=== PATIENT | male | born 1935 | race Caucasian/White ===

== ENCOUNTER 2019-03-09 09:49 | Outpatient (CLI) | payer MEDICARE, OTHER, SELFPAY ==
--- NOTE | 2019-03-09 09:53 | USCV_ITS ---
Jose Mcdonnell Age: 83 Gender: M : 1935 Exam Date: 03/09/2019 10:05 Ordering Phys: Forrest Ann MD ([email or web address]) Technologist: Loren Patel Exam Location: [facility] – [place] Indication: AAA HISTORY: Diameter (cm) AP x Transverse x Length Velocity (cm/s) Waveform Prox Aorta: 2.30 x 2.26 x 2.23 33.30 Mid Aorta: 2.50 x 2.42 x 2.49 34.70 Distal Aorta: 3.68 x 3.74 x 3.63 24.90 Right Iliac Prox: 1.06 x 1.14 x 54.80 Left Iliac Prox: 0.92 x 1.42 x 30.50 Stent Prox Landing x x Aneurysmal Sac Max x x Lt Lat Sac Dim Rt Lat Sac Dim Stent Dist Landing x x Right Iliac Stent x x Left Iliac Stent x x Right Renal Art Left Renal Art FINDINGS: Ectatic mid abdominal aorta Fusiform dilatation of the distal abdominal aorta CONCLUSIONS 1. Infrarenal, fusiform shaped abdominal aortic aneurysm, measuring 3.68 x 3.74 cm in diameter with no evidence of dissection 2. Ectatic mid abdominal aorta measuring 2.5 x 2.4 cm in diameter 3. Normal proximal aortic artery dimensions Compared to the study from 02/27/2018, there is no significant change in the aneurysm size. Dr Alec Arias MD [facility] (Electronically Signed) Final Date: 11 March 2019 18:25 S
== END 2019-03-09 09:50 | disposition home or self-care (01) ==
LOC: RAD 09:50
PROVIDERS: Family Provider Internal Medicine; Visit Provider Internal Medicine Cardiovascular Disease
DX: I71.4 Abdominal aortic aneurysm, without rupture (principal)
CPT/HCPCS: 93978

== ENCOUNTER → 2019-12-14 09:32 | Outpatient (BNVA) | payer MEDICARE, OTHER, SELFPAY | PROVIDERS: Family Provider Internal Medicine; PCP Registered Nurse; Referring Provider Registered Nurse; Visit Provider Urology | DX: N41.1 Chronic prostatitis (principal); R97.20 Elevated prostate specific antigen [PSA]; Z12.5 Encounter for screening for malignant neoplasm of prostate | CPT/HCPCS: 81003; G0103 ==

== ENCOUNTER 2020-02-28 07:24 | Outpatient (CLI) | payer MEDICARE, OTHER, SELFPAY ==
--- NOTE | 2020-02-28 08:00 | USCV_ITS ---
Jose Mcdonnell Age: 84 Gender: M : 1935 Exam Date: 02/28/2020 07:25 Ordering Phys: Abisai Saldana M.D ([email or web address]) Technologist: Rizwan Kolb [place] [facility] [place]: AAA HISTORY: AAA Diameter (cm) AP x Transverse x Length Velocity (cm/s) Waveform Prox Aorta: 1.54 x 1.79 x 60.00 Biphasic Mid Aorta: 2.83 x 3.10 x 55.50 Biphasic Distal Aorta: 3.41 x 3.84 x 38.40 Biphasic Right Iliac Prox: 1.22 x 1.09 x 105.70 Biphasic Left Iliac Prox: 1.29 x 1.13 x 120.60 Biphasic Stent Prox Landing x x Aneurysmal Sac Max x x Lt Lat Sac Dim Rt Lat Sac Dim Stent Dist Landing x x Right Iliac Stent x x Left Iliac Stent x x Right Renal Art Left Renal Art FINDINGS: All to moderate diffuse plaques in the abdominal aorta. The perirenal aorta appears to be dilated fusiform dilatation of the infrarenal aorta. Normal dimensions of the proximal common iliac arteries CONCLUSIONS 1. Fusiform aneurysms of the mid and distal abdominal aorta, measuring 2.83 x 3.1 proximally and 3.41 x 3.84 distally. 2. Mild to moderate diffuse plaques in the abdominal aorta. 3. Normal dimensions of the proximal common iliac arteries bilaterally. Compared to the study from 03/09/2019, there may not be a significant change Dr Alec Arias MD [facility] (Electronically Signed) Final Date: 29 February 2020 14:05 S
== END 2020-02-28 07:25 | disposition home or self-care (01) ==
LOC: RAD 07:27
PROVIDERS: Family Provider Internal Medicine; PCP Registered Nurse; Visit Provider Internal Medicine
DX: I71.4 Abdominal aortic aneurysm, without rupture (principal)
CPT/HCPCS: 93978

== ENCOUNTER → 2020-03-18 13:46 | Outpatient (BNVA) | payer MEDICARE, OTHER, SELFPAY | PROVIDERS: Family Provider Internal Medicine; PCP Registered Nurse; Visit Provider Urology | DX: R97.20 Elevated prostate specific antigen [PSA] (principal); N41.1 Chronic prostatitis; N40.1 Benign prostatic hyperplasia with lower urinary tract symptoms | CPT/HCPCS: 81003; 84153 ==

== ENCOUNTER → 2021-03-17 14:27 | Outpatient (BNVA) | payer MEDICARE, OTHER, SELFPAY | PROVIDERS: Family Provider Internal Medicine; PCP Registered Nurse; Visit Provider Nurse Practitioner Family | DX: N40.1 Benign prostatic hyperplasia with lower urinary tract symptoms (principal); R97.20 Elevated prostate specific antigen [PSA] | CPT/HCPCS: 81003; 84153 ==

== ENCOUNTER 2021-06-29 08:49 | Outpatient (CLI) | payer MEDICARE, OTHER, SELFPAY ==
--- NOTE | 2021-06-29 08:57 | USCV_ITS ---
Jose Mcdonnell Age: 85 Gender: M : 1935 Exam Date: 06/29/2021 09:06 Ordering Phys: Abisai Saldana M.D ([email or web address]) Technologist: Sandra Rsoario Exam Location: [facility] – [place] Indication: Known AAA HISTORY: Diameter (cm) AP x Transverse x Length Velocity (cm/s) Waveform Prox Aorta: 1.68 x 2.08 x 55.90 Mid Aorta: 2.13 x 2.58 x 61.50 Distal Aorta: 3.76 x 4.39 x 23.20 Right Iliac Prox: 1.44 x 1.62 x 102.60 Left Iliac Prox: 1.21 x 1.43 x 71.10 Stent Prox Landing x x Aneurysmal Sac Max x x Lt Lat Sac Dim Rt Lat Sac Dim Stent Dist Landing x x Right Iliac Stent x x Left Iliac Stent x x Right Renal Art Left Renal Art FINDINGS: Fusiform dilatation of the infrarenal aorta measuring 3.76 x 4.39 cm Organized circumferential thrombus in the aneurysm To moderate diffuse plaques in the proximal common iliac arteries Dimensions as mentioned above Near normal Doppler flow velocities in the aorta and iliac arteries CONCLUSIONS 1. Fusiform infrarenal abdominal aortic aneurysm measuring 3.76 x 4.39 cm with organized circumferential thrombus. 2. Mild to moderate plaques in the abdominal aorta 3. Ectatic proximal common iliac arteries with a mild to moderate diffuse plaque Compared to the study from 02/28/2020, there is slight increase in size of the aneurysm Dr Alec Arias MD [facility] (Electronically Signed) Final Date: 30 Jun 2021 09:36 S
--- NOTE | 2021-06-29 08:57 | USCV_ITS ---
Jose Mcdonnell Age: 85 Gender: M : 1935 Exam Date: 06/29/2021 09:22 Ordering Phys: Abisai Saldana M.D ([email or web address]) Technologist: Sandra Rosario Exam Location: [facility] – [place] Indication: Known AAA Risk Factors: Previous Vascular Surgery: RIGHT LEFT BP: 143.0 / 62.00 BP: 166.0/ 62.00 0 0 Waveform Velocity (cm/s) Velocity (cm/s) Waveform Biphasic 98.6 Iliac Prox 129.5 Biphasic Biphasic 110.3 Iliac Mid 113.6 Biphasic Biphasic 102.7 Iliac Distal 119.3 Biphasic Biphasic 59.6 SUPERVISOR CARDING 67.1 Biphasic Biphasic 54.7 SFA Prox 49.0 Biphasic Biphasic 59.6 SFA Mid 44.9 Biphasic Biphasic 131.5 SFA Dist 87.0 Biphasic Biphasic 55.9 POP 37.6 Biphasic THERAPEUTIC RADIOLOGIST 24.7 Monophasic Biphasic 31.9 DPA 36.6 Biphasic NAIMA 0.5 0.6 FINDINGS RT THERAPEUTIC RADIOLOGIST NO FLOW RT DPA 100 LT THERAPEUTIC RADIOLOGIST 70 LT DPA 70 Moderate diffuse plaques in the iliac and femoral artery on the right side. Moderately severe heterogeneous plaques in the left iliac and femoral arteries Abnormal resting NAIMA 0.6 on the right and 0.5 on the left CONCLUSIONS 1. Abnormal resting ABIs bilaterally suggesting moderately severe peripheral artery disease on the right side and severe peripheral artery disease on the left side.(NAIMA of 0.6 on the right and 0.5 on the left). 2. Possible total occlusion of the posterior tibial artery on the right side. No similar previous studies are available for comparison Dr Alec Arias MD [facility] (Electronically Signed) Final Date: 29 Jun 2021 21:20 S
== END 2021-06-29 08:50 | disposition home or self-care (01) ==
LOC: RAD 08:53
PROVIDERS: PCP Registered Nurse; Visit Provider Internal Medicine
DX: I71.4 Abdominal aortic aneurysm, without rupture (principal); I71.2 Thoracic aortic aneurysm, without rupture; M79.605 Pain in left leg; I77.811 Abdominal aortic ectasia
CPT/HCPCS: 93925; 93978

== ENCOUNTER 2021-07-08 06:51 | Outpatient (CLI) | payer MEDICARE, OTHER, SELFPAY ==
--- NOTE | 2021-07-08 06:59 | US_ITS ---
WS: [id number] ULTRASOUND SOFT TISSUES LEFT posterior neck. HISTORY: lt neck mass COMPARISON: None available. TECHNIQUE: 2-D and color Doppler imaging is submitted. No suspicious mass or increased vascularity identified. In the area of the palpable abnormality there is an elongated taper soft tissue which is very similar to the adjacent muscles. I favor this is pro bably a slip of muscle. This does not appear concerning. US/US soft tissue/extremity [id number] IMPRESSION: No concerning mass in the LEFT neck. Clinically if there is an area of concern then follow-up neck CT with IV contrast is recommended.
== END 2021-07-08 06:52 | disposition home or self-care (01) ==
LOC: RAD 06:53
PROVIDERS: PCP Registered Nurse; Visit Provider Nurse Practitioner Family
DX: R22.1 Localized swelling, mass and lump, neck (principal)
CPT/HCPCS: 76882

== ENCOUNTER → 2021-09-08 14:14 | Outpatient (BNVA) | payer MEDICARE, OTHER, SELFPAY | PROVIDERS: PCP Family Medicine; Visit Provider Internal Medicine | DX: Z53.9 Procedure and treatment not carried out, unspecified reason (principal) ==

== ENCOUNTER 2022-03-02 07:06 | Outpatient (CLI) | payer MEDICARE, OTHER, SELFPAY ==
--- NOTE | 2022-03-02 | USCV_ITS ---
Jose Mcdonnell Age: 86 Gender: M : 1935 Exam Date: 03/02/2022 07:32 Ordering Phys: Abisai Saldana M.D ([email or web address]) Technologist: RAYMON Exam Location: [facility] [place] Indication: AAA HISTORY: Abdominal aortic aneurysm. Diameter (cm) AP x Transverse x Length Velocity (cm/s) Waveform Prox Aorta: 1.60 x 1.68 x 59.20 Mid Aorta: 1.66 x 1.99 x 57.00 Distal Aorta: 3.70 x 4.14 x 6.03 29.20 Right Iliac Prox: 1.04 x 0.97 x 94.70 Left Iliac Prox: 1.18 x 1.53 x 152.50 Stent Prox Landing x x Aneurysmal Sac Max x x Lt Lat Sac Dim Rt Lat Sac Dim Stent Dist Landing x x Right Iliac Stent x x Left Iliac Stent x x Right Renal Art Left Renal Art FINDINGS: Comparison 06/29/21 CONCLUSIONS Fusiform AAA measures 3.7 x 4.1cm stable compared to previous. Moderate mural thrombus Stable slightly ectatic iliac arteries Timmy Menard MD (Electronically Signed) Final Date: 02 March 2022 10:46 S
== END 2022-03-02 07:07 | disposition home or self-care (01) ==
LOC: RAD 07:09
PROVIDERS: PCP Family Medicine; Visit Provider Internal Medicine
DX: I71.40 Abdominal aortic aneurysm, without rupture, unspecified (principal); I74.09 Other arterial embolism and thrombosis of abdominal aorta
CPT/HCPCS: 93978

== ENCOUNTER → 2022-03-10 14:08 | Outpatient (BNVA) | payer MEDICARE, OTHER, SELFPAY | PROVIDERS: PCP Family Medicine; Visit Provider Internal Medicine | DX: I10 Essential (primary) hypertension (principal); Z95.1 Presence of aortocoronary bypass graft; E78.01 Familial hypercholesterolemia; I25.10 Atherosclerotic heart disease of native coronary artery without angina pectoris; Z86.73 Personal history of transient ischemic attack (TIA), and cerebral infarction without residual deficits; Z87.891 Personal history of nicotine dependence; I71.40 Abdominal aortic aneurysm, without rupture, unspecified | CPT/HCPCS: 99214 ==

== ENCOUNTER → 2022-03-16 13:13 | Outpatient (BNVA) | payer MEDICARE, OTHER, SELFPAY | PROVIDERS: PCP Family Medicine; Visit Provider Urology | DX: N40.1 Benign prostatic hyperplasia with lower urinary tract symptoms (principal); N41.1 Chronic prostatitis; R97.20 Elevated prostate specific antigen [PSA] | CPT/HCPCS: 36415; 51798; 81003; 84153; 99213 ==

== ENCOUNTER 2022-07-05 10:58 | Inpatient (IN) | payer MEDICARE, OTHER, SELFPAY ==
[2022-07-02 16:59] VITALS: BMI 27.3
--- NOTE | 2022-07-02 17:08 | PC.NURSE ---
Pt added to surgery schedule late Tuesday afternoon. Dr. Troncoso called and verified with him that this pt did not need cardiac clearance prior to surgery due to his significant history. Relayed to him that the patient is also currently on Plavix. He instructed me to complete preop and speak with Dr. Bernardo office to clarify that the benefit is worth the risk. Dr. Bernardo office informed me that the patient was instructed this afternoon to hold Plavix until after surgery, they stated that the patient did not have 7 days to wait for surgery due to his airway compromise. When completing my telephone preop I emphasized and had the patients son verbalize understanding of the importance of holding the plavix and all asprin/NSAIDS until after the surgery.
[2022-07-05] VITALS (69 sets, daily range): BP systolic 128–196; BP diastolic 63–109; PULSE 60–127; RESP 11–30; TEMP 36.3–37.2; O2SAT 90–100; BMI 25.0
--- NOTE | 2022-07-05 08:20 | P.ANESASSM_ITS ---
Pre-Anesthetic Assessment Height/Weight: Height 1.7 m Weight 72.575 kg Temp Pulse Resp BP Pulse Ox O2 Del Method 98.1 F 63 18 149/65 98 Room Air 07/05/22 08:03 07/05/22 08:03 07/05/22 08:03 07/05/22 08:03 07/05/22 08:03 07/05/22 08:07 Operation Date: 07/05/22 09:20 Proposed Procedures p Trach and DL with biopsy [id number],R22.1(Not Applicable) - William Vega MD s Direct Laryngoscopy Direct Larynoscopy w/ Vocal Cord Biopsy(Not Applicable) - William Vega MD Familial anesthetic complications: None Was Beta Juan Miguel taken within 24 hours: Yes Was Clonidine taken within 24 hours: N/A Last intake: Intake Last Liquid Date 07/05/22 Last Liquid Time 17:00 Last Solid Date 07/04/22 Last Solid Time 17:00 Social No alcohol and No tobacco Exam alert, oriented x 3, clear to auscultation bilaterally and regular rate & rhythm Airway Mallampati: Class III Dentition: false Comments: Comments: airway mass undefined took plavix as recently as tuesday - surgeon aware of less than 7 days CV/HEM 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), Coronary Artery Disease (abg), Hypertension and Myocardial Infarction AAA Anesthetic Plan ASA status: 4 Anesthesia: General Risk of > 500 ml blood loss (7ml/kg in children): No Other Pertinent Information Airway mass Medications/Allergies Home Medications Medication Instructions Recorded Confirmed Last Taken Type allopurinol 300 mg tablet 300 mg PO QDAY 03/13/19 07/02/22 07/02/22 History atorvastatin 20 mg tablet 20 mg PO QDAY 03/13/19 07/02/22 07/02/22 History clopidogrel 75 mg tablet 75 mg PO QDAY 03/13/19 07/02/22 07/01/22 History gabapentin 300 mg capsule 300 mg PO TID 03/13/19 07/02/22 07/02/22 History melatonin 5 mg tablet 5 mg PO .HS 03/13/19 07/02/22 07/02/22 History metoprolol tartrate 25 mg tablet 25 mg PO DAILY 03/14/19 07/02/22 07/02/22 History nitroglycerin 0.4 mg sublingual 0.4 mg sublingual Q5M PRN Chest 03/14/19 07/02/22 Unknown History tablet (Nitrostat) Pain amlodipine 5 mg tablet 5 mg PO DAILY #90 tabs 10/08/21 07/02/22 07/02/22 Rx finasteride 5 mg tablet 5 mg PO DAILY #90 tabs 03/16/22 07/02/22 07/02/22 Rx Allergies Allergy/AdvReac Type Severity Reaction Status Date / Time acetaminophen [From Tylenol] Allergy Unknown ALGY-Rash Verified 07/02/22 16:53 amoxicillin Allergy Unknown ALGY-Rash Verified 07/02/22 16:53 Penicillins Allergy Unknown RASH Verified 07/02/22 16:53 [facility] Anesthesia Medical History AAA (abdominal aortic aneurysm) ASHD (arteriosclerotic heart disease) BPH loc w urin obs/LUTS Chronic prostatitis CVA (cerebral vascular accident) DJD (degenerative joint disease), lumbar Elevated PSA Essential hypertension Hyperlipidemia Myocardial infarction Palpitations Tobacco abuse, in remission Surgical History S/P CABG (coronary artery bypass graft) Family History Other CAD (coronary artery disease) Cancer Hypertension Social History Smoking and tobacco status: former smoker Alcohol intake: never Substance/Drug Use: never Household members: spouse Marital status: service: No Current occupational status: retired Previous occupational history: [employer] X [employer] YEARS Current gender identity: Male Radha/Yazidi: Restorationism Data Anesthesia Cardiac Studies: Cardiac Event Monitor 09/08/21
[2022-07-05 08:54] LABS: Hematocrit 39.9 % (42.0-52.0); Hemoglobin 13.1 g/dL (11.7-16.6); Mean Corpuscular HGB Conc 32.8 g/dL (30.0-36.0); Mean Corpuscular Volume 91.3 fl (80-94); Mean Platelet Volume 11.3 fL (7.4-10.4); Platelet Count 143 10^3/cmm (130-400); Red Blood Count 4.37 10^6/uL (4.1-5.3); Red Cell Distribution Width 13.7 % (12.1-15.1); White Blood Count 6.4 10^3/uL (4.0-10.0)
--- NOTE | 2022-07-05 09:10 | W.PM.OPSUD ---
Surgery/Procedure H&P Update DATE OF PROCEDURE: July 05, 2022 DATE H&P PERFORMED: 07/02/22 PRIMARY INDICATION FOR PROCEDURE: Threatened Airway Posterior hypopharyngeal mass PLANNED PROCEDURE: Operation Date: 07/05/22 09:20 Proposed Procedures p Trach and DL with biopsy [id number],R22.1(Not Applicable) - William Vega MD s Direct Laryngoscopy Direct Larynoscopy w/ Vocal Cord Biopsy(Not Applicable) - William Vega MD
[2022-07-05 09:13] LABS: Anion Gap 18.1 (5-19); Blood Urea Nitrogen 18 mg/dL (8-23); Calcium 9.2 mg/dL (8.5-10.5); Carbon Dioxide 22 mmol/L (22-29); Chloride 105 mmol/L (98-107); Glucose 90 mg/dL (65-115); Osmolality Calculated 293 mOsm/kg (285-295); Potassium 4.1 mmol/L (3.5-5.1); Sodium 141 mmol/L (136-145)
[2022-07-05] MEDS: clindamycin 600 MG/50 ML PREMIX 100 MG IV (09:20)
[2022-07-05 09:28] LABS: Absolute Neutrophil 5.6 10^3/cmm (1.4-6.5); Absolute Segmented Neutrophil 5.4 10/cmm (1.6-7.1); Band Neutrophils Absolute 0.3 10^3/cmm (0.0-1.2); Eosinophils 1 %; Lymphocytes 9 %; Lymphocytes Absolute 0.6 10^3/cmm (1.2-3.4); Monocytes Absolute 0.1 10^3/cmm (0.1-0.6); Platelet Estimate Normal (Normal); Segmented Neutrophils 84 %; Total Cells Counted 100 (0-100)
[2022-07-05] MEDS: lidocaine-epi 1% 20 mL INJ INJECTION (09:40)
[2022-07-05] MEDS: thrombin 5,000 unit SDV 5000 UNIT XX (10:05)
[2022-07-05] MEDS: lidocaine 2% INJ 20 mL INJECTION (10:30)
[2022-07-05] MEDS: EPINEPHrine 1 mg/mL INJ 2 MG XX (10:35)
[2022-07-05] MEDS: fluorescein 1 mg Strip XX (10:35)
--- NOTE | 2022-07-05 10:56 | PM.OP ---
Operative Report Date of procedure: July 05, 2022 Pre-op diagnosis: Right hypopharyngeal mass - partially obstructing the airway Post-op diagnosis: same Post-op findings: Exophytic mass of the posterior hypopharynx, more prominent on the right extending from the level of the uvula to the level of the post cricoid area O/W normal laryngeal exam Normal anterior neck exam Procedure done: Tracheotomy Microdirect laryngoscopy with biopsy Specimens removed/disposition: Posterior hypopharyngeal mass Pathology: Right posterior hypopharyngeal mass Surgeon: William Vega Conference Planning Manager: Arpan House Anesthesia: General Estimated blood loss (mL): 10 IV fluids (mL): 600 Complications: None Findings: Exophytic, partially obstructing mass of the hypopharynx, more prominent on the right extending from the level of the uvula to the level of the post cricoid area O/W Normal laryngeal exam Normal anterior neck exam Condition: stable Disposition: ICU Brief History: 86 yo wm with a partially obstructing right hypopharyngeal mass who desires surgical therapy/evaluation and biopsy. Procedure: The patient was identified in the preoperative holding area and was taken to the operating where he was placed on the operating table in the supine position. An incision was marked out on the anterior neck and was injected with local anesthesia. The patient received intravenous sedation and was prepped and draped in usual sterile fashion. The neck incision was made with a 15 blade and was carried down through the subcutaneous tissues until the trachea and larynx and cricoid cartilage were identified both to palpation and visually. 2% lidocaine plain was injected transtrachealy and a trach hook was inserted under the cricoid cartilage. The cricoid cartilage was then elevated into the neck and the third tracheal ring was identified. The anterior portion of the third tracheal ring was removed with an 11 blade and scissors. Once the tracheotomy had been performed, a #8 trach tube was placed in the wound and the cuff was inflated. At this point general anesthesia was obtained and the tracheotomy tube was secured to the neck. Thrombin-soaked Gelfoam was placed in the wound. At this point the table was turned 90 degrees to the patient's left and a moist Ray-Stephanie was placed on the patient's maxillary gingiva. A surgical laryngoscope was advanced down the right oral cavity gutter under direct vision until the mass in the posterior oropharynx was identified and video documented. Once this inspection was complete and biopsies were taken and hemostasis was achieved a combination of suction cautery and Enedina were used to achieve hemostasis. At this point the procedure was terminated and control of the patient was returned to anesthesia where he underwent an uneventful reversal of anesthesia and and was taken to the intensive care unit in stable condition. There were no operative or anesthetic complications
[2022-07-05] MEDS: morphine 4 mg/mL SDV 1 mL 2 MG IVP ×3 (11:30→21:33)
[2022-07-05] MEDS: gabapentin 300 mg Capsule PO ×2 (15:12→21:14)
--- NOTE | 2022-07-05 15:26 | ANE.PACU2 ---
Inpatient post-anesthesia follow up: Airway intact: Yes Vital signs: Temperature 97.4 F Pulse Rate 70 Respiratory Rate 12 Blood Pressure 144/79 Pulse Oximetry 100 Oxygen Delivery Me thod Room Air Oxygen Flow Rate Fraction of Inspir ed Oxygen 40 Hydration adequate: Yes Nausea and vomiting: No Pain level: 1 Mental status: Baseline
--- NOTE | 2022-07-05 18:01 | P.PN_ITS ---
Subjective Subjective: 86 yo wm who is night of surgery s/p tracheotomy and direct laryngoscopy with biopsy. The patient c/o cough, but is o/w without c/o. Medications: Reviewed: Yes Vitals/I&O/Wt Last Vital Signs Temp 97.4 F L 07/05/22 11:05 Pulse 77 07/05/22 17:12 Resp 18 07/05/22 17:12 BP 144/79 07/05/22 12:20 Pulse Ox 97 07/05/22 17:13 O2 Del Method HAG 07/05/22 17:13 O2 Flow Rate 8 07/05/22 17:13 FiO2 28 07/05/22 17:13 07/05/22 07/05/22 07/05/22 06:59 14:59 22:59 Intake Total 50 / 50 Output Total 200 / 200 Balance 50 / 50 -200 / -150 Weight last 48 hrs Weight 72.575 kg Weight 72.575 kg Physical Exam Const: COMMON NORMALS: no acute distress, patient oriented x3 and alert GENERAL APPEARANCE: cooperative and well developed HENMT: COMMON NORMALS: normocephalic, atraumatic, external ears normal and Normal external nose present HEAD & SCALP: normocephalic and atraumatic FACE & SINUS: normal facial exam NOSE: Normal external nose present EXTERNAL EAR: Yes external ears normal Eye: COMMON NORMALS: EOMs intact bilaterally, conjunctivae normal and no scleral icterus CONJUNCTIVA: Yes conjunctivae normal Neck/C-Spine: COMMON NORMALS: no lymphadenopathy and supple GENERAL: Yes trachea midline and Yes tracheostomy present Lymph: LYMPHATIC: no lymphadenopathy noted Chest: COMMONS NORMALS: normal inspection of the chest Resp: COMMON NORMALS: normal respiratory effort, No retractions, No use of accessory muscles and clear to auscultation bilaterally AUSCULTATION: clear to auscultation bilaterally Cardio: COMMON NORMALS: regular rate, regular rhythm and No murmurs present (Cardio) RATE: regular rate RHYTHM: regular rhythm Neuro: COMMON NORMALS: patient oriented x3 SENSORIUM/ORIENTATION: Yes alert Data 07/05/22 08:35 07/05/22 08:35 A&P Assessment and plan (1) Pharynx cancer: Impression: 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 Plan: - Will schedule the patient for PET scan, and consults for Radiation, Surgical, and Heme Oncology after discharge (2) Airway compromise: Impression: Night of surgery s/p tracheotomy doing well Plan: - Trach care - CXR in the am - Discharge planning - Will d/c to home after the first trach change (POD 5-7) once D/C planning complete - The patient will need daily home health visits for two weeks, a home suction unit, trach supplies, and Humidified air by [facility] for home care Attestations Medical Necessity Statement*: The patient requires inpatient care until after first trach change and home he alth/d/c planning complete Coding Level of Care Code Acute Code for Chg Fwd Diagnoses Pharynx cancer C14.0 Airway compromise J98.8
[2022-07-05] MEDS: diphenhydrAMINE 50 mg/mL SDV 1mL 12.5 MG IVP (18:17)
[2022-07-05] MEDS: lactated ringers 1,000 ML 125 ML IV (19:22)
--- NOTE | 2022-07-05 20:40 | PC.NURSE ---
Urine output At approximately 2000, patient states he feels like he needs to urinate but unable to do so. Bladder scan performed revealing 354 ml of urine remaining in the bladder. Patient then attempted to urinate following bladder scan and was able to urinate 300 mls.
[2022-07-05] MEDS: famotidine 20 mg/2 mL INJ IVP (20:44)
[2022-07-05] MEDS: docusate sodium 100 mg Capsule PO (20:44)
[2022-07-05] MEDS: atorvastatin 40 mg Tablet 20 MG PO (21:14)
[2022-07-06] VITALS (102 sets, daily range): BP systolic 68–176; BP diastolic 54–149; PULSE 66–109; RESP 11–26; TEMP 36.9–37.3; O2SAT 84–100
[2022-07-06] MEDS: morphine 4 mg/mL SDV 1 mL 2 MG IVP ×4 (00:21→20:45)
[2022-07-06] MEDS: lactated ringers 1,000 ML 125 ML IV ×3 (03:40→20:09)
--- NOTE | 2022-07-06 04:00 | XRR_ITS ---
PROCEDURE INFORMATION: Exam: XR Chest Exam date and time: 07/06/2022 5:03 AM Age: 86 years old Clinical indication: Device placement; Tracheostomy placement or adjustment; Prior surgery; Surgery date: Post-operative (0-2 days); Surgery type: S/P tracheostomy. , Cabg; Additional info: Follow up TECHNIQUE: Imaging protocol: Radiologic exam of the chest. Views: 1 view. Total images: 2 COMPARISON: CR XR ribs RT 2V* [id number] 10/12/2017 2:13 PM FINDINGS: Tubes, catheters and devices: Tracheostomy tube in satisfactory location. Lungs: Nonspecific mild left lung base opacity favors atelectasis or pneumonia. Pleural spaces: Unremarkable. No pleural effusion. No pneumothorax. Heart/Mediastinum: Prior coronary artery bypass grafting. Bones/joints: Multiple broken sternotomy wires similar to prior exam. XR/XR chest 1V portable [id number] IMPRESSION: 1. Tracheostomy tube in satisfactory location. 2. Nonspecific mild left lung base opacity favors atelectasis or pneumonia.
--- NOTE | 2022-07-06 05:00 | PM.PN ---
Subjective Subjective: 86 yo wm who is POD #1 s/p tracheotomy with direct laryngoscopy with biopsy for a partially obstructing right posterior hypopharyngeal squamous cell carcinoma. The patient is doing well this morning. The patient has no c/o. Medications: Reviewed: Yes Vitals/I&O/Wt Last Vital Signs Temp 98.9 F 07/05/22 20:00 Pulse 90 07/05/22 23:15 Resp 24 H 07/06/22 03:32 BP 162/71 07/05/22 23:15 Pulse Ox 92 07/06/22 03:32 O2 Del Method Trach Collar 07/05/22 20:00 O2 Flow Rate 8 07/05/22 20:00 FiO2 28 07/05/22 20:00 07/05/22 07/05/22 07/06/22 14:59 22:59 06:59 Intake Total 50 / 50 1000 / 1050 Output Total 500 / 500 Balance 50 / 50 -500 / -450 1000 / 550 Weight last 48 hrs Weight 72.575 kg Weight 72.575 kg Physical Exam Const: COMMON NORMALS: no acute distress, patient oriented x3 and alert HENMT: COMMON NORMALS: normocephalic, atraumatic, external ears normal and Normal external nose present HEAD & SCALP: normocephalic and atraumatic FACE & SINUS: normal facial exam and face symmetric NOSE: Normal external nose present EXTERNAL EAR: Yes external ears normal MOUTH: lip normal Eye: COMMON NORMALS: EOMs intact bilaterally, conjunctivae normal and no scleral icterus CONJUNCTIVA: Yes conjunctivae normal Neck/C-Spine: COMMON NORMALS: full ROM and no lymphadenopathy GENERAL: Yes trachea midline and Yes other (tracheotomy without d/c or erythema) Lymph: LYMPHATIC: no lymphadenopathy noted Chest: COMMONS NORMALS: normal inspection of the chest and normal palpation of entire chest wall Resp: COMMON NORMALS: normal respiratory effort, No retractions and clear to auscultation bilaterally AUSCULTATION: clear to auscultation bilaterally Cardio: COMMON NORMALS: regular rate, regular rhythm and No murmurs present (Cardio) RATE: regular rate RHYTHM: regular rhythm GI: COMMON NORMALS: Normal to inspection, nondistended, normoactive bowel sounds present Extremity: COMMON NORMALS: normal to inspection Neuro: COMMON NORMALS: patient oriented x3 SENSORIUM/ORIENTATION: Yes alert Data 07/05/22 08:35 07/05/22 08:35 A&P Assessment and plan (1) Airway compromise: Impression: POD #1 s/p tracheotomy doing well from this standpoint Plan: - Continue trach care - CXR this morning - pending - I will change the trach on POD 5-7 - Educate family in trach care - The patient will be discharged to home care once the trach is stable (2) Pharynx cancer: Impression: Posterior pharyngeal SCCA Plan: - We will have the patient's CT scan pushed to the [facility] system for review - Will consult Rad Onc, Heme Onc, and Surgical Oncology after discharge - Will schedule a PET scan after d/c - Regular diet Attestations Medical Necessity Statement*: The patient requires inpatient care until the trach is stable (POD 5-7) Coding Level of Care Code Acute Code for Chg Fwd Diagnoses Airway compromise J98.8 Pharynx cancer C14.0
[2022-07-06] MEDS: ipratropium-albuterol 3 mL Neb INHALATION (08:45)
[2022-07-06] MEDS: metoprolol succinate ER (24 HR) 25 mg Tablet 12.5 MG PO (09:07)
[2022-07-06] MEDS: clopidogrel 75 mg Tablet PO (09:07)
[2022-07-06] MEDS: allopurinol 300 mg Tablet PO (09:07)
[2022-07-06] MEDS: gabapentin 300 mg Capsule PO (09:07)
[2022-07-06] MEDS: finasteride 5 mg Tablet PO (09:07)
[2022-07-06] MEDS: docusate sodium 100 mg Capsule PO (09:08)
[2022-07-06] MEDS: amlodipine 5 mg Tablet PO (09:08)
--- NOTE | 2022-07-06 09:10 | PC.NURSE ---
Am medications crushed and administered in applesauce at patient's request. Pt started coughing, Oral suctioning done ( Arnaldo at bedside within his reach). Pt did not get full doses this am due to this.
[2022-07-06] MEDS: famotidine 20 mg/2 mL INJ IVP ×2 (09:21→20:07)
--- NOTE | 2022-07-06 16:58 | P.HP_ITS ---
Providers/Chief Complaint Admitting Physician: William Vega MD Primary Care Provider: Heather Hodges DO Chief Complaint: Something is in my throat History of Present Illness Jose Mcdonnell is a 86 year old male with a 2 month h/o a sensation that 'something is in my throat.' The patient reports muffled speech over the past 1-2 weeks. He is concerned, and desires evaluation and treatment. The patient reports the he is able to eat, and has not lost any weight. He has a h/o tobacco use, but quit over 20 years ago. The patient denies any noted neck masses, odynophagia, or other related symptoms. The patient desribes his symptoms as moderately severe. Review of Systems General: Reports: 10 or more systems reviewed and unremarkable except in HPI and below Medications/Allergies Home Medications Medication Instructions Recorded Confirmed Last Taken Type allopurinol 300 mg tablet 300 mg PO QDAY 03/13/19 07/02/22 07/02/22 History atorvastatin 20 mg tablet 20 mg PO QDAY 03/13/19 07/02/22 07/02/22 History clopidogrel 75 mg tablet 75 mg PO QDAY 03/13/19 07/02/22 07/01/22 History gabapentin 300 mg capsule 300 mg PO TID 03/13/19 07/02/22 07/02/22 History melatonin 5 mg tablet 5 mg PO .HS 03/13/19 07/02/22 07/02/22 History metoprolol tartrate 25 mg tablet 25 mg PO DAILY 03/14/19 07/02/22 07/02/22 Histo ry nitroglycerin 0.4 mg sublingual 0.4 mg sublingual Q5M PRN Chest 03/14/19 07/02/22 Unknown History tablet (Nitrostat) Pain amlodipine 5 mg tablet 5 mg PO DAILY #90 tabs 10/08/21 07/02/22 07/02/22 Rx finasteride 5 mg tablet 5 mg PO DAILY #90 tabs 03/16/22 07/02/22 07/02/22 Rx Allergies Allergy/AdvReac Type Severity Reaction Status Date / Time acetaminophen [From Tylenol] Allergy Unknown ALGY-Rash Verified 07/02/22 16:53 amoxicillin Allergy Unknown ALGY-Rash Verified 07/02/22 16:53 Penicillins Allergy Unknown RASH Verified 07/02/22 16:53 PFSH Acute PFSH: Medical History AAA (abdominal aortic aneurysm) ASHD (arteriosclerotic heart disease) BPH loc w urin obs/LUTS Chronic prostatitis CVA (cerebral vascular accident) DJD (degenerative joint disease), lumbar Elevated PSA Essential hypertension Hyperlipidemia Myocardial infarction Palpitations Tobacco abuse, in remission Surgical History S/P CABG (coronary artery bypass graft) Family History Other CAD (coronary artery disease) Cancer Hypertension Social History Smoking and tobacco status: former smoker Alcohol intake: never Substance/Drug Use: never Household members: spouse Marital status: service: No Current occupational status: retired 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 Current gender identity: Male Radha/Catholic: Worship Vitals/I&O/Wt Last Vital Signs Temp 99 F 07/06/22 04:00 Pulse 90 07/06/22 15:35 Resp 23 H 07/06/22 14:00 BP 169/99 07/06/22 14:00 Pulse Ox 92 07/06/22 14:00 O2 Del Method HAG 07/06/22 12:15 O2 Flow Rate 10 07/06/22 08:46 FiO2 35 07/06/22 08:46 07/06/22 07/06/22 07/06/22 06:59 14:59 22:59 Intake Total 1000 / 1050 1020 / 1020 Output Total 200 / 700 275 / 275 Balance 800 / 350 745 / 745 Weight last 48 hrs Weight 72.575 kg Weight 72.575 kg Physical Exam Const: COMMON NORMALS: no acute distress, average body habitus, patient oriented x3, alert and well nourished HENMT: COMMON NORMALS: normocephalic, atraumatic, external ears normal, Normal external nose present and Normal nasal mucous membranes and turbinates present HEAD & SCALP: normal to inspection and atraumatic FACE & SINUS: normal facial exam NOSE: Normal external nose present MOUTH: Normal oral and p alatal mucosa present, lip normal, tongue normal and other (There is a mass of the right posterior hypopharynx visible. ) THROAT: posterior oropharynx abnormal (There is a mass visible on the right. ) Eye: COMMON NORMALS: EOMs intact bilaterally, conjunctivae normal and no scleral icterus Neck/C-Spine: COMMON NORMALS: full ROM, no lymphadenopathy and Thyroid normal GENERAL: Yes trachea midline Lymph: LYMPHATIC: no lymphadenopathy noted Chest: COMMONS NORMALS: normal inspection of the chest Resp: COMMON NORMALS: normal respiratory effort, No retractions, No use of accessory muscles and clear to auscultation bilaterally Cardio: COMMON NORMALS: regular rate, regular rhythm and No murmurs present (Cardio) GI: COMMON NORMALS: Normal to inspection, nondistended, normoactive bowel sounds present Extremity: COMMON NORMALS: normal to inspection Neuro: COMMON NORMALS: CN's II-XII intact bilaterally, moves all extremities and no focal motor deficits SENSORIUM/ORIENTATION: Yes alert, Yes oriented to person, Yes oriented to place and Yes oriented to time Data 07/05/22 08:35 07/05/22 08:35 A&P Assessment and plan (1) Airway compromise: Impression: Right posterior pharyngeal mass with a threatened airway Plan: - Admit to inpatient status - Surgical tracheotomy with direct laryngoscopy to secure the patient's airway and determine the pathology of the right posterior pharyngeal mass (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 Coding Level of Care Code Acute Code for [facility] Fwd Diagnoses Airway compromise J98.8 Pharynx cancer C14.0
--- NOTE | 2022-07-06 19:25 | PC.NURSE ---
1230: attempted to call Dr Bal about pt having VT after suctioning and request Speech therapy due to aspiration during med pass this am. Message left. 1840: Called Dr bal's office left message out the swallowing issue and the VT. 1850: Dr Hernandez's staff, Marium returned call. Ok to order speech therapy. 1900: Dr Bal returned call discussed the Vt and the swallowing issues. Ok for Speech therapy.
--- NOTE | 2022-07-06 19:30 | PC.NURSE ---
Addendum entered by Niki Linares RN 07/07/22 19:54: He has had several runs of VT, 9/10 beats on the longest. Many of these occurred during his using the [employer]. Original Note: Shift summary: Pt rested in bed most of the shift, He would sit on side of bed frequently. He uses the [place] orally without difficulty. He is on trach collar at 355, he is tolerating trach and trach care well. He was unable to swallow meds this am and has refused any further oral medication or food attempts today. VSS . Pt afebrile. He received Morphine once in the am, it seemed to help him relax and rest. He has denied further pain or need for pain med. He has had 500 ml of urinary output.
[2022-07-07] VITALS (48 sets, daily range): BP systolic 106–164; BP diastolic 45–117; PULSE 69–106; RESP 10–25; TEMP 36.7–37.1; O2SAT 90–100
[2022-07-07] MEDS: lactated ringers 1,000 ML 125 ML IV (04:30)
--- NOTE | 2022-07-07 04:38 | PM.PN ---
Subjective Subjective: 86 yo wm with a h/o SCCA of the right posterior hypopharynx who is POD #2 s/p tracheotomy and direct laryngoscopy with biopsy. The patient was confused last night and is having some difficulty swallowing, but is o/w doing well. Medications: Reviewed: Yes Vitals/I&O/Wt Last Vital Signs Temp 98.2 F 07/07/22 04:00 Pulse 71 07/07/22 04:00 Resp 19 H 07/07/22 04:00 BP 145/70 07/07/22 04:00 Pulse Ox 96 07/07/22 04:00 O2 Del Method HAG 07/06/22 19:42 O2 Flow Rate 10 07/06/22 19:42 FiO2 30 07/07/22 04:00 07/06/22 07/06/22 07/07/22 14:59 22:59 06:59 Intake Total 1020 / 1020 1000 / 2020 1000 / 3020 Output Total 275 / 275 650 / 925 Balance 745 / 745 350 / 1095 1000 / 2095 Weight last 48 hrs Weight 72.575 kg Weight 72.575 kg Physical Exam Const: COMMON NORMALS: no acute distress and patient oriented x3 HENMT: COMMON NORMALS: normocephalic, atraumatic and Normal external nose present HEAD & SCALP: normocephalic and atraumatic FACE & SINUS: normal facial exam NOSE: Normal external nose present Eye: COMMON NORMALS: Equal, round and reactive pupils present, EOMs intact bilaterally, conjunctivae normal and no scleral icterus CONJUNCTIVA: Yes conjunctivae normal PUPIL: Yes Equal, round and reactive pupils present Neck/C-Spine: COMMON NORMALS: full ROM, no lymphadenopathy and supple Lymph: LYMPHATIC: no lymphadenopathy noted Chest: COMMONS NORMALS: normal inspection of the chest Resp: COMMON NORMALS: normal respiratory effort, No retractions and clear to auscultation bilaterally AUSCULTATION: clear to auscultation bilaterally Cardio: COMMON NORMALS: regular rate, regular rhythm and No murmurs present (Cardio) RATE: regular rate RHYTHM: regular rhythm Extremity: COMMON NORMALS: normal to inspection Neuro: COMMON NORMALS: patient oriented x3 and CN's II-XII intact bilaterally Data 07/05/22 08:35 07/05/22 08:35 A&P Assessment and plan (1) Airway compromise: Impression: POD #2 s/p tracheotomy doing well from this standpoint Plan: - Continued trach care - First trach change on POD 5-7 - Discharge planning (2) Pharynx cancer: Impression: Stable Plan: - W/U and treatment after discharge: arranging PET scan, Neck MRI, Heme Onc, Med Onc, and Surgical Onc consults pending (3) Essential hypertension: Impression: Stable Plan: Continue current care (4) ASHD (arteriosclerotic heart disease): Impression: PVCs noted Plan: - Hospitalist consult for management of medical Attestations Medical Necessity Statement*: The patient requires inpatient care until airway stable and medically stable. Coding Level of Care Code Acute Code for [facility] Diagnoses Airway compromise J98.8 Pharynx cancer C14.0 Essential hypertension I10 ASHD (arteriosclerotic heart disease) I25.10
--- NOTE | 2022-07-07 04:46 | ECG_ITS ---
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 Measurements Intervals [place] Rate: 75 P: 61 HI: 233 QRS: 79 QRSD: 115 T: -66 QT: 390 QTc: 438 Interpretive Statements SINUS RHYTHM WITH SINUS ARRHYTHMIA WITH FIRST DEGREE AV BLOCK SEPTAL MYOCARDIAL INFARCTION , OF INDETERMINATE AGE [40+ ms Q WAVE IN V1/V2] MODERATE T-WAVE ABNORMALITY, CONSIDER LATERAL ISCHEMIA [-0.1+ mV T-WAVE IN I/aVL/V5/V6] MODERATE T-WAVE ABNORMALITY, CONSIDER INFERIOR ISCHEMIA [-0.1+ mV T-WAVE IN II/aVF] Compared to ECG 08/25/2017 11:54:06 T-wave abnormality now present Possible ischemia now present Myocardial infarct finding still present Electronically Signed On 07-07-2022 17:59:40 CDT by Abisai Saldana M.D. [email or web address]
--- NOTE | 2022-07-07 05:29 | PC.NURSE ---
Unable to get Dr. Lockhart on the phone, so Voalte message was sent to notify her that the patient has become extremely agitated and physically aggressive. Security at bedside. turf and grounds supervisor on unit.
[2022-07-07] MEDS: haloperidol inj 5 mg/mL INJ 1 mL IM ×2 (05:45→20:00)
[2022-07-07 06:08] LABS: Basophils % 0.2 %; Eosinophils % 0.3 %; Hematocrit 36.5 % (42.0-52.0); Hemoglobin 11.9 g/dL (11.7-16.6); Lymphocytes # 0.3 10^3/uL (0.8-4.8); Lymphocytes % 4.8 %; Mean Corpuscular HGB Conc 32.6 g/dL (30.0-36.0); Mean Corpuscular Hemoglobin 29.4 pg (28.0-34.0); Mean Corpuscular Volume 90.1 fl (80-94); Monocytes # 0.6 10^3/uL (0.2-0.9); Monocytes % 8.9 %; Neutrophils # 5.56 10^3/uL (1.8-7.7); Neutrophils % 85.6 %; Nucleated Red Blood Cells % 0 %; Platelet Count 137 10^3/cmm (130-400); Red Blood Count 4.05 10^6/uL (4.1-5.3); Red Cell Distribution Width 13.6 % (12.1-15.1); White Blood Count 6.5 10^3/uL (4.0-10.0)
[2022-07-07 06:36] LABS: Alanine Aminotransferase 12 U/L (0-41); Albumin Level 3.5 g/dL (3.5-5.2); Alkaline Phosphatase 84 U/L (40-130); Anion Gap 15.4 (5-19); Aspartate Amino Transferase 49 U/L (0-40); Carbon Dioxide 24 mmol/L (22-29); Chloride 102 mmol/L (98-107); Globulin 2.9 g/dL (1.3-4.6); Glucose 96 mg/dL (65-115); Potassium 3.4 mmol/L (3.5-5.1); Sodium 138 mmol/L (136-145); Total Bilirubin 1.1 mg/dL (0.15-1.2); Total Protein 6.4 g/dL (6.6-8.7)
[2022-07-07 06:59] LABS: Blood Urea Nitrogen 12 mg/dL (8-23); Calcium 8.8 mg/dL (8.5-10.5); Creatinine Clr Calc Pharmacy 58.3017; Osmolality Calculated 286 mOsm/kg (285-295)
--- NOTE | 2022-07-07 07:34 | P.CONIM_ITS ---
Providers/Reason For Consult Consulting Physician/Specialty*: Chris Duckworth MD, hospitalist Reason for Consult*: Nonsustained ventricular tachycardia, delirium Requesting Physician: Dr. Ward Attending Physician: William Vega MD Primary Care Provider: Heather Hodges DO History of Present Illness History of Present Illness Jose Mcdonnell is a 86 year old male who underwent tracheostomy for compromised airway secondary to posterior pharyngeal mass on July 05. From my understanding he had quite a bit of confusion last night necessitating a dose of Haldol. From this he seems better this morning. Since the surgery he has had quite a bit of PVCs, and some nonsustained ventricular tachycardia runs of approximately 11 beats. He has past history of this as well, with a previous event monitor in August 2021 demonstrating nonsustained ventricular tachycardia of 13 beats. Currently he reports he is not in any pain. Nurses relate that he has been under tremendous amount of stress lately, and has not been getting sleep. Patient denies any chest pain, or shortness of breath. History difficult currently as patient received Haldol recently, and recent tracheostomy. I did visit with his daughter for further history. Review of Systems General: Reports: 10 or more systems reviewed and unremarkable except in HPI and below Card: Denies: chest pain Resp: Denies: dyspnea Medications/Allergies Home Medications Medication Instructions Recorded Confirmed Last Taken Type allopurinol 300 mg tablet 300 mg PO QDAY 03/13/19 07/02/22 07/02/22 History atorvastatin 20 mg tablet 20 mg PO QDAY 03/13/19 07/02/22 07/02/22 History clopidogrel 75 mg tablet 75 mg PO QDAY 03/13/19 07/02/22 07/01/22 History gabapentin 300 mg capsule 300 mg PO TID 03/13/19 07/02/22 07/02/22 History melatonin 5 mg tablet 5 mg PO .HS 03/13/19 07/02/22 07/02/22 History metoprolol tartrate 25 mg tablet 25 mg PO DAILY 03/14/19 07/02/22 07/02/22 History nitroglycerin 0.4 mg sublingual 0.4 mg sublingual Q5M PRN Chest 03/14/19 07/02/22 Unknown History tablet (Nitrostat) Pain amlodipine 5 mg tablet 5 mg PO DAILY #90 tabs 10/08/21 07/02/22 07/02/22 Rx finasteride 5 mg tablet 5 mg PO DAILY #90 tabs 03/16/22 07/02/22 07/02/22 Rx Allergies Allergy/AdvReac Type Severity Reaction Status Date / Time acetaminophen [From Tylenol] Allergy Unknown ALGY-Rash Verified 07/02/22 16:53 amoxicillin Allergy Unknown ALGY-Rash Verified 07/02/22 16:53 Penicillins Allergy Unknown RASH Verified 07/02/22 16:53 Current Medications Generic Name Dose Route Start Last Admin Trade Name Freq PRN Reason Stop Dose Admin Albuterol/Ipratropium 3 ml 07/05/22 17:15 07/06/22 08:45 Ipratropium-Albuterol 3 Ml Neb INHALATION 3 ml Q4H PRN Administration SHORTNESS OF BREATH Allopurinol 300 mg 07/06/22 09:00 07/06/22 09:07 Allopurinol 300 Mg Tablet PO 300 mg DAILY LIANE Administration Amlodipine Besylate 5 mg 07/06/22 09:00 07/06/22 09:08 Amlodipine 5 Mg Tablet PO 5 mg DAILY LIANE Administration Atorvastatin Calcium 20 mg 07/05/22 21:00 07/06/22 20:12 Atorvastatin 40 Mg Tablet PO Not Given BEDTIME LIANE Clopidogrel Bisulfate 75 mg 07/06/22 09:00 07/06/22 09:07 Clopidogrel 75 Mg Tablet PO 75 mg DAILY LIANE Administration Diphenhydramine HCl 12.5 mg 07/05/22 11:20 07/05/22 18:17 Diphenhydramine 50 Mg/Ml Sdv 1ml IVP 12.5 mg Q6H PRN Administration ITCHING Docusate Sodium 100 mg 07/05/22 18:00 07/06/22 17:34 Docusate Sodium 100 Mg Capsule PO Not Given BID LIANE Famotidine 20 mg 07/05/22 18:00 07/06/22 20:07 Famotidine 20 Mg/2 Ml Inj IVP 20 mg Q12H LIANE Administration Finasteride 5 mg 07/06/22 09:00 07/06/22 09:07 Finasteride 5 Mg Tablet PO 5 mg DAILY LIANE Administration Gabapentin 300 mg 07/05/22 15:00 07/06/22 20:13 Gabapentin 300 Mg Capsule PO Not Given TID LIANE Haloperidol Lactate 0.5 mg 07/07/22 05:39 07/07/22 05:45 Haloperidol Inj 5 Mg/Ml Inj 1 Ml IM 0.5 mg ONCE PRN Administration AGITATION Lactated Ringer's 1,000 mls @ 125 mls/hr 07/05/22 11:20 07/07/22 04:30 Lactated Ringers IV 125 mls/hr .Q8H LIANE Administration Morphine Sulfate 2 mg 07/05/22 11:20 07/06/22 20:45 Morphine 4 Mg/Ml Sdv 1 Ml IVP 2 mg Q1H PRN Administration SEVERE PAIN PFSH Acute PFSH: Medical History AAA (abdominal aortic aneurysm) ASHD (arteriosclerotic heart disease) BPH loc w urin obs/LUTS Chronic prostatitis CVA (cerebral vascular accident) DJD (degenerative joint disease), lumbar Elevated PSA Essential hypertension Hyperlipidemia Myocardial infarction Palpitations Tobacco abuse, in remission Surgical History S/P CABG (coronary artery bypass graft) Family History Other CAD (coronary artery disease) Cancer Hypertension Social History Smoking and tobacco status: former smoker Alcohol intake: never Substance/Drug Use: never Household members: spouse Marital status: service: No Current occupational status: retired 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 Telemetry reviewed and is as listed above HEENT: Atraumatic and normocephalic. Neck: Tracheostomy noted Cardiovascular regular rate and rhythm, heart sounds distant Lungs clear but with diminished breath sounds bilaterally Abdomen is soft. Positive bowel sounds Extremities no cyanosis clubbing or edema Skin no rash Neuro no focal deficits Data 07/07/22 05:53 07/07/22 05:53 Other Labs: LFTs are normal with the exception of AST of 49. I have ordered a magnesium and TSH. Chest x-ray which I reviewed demonstrates tracheostomy, previous bypass surgery, atelectasis at the bases EKG which I reviewed demonstrates sinus rhythm, first-degree AV block, nons pecific ST-T wave changes with flipped T waves noted inferiorly. Intraventricular conduction delay. Previous EKG years ago is similar but shows multiple PVCs, bigeminy. A&P Assessment and plan (1) Delirium: Delirium is likely expected given his age, recent stresses, surgery. We will discontinue Benadryl as this could exacerbate delirium Morphine could also potentially cause confusion, but he may still need this for pain Haldol was given x1. He seems alert and oriented currently. Continue to follow. No reason for CT head currently. (2) Nonsustained ventricular tachycardia: This does not appear to be a new problem for the patient. He was found to have hypokalemia on his labs this morning. Secondary to his nonsustained ventricular tachycardia we will supplement this IV. Reduce fluids slightly Check magnesium and TSH level Increase metoprolol to 12.5 mg twice daily Continue to monitor on telemetry and repeat laboratory including BMP and magnesium tomorrow Check echocardiogram (3) ASHD (arteriosclerotic heart disease): Continue statin, beta-tiffanie, Plavix Plan Status post surgery for posterior pharyngeal mass Thank you for this consultation Diagnoses Delirium R41.0 Nonsustained ventricular tachycardia I47.29 ASHD (arteriosclerotic heart disease) I25.10 Time Spent (min) 52
--- NOTE | 2022-07-07 07:35 | USCV_ITS ---
Jose Mcdonnell Age: 86 Gender: M : 1935 Exam Date: 07/07/2022 15:59 Ordering Phys: Chris Duckworth MD Technologist: CT Exam Location: [facility] [place] Indication: arrythmia BP: 133 / 60 HR: 83 Rhythm: Sinus Technical Quality: MEASUREMENTS (Male / Female) Normal Values 2D ECHO LV Diastolic Diameter PLAX 6.2 cm 4.2 - 5.9 / 3.9 - 5.3 cm LV Systolic Diameter PLAX 5.3 cm IVS Diastolic Thickness 0.8 cm 0.6 - 1.0 / 0.6 - 0.9 cm IVS Systolic Thickness 1.2 cm LVPW Diastolic Thickness 1.2 cm 0.6 - 1.0 / 0.6 - 0.9 cm LVPW Systolic Thickness 1.3 cm LVOT Diameter 2.1 cm LV Ejection Fraction 2D Teich 31.3 % LV Ejection Fraction MOD 2C 53.8 % LV Ejection Fraction 2C AL 53.2 % LA Diameter 3.8 cm Aorta at Sinotubular Diameter 2.5 cm IVC Diameter 1.9 cm M-MODE Aortic Annulus Diameter 4.4 cm LA Ao Ratio MM 0.9 MV E Point Septal Separation 0.6 cm DOPPLER AV Peak Velocity 115.0 cm/s LVOT Peak Velocity 101.0 cm/s AV Area Cont Eq vti 2.9 cm squared AV Area Cont Eq pk 3.2 cm squared MV Area PHT 5.0 cm squared Mitral E to A Ratio 1.7 MV E' Velocity 71.5 cm/s Mitral E to MV E' Ratio 21.8 Mitral E to LV E' Lateral Ratio 17.4 Mitral E to LV E' Septal Ratio 29.4 TR Peak Velocity 202.5 cm/s TR Peak Gradient 16.4 mmHg TR Mean Velocity 154.1 cm/s TR Mean Gradient 10.2 mmHg TR Velocity Time Integral 41.1 cm TV Peak E Velocity 130.0 cm/s Right Atrial Pressure 3.0 mmHg Pulmonary Artery Systolic Pressu 19.4 mmHg PV Peak Velocity 90.0 cm/s FINDINGS Left Ventricle Normal LV size with a diminished ejection fraction of 45-50%. Mild diffuse hypokinesia of the septum. Dyskinetic basal inferior wall segment. Right Ventricle The right ventricle is normal in size and function. Right Atrium The right atrium is normal in size. Left Atrium The left atrium is normal in size. Mitral Valve Thickened mitral valve. Mild-moderate mitral valve regurgitation. Aortic Valve . Thickened aortic valve. Tricuspid Valve Mild tricuspid valve regurgitation. Pulmonic Valve Pulmonic valve not well visualized. Pericardium Normal pericardium without effusion. Aorta Normal ascending aorta dimension. IVC Possibly of normal size CONCLUSIONS Normal LV size with a diminished ejection fraction of 45-50%. Mild diffuse hypokinesia of the septum. Dyskinetic basal inferior wall segment. Thickened mitral valve. Mild-moderate mitral valve regurgitation. Thickened aortic valve. Mild tricuspid valve regurgitation. Estimated pulmonary artery peak systolic pressure 19 mmHg, could be an underestimation because of the poor Doppler signals There is no pericardial effusion. No similar previous studies are available for comparison Dr Alec Arias MD [facility] (Electronically Signed) Final Date: 08 Jul 2022 13:31 S
[2022-07-07] MEDS: ipratropium-albuterol 3 mL Neb INHALATION (07:55)
[2022-07-07 08:19] LABS: Magnesium 1.9 mg/dL (1.7-2.3); Thyroid Stimulating Hormone 2.05 uIU/mL (0.27-4.20)
--- NOTE | 2022-07-07 11:30 | PC.NURSE ---
MAR delays related to IV access issues.
[2022-07-07] MEDS: metoprolol tartrate 1 mg/1 mL SDV 5 mL 5 MG IVP ×3 (11:48→23:57)
[2022-07-07] MEDS: lidocaine 1% 5 ML in potassium chloride premix 100 ML 26.25 ML IV (11:48)
[2022-07-07] MEDS: famotidine 20 mg/2 mL INJ IVP ×2 (11:48→20:32)
--- NOTE | 2022-07-07 19:46 | PC.NURSE ---
Shift summary: Per shift report from PM staff pt had a rough night with agitation. this am he was alert, oriented and pleasant. VSS. he has wore trach collar at 30% for most of the shift. He has been OOB to chair today. He did get agitated this afternoon. He , family and staff ambulated through hospital to gift shop and back. He tolerated well, without the trach collar. He likes to joke with family and staff. Speech mallory completed this am, he did not pass. Oral medications held today. He is to have ice chips to keep his mouth moist and work his swallowing muscles. He has been doing this reluctantly. No issues with it this evening. He was stated on IV metoprolol, no ectopy noted t omar. He has used the urinal several times tihis shift. , 450ml p output. No Bm this shift. At evening sift report, pt is agitated, stating he is going to go home to [facility], take a shower and he will be back by 8:30. He is difficult to redirect. Dr Lockhart messaged per Voalte, no response thus far.
[2022-07-07] MEDS: dexmedetomidine 400 MCG in sodium chloride 0.9% (100 ml) 100 ML IV (21:52)
[2022-07-08] VITALS (35 sets, daily range): BP systolic 128–201; BP diastolic 67–95; PULSE 57–82; RESP 12–27; TEMP 36.3–36.9; O2SAT 92–100
[2022-07-08] MEDS: lactated ringers 1,000 ML 100 ML IV ×2 (02:16→15:35)
[2022-07-08 02:47] LABS: Basophils % 0.2 %; Eosinophils # 0.1 10^3/uL (0.0-0.8); Eosinophils % 1.7 %; Hematocrit 33.7 % (42.0-52.0); Hemoglobin 11.1 g/dL (11.7-16.6); Lymphocytes # 0.5 10^3/uL (0.8-4.8); Lymphocytes % 12.1 %; Mean Corpuscular HGB Conc 32.9 g/dL (30.0-36.0); Mean Corpuscular Hemoglobin 29.4 pg (28.0-34.0); Mean Corpuscular Volume 89.2 fl (80-94); Mean Platelet Volume 11.5 fL (7.4-10.4); Monocytes # 0.5 10^3/uL (0.2-0.9); Monocytes % 12.1 %; Neutrophils # 3.09 10^3/uL (1.8-7.7); Neutrophils % 73.4 %; Nucleated Red Blood Cells % 0 %; Platelet Count 129 10^3/cmm (130-400); Red Blood Count 3.78 10^6/uL (4.1-5.3); Red Cell Distribution Width 13.4 % (12.1-15.1); White Blood Count 4.2 10^3/uL (4.0-10.0)
[2022-07-08 03:08] LABS: Anion Gap 13.2 (5-19); Blood Urea Nitrogen 15 mg/dL (8-23); Calcium 8.7 mg/dL (8.5-10.5); Carbon Dioxide 25 mmol/L (22-29); Chloride 107 mmol/L (98-107); Glucose 97 mg/dL (65-115); Osmolality Calculated 293 mOsm/kg (285-295); Potassium 4.2 mmol/L (3.5-5.1); Sodium 141 mmol/L (136-145)
[2022-07-08 03:10] LABS: Alanine Aminotransferase 12 U/L (0-41); Albumin Level 3.1 g/dL (3.5-5.2); Alkaline Phosphatase 65 U/L (40-130); Aspartate Amino Transferase 46 U/L (0-40); Blood Urea Nitrogen 15 mg/dL (8-23); Calcium 8.8 mg/dL (8.5-10.5); Carbon Dioxide 24 mmol/L (22-29); Chloride 106 mmol/L (98-107); Creatinine Clr Calc Pharmacy 58.3017; Globulin 2.5 g/dL (1.3-4.6); Glucose 95 mg/dL (65-115); Osmolality Calculated 289 mOsm/kg (285-295); Sodium 139 mmol/L (136-145); Total Bilirubin 0.7 mg/dL (0.15-1.2); Total Protein 5.6 g/dL (6.6-8.7)
[2022-07-08] MEDS: metoprolol tartrate 1 mg/1 mL SDV 5 mL 5 MG IVP ×4 (04:55→21:55)
--- NOTE | 2022-07-08 05:03 | PM.PN ---
Subjective Subjective: 86 yo wm who is POD #3 s/p tracheotomy with DL/Bx of a large right posterior hypopharyngeal mass. The patient is doing well from this standpoint. There are no new c/o except as previously noted. Medications: Reviewed: Yes Vitals/I&O/Wt Last Vital Signs Temp 97.3 F L 07/08/22 04:00 Pulse 66 07/08/22 04:00 Resp 20 H 07/07/22 19:56 BP 146/69 07/08/22 04:00 Pulse Ox 92 07/08/22 04:00 O2 Del Method HAG 07/07/22 19:56 O2 Flow Rate 30 07/07/22 12:00 FiO2 30 07/08/22 04:00 07/07/22 07/07/22 07/08/22 14:59 22:59 06:59 Intake Total 500 / 500 502.451 / 1002.451 29.820 / 1032.271 Output Total 650 / 650 Balance 500 / 500 -147.549 / 352.451 29.820 / 382.271 Physical Exam Const: COMMON NORMALS: no acute distress and healthy appearing HENMT: COMMON NORMALS: normocephalic, atraumatic and Normal external nose present HEAD & SCALP: normocephalic and atraumatic FACE & SINUS: normal facial exam NOSE: Normal external nose present MOUTH: lip normal Eye: GENERAL EYE: other (The patient is sleeping quietly.) Neck/C-Spine: COMMON NORMALS: no lymphadenopathy and supple Lymph: LYMPHATIC: no lymphadenopathy noted Chest: COMMONS NORMALS: normal inspection of the chest Resp: COMMON NORMALS: normal respiratory effort, No retractions, No use of accessory muscles and clear to auscultation bilaterally AUSCULTATION: clear to auscultation bilaterally Cardio: COMMON NORMALS: regular rate, regular rhythm and No murmurs present (Cardio) RATE: regular rate RHYTHM: regular rhythm Extremity: COMMON NORMALS: normal to inspection Data 07/08/22 02:13 07/08/22 02:13 Attestation for Other Data: I personally reviewed and interpreted the following: Other data: Neck CT from [facility] A&P Assessment and plan (1) Airway compromise: Impression: POD #3 s/p tracheotomy doing well from this standpoint Plan: - Continue daily trach care - Anticipate first trach change on POD #5-7; the patient will be ready for d/c after the first trach change - The patient will need the following after d/c: Home suction unit, Humidified air via HAG, daily home health visits for 2 weeks (2) Pharynx cancer: Impression: Stable Plan: - Heme/Onc, Rad Onc, and PET scan scheduled for after d/c (3) Nonsustained ventricular tachycardia: Impression: As per the Hospitalist team. Plan: As per the hospitalist team. I appreciate their contribution to Mr. Mcdonnell's care. Attestations Medical Necessity Statement*: The patient requires inpatient care until the first trach change. Coding Level of Care Code Acute Code for Chg Fwd Diagnoses Airway compromise J98.8 Pharynx cancer C14.0 Nonsustained ventricular tachycardia I47.29
[2022-07-08] MEDS: famotidine 20 mg/2 mL INJ IVP ×2 (08:03→19:57)
[2022-07-08] MEDS: dexmedetomidine 400 MCG in sodium chloride 0.9% (100 ml) 100 ML 11.32 MCG IV (08:51)
[2022-07-08] MEDS: ipratropium-albuterol 3 mL Neb INHALATION ×2 (09:24→14:02)
--- NOTE | 2022-07-08 10:46 | PC.SOCIAL ---
Imm update Imm updated with patient and family at bedside. Copy of page 2 provided. Patient and family verbalized understanding. Copy in chart initialed, dated and
--- NOTE | 2022-07-08 16:21 | PC.NURSE ---
Pt has been restless, agitated and confused today. Necessitating increasing the Precedex gtt, See MAR. He gets up in the room and inspects and tries to 'fix' the equipment. So far today, the monitor leads have been left on even after his attempts to remove. Few B/Ps obtained due to his behavior.
--- NOTE | 2022-07-08 17:31 | P.PN_ITS ---
Subjective Subjective: Hospital course, labs appreciated. As per the nurses patient was a little agitated and confused overnight trying to pull off the IV line, telemetry leads and trach collar and was placed on Precedex after receiving Haldol. Today morning seen with spouse and daughter at bedside. Patient is on Precedex drip which was started last night at 0.5. Patient is sleeping comfortably in bed. Later again seen in the day was seen sitting up in chair, able to have complete conversation. Precedex has been turned off. Patient continues to remain jittery. Hemodynamically stable and afebrile. Remains on trach care. No further episodes of nonsustained V. tach on telemetry. Vitals/I&O/Wt Last Vital Signs Temp 97.5 F L 07/08/22 08:00 Pulse 76 07/08/22 16:00 Resp 20 H 07/08/22 16:00 BP 169/84 07/08/22 12:00 Pulse Ox 98 07/08/22 15:30 O2 Del Method Trach Collar 07/08/22 15:30 O2 Flow Rate 8 07/08/22 13:46 FiO2 30 07/08/22 15:30 07/08/22 07/08/22 07/08/22 06:59 14:59 22:59 Intake Total 66.186 / 0505.310 4822.958 / 1118.958 25.95 / 1144.908 Output Total 300 / 950 550 / 550 Balance -233.814 / 223.637 568.958 / 568.958 25.95 / 594.908 Physical Exam Narrative: General exam is no apparent distress. Lying comfortably in bed on Precedex drip, slightly confused. When seen later in the day sitting up in chair not confused. Off Precedex. HEENT: Atraumatic and normocephalic. Neck: Tracheostomy noted Cardiovascular regular rate and rhythm, heart sounds distant Lungs clear but with diminished breath sounds bilaterally Abdomen is soft. Positive bowel sounds Extremities no cyanosis clubbing or edema Skin no rash Neuro no focal deficits Data 07/08/22 02:13 07/08/22 02:13 A&P Assessment and plan (1) Delirium: Delirium is likely expected given his age, recent stresses, surgery, anesthesia and cannot rule out ICU delirium. Continue to hold off on antipsychotics. Try to avoid morphine as much as possible because of potential cause of confusion but can be given if needed for pain. Continue negative Precedex. Wean to a level where patient is able to have complete conversation, awake without any episodes of agitation. If needed sitter at bedside. Frequent reorientation. Fall precautions. (2) Nonsustained ventricular tachycardia: This does not appear to be a new problem for the patient. Monitor electrolytes. Keep potassium around 4, magnesium around 2. Monitor telemetry. TSH within normal limits. Echocardiogram results pending. Continue with Ringer lactate at 75 cc/h. Continue with IV metoprolol 5 mg every 6 hourly. At home patient takes metop rolol 25 mg tartrate daily. (3) ASHD (arteriosclerotic heart disease): Continue statin, beta-tiffanie, Plavix once able to take orally. Currently on hold pending speech evaluation. Plan Status post surgery for posterior pharyngeal mass Continue n.p.o. for now. Speech evaluation. If patient continues to remain n.p.o. we will plan for alternative nutrition support including TPN versus tube feeds. Start on prophylactic anticoagulation once okay with primary team. Famotidine for PUD prophylaxis Thank you for this consultation. Care discussed in detail with patient's nurse at bedside. We will continue to follow. Attestations Medical Necessity Statement*: Requires further hospitalization for management of postoperative care for posterior pharyngeal mass post tracheostomy, postoperative delirium Coding Level of Care Code Critical Care >/= 30 minutes Critical care time (in minutes): 50 The high probability of a clinically significant, sudden or life threatening deterioration, as referenced in this documentation, required my full and direct attention, intervention and personal management. The critical care time shown is in addition to time spent performing any reported separately billable procedures and includes the following: [x] Data and vital sign review and interpretation [x ] Patient assessment, examination and intervention [x] Medication orders and management [x] Patient/Family updates as able [x] Care Coordination and Documentation. Other Coding Information Managing Precedex drip, IV metoprolol, monitoring telemetry and electrolytes Diagnoses Delirium R41.0 Nonsustained ventricular tachycardia I47.29 ASHD (arteriosclerotic heart disease) I25.10
[2022-07-08 19:00] LABS: Iron 27 ug/dL (59-158); Percent Saturation 18.3 % (20-50); Total Iron Binding Capacity 147 mcg/dl; Unsaturated Iron Binding 120 ug/dL (112-347); Vitamin B12 228 pg/mL (232-1245)
[2022-07-08] MEDS: dexmedetomidine 400 MCG in sodium chloride 0.9% (100 ml) 100 ML 20.76 MCG IV (19:31)
--- NOTE | 2022-07-08 19:47 | PC.NURSE ---
Shift summary: Pt is agile. He has been up and down to bed, to chair or wandering around his room. He has been fascinated by the monitor tower and all the wires. He has removed his O2 trach collar and put it back on many times today. His family has sat with him and redirected throughout the shift. At times the redirection has been difficult. His agitation or aggression would increase slightly, Precedex adjusted accordingly. Precedex is now infusing at 0.8mcg/kg/hr. He can maintain O2 sats without the trach collar, but the humidification helps loosen the phlegm. Pt able to oral suction himself. he didn't pass the speech eval again. He was to keep tryng with ice chips but for most of the shift he refused to do so. He uses urinal, over 500 ml output.
[2022-07-08] MEDS: haloperidol inj 5 mg/mL INJ 1 mL IM (22:44)
[2022-07-09] VITALS (27 sets, daily range): BP systolic 153–194; BP diastolic 69–96; PULSE 40–101; RESP 9–40; TEMP 36.1–36.6; O2SAT 91–100
[2022-07-09] MEDS: dexmedetomidine 400 MCG in sodium chloride 0.9% (100 ml) 100 ML 20.76 MCG IV (01:58)
[2022-07-09] MEDS: lactated ringers 1,000 ML 100 ML IV ×2 (01:59→15:26)
[2022-07-09] MEDS: morphine 4 mg/mL SDV 1 mL 2 MG IVP ×2 (03:35→08:56)
--- NOTE | 2022-07-09 04:48 | PM.PN ---
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 The patient's hospital course has been complicated by worsening of his dementia and his inability/unwillingness to take po since surgery. There are no c/o from the standpoint of his tracheotomy. Medications: Reviewed: Yes Vitals/I&O/Wt Last Vital Signs Temp 98.3 F 07/08/22 23:00 Pulse 56 L 07/09/22 04:00 Resp 25 H 07/09/22 04:00 BP 173/93 07/09/22 04:00 Pulse Ox 98 07/09/22 04:00 O2 Del Method Room Air 07/09/22 00:00 O2 Flow Rate 30 07/08/22 19:30 FiO2 30 07/09/22 04:00 07/08/22 07/08/22 07/09/22 14:59 22:59 06:59 Intake Total 1118.958 / 1118.958 84.591 / 8181.234 6454.376 / 2326.925 Output Total 550 / 550 250 / 800 Balance 568.958 / 568.958 -165.409 / 342.162 7638.376 / 1526.925 Physical Exam Const: COMMON NORMALS: no acute distress GENERAL APPEARANCE: other (The patient is sleeping quietly.) HENMT: COMMON NORMALS: normocephalic, atraumatic, external ears normal and Normal external nose present HEAD & SCALP: normocephalic and atraumatic NOSE: Normal external nose present EXTERNAL EAR: Yes external ears normal Neck/C-Spine: COMMON NORMALS: no lymphadenopathy and supple GENERAL: Yes trachea midline and Yes tracheostomy present (The trach site is clean without erythema or induration.) Chest: COMMONS NORMALS: normal inspection of the chest Resp: COMMON NORMALS: normal respiratory effort, No retractions, No use of accessory muscles and clear to auscultation bilaterally AUSCULTATION: clear to auscultation bilaterally Cardio: COMMON NORMALS: regular rate, regular rhythm and No murmurs present (Cardio) RATE: regular rate RHYTHM: regular rhythm GI: COMMON NORMALS: Normal to inspection, nondistended, normoactive bowel sounds present Extremity: COMMON NORMALS: normal to inspection Data 07/08/22 02:13 07/08/22 02:13 A&P Assessment and plan (1) Airway compromise: Impression: POD #4 s/p tracheotomy doing well from this standpoint. 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 Plan: I discussed the treatment plan for this condition with the patient's family member this morning - treatment would most likely require Chemo/XRT as primary treatment. Given the medical issues below, the patient would not be able to cooperate with radiation therapy. I discussed this with the family member and she will discuss with the wider family. We also discussed hospice/comfort care. I will be available this afternoon for further discussion with the patient's family. (3) Delirium: Impression: The patient has been combative overnight. Plan: See the Hospitalist notes (4) ASHD (arteriosclerotic heart disease): Impression: Stable Plan: As per the hospitalist team (5) Dysphagia: Impression: The patient has not taken po since surgery. This symptom is possibly related to problem #3 above Plan: I discussed PEG placement with the patient's family member. I will consult General Surgery to discuss PEG placement with the family. Attestations Medical Necessity Statement*: The patient requires inpatient care until he is able to swallow and care for his tracheotomy tube. Coding Level of Care Code Acute Code for [facility] Diagnoses Airway compromise J98.8 Pharynx cancer C14.0 Delirium R41.0 ASHD (arteriosclerotic heart disease) I25.10 Dysphagia R13.10
[2022-07-09 05:27] LABS: Basophils % 0.2 %; Eosinophils # 0.1 10^3/uL (0.0-0.8); Eosinophils % 1.3 %; Hematocrit 33.8 % (42.0-52.0); Hemoglobin 11.2 g/dL (11.7-16.6); Lymphocytes # 0.5 10^3/uL (0.8-4.8); Lymphocytes % 10.1 %; Mean Corpuscular HGB Conc 33.1 g/dL (30.0-36.0); Mean Corpuscular Hemoglobin 29.2 pg (28.0-34.0); Mean Platelet Volume 11.3 fL (7.4-10.4); Monocytes # 0.5 10^3/uL (0.2-0.9); Monocytes % 10.5 %; Neutrophils # 3.47 10^3/uL (1.8-7.7); Neutrophils % 77.7 %; Nucleated Red Blood Cells % 0 %; Platelet Count 143 10^3/cmm (130-400); Red Blood Count 3.84 10^6/uL (4.1-5.3); Red Cell Distribution Width 13.3 % (12.1-15.1); White Blood Count 4.5 10^3/uL (4.0-10.0)
[2022-07-09 05:42] LABS: Estmated Average Glucose 114; Hemoglobin A1C 5.6 % (4.0-6.0)
[2022-07-09 05:47] LABS: Triglycerides 76 mg/dL (0-150); VLDL Cholestrol Calculation 15 mg/dL (0-30)
[2022-07-09 05:48] LABS: Alanine Aminotransferase 13 U/L (0-41); Alkaline Phosphatase 71 U/L (40-130); Aspartate Amino Transferase 38 U/L (0-40); Blood Urea Nitrogen 17 mg/dL (8-23); Calcium 8.6 mg/dL (8.5-10.5); Carbon Dioxide 23 mmol/L (22-29); Globulin 2.7 g/dL (1.3-4.6); Glucose 113 mg/dL (65-115); Total Bilirubin 0.5 mg/dL (0.15-1.2)
[2022-07-09 06:09] LABS: Folate Level 7.9 ng/mL (4.5-32.2)
[2022-07-09 06:14] LABS: Anion Gap 15.6 (5-19); Chloride 105 mmol/L (98-107); Osmolality Calculated 292 mOsm/kg (285-295); Potassium 3.6 mmol/L (3.5-5.1); Sodium 140 mmol/L (136-145)
[2022-07-09 06:18] LABS: Albumin Level 2.9 g/dL (3.5-5.2); Total Protein 5.6 g/dL (6.6-8.7)
[2022-07-09 06:53] LABS: Chol HDL Ratio 3.21 mg/dL (1.0-5.00); Cholesterol 93 mg/dL (0-200); HDL Cholesterol 29 mg/dL (60-100); LDL Cholesterol Calculated 49 mg/dL (50-129)
[2022-07-09] MEDS: dexmedetomidine 400 MCG in sodium chloride 0.9% (100 ml) 100 ML 18.87 MCG IV (07:51)
[2022-07-09] MEDS: famotidine 20 mg/2 mL INJ IVP ×2 (08:16→19:56)
--- NOTE | 2022-07-09 08:58 | PC.NURSE ---
precedex decreased at this time and morphine given per family request... family at bedside
[2022-07-09 09:37] LABS: Add Urine Microscopic? YES; Bilirubin Urine Neg (Negative); Blood Urine Trace (Negative); Glucose Urine UA Norm (Normal); Ketones Urine 1+ (Negative); Leukocyte Esterase Urine Negative (Negative); Nitrate Urine Negative (Negative); Protein Urine Neg (Negative); Specific Gravity, Urine 1.015 (1.005-1.030); Urine Appearance Clear (CLEAR); Urine Color Yellow (Yellow); Urobilinogen Urine Neg (Negative); pH Urine 6.5 (5-7)
[2022-07-09 09:45] LABS: RBC Urine 0-4 /hpf (0-2)
[2022-07-09 09:46] LABS: Add Urine Culture? No; Bacteria Urine TRACE /hpf; Mucus Urine TRACE /hpf; Squamous Epithelial Cell Urine 0-4 /hpf (0-5)
[2022-07-09] MEDS: metoprolol tartrate 1 mg/1 mL SDV 5 mL 5 MG IVP ×3 (13:07→22:30)
--- NOTE | 2022-07-09 16:22 | PC.NURSE ---
up in chair less agitation noted today weaned precedex gtt down family at bedside
--- NOTE | 2022-07-09 17:17 | P.PN_ITS ---
Subjective Subjective: Overnight patient has remained confused. Maintained on Precedex of 0.6. Today morning seen with multiple family members at bedside. Patient was resting comfortably. During the day Precedex weaned down to 0.4. Patient remained awake and alert. Able to have complete conversation. Patient tends to get more confused by the evening. Skilled speech therapy yesterday. Maintained on HAG and saturation maintained over 98%. Blood pressures have trended up. Telemetry appreciated. Medications: Reviewed: Yes Vitals/I&O/Wt Last Vital Signs Temp 97 F L 07/09/22 16:00 Pulse 72 07/09/22 16:00 Resp 24 H 07/09/22 16:00 BP 173/82 07/09/22 16:00 Pulse Ox 98 07/09/22 13:59 O2 Del Method HAG 07/09/22 08:00 O2 Flow Rate 30 07/08/22 19:30 FiO2 21 07/09/22 16:00 07/09/22 07/09/22 07/09/22 06:59 14:59 22:59 Intake Total 1133.376 / 2336.925 1140.691 / 1140.691 15 / 1155.691 Output Total 550 / 1350 250 / 250 550 / 800 Balance 583.376 / 986.925 890.691 / 890.691 -535 / 355.691 Physical Exam Narrative: General exam is no apparent distress. Lying comfortably in bed on Precedex drip, slightly confused. When seen later in the day sitting up in chair not confused. Off Precedex. HEENT: Atraumatic and normocephalic. Neck: Tracheostomy noted Cardiovascular regular rate and rhythm, heart sounds distant Lungs clear but with diminished breath sounds bilaterally Abdomen is soft. Positive bowel sounds Extremities no cyanosis clubbing or edema Skin no rash Neuro no focal deficits Data 07/09/22 05:05 07/09/22 05:05 A&P Assessment and plan (1) Delirium: Delirium is likely expected given his age, recent stresses, surgery, anesthesia and cannot rule out ICU delirium. Continue to hold off on antipsychotics. Try to avoid morphine as much as possible because of potential cause of confusion but can be given if needed for pain. Continue with Precedex. Wean to a level where patient is able to have complete conversation, awake without any episodes of agitation. If needed sitter at bedside. Frequent reorientation. Fall precautions. Once able to take orally can start on Aricept and Celexa. (2) Nonsustained ventricular tachycardia: This does not appear to be a new problem for the patient. Monitor electrolytes. Keep potassium around 4, magnesium around 2. Monitor telemetry. TSH within normal limits. Echocardiogram results pending. Continue with Ringer lactate at 75 cc/h. Continue with IV metoprolol 5 mg every 6 hourly. At home patient takes metoprolol 25 mg tartrate daily. (3) ASHD (arteriosclerotic heart disease): Continue statin, beta-tiffanie, Plavix once able to take orally. Currently on hold as patient failed speech therapy. Plan Status post surgery for posterior pharyngeal mass Continue n.p.o. for now. Appreciate speech evaluation. Patient continues to fail multiple attempts. Discussed in detail with patient's primary and family members at bedside. Multiple options were discussed. Family is agreeable for PEG tube placement. Surgery consulted. Hold off on all oral medications for now. Multiple oral medication transition to IV as possible. Vitamin B12 deficiency: Start on cyanocobalamin 1000 mcg IM daily for next 5 days. Patient unable to take orally for now. Case management consultation. Full code. Goals of care discussion: Discussed with multiple family members at bedside. We discussed that unfortunately patient has worsening of dementia because of either ICU delirium or confusion postoperatively. We did discuss that unfortunately there is no timeline which we can determine for his delirium to improve. Discussed multiple modalities going forward for cancer and nutrition. Family wants to go ahead with PEG tube placement. Also discussed regarding CODE STATUS. Family will discuss further regarding CODE STATUS of full code versus DNR/DNI and goals of care about full treatment versus hospice in detail and will get back to us. Thank you for this consultation. Care discussed in detail with patient's nurse at bedside. We will continue to follow. Attestations Medical Necessity Statement*: Requires further hospitalization for postoperative delirium while meaningful nutritional modality is achieved. As per primary team. Coding Level of Care Code Critical Care >/= 30 minutes Critical care time (in minutes): 60 The high probability of a clinically significant, sudden or life threatening deterioration, as referenced in this documentation, required my full and direct attention, intervention and personal management. The critical care time shown is in addition to time spent performing any reported separately billable procedures and includes the following: [x] Data and vital sign review and interpretation [x ] Patient assessment, examination and intervention [x] Medication orders and management [x] Patient/Family updates as able [x] Care Coordination and Documentation. Diagnoses Delirium R41.0 Nonsustained ventricular tachycardia I47.29 ASHD (arteriosclerotic heart disease) I25.10
--- NOTE | 2022-07-09 17:40 | PM.PN ---
Subjective Subjective: 86 yo wm who is POD #4 s/p tracheotomy - the patient is doing well from this standpoint and is ready for his first trach change. Medications: Reviewed: Yes Vitals/I&O/Wt Last Vital Signs Temp 97 F L 07/09/22 16:00 Pulse 72 07/09/22 16:00 Resp 24 H 07/09/22 16:00 BP 173/82 07/09/22 16:00 Pulse Ox 98 07/09/22 13:59 O2 Del Method HAG 07/09/22 08:00 O2 Flow Rate 30 07/08/22 19:30 FiO2 21 07/09/22 16:00 07/09/22 07/09/22 07/09/22 06:59 14:59 22:59 Intake Total 1133.376 / 2336.925 1140.691 / 1140.691 15 / 1155.691 Output Total 550 / 1350 250 / 250 550 / 800 Balance 583.376 / 986.925 890.691 / 890.691 -535 / 355.691 Physical Exam Const: COMMON NORMALS: no acute distress, alert and well nourished Neck/C-Spine: GENERAL: Yes tracheostomy present (No discharge or erythema.) Neuro: SENSORIUM/ORIENTATION: Yes alert Data 07/09/22 05:05 07/09/22 05:05 A&P Assessment and plan (1) Airway compromise: Impression: First trach change performed without difficulty Plan: - Continue trach care - Impression/Plan o/w as previously outlined Attestations Medical Necessity Statement*: The patient requires inpatient care until trach and PEG are stable. Procedures Procedure Narrative First Trach Change: The trach tube was changed to a #6 uncuffed, fenestrated trach tube without difficulty. Coding Level of Care Code Acute Code for Chg Fwd Diagnoses Airway compromise J98.8
[2022-07-09] MEDS: heparin 5,000 unit/mL INJ 1 mL 5000 UNIT SUBCUT (19:27)
[2022-07-09] MEDS: dexmedetomidine 400 MCG in sodium chloride 0.9% (100 ml) 100 ML 9.44 MCG IV (19:55)
[2022-07-09] MEDS: morphine 4 mg/mL SDV 1 mL 1 MG IVP (19:57)
[2022-07-10] VITALS (38 sets, daily range): BP systolic 134–189; BP diastolic 65–92; PULSE 52–83; RESP 6–25; TEMP 36.1–37.3; O2SAT 65–100
[2022-07-10] MEDS: morphine 4 mg/mL SDV 1 mL 1 MG IVP ×2 (02:26→22:23)
[2022-07-10 03:52] LABS: Basophils % 0.2 %; Eosinophils # 0.1 10^3/uL (0.0-0.8); Eosinophils % 1.8 %; Hematocrit 31.9 % (42.0-52.0); Hemoglobin 10.7 g/dL (11.7-16.6); Lymphocytes # 0.4 10^3/uL (0.8-4.8); Lymphocytes % 8.7 %; Mean Corpuscular HGB Conc 33.5 g/dL (30.0-36.0); Mean Corpuscular Volume 86.4 fl (80-94); Monocytes # 0.5 10^3/uL (0.2-0.9); Neutrophils # 3.53 10^3/uL (1.8-7.7); Neutrophils % 78.9 %; Nucleated Red Blood Cells % 0 %; Platelet Count 160 10^3/cmm (130-400); Red Blood Count 3.69 10^6/uL (4.1-5.3); Red Cell Distribution Width 13.1 % (12.1-15.1); White Blood Count 4.5 10^3/uL (4.0-10.0)
[2022-07-10 04:15] LABS: Alanine Aminotransferase 12 U/L (0-41); Albumin Level 2.9 g/dL (3.5-5.2); Alkaline Phosphatase 70 U/L (40-130); Anion Gap 15.1 (5-19); Aspartate Amino Transferase 25 U/L (0-40); Blood Urea Nitrogen 16 mg/dL (8-23); Calcium 8.3 mg/dL (8.5-10.5); Carbon Dioxide 23 mmol/L (22-29); Chloride 102 mmol/L (98-107); Globulin 2.4 g/dL (1.3-4.6); Glucose 88 mg/dL (65-115); Osmolality Calculated 285 mOsm/kg (285-295); Potassium 3.1 mmol/L (3.5-5.1); Sodium 137 mmol/L (136-145); Total Bilirubin 0.5 mg/dL (0.15-1.2); Total Protein 5.3 g/dL (6.6-8.7)
[2022-07-10] MEDS: lactated ringers 1,000 ML 100 ML IV ×2 (05:18→16:36)
[2022-07-10] MEDS: metoprolol tartrate 1 mg/1 mL SDV 5 mL 5 MG IVP ×4 (05:18→22:22)
[2022-07-10] MEDS: heparin 5,000 unit/mL INJ 1 mL 5000 UNIT SUBCUT ×2 (05:25→17:27)
--- NOTE | 2022-07-10 06:41 | PM.PN ---
Subjective Subjective: 86 yo wm who is POD #5 s/p tracheotomy with DL/Bx for a large right posterior hypopharyngeal SCCA. The patient became disoriented post op and has dysphagia. His mental status appears to be normalizing, and he is scheduled for PEG placement today. Medications: Reviewed: Yes Vitals/I&O/Wt Last Vital Signs Temp 97.9 F 07/09/22 19:00 Pulse 54 L 07/10/22 06:00 Resp 11 L 07/10/22 06:00 BP 181/70 07/10/22 06:00 Pulse Ox 100 07/10/22 06:00 O2 Del Method HAG 07/09/22 19:44 O2 Flow Rate 30 07/08/22 19:30 FiO2 21 07/10/22 06:00 07/09/22 07/09/22 07/10/22 14:59 22:59 06:59 Intake Total 1140.691 / 1140.691 48.747 / 1189.438 985 / 2174.438 Output Total 250 / 250 925 / 1175 375 / 1550 Balance 890.691 / 890.691 -876.253 / 14.438 610 / 624.438 Physical Exam Const: COMMON NORMALS: no acute distress, alert and well nourished HENMT: COMMON NORMALS: normocephalic, atraumatic, external ears normal and Normal external nose present HEAD & SCALP: normocephalic and atraumatic NOSE: Normal external nose present EXTERNAL EAR: Yes external ears normal Eye: GENERAL EYE: other (The patient is sleeping quietly. ) Neck/C-Spine: COMMON NORMALS: no lymphadenopathy, supple and Thyroid normal GENERAL: Yes tracheostomy present (Trach clean without erythema.) THYROID: Thyroid normal Lymph: LYMPHATIC: no lymphadenopathy noted Chest: COMMONS NORMALS: normal inspection of the chest Resp: COMMON NORMALS: normal respiratory effort, No retractions and No use of accessory muscles Cardio: COMMON NORMALS: regular rate, regular rhythm and No murmurs present (Cardio) RATE: regular rate RHYTHM: regular rhythm GI: COMMON NORMALS: Normal to inspection, nondistended, normoactive bowel sounds present Extremity: COMMON NORMALS: normal to inspection Neuro: SENSORIUM/ORIENTATION: Yes alert Data 07/10/22 03:07 05/20/23 03:07 A&P Assessment and plan (1) Airway compromise: Impression: POD #5 s/p tracheotomy doing well s/p first trach change Plan: - Continue trach care - Family instructed in trach care last evening - Home health, Home suction, Home Humidified air via HAG ready for the patient's discharge - The patient will also need trach cleaning kits as well (2) Pharynx cancer: Impression: Stable Plan: - PET CT, Heme/Onc, Rad/Onc consults after discharge (3) Dysphagia: Impression: Unchanged Plan: - PEG placement today - Nutrition consult pending today (4) ASHD (arteriosclerotic heart disease): Impression: Stable Plan: As per the hospitalists team Attestations Medical Necessity Statement*: The patient requires hospitalization until PEG is placed and functional Coding Level of Care Code Acute Code for Chg Fwd Diagnoses Airway compromise J98.8 Pharynx cancer C14.0 Dysphagia R13.10 ASHD (arteriosclerotic heart disease) I25.10
--- NOTE | 2022-07-10 07:57 | ANES.PREANE2 ---
Pre-Anesthetic Assessment Height/Weight: Height 1.7 m Weight 72.575 kg Temp Pulse Resp BP Pulse Ox O2 Del Method O2 Flow Rate 97.9 F 54 L 11 L 181/70 100 HAG 30 07/09/22 19:00 07/10/22 06:00 07/10/22 06:00 07/10/22 06:00 07/10/22 06:00 07/09/22 19:44 07/08/22 19:30 FiO2 21 07/10/22 06:00 Operation Date: 07/05/22 09:20 Proposed Procedures p Trach and DL with biopsy [id number],R22.1(Not Applicable) - William Vega MD s Direct Laryngoscopy Direct Larynoscopy w/ Vocal Cord Biopsy(Not Applicable) - William Vega MD Operation Date: 07/10/22 08:00 Proposed Procedures p PEG Tube Insertion(Not Applicable) - Luis M Hernandez DO Familial anesthetic complications: none Was Beta Juan Miguel taken within 24 hours: Yes Was Clonidine taken within 24 hours: N/A Last intake: Intake Last Liquid Date 07/05/22 Last Liquid Time 17:00 Last Solid Date 07/04/22 Last Solid Time 17:00 Last Intake: 22:00 Social Tobacco and No alcohol Exam alert (confused), clear to auscultation bilaterally and regular rate & rhythm Airway Comments: Comments: trach placed 5 days ago. uncuffed 6.0 Pulmonary Exertional Dyspnea and Shortness of Breath t<del>yfn</del> <del>tumor</del> CV/HEM Arrythmia (justen with runs v tach), Hypertension and Myocardial Infarction AAA None reported Hepatic None reported GI dysphagia Metabolic None reported Musc/skel Weakness Neuropsych confusion after trach Anesthetic Plan ASA status: 4 Anesthesia: General and MAC Medications/Allergies Home Medications Medication Instructions Recorded Confirmed Last Taken Type allopurinol 300 mg tablet 300 mg PO QDAY 03/13/19 07/02/22 07/02/22 History atorvastatin 20 mg tablet 20 mg PO QDAY 03/13/19 07/02/22 07/02/22 History clopidogrel 75 mg tablet 75 mg PO QDAY 03/13/19 07/02/22 07/01/22 History gabapentin 300 mg capsule 300 mg PO TID 03/13/19 07/02/22 07/02/22 History melatonin 5 mg tablet 5 mg PO .HS 03/13/19 07/02/22 07/02/22 History metoprolol tartrate 25 mg tablet 25 mg PO DAILY 03/14/19 07/02/22 07/02/22 History nitroglycerin 0.4 mg sublingual 0.4 mg sublingual Q5M PRN Chest 03/14/19 07/02/22 Unknown History tablet (Nitrostat) Pain amlodipine 5 mg tablet 5 mg PO DAILY #90 tabs 10/08/21 07/02/22 07/02/22 Rx finasteride 5 mg tablet 5 mg PO DAILY #90 tabs 03/16/22 07/02/22 07/02/22 Rx Allergies Allergy/AdvReac Type Severity Reaction Status Date / Time acetaminophen [From Tylenol] Allergy Unknown ALGY-Rash Verified 07/02/22 16:53 amoxicillin Allergy Unknown ALGY-Rash Verified 07/02/22 16:53 Penicillins Allergy Unknown RASH Verified 07/02/22 16:53 Current Medications Generic Name Dose Route Start Last Admin Trade Name Freq PRN Reason Stop Dose Admin Albuterol/Ipratropium 3 ml 07/05/22 17:15 07/08/22 14:02 Ipratropium-Albuterol 3 Ml Neb INHALATION 3 ml Q4H PRN Administration SHORTNESS OF BREATH Allopurinol 300 mg 07/06/22 09:00 07/09/22 10:39 Allopurinol 300 Mg Tablet PO Not Given DAILY LIANE Amlodipine Besylate 5 mg 07/06/22 09:00 07/09/22 10:40 Amlodipine 5 Mg Tablet PO Not Given DAILY LIANE Atorvastatin Calcium 20 mg 07/05/22 21:00 07/09/22 19:28 Atorvastatin 40 Mg Tablet PO Not Given BEDTIME LIANE Clopidogrel Bisulfate 75 mg 07/06/22 09:00 07/09/22 10:40 Clopidogrel 75 Mg Tablet PO Not Given DAILY LIANE Docusate Sodium 100 mg 07/05/22 18:00 07/09/22 16:49 Docusate Sodium 100 Mg Capsule PO Not Given BID LIANE Famotidine 20 mg 07/05/22 18:00 07/09/22 19:56 Famotidine 20 Mg/2 Ml Inj IVP 20 mg Q12H LIANE Administration Finasteride 5 mg 07/06/22 09:00 07/09/22 10:40 Finasteride 5 Mg Tablet PO Not Given DAILY [facility] Gabapentin 300 mg 07/05/22 15:00 07/09/22 19:29 Gabapentin 300 Mg Capsule PO Not Given TID LIANE Haloperidol Lactate 0.5 mg 07/07/22 05:39 07/07/22 05:45 Haloperidol Inj 5 Mg/Ml Inj 1 Ml IM 0.5 mg ONCE PRN Administration AGITATION Haloperidol Lactate 0.5 mg 07/07/22 19:42 07/08/22 22:44 Haloperidol Inj 5 Mg/Ml Inj 1 Ml IM 0.5 mg Q4H PRN Administration AGITATION Heparin Sodium (Porcine) 5,000 unit 07/09/22 17:30 07/10/22 05:25 Heparin 5,000 Unit/Ml Inj 1 Ml SUBCUT 5,000 unit Q12H LIANE Administration Lactated Ringer's 1,000 mls @ 75 mls/hr 07/05/22 11:20 07/10/22 05:18 Lactated Ringers IV 100 mls/hr .[id number] LIANE Administration Dexmedetomidine HCl 400 mcg/ 104 mls @ 0 mls/hr 07/07/22 21:45 07/09/22 19:55 Sodium Chloride IV 0.5 mcg/kg/hr .Q0M LIANE 9.44 mls/hr Administration Protocol Per Protocol Metoprolol Tartrate 12.5 mg 07/07/22 09:00 07/09/22 19:29 Metoprolol Tartrate 25 Mg Tablet PO Not Given BID@0900,2100 [facility] Metoprolol Tartrate 5 mg 07/07/22 11:00 07/10/22 05:18 Metoprolol Tartrate 1 Mg/1 Ml Sdv 5 Ml IVP 5 mg Q6H LIANE Administration Morphine Sulfate 1 mg 07/09/22 19:44 07/10/22 02:26 Morphine 4 Mg/Ml Sdv 1 Ml IVP 1 mg Q4H PRN Administration SEVERE PAIN PFSH Anesthesia Medical History AAA (abdominal aortic aneurysm) ASHD (arteriosclerotic heart disease) BPH loc w urin obs/LUTS Chronic prostatitis CVA (cerebral vascular accident) DJD (degenerative joint disease), lumbar Elevated PSA Essential hypertension Hyperlipidemia Myocardial infarction Palpitations Tobacco abuse, in remission Surgical History S/P CABG (coronary artery bypass graft) Family History Other CAD (coronary artery disease) Cancer Hypertension Social History Smoking and tobacco status: former smoker Alcohol intake: never Substance/Drug Use: never Household members: spouse Marital status: service: No Current occupational status: retired Previous occupational history: [employer] X 27 YEARS Current gender identity: Male Radha/Uatsdin: Oriental Orthodox Data Anesthesia 07/10/22 03:07 07/10/22 03:07 Short CBC 07/09/22 07/10/22 Range/Units 05:05 03:07 WBC 4.5 4.5 (4.0-10.0) 10^3/uL Hgb 11.2 L 10.7 L (11.7-16.6) g/dL Hct 33.8 L 31.9 L (42.0-52.0) % MCV 88.0 86.4 (80-94) fl Plt Count 143 160 (130-400) 10^3/cmm Neut % (Auto) 77.7 78.9 % Neut # (Auto) 3.47 3.53 (1.8-7.7) 10^3/uL BMP 07/09/22 07/10/22 05:05 03:07 Sodium 140 137 Potassium 3.6 3.1 L Chloride 105 102 Carbon Dioxide 23 23 BUN 17 16 Creatinine 0.7 0.7 Glucose 113 88 Calcium 8.6 8.3 L Liver Function 07/09/22 07/10/22 Range/Units 05:05 03:07 Total Bilirubin 0.5 0.5 (0.15-1.2) mg/dL AST 38 25 (0-40) U/L ALT 13 12 (0-41) U/L Alkaline Phosphatase 71 70 (40-130) U/L Albumin 2.9 L 2.9 L (3.5-5.2) g/dL Urine 07/09/22 Range/Units 08:50 Urine Color Yellow (Yellow) Urine Appearance Clear (CLEAR) Urine pH 6.5 (5-7) Ur Specific [place] 1.015 (1.005-1.030) Urine Protein Neg (Negative) Urine Glucose (UA) Norm (Normal) Urine Ketones 1+ H (Negative) Urine Nitrate Negative (Negative) Urine Bilirubin Neg (Negative) Ur Leukocyte Esterase Negative (Negative) Urine RBC 0-4 H (0-2) /hpf Urine WBC None (0-5) /hpf Cardiac Studies: Echocardiogram 07/07/22 Cardiac Event Monitor 09/08/21
--- NOTE | 2022-07-10 07:59 | PC.NURSE ---
in bed ready to go to gi lab peg tube placement
--- NOTE | 2022-07-10 08:00 | P.CONIM_ITS ---
Providers/Reason For Consult Consulting Physician/Specialty*: Dr. Luis M Hernandez DO/General surgery Reason for Consult*: Request PEG tube insertion Attending Physician: William Vega MD Primary Care Provider: Heather Hodges DO History of Present Illness History of Present Illness Jose Mcdonnell is a 86 year old male with dysphagia. Hospitalist has requested PEG tube insertion. Medications/Allergies Home Medications Medication Instructions Recorded Confirmed Last Taken Type allopurinol 300 mg tablet 300 mg PO QDAY 03/13/19 07/02/22 07/02/22 History atorvastatin 20 mg tablet 20 mg PO QDAY 03/13/19 07/02/22 07/02/22 History clopidogrel 75 mg tablet 75 mg PO QDAY 03/13/19 07/02/22 07/01/22 History gabapentin 300 mg capsule 300 mg PO TID 03/13/19 07/02/22 07/02/22 History melatonin 5 mg tablet 5 mg PO .HS 03/13/19 07/02/22 07/02/22 History metoprolol tartrate 25 mg tablet 25 mg PO DAILY 03/14/19 07/02/22 07/02/22 History nitroglycerin 0.4 mg sublingual 0.4 mg sublingual Q5M PRN Chest 03/14/19 07/02/22 Unknown History tablet (Nitrostat) Pain amlodipine 5 mg tablet 5 mg PO DAILY #90 tabs 10/08/21 07/02/22 07/02/22 Rx finasteride 5 mg tablet 5 mg PO DAILY #90 tabs 03/16/22 07/02/22 07/02/22 Rx Allergies Allergy/AdvReac Type Severity Reaction Status Date / Time acetaminophen [From Tylenol] Allergy Unknown ALGY-Rash Verified 07/02/22 16:53 amoxicillin Allergy Unknown ALGY-Rash Verified 07/02/22 16:53 Penicillins Allergy Unknown RASH Verified 07/02/22 16:53 Current Medications Generic Name Dose Route Start Last Admin Trade Name Freq PRN Reason Stop Dose Admin Albuterol/Ipratropium 3 ml 07/05/22 17:15 07/08/22 14:02 Ipratropium-Albuterol 3 Ml Neb INHALATION 3 ml Q4H PRN Administration SHORTNESS OF BREATH Allopurinol 300 mg 07/06/22 09:00 07/09/22 10:39 Allopurinol 300 Mg Tablet PO Not Given DAILY [facility] Amlodipine Besylate 5 mg 07/06/22 09:00 07/09/22 10:40 Amlodipine 5 Mg Tablet PO Not Given DAILY [facility] Atorvastatin Calcium 20 mg 07/05/22 21:00 07/09/22 19:28 Atorvastatin 40 Mg Tablet PO Not Given BEDTIME [facility] Clopidogrel Bisulfate 75 mg 07/06/22 09:00 07/09/22 10:40 Clopidogrel 75 Mg Tablet PO Not Given DAILY [facility] Docusate Sodium 100 mg 07/05/22 18:00 07/09/22 16:49 Docusate Sodium 100 Mg Capsule PO Not Given BID [facility] Famotidine 20 mg 07/05/22 18:00 07/09/22 19:56 Famotidine 20 Mg/2 Ml Inj IVP 20 mg Q12H LIANE Administration Finasteride 5 mg 07/06/22 09:00 07/09/22 10:40 Finasteride 5 Mg Tablet PO Not Given DAILY [facility] Gabapentin 300 mg 07/05/22 15:00 07/09/22 19:29 Gabapentin 300 Mg Capsule PO Not Given TID [facility]ANE Haloperidol Lactate 0.5 mg 07/07/22 05:39 07/07/22 05:45 Haloperidol Inj 5 Mg/Ml Inj 1 Ml IM 0.5 mg ONCE PRN Administration AGITATION Haloperidol Lactate 0.5 mg 07/07/22 19:42 07/08/22 22:44 Haloperidol Inj 5 Mg/Ml Inj 1 Ml IM 0.5 mg Q4H PRN Administration AGITATION Heparin Sodium (Porcine) 5,000 unit 07/09/22 17:30 07/10/22 05:25 Heparin 5,000 Unit/Ml Inj 1 Ml SUBCUT 5,000 unit Q12H LIANE Administration Lactated Ringer's 1,000 mls @ 75 mls/hr 07/05/22 11:20 07/10/22 05:18 Lactated Ringers IV 100 mls/hr .[id number] LIANE Administration Dexmedetomidine HCl 400 mcg/ 104 mls @ 0 mls/hr 07/07/22 21:45 07/09/22 19:55 Sodium Chloride IV 0.5 mcg/kg/hr .Q0M LIANE 9.44 mls/hr Administration Protocol Per Protocol Metoprolol Tartrate 12.5 mg 07/07/22 09:00 07/09/22 19:29 Metoprolol Tartrate 25 Mg Tablet PO Not Given BID@0900,2100 [facility] Metoprolol Tartrate 5 mg 07/07/22 11:00 07/10/22 05:18 Metoprolol Tartrate 1 Mg/1 Ml Sdv 5 Ml IVP 5 mg Q6H LIANE Administration Morphine Sulfate 1 mg 07/09/22 19:44 07/10/22 02:26 Morphine 4 Mg/Ml Sdv 1 Ml IVP 1 mg Q4H PRN Administration SEVERE PAIN PFSH Acute PFSH: Medical History AAA (abdominal aortic aneurysm) ASHD (arteriosclerotic heart disease) BPH loc w urin obs/LUTS Chronic prostatitis CVA (cerebral vascular accident) DJD (degenerative joint disease), lumbar Elevated PSA Essential hypertension Hyperlipidemia Myocardial infarction Palpitations Tobacco abuse, in remission Surgical History S/P CABG (coronary artery bypass graft) Family History Other CAD (coronary artery disease) Cancer Hypertension Social History Smoking and tobacco status: former smoker Alcohol intake: never Substance/Drug Use: never Household members: spouse Marital status: service: No Current occupational status: retired Previous occupational history: [employer] X [employer] YEARS Current gender identity: Male Radha/Rastafarian: [employer] Vitals/I&O/Wt Last Vital Signs Temp 97.9 F 07/09/22 19:00 Pulse 54 L 07/10/22 06:00 Resp 11 L 07/10/22 06:00 BP 181/70 07/10/22 06:00 Pulse Ox 100 07/10/22 06:00 O2 Del Method HAG 07/09/22 19:44 O2 Flow Rate 30 07/08/22 19:30 FiO2 21 07/10/22 06:00 07/09/22 07/10/22 07/10/22 22:59 06:59 14:59 Intake Total 48.747 / 1189.438 985 / 2174.438 Output Total 925 / 1175 375 / 1550 Balance -876.253 / 14.438 610 / 624.438 Data 07/10/22 03:07 07/10/22 03:07 A&P Assessment and plan (1) Dysphagia: Plan PEG tube placement The risks and benefits of the procedure, including bleeding, infection, intestinal perforation requiring surgery, missed lesion were explained to the patient. The patient is understanding of the risks and wishes to proceed. Coding Level of Care Code Acute Code for Chg Fwd Diagnoses Dysphagia R13.10
[2022-07-10] MEDS: sodium chloride 0.9% 1,000 ML 30 ML IV (08:13)
--- NOTE | 2022-07-10 08:40 | SUR.OPER ---
Pt to GI lab for PEG tube placement. Abdomen prepped with chloraprep per Dr. Hernandez. Lidocaine 1% 1 mL used for local prior to procedure. Pt transferred back to ICU via bed following procedure. VSS. Report given to bedside nurse, RICKY.
--- NOTE | 2022-07-10 09:52 | ANE.PACU2 ---
Inpatient post-anesthesia follow up: Airway intact: Yes (pre-existing trach) Vital signs: Temperature 97.5 F Pulse Rate 58 Respiratory Rate 18 Blood Pressure 181/92 Pulse Oximetry 98 Oxygen Delivery Me thod Room Air Oxygen Flow Rate 30 Fraction of Inspir ed Oxygen 21 Hydration adequate: Yes Nausea and vomiting: No Pain level: 1 Mental status: Baseline
[2022-07-10] MEDS: famotidine 20 mg/2 mL INJ IVP ×2 (09:53→20:02)
[2022-07-10] MEDS: cyanocobalamin 1,000 mcg/mL SDV 1000 MCG IM (09:53)
[2022-07-10] MEDS: dexmedetomidine 400 MCG in sodium chloride 0.9% (100 ml) 100 ML 9.44 MCG IV (10:20)
--- NOTE | 2022-07-10 10:41 | PC.NUTR ---
PEG TF consult received. When medically appropriate, recommend beginning Jevity 1.2 @ 10 mls/hr and increasing 10 mls/hr Q8H as tolerated until goal rate of 50 mls/hr is reached; with 100 mls water flushes Q4H or per MD discretion. Details in RD assessment.
--- NOTE | 2022-07-10 14:07 | PC.SOCIAL ---
Imm update Imm updated with patient and family at bedside. Copy of page 2 provided. Patient and family verbalized understanding. Copy in chart initialed, dated and timed
--- NOTE | 2022-07-10 17:24 | P.PN_ITS ---
Subjective Subjective: No acute events overnight. Today morning seen post PEG tube placement. Patient is having slight bleeding through the tracheostomy after PEG tube placement due to possible injury to the tumor mass during EGD. Patient is a little more awake and alert. Able to have conversation to sign language today. Family at bedside. Is on Precedex at 0.5. Hemodynamically stable and afebrile. Telemetry stable. Medications: Reviewed: Yes Vitals/I&O/Wt Last Vital Signs Temp 97 F L 07/10/22 14:00 Pulse 73 07/10/22 14:00 Resp 21 H 07/10/22 14:00 BP 189/75 07/10/22 14:00 Pulse Ox 94 07/10/22 14:00 O2 Del Method Room Air 07/10/22 08:09 O2 Flow Rate 30 07/08/22 19:30 FiO2 21 07/10/22 16:00 07/10/22 07/10/22 07/10/22 06:59 14:59 22:59 Intake Total 1089 / 2278.438 400 / 400 1000 / 1400 Output Total 375 / 1550 350 / 350 Balance 714 / 728.438 50 / 50 1000 / 1050 Physical Exam Narrative: General exam is no apparent distress. Lying comfortably in bed on Precedex drip, slightly confused. When seen later in the day sitting up in chair not confused. Off Precedex. HEENT: Atraumatic and normocephalic. Neck: Tracheostomy noted Cardiovascular regular rate and rhythm, heart sounds distant Lungs clear but with diminished breath sounds bilaterally Abdomen is soft. Positive bowel sounds Extremities no cyanosis clubbing or edema Skin no rash Neuro no focal deficits Data 07/10/22 03:07 07/10/22 03:07 A&P Assessment and plan (1) Delirium: Delirium is likely expected given his age, recent stresses, surgery, anesthesia and cannot rule out ICU delirium. Continue to hold off on antipsychotics. Try to avoid morphine as much as possible because of potential cause of confusion but can be given if needed for pain. Seems to be resolving. Once able to start medication through PEG tube will start on Aricept and Celexa along with Xanax as needed and pain medication as needed. Continue with Precedex. Wean to a level where patient is able to have complete conversation, awake without any episodes of agitation. If needed sitter at bedside. Frequent reorientation. Fall precautions. (2) Nonsustained ventricular tachycardia: This does not appear to be a new problem for the patient. Monitor electrolytes. Keep potassium around 4, magnesium around 2. Monitor telemetry. TSH within normal limits. Echocardiogram results appreciated. Continue with Ringer lactate at 75 cc/h. Continue with IV metoprolol 5 mg every 6 hourly. At home patient takes metoprolol 25 mg tartrate daily. (3) ASHD (arteriosclerotic heart disease): Continue statin, beta-tiffanie, Plavix once able to take orally. Currently on hold as patient failed speech therapy. (4) Dysphagia: Appreciate surgical recommendations. (5) S/P percutaneous endoscopic gastrostomy (PEG) tube placement: Slight bleeding post PEG tube placement through trach most likely through injury to the mass. Continue oral care continue trach care. Repeat hemoglobin and hematocrit in evening. Start PEG tube feeds within 24 hours. Dietitian consult. Plan Status post surgery for posterior pharyngeal mass Continue n.p.o. for now. Appreciate speech evaluation. Patient continues to fail multiple attempts. Discussed in detail with patient's primary and family members at bedside. Multiple options were discussed. Family is agreeable for PEG tube placement. Surgery consulted. Hold off on all oral medications for now. Multiple oral medication transition to IV as possible. Vitamin B12 deficiency: Start on cyanocobalamin 1000 mcg IM daily for next 5 days. Patient unable to take orally for now. Case management consultation. Full code. Goals of care discussion: Discussed with multiple family members at bedside. We discussed that unfortunately patient has worsening of dementia because of either ICU delirium or confusion postoperatively. We did discuss that unfortunately there is no timeline which we can determine for his delirium to improve. Discussed multiple modalities going forward for cancer and nutrition. Family wants to go ahead with PEG tube placement. Also discussed regarding CODE STATUS. Family will discuss further regarding CODE STATUS of full code versus DNR/DNI and goals of care about full treatment versus hospice in detail and will get back to us. Thank you for this consultation. Care discussed in detail with patient's nurse at bedside. We will continue to follow. Attestations Medical Necessity Statement*: Requires further hospitalization for management of dysphagia requiring PEG tube placement in setting of pharyngeal mass, post tracheostomy, postoperative delirium requiring Precedex in an elderly with history of nonsustained V. tach and CAD Coding Level of Care Code Critical Care >/= 30 minutes Critical care time (in minutes): 45 The high probability of a clinically significant, sudden or life threatening deterioration, as referenced in this documentation, required my full and direct attention, intervention and personal management. The critical care time shown is in addition to time spent performing any reported separately billable procedures and includes the following: [x] Data and vital sign review and interpretation [x ] Patient assessment, examination and intervention [x] Medication orders and management [x] Patient/Family updates as able [x] Care Coordination and Documentation. Diagnoses Delirium R41.0 Nonsustained ventricular tachycardia I47.29 ASHD (arteriosclerotic heart disease) I25.10 Dysphagia R13.10 S/P percutaneous endoscopic gastrostomy (PEG) tube placement Z93.1
[2022-07-10 18:03] LABS: Hematocrit 34.2 % (42.0-52.0); Hemoglobin 11.4 g/dL (11.7-16.6)
--- NOTE | 2022-07-10 19:00 | PC.NURSE ---
MAR Upon shift assessment, precedex paused in patient room while MAR displayed running. MAR updated to reflect paused treatment.
--- NOTE | 2022-07-10 23:41 | PHA.FALL ---
A Pharmacy Consult Was Conducted For Jose Mcdonnell Due To: Quinonez Fall Scale Risk Level: High Fall Risk On 07/10/22 20:00 And A Medication Fall Risk Score Greater Than 10. The Recommendations Are As Follows: Amlodipine HOLLAND: 1,3,4,5,7,9,10 Gabapentin HOLLAND: 1,3,4,5,6,7,8,10 Metoprolol HOLLAND: 1,2,3,4,5,9,10 Medications which cause/contribute to: 1 = sedation/fatigue/lethargy 2 = decreased alertness 3 = postural/orthostatic hypotension 4 = dizziness 5 = decreased neuromuscular function/ataxia 6 = decreased memory/cognitive impairment 7 = blurred vision 8 = confusion 9 = arrhythmias 10 = syncope 11 = anemia Thank you, Astrid Balderas [facility]
[2022-07-11] VITALS (27 sets, daily range): BP systolic 116–175; BP diastolic 51–117; PULSE 60–90; RESP 14–27; TEMP 36.6–37.7; O2SAT 90–98; BMI 26.3
[2022-07-11] MEDS: hyDRALAzine 20 mg/mL INJ 1 mL 10 MG IVP (02:54)
[2022-07-11 03:54] LABS: Basophils % 0.1 %; Eosinophils % 0.3 %; Hematocrit 34.9 % (42.0-52.0); Hemoglobin 11.7 g/dL (11.7-16.6); Lymphocytes # 0.4 10^3/uL (0.8-4.8); Lymphocytes % 4.8 %; Mean Corpuscular HGB Conc 33.5 g/dL (30.0-36.0); Mean Corpuscular Hemoglobin 29.5 pg (28.0-34.0); Mean Corpuscular Volume 87.9 fl (80-94); Mean Platelet Volume 11.3 fL (7.4-10.4); Monocytes # 0.9 10^3/uL (0.2-0.9); Monocytes % 10.9 %; Neutrophils # 6.62 10^3/uL (1.8-7.7); Neutrophils % 83.5 %; Nucleated Red Blood Cells % 0 %; Platelet Count 168 10^3/cmm (130-400); Red Blood Count 3.97 10^6/uL (4.1-5.3); Red Cell Distribution Width 13.1 % (12.1-15.1); White Blood Count 7.9 10^3/uL (4.0-10.0)
[2022-07-11 04:28] LABS: Alanine Aminotransferase 12 U/L (0-41); Albumin Level 2.7 g/dL (3.5-5.2); Alkaline Phosphatase 70 U/L (40-130); Blood Urea Nitrogen 14 mg/dL (8-23); Calcium 8.3 mg/dL (8.5-10.5); Carbon Dioxide 19 mmol/L (22-29); Chloride 100 mmol/L (98-107); Globulin 2.8 g/dL (1.3-4.6); Glucose 73 mg/dL (65-115); Osmolality Calculated 279 mOsm/kg (285-295); Sodium 135 mmol/L (136-145); Total Bilirubin 0.8 mg/dL (0.15-1.2); Total Protein 5.5 g/dL (6.6-8.7)
[2022-07-11 04:43] LABS: Anion Gap 19.1 (5-19); Potassium 3.1 mmol/L (3.5-5.1)
[2022-07-11 04:46] LABS: Aspartate Amino Transferase 27 U/L (0-40)
[2022-07-11] MEDS: metoprolol tartrate 1 mg/1 mL SDV 5 mL 5 MG IVP (04:52)
[2022-07-11] MEDS: lactated ringers 1,000 ML 75 ML IV (04:52)
[2022-07-11] MEDS: heparin 5,000 unit/mL INJ 1 mL 5000 UNIT SUBCUT ×2 (04:58→17:26)
--- NOTE | 2022-07-11 06:35 | P.PN_ITS ---
Subjective Subjective: 86 yo wm who is POD #6 s/p tracheotomy for a large, obstructing right posterior hypopharyngeal SCCA. The patient underwent PEG placement yesterday. The patient is doing well from the standpoint of his tracheotomy tube. There are no new c/o from this standpoint. Medications: Reviewed: Yes Vitals/I&O/Wt Last Vital Signs Temp 98.5 F 07/11/22 04:00 Pulse 63 07/11/22 06:00 Resp 16 07/11/22 06:00 BP 172/93 07/11/22 06:00 Pulse Ox 90 07/11/22 04:00 O2 Del Method Trach Collar 07/11/22 04:00 O2 Flow Rate 7 07/11/22 04:00 FiO2 21 07/10/22 18:00 07/10/22 07/10/22 07/11/22 14:59 22:59 06:59 Intake Total 400 / 400 1695.146 / 2095.146 386.667 / 2481.813 Output Total 350 / 350 750 / 1100 175 / 1275 Balance 50 / 50 945.146 / 995.146 211.667 / 1206.813 Weight last 48 hrs Weight 76.158 kg Physical Exam Const: COMMON NORMALS: no acute distress and alert HENMT: COMMON NORMALS: normocephalic, atraumatic, external ears normal and Normal external nose present HEAD & SCALP: normocephalic and atraumatic F SOBIA & SINUS: normal facial exam NOSE: Normal external nose present EXTERNAL EAR: Yes external ears normal Eye: COMMON NORMALS: EOMs intact bilaterally, conjunctivae normal and no s cleral icterus CONJUNCTIVA: Yes conjunctivae normal Neck/C-Spine: COMMON NORMALS: full ROM, no lymphadenopathy and supple GENERAL: Yes trachea midline and Yes tracheostomy present (Trach clean, without erythema.) Lymph: LYMPHATIC: no lymphadenopathy noted Chest: COMMONS NORMALS: normal inspection of the chest Resp: COMMON NORMALS: normal respiratory effort, No retractions, No use of accessory muscles and clear to auscultation bilaterally AUSCULTATION: clear to auscultation bilaterally Cardio: COMMON NORMALS: regular rate, regular rhythm and No murmurs present (Cardio) RATE: regular rate RHYTHM: regular rhythm GI: COMMON NORMALS: Normal to inspection, nondistended, normoactive bowel sounds present Extremity: COMMON NORMALS: normal to inspection Neuro: SENSORIUM/ORIENTATION: Yes alert Data 07/11/22 02:42 07/11/22 02:42 A&P Assessment and plan (1) Airway compromise: Impression: POD #6 s/p tracheotomy doing well from this standpoint Plan: - Continue trach care and trach care education of the family (2) Pharynx cancer: Impression: Stable Plan: - PET scan scheduled after discharge - Heme/Onc, Rad/Onc consults after discharge (3) Delirium: Impression: Improving Plan: As above (4) Dysphagia: Impression: POD #1 s/p PEG placement Plan: - Dr. Hernandez would like to wait for d/c until tomorrow to ensure patient's tolerance of tube feeds; we will d/c when stable from this standpoint Attestations Medical Necessity Statement*: The patient requires inpatient care until PEG stable and patient is tolerating tube feeds. Coding Level of Care Code Acute Code for [facility] Diagnoses Airway compromise J98.8 Pharynx cancer C14.0 Delirium R41.0 Dysphagia R13.10
[2022-07-11] MEDS: famotidine 20 mg/2 mL INJ IVP ×2 (09:04→19:38)
[2022-07-11] MEDS: allopurinol 300 mg Tablet PO (09:55)
[2022-07-11] MEDS: docusate sodium 100 mg Capsule PO ×2 (09:55→17:26)
[2022-07-11] MEDS: cyanocobalamin 1,000 mcg/mL SDV 1000 MCG IM (09:55)
[2022-07-11] MEDS: finasteride 5 mg Tablet PO (09:55)
[2022-07-11] MEDS: amlodipine 5 mg Tablet PO (09:55)
[2022-07-11] MEDS: gabapentin 300 mg Capsule PO ×3 (09:55→20:31)
[2022-07-11] MEDS: metoprolol tartrate 25 mg Tablet 12.5 MG PO ×2 (09:56→20:30)
--- NOTE | 2022-07-11 11:07 | PM.PN ---
Subjective Subjective: Patient tolerating trickle tube feeds this morning. Pulling at PEG tube Vitals/I&O/Wt Last Vital Signs Temp 99.9 F H 07/11/22 07:49 Pulse 70 07/11/22 08:00 Resp 16 07/11/22 08:00 BP 172/93 07/11/22 06:00 Pulse Ox 93 07/11/22 08:00 O2 Del Method Room Air, HAG 07/11/22 08:00 O2 Flow Rate 7 07/11/22 04:00 FiO2 21 07/10/22 18:00 07/10/22 07/11/22 07/11/22 22:59 06:59 14:59 Intake Total 1695.146 / 2095.146 386.667 / 2481.813 Output Total 750 / 1100 175 / 1275 Balance 945.146 / 995.146 211.667 / 1206.813 Weight last 48 hrs Weight 167 lb 14.4 oz Physical Exam Narrative: General: No acute distress, pulling at PEG tube, dementia Abdomen: Soft, nontender, nondistended, PEG tube in place Data 07/11/22 02:42 07/11/22 02:42 A&P Assessment and plan (1) S/P percutaneous endoscopic gastrostomy (PEG) tube placement: Plan Advance tube feeds to goal per orders May bolus feed once at goal Surgically stable for discharge once at goal tube feeding Attestations Medical Necessity Statement*: Per hospitalist Coding Level of Care Code Acute Code for Chg Fwd Diagnoses S/P percutaneous endoscopic gastrostomy (PEG) tube placement Z93.1
[2022-07-11] MEDS: citalopram 20 mg Tablet PO (11:21)
[2022-07-11] MEDS: potassium chloride oral liq 20 mEq/15 mL UDC 80 MEQ PO (11:22)
--- NOTE | 2022-07-11 12:32 | PC.NURSE ---
tube feeding started instructed family on care of tube feeding , area cleaned and dressing change done per family while staff assist instructed on care and med given at this time
--- NOTE | 2022-07-11 14:17 | P.PN_ITS ---
Subjective Subjective: No acute events overnight. No further bleeding. Patient is off Precedex. A lot more awake and alert. Able to have conversation through sign language. Denies any nausea, vomiting, headache. Started on tube feeds and has been tolerating well. Has remained afebrile otherwise. Medications: Reviewed: Yes Vitals/I&O/Wt Last Vital Signs Temp 98.9 F 07/11/22 12:00 Pulse 72 07/11/22 12:00 Resp 24 H 07/11/22 12:00 BP 151/65 07/11/22 12:00 Pulse Ox 94 07/11/22 12:00 O2 Del Method HAG 07/11/22 12:00 O2 Flow Rate 7 07/11/22 04:00 FiO2 21 07/10/22 18:00 07/10/22 07/11/22 07/11/22 22:59 06:59 14:59 Intake Total 1695.146 / 2095.146 386.667 / 2481.813 10 Output Total 750 / 1100 175 / 1275 Balance 945.146 / 995.146 211.667 / 1206.813 10 Weight last 48 hrs Weight 76.158 kg Physical Exam Narrative: General exam is no apparent distress. Lying comfortably in bed on Precedex drip, slightly confused. When seen later in the day sitting up in chair not confused. Off Precedex. HEENT: Atraumatic and normocephalic. Neck: Tracheostomy noted Cardiovascular regular rate and rhythm, heart sounds distant Lungs clear but with diminished breath sounds bilaterally Abdomen is soft. Positive bowel sounds Extremities no cyanosis clubbing or edema Skin no rash Neuro no focal deficits Data 07/11/22 02:42 07/11/22 02:42 A&P Assessment and plan (1) Delirium: Delirium is likely expected given his age, recent stresses, surgery, anesthesia and cannot rule out ICU delirium. Continue to hold off on antipsychotics. Try to avoid morphine as much as possib le because of potential cause of confusion but can be given if needed for pain. Seems to be resolving. Once able to start medication through PEG tube will start on Aricept and Celexa along with Xanax as needed and pain medication as needed. Continue with Precedex. Wean to a level where patient is able to have complete conversation, awake without any episodes of agitation. If needed sitter at bedside. Frequent reorientation. Fall precautions. (2) Nonsustained ventricular tachycardia: This does not appear to be a new problem for the patient. Monitor electrolytes. Keep potassium around 4, magnesium around 2. Monitor telemetry. TSH within normal limits. Echocardiogram results appreciated. Continue with Ringer lactate at 75 cc/h. Continue with IV metoprolol 5 mg every 6 hourly. At home patient takes metoprolol 25 mg tartrate daily. (3) ASHD (arteriosclerotic heart disease): Continue statin, beta-tiffanie, Plavix once able to take orally. Currently on hold as patient failed speech therapy. (4) Dysphagia: Appreciate surgical recommendations. (5) S/P percutaneous endoscopic gastrostomy (PEG) tube placement: Slight bleeding post PEG tube placement through trach most likely through injury to the mass. Continue oral care continue trach care. Repeat hemoglobin and hematocrit in evening. Start PEG tube feeds within 24 hours. Dietitian consult. Plan Status post surgery for posterior pharyngeal mass Post PEG tube placement. Start PEG tube feeds as per diet recommendation. Increase every 4 hour. Achieve goal as per dietitian consult. Reconsult dietitian for bolus feed recommendations as well. Restart oral medications through PEG tube. Vitamin B12 deficiency: Start on cyanocobalamin 1000 mcg IM daily for next 5 days. Patient unable to take orally for now. Case management consultation. Full code. Plan for the day: Start on tube feeds. Increase 10 cc every 4 hours till goal is reached. Will consult dietitian again tomorrow for recommendations about bolus feeds. Case management alerted to arrange for bolus feeds as an outpatient. Restart home oral medications except Plavix. Restart Plavix in next 48 hours. Restart amlodipine 5 mg oral daily, metoprolol 12.5 mg oral twice daily. Stop IV metoprolol. Goal blood pressure less than 140/90 mmHg. Will uptitrate blood pressure medications accordingly. Hold off on Precedex for now. Start on Celexa 20 mg oral daily, Aricept 10 mg at bedtime. Trazodone as needed at bedtime. Stop IV fluids. Repeat CBC and CMP in AM. 80 mEq of potassium replacement. Discharge planning: If patient remains at baseline mentation which is at currently most likely can be discharged the next 24 hours to home with home health on bolus tube feeds. Goals of care discussion: Discussed with multiple family members at bedside. We discussed that unfortunately patient has worsening of dementia because of either ICU delirium or confusion postoperatively. We did discuss that unfortunately there is no timeline which we can determine for his delirium to improve. Discussed multiple modalities going forward for cancer and nutrition. Family wants to go ahead with PEG tube placement. Also discussed regarding CODE STATUS. Family will discuss further regarding CODE STATUS of full code versus DNR/DNI and goals of care about full treatment versus hospice in detail and will get back to us. Thank you for this consultation. Care discussed in detail with patient's nurse at bedside. We will continue to follow. Attestations Medical Necessity Statement*: Requires further hospitalization for postoperative delirium while PEG tube feeds are started and goals are reached in a patient was admitted for tracheostomy given pharyngeal mass and PEG tube placement while safe discharge planning is sought. Diagnoses Delirium R41.0 Nonsustained ventricular tachycardia I47.29 ASHD (arteriosclerotic heart disease) I25.10 Dysphagia R13.10 S/P percutaneous endoscopic gastrostomy (PEG) tube placement Z93.1
--- NOTE | 2022-07-11 14:26 | PC.RESP ---
assisted family with trach care
[2022-07-11] MEDS: donepezil 5 MG Tablet 10 MG PO (20:29)
[2022-07-11] MEDS: atorvastatin 40 mg Tablet 20 MG PO (20:31)
[2022-07-11] MEDS: trazodone 100 mg Tablet PO (20:44)
[2022-07-12] VITALS (26 sets, daily range): BP systolic 108–172; BP diastolic 47–114; PULSE 56–74; RESP 15–28; TEMP 36.2–37.4; O2SAT 88–96; BMI 26.3
[2022-07-12 03:44] LABS: Basophils % 0.1 %; Eosinophils # 0.1 10^3/uL (0.0-0.8); Eosinophils % 1.2 %; Hematocrit 36.6 % (42.0-52.0); Lymphocytes # 0.7 10^3/uL (0.8-4.8); Lymphocytes % 8.4 %; Mean Corpuscular HGB Conc 32.8 g/dL (30.0-36.0); Mean Corpuscular Hemoglobin 29.3 pg (28.0-34.0); Mean Corpuscular Volume 89.5 fl (80-94); Mean Platelet Volume 10.5 fL (7.4-10.4); Monocytes # 0.9 10^3/uL (0.2-0.9); Monocytes % 10.9 %; Neutrophils % 78.6 %; Nucleated Red Blood Cells % 0 %; Platelet Count 185 10^3/cmm (130-400); Red Blood Count 4.09 10^6/uL (4.1-5.3); Red Cell Distribution Width 13.5 % (12.1-15.1); White Blood Count 8.4 10^3/uL (4.0-10.0)
[2022-07-12 04:03] LABS: Alanine Aminotransferase 14 U/L (0-41); Albumin Level 2.8 g/dL (3.5-5.2); Alkaline Phosphatase 73 U/L (40-130); Anion Gap 13.2 (5-19); Aspartate Amino Transferase 24 U/L (0-40); Blood Urea Nitrogen 12 mg/dL (8-23); Calcium 8.7 mg/dL (8.5-10.5); Carbon Dioxide 24 mmol/L (22-29); Chloride 103 mmol/L (98-107); Glucose 130 mg/dL (65-115); Osmolality Calculated 286 mOsm/kg (285-295); Potassium 3.2 mmol/L (3.5-5.1); Sodium 137 mmol/L (136-145); Total Bilirubin 0.7 mg/dL (0.15-1.2); Total Protein 5.8 g/dL (6.6-8.7)
--- NOTE | 2022-07-12 04:56 | P.PN_ITS ---
Subjective Subjective: 86 yo wm who is POD #7 s/p Tracheotomy for a large, obstructing posterior hypopharyngeal SCCA. The patient is doing well from this standpoint. The patient is also POD #2 s/p PEG placement and is doing well from this standpoint. The patient's home health care has been arranged. Medications: Reviewed: Yes Vitals/I&O/Wt Last Vital Signs Temp 97.7 F 07/12/22 03:30 Pulse 66 07/12/22 03:30 Resp 19 H 07/12/22 03:30 BP 168/78 07/12/22 03:30 Pulse Ox 91 07/12/22 03:30 O2 Del Method Trach Collar 07/12/22 03:30 O2 Flow Rate 6 07/12/22 03:30 FiO2 21 07/11/22 19:56 07/11/22 07/11/22 07/12/22 14:59 22:59 06:59 Intake Total 1284 / 1294 125 / 1419 Output Total 675 / 675 150 / 825 Balance 609 / 619 -25 / 594 Weight last 48 hrs Weight 76.158 kg Physical Exam Const: COMMON NORMALS: no acute distress and patient oriented x3 HENMT: COMMON NORMALS: normocephalic, atraumatic and Normal external nose present HEAD & SCALP: normocephalic and atraumatic FACE & SINUS: normal facial exam NOSE: Normal external nose present Eye: COMMON NORMALS: Equal, round and reactive pupils present, EOMs intact bi laterally, conjunctivae normal and no scleral icterus CONJUNCTIVA: Yes co njunctivae normal PUPIL: Yes Equal, round and reactive pupils present Neck/C-Spine: COMMON NORMALS: full ROM, no lymphadenopathy and supple Lymph: LYMPHATIC: no lymphadenopathy noted Chest: COMMONS NORMALS: normal inspection of the chest and normal palpation of entire chest wall Resp: COMMON NORMALS: normal respiratory effort, No retractions, No use of ac cessory muscles and clear to auscultation bilaterally AUSCULTATION: clear to auscultation bilaterally Cardio: COMMON NORMALS: regular rate, regular rhythm and No murmurs present (Cardio) RATE: regular rate RHYTHM: regular rhythm GI: COMMON NORMALS: Normal to inspection, nondistended, normoactive bowel sounds present Extremity: COMMON NORMALS: normal to inspection Neuro: COMMON NORMALS: patient oriented x3 Data 07/12/22 03:15 07/12/22 03:15 A&P Assessment and plan (1) Airway compromise: Impression: POD #7 s/p tracheotomy doing well. Plan: - Daily home health care visits for trach and PEG care for 2 weeks - Family instructed in trach care - Daily trach care as instructed - F/U in Dr. Vega's office in one week - Contact Dr. Vega for any problems (2) Pharynx cancer: Impression: Stable Plan: - PET scan to be scheduled - Heme/Onc and Radiation/Onc consults after d/c (3) S/P percutaneous endoscopic gastrostomy (PEG) tube placement: Impression: Stable Plan: As per Dr. Hernandez Attestations Medical Necessity Statement*: The patient required inpatient care to stabilize his airway and oral intake. Coding Level of Care Code Acute Code for Chg Fwd Diagnoses Airway compromise J98.8 Pharynx cancer C14.0 S/P percutaneous endoscopic gastrostomy (PEG) tube placement Z93.1
--- NOTE | 2022-07-12 05:03 | P.DS_ITS ---
Discharge Providers Date of Admission: 07/05/22 10:58 Date of Discharge: July 12, 2022 Attending Provider at Admission: William Vega MD Attending Provider at Discharge: William Vega MD Consults: Hospitalists Team General Surgery Primary Care Provider: Heather Hodges DO Diagnoses at Discharge Discharge Diagnosis (1) Airway compromise: Details from hospital stay: The patient underwent tracheotomy with direct laryngoscopy on the day of admission. The patient did well from this standpoint, but developed worsening in his dementia and an inability to swallow in the ICU post op. The patient also developed runs of PVCs in the ICU as well. The hospitalist team was consulted to assist in management and the patient's condition eventually improved slowly over the course of his admission until his mental status was back at baseline at the time of d/c. General surgery was consulted to assist in management of his dysphagia, and he underwent PEG placement 2 days ago. The patient was stable and doing well from this standpoint as well at the time of d/c. Status: Acute (2) Pharynx cancer: Details from hospital stay: The patient underwent Direct Laryngoscopy with biopsy on the day of admission. 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 This was stable during his admission and he is to be scheduled for evaluation and treatment after discharge. Status: Acute (3) S/P percutaneous endoscopic gastrostomy (PEG) tube placement: Details from hospital stay: The patient underwent PEG placement 48 hours prior to discharge. He tolerated his tube feeds well and was stable from this standpoint at the time of discharge. His medications will have to be converted to liquid form for PEG use at discharge. Status: Acute Other Information Additional DC diagnoses/information: Medical: the patient is stable and back at his baseline at the time of d/c from this standpoint. Reason for Visit Reason for Visit: Something is in my throat Hospital Course Hospital Course The patient underwent the procedures described above. He initially experienced worsening of his dementia and short runs of PVCs. The Hospitalists team was consulted and his mental status cleared over 3 days. The patient did well from the standpoint of his tracheotomy and PEG placement as above and was discharged in stable condition on the day of d/c. Physical Exam Const: COMMON NORMALS: no acute distress, average body habitus and alert GENERAL APPEARANCE: well kempt HENMT: COMMON NORMALS: normocephalic, atraumatic, external ears normal and Normal external nose present HEAD & SCALP: normocephalic and atraumatic NOSE: Normal external nose present EXTERNAL EAR: Yes external ears normal Eye: COMMON NORMALS: EOMs intact bilaterally, conjunctivae normal and no scleral icterus CONJUNCTIVA: Yes conjunctivae normal Neck/C-Spine: COMMON NORMALS: no lymphadenopathy and supple Lymph: LYMPHATIC: no lymphadenopathy noted Chest: COMMONS NORMALS: normal inspection of the chest, normal palpation of entire chest wall, normal inspection of the breasts and normal palpation of the breasts Resp: COMMON NORMALS: normal respiratory effort, No retractions and No use of accessory muscles Cardio: COMMON NORMALS: regular rate and regular rhythm RATE: regular rate RHYTHM: regular rhythm Neuro: SENSORIUM/ORIENTATION: Yes alert Psych: APPEARANCE: Yes well kempt ATTITUDE: Yes calm Discharge Data Studies Completed and Pending Completed Studies During Hospitalization Category Date Time Status XR chest 1V portable [id number] Routine Exams 07/06/22 04:00 Completed Pathology: Surgical [PTH] Routine Pth 07/05/22 11:04 Completed CV. echo complete* [id number] Routine Ultrasound 07/07/22 07:35 Completed Radiology Impressions Chest X-Ray 07/06/22 04:00 IMPRESSION: 1. Tracheostomy tube in satisfactory location. 2. Nonspecific mild left lung base opacity favors atelectasis or pneumonia. Laboratory Results WBC 8.4 10^3/uL (4.0-10.0) 07/12/22 03:15 RBC 4.09 10^6/uL (4.1-5.3) L 07/12/22 03:15 Hgb 12.0 g/dL (11.7-16.6) 07/12/22 03:15 Hct 36.6 % (42.0-52.0) L 07/12/22 03:15 MCV 89.5 fl (80-94) 07/12/22 03:15 MCH 29.3 pg (28.0-34.0) 07/12/22 03:15 MCHC 32.8 g/dL (30.0-36.0) 07/12/22 03:15 RDW 13.5 % (12.1-15.1) 07/12/22 03:15 Plt Count 185 10^3/cmm (130-400) 07/12/22 03:15 MPV 10.5 fL (7.4-10.4) H 07/12/22 03:15 Neut % (Auto) 78.6 % 07/12/22 03:15 Lymph % (Auto) 8.4 % 07/12/22 03:15 [place] % (Auto) 10.9 % 07/12/22 03:15 Eos % (Auto) 1.2 % 07/12/22 03:15 Baso % (Auto) 0.1 % 07/12/22 03:15 Neut # (Auto) 6.60 10^3/uL (1.8-7.7) 07/12/22 03:15 Lymph # (Auto) 0.7 10^3/uL (0.8-4.8) L 07/12/22 03:15 [place] # (Auto) 0.9 10^3/uL (0.2-0.9) 07/12/22 03:15 Eos # (Auto) 0.1 10^3/uL (0.0-0.8) 07/12/22 03:15 Baso # (Auto) 0.0 10^3/uL (0.0-0.1) 07/12/22 03:15 Nucleated RBC % (auto) 0 % 07/12/22 03:15 Total Counted 100 (0-100) 07/05/22 08:35 Atypical Lymphs % 0.0 % (0-5) 07/05/22 08:35 Absolute Neutrophils 5.6 10^3/cmm (1.4-6.5) 07/05/22 08:35 Segmented Neutrophils 84 % 07/05/22 08:35 Abs Segm Neuts (Man) 5.4 10/cmm (1.6-7.1) 07/05/22 08:35 Band Neutrophils 4.0 % 07/05/22 08:35 Abs Band Neuts (Man) 0.3 10^3/cmm (0.0-1.2) 07/05/22 08:35 Absolute Lymphocytes 0.6 10^3/cmm (1.2-3.4) L 07/05/22 08:35 Lymphocytes (Manual) 9 % 07/05/22 08:35 Monocytes (Manual) 2.0 % 07/05/22 08:35 Absolute Monocytes 0.1 10^3/cmm (0.1-0.6) 07/05/22 08:35 Eosinophils (Manual) 1 % 07/05/22 08:35 Absolute Eosinophils 0.0 10^3/cmm (0.0-0.7) 07/05/22 08:35 Basophils (Manual) 0.0 % 07/05/22 08:35 Absolute Basophils 0.0 10^3/cmm (0.0-0.2) 07/05/22 08:35 Nucleated RBCs # 0.0 /100WBC 07/12/22 03:15 Platelet Estimate Normal (Normal) 07/05/22 08:35 Sodium 137 mmol/L (136-145) 07/12/22 03:15 Potassium 3.2 mmol/L (3.5-5.1) L 07/12/22 03:15 Chloride 103 mmol/L (98-107) 07/12/22 03:15 Carbon Dioxide 24 mmol/L (22-29) 07/12/22 03:15 Anion Gap 13.2 (5-19) 07/12/22 03:15 BUN 12 mg/dL (8-23) 07/12/22 03:15 Creatinine 0.9 mg/dL (0.7-1.2) 07/12/22 03:15 GFR Calculation Not Reportable 07/12/22 03:15 Glucose 130 mg/dL (65-115) H 07/12/22 03:15 Estimat Average Glucose 114 07/09/22 05:05 Hemoglobin A1c 5.6 % (4.0-6.0) 07/09/22 05:05 Calculated Osmolality 286 mOsm/kg (285-295) 07/12/22 03:15 Calcium 8.7 mg/dL (8.5-10.5) 07/12/22 03:15 Magnesium 2.0 mg/dL (1.7-2.3) 07/09/22 05:05 Iron 27 ug/dL (59-158) L 07/08/22 02:13 TIBC 147 mcg/dl 07/08/22 02:13 % Saturation 18.3 % (20-50) L 07/08/22 02:13 Unsat Iron Binding 120 ug/dL (112-347) 07/08/22 02:13 Total Bilirubin 0.7 mg/dL (0.15-1.2) 07/12/22 03:15 AST 24 U/L (0-40) 07/12/22 03:15 ALT 14 U/L (0-41) 07/12/22 03:15 Alkaline Phosphatase 73 U/L (40-130) 07/12/22 03:15 Total Protein 5.8 g/dL (6.6-8.7) L 07/12/22 03:15 Albumin 2.8 g/dL (3.5-5.2) L 07/12/22 03:15 Globulin 3.0 g/dL (1.3-4.6) 07/12/22 03:15 Triglycerides 76 mg/dL (0-150) 07/09/22 05:05 Cholesterol 93 mg/dL (0-200) 07/09/22 05:05 LDL Cholesterol, Calc 49 mg/dL (50-129) L 07/09/22 05:05 Total VLDL Cholesterol 15 mg/dL (0-30) 07/09/22 05:05 HDL Cholesterol 29 mg/dL (60-100) L 07/09/22 05:05 Cholesterol/HDL Ratio 3.21 mg/dL (1.0-5.00) 07/09/22 05:05 Vitamin B12 228 pg/mL (232-1245) L 07/08/22 02:13 Folate 7.9 ng/mL (4.5-32.2) 07/09/22 05:05 TSH 2.05 uIU/mL (0.27-4.20) 07/07/22 05:53 Urine Color Yellow (Yellow) 07/09/22 08:50 Urine Appearance Clear (CLEAR) 07/09/22 08:50 Urine pH 6.5 (5-7) 07/09/22 08:50 Ur Specific [place] 1.015 (1.005-1.030) 07/09/22 08:50 Urine Protein Neg (Negative) 07/09/22 08:50 Urine Glucose (UA) Norm (Normal) 07/09/22 08:50 Urine Ketones 1+ (Negative) H 07/09/22 08:50 Urine Blood Trace (Negative) H 07/09/22 08:50 Urine Nitrate Negative (Negative) 07/09/22 08:50 Urine Bilirubin Neg (Negative) 07/09/22 08:50 Urine Urobilinogen Neg mg/dL (Negative) 07/09/22 08:50 Ur Leukocyte Esterase Negative (Negative) 07/09/22 08:50 Urine RBC 0-4 /hpf (0-2) H 07/09/22 08:50 Urine WBC None /hpf (0-5) 07/09/22 08:50 Ur Squamous Epith Cells 0-4 /hpf (0-5) H 07/09/22 08:50 Amorphous Sediment Not Reportable 07/09/22 08:50 Urine Bacteria Trace /hpf (NONE) 07/09/22 08:50 Urine Mucus Trace /hpf 07/09/22 08:50 Blood Type AB Positive 07/05/22 08:35 Rho(D) Type Positive 07/05/22 08:35 Antibody Screen Negative 07/05/22 08:35 Procedures Performed Tracheotomy and Direct Laryngoscopy with biopsy performed on the day of admission PEG placement on 07/10/22 Vitals Last Vital Signs Temp 97.7 F 07/12/22 03:30 Pulse 66 07/12/22 03:30 Resp 19 H 07/12/22 03:30 BP 168/78 07/12/22 03:30 Pulse Ox 91 07/12/22 03:30 O2 Del Method Trach Collar 07/12/22 03:30 O2 Flow Rate 6 07/12/22 03:30 FiO2 21 07/11/22 19:56 Discharge Plan Discharge Patient Disposition: Home Health Service Condition: Stable Prescriptions: Continued melatonin 5 mg tablet 5 mg PO .HS nitroglycerin [Nitrostat] 0.4 mg tablet, sublingual 0.4 mg SUBLINGUAL Q5M PRN (Reason: Chest Pain) allopurinol 300 mg tablet 300 mg PO QDAY Qty: 30 5RF Rx Instructions: Please convert to liquid form for PEG use gabapentin 300 mg capsule 300 mg PO TID Qty: 90 5RF Rx Instructions: Please convert to liquid form for PEG use clopidogrel 75 mg tablet 75 mg PO QDAY Qty: 30 5RF Rx Instructions: Please convert to liquid form for PEG use atorvastatin 20 mg tablet 20 mg PO QDAY Qty: 30 5RF Rx Instructions: Please convert to liquid form for PEG use metoprolol tartrate 25 mg tablet 25 mg PO DAILY Qty: 30 5RF Rx Instructions: Please convert to liquid form for PEG use amlodipine 5 mg tablet 5 mg PO DAILY Qty: 90 3RF Rx Instructions: Please convert to liquid form for PEG use finasteride 5 mg tablet 5 mg PO DAILY Qty: 90 3RF Rx Instructions: Please convert to liquid form for PEG use Discharge Orders: Discharge Order (Routine); Ordered 07/12/22 Ordered By: William Vega Other Ambulatory Orders: DME: Miscellaneous (Order) Location: None Selected Ordered By: Santana Salguero DME: Miscellaneous (Order) Location: None Selected Ordered By: William Vega DME: Miscellaneous (Order) Location: None Selected Ordered By: William Vega DME: Miscellaneous (Order) Location: None Selected Ordered By: William Vega DME: Miscellaneous (Order) Location: None Selected Ordered By: William Vega DME: Miscellaneous (Order) Location: None Selected Ordered By: William Vega Referrals: [facility] [place] Home Care ([facility]) [Outside] Discharge Diet: Start new tube feeds as directed Discharge Activity: Resume usual activity Patient Instructions: Opioid Safety, GI Discharge Instructions Plan of Treatment: - PEG care and trach care as outlined - Resume all preop medications - Tube feeds/Gevity as outlined - F/U in Dr. Vega's office in one week - Contact Dr. Vega for any problems Discharge Attestations Time Spent in Discharge Care*: greater than 30 min Quality Metrics Clinical Quality Measures [ No reported AMI, CVA or VTE this stay] Coding Level of Care Code Acute Code for Chg Fwd Diagnoses Airway compromise J98.8 Pharynx cancer C14.0 S/P percutaneous endoscopic gastrostomy (PEG) tube placement Z93.1
[2022-07-12] MEDS: heparin 5,000 unit/mL INJ 1 mL 5000 UNIT SUBCUT (05:24)
[2022-07-12] MEDS: metoprolol tartrate 25 mg Tablet 12.5 MG PO (08:10)
[2022-07-12] MEDS: cyanocobalamin 1,000 mcg/mL SDV 1000 MCG IM (08:10)
[2022-07-12] MEDS: docusate sodium 100 mg Capsule PO (08:10)
[2022-07-12] MEDS: amlodipine 5 mg Tablet PO (08:10)
[2022-07-12] MEDS: gabapentin 300 mg Capsule PO (08:10)
[2022-07-12] MEDS: famotidine 20 mg/2 mL INJ IVP (08:10)
[2022-07-12] MEDS: allopurinol 300 mg Tablet PO (08:10)
[2022-07-12] MEDS: finasteride 5 mg Tablet PO (08:10)
[2022-07-12] MEDS: citalopram 20 mg Tablet PO (08:10)
--- NOTE | 2022-07-12 10:22 | PC.NUTR ---
Addendum entered and electronically signed by Licha Macias 07/12/22 10:34: OZ will need to send Jevity 1.2 x 3 liter bottles with Patient for bolus feeds for the next two days until supplies arrive to Pt's home. Original Note: PEG TF consult for inpatient and outpatient received. For inpatient, recommend Jevity 1.2, with fresh water flushes of 60 cc before and after, using the following regimen: 8 am: 240 cc Noon: 240 cc 4 pm: 240 cc 8 pm: 480 cc For outpatient, recommend Jevity 1.5, with fresh water flushes of 60 cc before and after, using the following regimen. 8 am: 1 carton (240 cc) Noon: 1 carton 4 pm: 1 carton 8 pm: 2 cartons The goal is 5 feedings of 240 cc per day, so can be manipulated per Pt's wished and tolerance. Details in RD assessment.
--- NOTE | 2022-07-12 14:01 | PC.SOCIAL ---
IMM Update pg 2 of IMM updated and reviewed w/ patient. Copy provided and copy in chart dated, and initialed.
--- NOTE | 2022-07-12 14:16 | PC.NURSE ---
Discharge Note Patient discharged to home via wheelchair accompanied by daughter. Discharge instructions reviewed with patient and daughter, both verbalized understanding of teaching. No questions at this time. Reviewed in detail tube feeding diet with patient daughter who verbalized understanding of teaching. Upon discharge IV removed and patient is alert/oriented x4. No complaints of pain at this time.
== END 2022-07-12 14:16 | disposition home health service (06) | DRG 12 ==
LOC: ICU 10:59
PROVIDERS: Anesthesiology; Internal Medicine; Student in an Organized Health Care Education/Training Program; Surgery; Admitting Provider Specialist; PCP Family Medicine; Visit Provider Specialist
PROC: 0B110F4 Bypass Trachea to Cutaneous with Tracheostomy Device, Open Approach (ICD-10-PCS; principal; 2022-07-05 09:00)
PROC: 0CJS8ZZ Inspection of Larynx, Via Natural or Artificial Opening Endoscopic (ICD-10-PCS; 2022-07-05 09:00)
PROC: 0DH63UZ Insertion of Feeding Device into Stomach, Percutaneous Approach (ICD-10-PCS; CPT 43246; principal; 2022-07-10 08:00)
DX: C13.9 Malignant neoplasm of hypopharynx, unspecified (principal); F05 Delirium due to known physiological condition; I97.191 Other postprocedural cardiac functional disturbances following other surgery; R13.10 Dysphagia, unspecified; F03.90 Unspecified dementia, unspecified severity, without behavioral disturbance, psychotic disturbance, mood disturbance, and anxiety; I49.3 Ventricular premature depolarization; Z79.51 Long term (current) use of inhaled steroids; Z79.02 Long term (current) use of antithrombotics/antiplatelets; Z87.891 Personal history of nicotine dependence; I71.40 Abdominal aortic aneurysm, without rupture, unspecified; I25.10 Atherosclerotic heart disease of native coronary artery without angina pectoris; Z95.1 Presence of aortocoronary bypass graft; N40.1 Benign prostatic hyperplasia with lower urinary tract symptoms; N41.1 Chronic prostatitis; Z86.73 Personal history of transient ischemic attack (TIA), and cerebral infarction without residual deficits; I10 Essential (primary) hypertension; E78.5 Hyperlipidemia, unspecified; I25.2 Old myocardial infarction; E53.8 Deficiency of other specified B group vitamins; Z75.1 Person awaiting admission to adequate facility elsewhere
CPT/HCPCS: 12345; 36415; 43246; 71045; 80048; 80053; 80061; 81001; 82607; 82746; 83036; 83540; 83550; 83735; 84443; 85007; 85014; 85018; 85025; 85027; 86850; 86900; 88305; 88331; 88342; 92507; 92523; 92524; 92526; 92610; 93005; 93306; 94640; 94664; 94760; 94799; 96372; 96376; J0171; J0360; J1200; J1630; J1644; J2250; J2270; J2370; J2405; J2704; J3420; J3480; J3490; J7030; J7120

== ENCOUNTER 2022-07-13 11:22 | Emergency (ER) | payer MEDICARE, OTHER, SELFPAY ==
[2022-07-13 11:35] VITALS: BP 152/79; PULSE 74; RESP 16; TEMP 36.8; O2SAT 95
[2022-07-13 12:17] VITALS: BP 152/79; PULSE 73; RESP 16; O2SAT 95
--- NOTE | 2022-07-13 12:35 | ED_ITS ---
HPI - Recheck/Abnormal Lab/Rx General: Chief Complaint: Recheck/Abnormal Lab/Rx Stated Complaint: Trach came out, Was put in a week ago Time Seen by Provider: 07/13/22 11:43 History of Present Illness: Patient is here for tracheostomy malfunction. 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 Patient was discharged from the hospital went home got into a coughing fit and either coughed or pulled his trach out accidentally earlier this morning. MD complaint: other (Dislodged trach) Description of abnormal result: Patient dislodged trach approximately 2 hours ago Review of Systems General: Reports: 10 or more systems reviewed and unremarkable except in HPI and below Const: Denies: fever(s) or chills Eyes: Denies: change in vision or photophobia ENMT: Denies: throat pain or odynophagia Card: Denies: chest pain, palpitations or irregular heart rhythm Resp: Reports: other (Dislodged trach) [facility]LY [facility] ED PFSH: Medical History AAA (abdominal aortic aneurysm) ASHD (arteriosclerotic heart disease) BPH loc w urin obs/LUTS Chronic prostatitis CVA (cerebral vascular accident) DJD (degenerative joint disease), lumbar Elevated PSA Essential hypertension Hyperlipidemia Myocardial infarction Palpitations Tobacco abuse, in remission Surgical History S/P CABG (coronary artery bypass graft) Family History Other CAD (coronary artery disease) Cancer Hypertension Social History Smoking and tobacco status: former smoker Alcohol intake: never Substance/Drug Use: never Household members: spouse Marital status: service: No Current occupational status: retired Previous occupational history: [employer] 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[employer] X 27 YEARS Current gender identity: Male Radha/Denominational: Yarsanism Physical Exam Const: COMMON NORMALS: no acute distress, average body habitus, patient oriented x3, no limitations, healthy appearing, alert and well nourished HENMT: COMMON NORMALS: normocephalic, atraumatic, hearing grossly normal bilaterally, external ears normal, Normal external nose present and moist oral mucous membranes HEAD & SCALP: normocephalic and atraumatic NOSE: Normal external nose present EXTERNAL EAR: Yes external ears normal Eye: COMMON NORMALS: Equal, round and reactive pupils present, EOMs intact bilaterally, conjunctivae normal and no scleral icterus CONJUNCTIVA: Yes conjunctivae normal PUPIL: Yes Equal, round and reactive pupils present Neck/C-Spine: COMMON NORMALS: no JVD OTHER: Neck supple with trach opening identified no erythema and no bleeding looks good and healing. Tracheostomy tube is not in place Chest: COMMONS NORMALS: normal inspection of the chest and normal palpation of entire chest wall Resp: COMMON NORMALS: normal respiratory effort, No retractions, No use of accessory muscles and clear to auscultation bilaterally AUSCULTATION: clear to auscultation bilaterally Cardio: COMMON NORMALS: no JVD, regular rate, regular rhythm, S1 normal heart sound present, S2 normal heart sound present, No gallops present (Cardio), No clicks present (Cardio) and No murmurs present (Cardio) RATE: regular rate RHYTHM: regular rhythm HEART SOUNDS: S1 normal heart sound present and S2 normal heart sound present GI: COMMON NORMALS: Normal to inspection, nondistended, normoactive bowel sounds present, Soft to palpation, non-tender, No hepatosplenomegaly present and no masses PALPATION: Yes Soft to palpation and Yes No hepatosplenomegaly present Neuro: COMMON NORMALS: patient oriented x3 SENSORIUM/ORIENTATION: Yes alert Course Vital Signs: Vital signs: Vital Signs Temperature 98.3 F 07/13/22 11:35 Pulse Rate 73 07/13/22 12:17 Respiratory Rate 16 07/13/22 12:17 Blood Pressure 152/79 07/13/22 12:17 Pulse Oximetry 95 07/13/22 12:17 Oxygen Delivery Me thod Room Air 07/13/22 12:17 MDM - Recheck/Abnormal Lab/Rx Medical Decision Making Call Dr. Ward's office he is out for vacation. Myself and Dr. Collado tried to replace the trach with no success. Dr. Cummins was called and came to see the patient in ER. Dr. Villegas easily reintroduced a new tracheostomy tube with no difficulty. Patient will be discharged home for regular routine follow-up. Differential Diagnosis Unlikely encounter for medication refill, encounter for wound recheck, encounter for recheck of burn, encounter for removal of sutures or warfarin-induced coagulopathy Medical Records I reviewed the patient's medical records. Lab Data I reviewed the patient's lab results. Discharge Plan Discharge Patient Disposition: Home Clinical Impression: Tracheostomy malfunction Condition: Stable Prescriptions: No Action melatonin 5 mg tablet 5 mg PO .HS nitroglycerin [Nitrostat] 0.4 mg tablet, sublingual 0.4 mg SUBLINGUAL Q5M PRN (Reason: Chest Pain) atorvastatin 20 mg tablet 20 mg PO QDAY Qty: 30 5RF Rx Instructions: Please convert to liquid form for PEG use amlodipine 5 mg tablet 5 mg PO DAILY Qty: 90 3RF Rx Instructions: Please convert to liquid form for PEG use clopidogrel 75 mg tablet 75 mg PO QDAY Qty: 30 5RF Rx Instructions: Please convert to liquid form for PEG use gabapentin 300 mg capsule 300 mg PO TID Qty: 90 5RF Rx Instructions: Please convert to liquid form for PEG use allopurinol 300 mg tablet 300 mg PO QDAY Qty: 30 5RF Rx Instructions: Please convert to liquid form for PEG use finasteride 5 mg tablet 5 mg PO DAILY Qty: 90 3RF Rx Instructions: Please convert to liquid form for PEG use metoprolol tartrate 25 mg tablet 25 mg PO DAILY Qty: 30 5RF Rx Instructions: Please convert to liquid form for PEG use Discharge Orders: Discharge ED (Routine); Ordered 07/13/22 Ordered By: Delano Padilla Referrals: Heather Hodges DO [Primary Care Provider] - 1 week Patient Instructions: Tracheostomy Care (ED) Activity Restrictions/Additional Instructions: Please follow-up with Dr. Ward as previously scheduled. Please return to the ER if you have any more tracheostomy difficulties. Coding Level of Care Code ED Burr Sander for Mayra Cote
--- NOTE | 2022-07-13 12:54 | PM.CONSULT ---
Providers/Reason For Consult Consulting Physician/Specialty*: Rojas Cummins MD/otolaryngology Reason for Consult*: Need for replacement of tracheostomy tube Requesting Physician: Dr. Padilla Primary Care Provider: Heather Hodges DO History of Present Illness History of Present Illness Jose Mcdonnell is a 86 year old male who had a trach placed about a week ago by Dr. Vega. 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 This morning the tube came out of the trachea and the family took him to the emergency room. Attempts to have it recannulated in the emergency room failed and I was called into accomplish that goal. Medications/Allergies Home Medications Medication Instructions Recorded Confirmed Last Taken Type melatonin 5 mg tablet 5 mg PO .HS 03/13/19 07/02/22 07/02/22 History nitroglycerin 0.4 mg sublingual 0.4 mg sublingual Q5M PRN Chest 03/14/19 07/02/22 Unknown History tablet (Nitrostat) Pain allopurinol 300 mg tablet 300 mg PO QDAY #30 tabs 07/12/22 07/02/22 07/02/22 Rx amlodipine 5 mg tablet 5 mg PO DAILY #90 tabs 07/12/22 07/02/22 07/02/22 Rx atorvastatin 20 mg tablet 20 mg PO QDAY #30 tabs 07/12/22 07/02/22 07/02/22 Rx clopidogrel 75 mg tablet 75 mg PO QDAY #30 tabs 07/12/22 07/02/22 07/01/22 Rx finasteride 5 mg tablet 5 mg PO DAILY #90 tabs 07/12/22 07/02/22 07/02/22 Rx gabapentin 300 mg capsule 300 mg PO TID #90 caps 07/12/22 07/02/22 07/02/22 Rx metoprolol tartrate 25 mg tablet 25 mg PO DAILY #30 tabs 07/12/22 07/02/22 07/02/22 Rx Allergies Allergy/AdvReac Type Severity Reaction Status Date / Time acetaminophen [From Tylenol] Allergy Unknown ALGY-Rash Verified 07/13/22 11:39 amoxicillin Allergy Unknown ALGY-Rash Verified 07/13/22 11:39 Penicillins Allergy Unknown RASH Verified 07/13/22 11:39 PFSH Acute PFSH: Medical History AAA (abdominal aortic aneurysm) ASHD (arteriosclerotic heart disease) BPH loc w urin obs/LUTS Chronic prostatitis CVA (cerebral vascular accident) DJD (degenerative joint disease), lumbar Elevated PSA Essential hypertension Hyperlipidemia Myocardial infarction Palpitations Tobacco abuse, in remission Surgical History S/P CABG (coronary artery bypass graft) Family History Other CAD (coronary artery disease) Cancer Hypertension Social History Smoking and tobacco status: former smoker Alcohol intake: never Substance/Drug Use: never Household members: spouse Marital status: service: No Current occupational status: retired 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 The opening in the trachea appears to still be open. He is coughing some thick phlegm up through this opening. I realized when I got there that the current trach tube had an inner cannula but no obturator. A new tube with both inner cannula and obturator and new strap were obtained. I set up the tube with the obturator in place coated with K-Y jelly. I inserted it from the right side turning the tube and inserting with the obturator in place into the trachea opening and into the tracheal lumen itself. The obturator was removed and the inner cannula was placed. The [place] was placed to hold the trach tube in place. It was a 6 cuffless tube. Check of the Ton strap was accomplished making sure that there was only 1 finger breath of tautness. Patient was breathing easily through it after placement. No sign of active bleeding. No evidence of infection. A&P Assessment and plan (1) Tracheostomy malfunction: Assessment: Patient had a tracheostomy tube fall out of the trachea earlier this morning. The strap apparently got loose and he coughed and it came out. I replaced it with another Shiley 6 uncuffed tube with use of an obturator. Insertion was done easily. No trauma. Inner cannula reinserted and straps applied at proper tightness. Patient breathing easily through the trach tube. Plan Plan: The patient's is there with him and explained that the strap needs to be tight enough and only allow 1 finger between the skin and the strap. Any looser than that it needs to be tightened otherwise it will likely happen again. No other treatment needed at this point. No follow-up with me necessary. Consult Attestations Medical Necessity Statement: Emergency airway control for recent tracheostomy tube that became dislodged. Coding Level of Care Code 39150 Diagnoses Tracheostomy malfunction J95.03
== END 2022-07-13 13:10 | disposition home or self-care (01) ==
PROVIDERS: Emergency Provider Emergency Medicine; PCP Family Medicine
DX: J95.03 Malfunction of tracheostomy stoma (principal); Z79.02 Long term (current) use of antithrombotics/antiplatelets; Z87.891 Personal history of nicotine dependence; Z86.73 Personal history of transient ischemic attack (TIA), and cerebral infarction without residual deficits; I10 Essential (primary) hypertension; E78.5 Hyperlipidemia, unspecified; I25.2 Old myocardial infarction; Z95.1 Presence of aortocoronary bypass graft
CPT/HCPCS: 99283

== ENCOUNTER 2022-07-15 15:05 | Oncology outpatient (recurring) (ONCR) | payer MEDICARE, OTHER, SELFPAY | END 2022-07-21 23:59 | disposition home or self-care (01) | LOC: ONCMED 15:13 | PROVIDERS: PCP Family Medicine; Visit Provider Internal Medicine Medical Oncology | DX: C13.2 Malignant neoplasm of posterior wall of hypopharynx (principal); F05 Delirium due to known physiological condition; I47.20 Ventricular tachycardia, unspecified; Z79.899 Other long term (current) drug therapy; Z87.891 Personal history of nicotine dependence | CPT/HCPCS: 99205 ==

== ENCOUNTER 2022-07-24 06:09 | Outpatient (CLI) | payer MEDICARE, OTHER, SELFPAY ==
--- NOTE | 2022-07-24 | PETR_ITS ---
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 Then, PET images were obtained. Attenuation corrected images were constructed using the CT scan. Fused images of PET and CT were reviewed. The standardized uptake values (SUV) reported below are maximum values within a region of interest, expressed in gm/ml. Exam includes orbital meatal line to mid-thigh. Radiopharmaceutical: 12.41 mCi F-18 FDG (Fluorodeoxyglucose), IV. Time of imaging post radiopharmaceutical administration: 1 hour Injection site: Right antecubital COMPARISON: CT neck w con* [id number] 06/15/2022 2:00 PM FINDINGS: Tubes, catheters and devices: Mild soft tissue uptake is identified along the course of a tracheostomy tube, likely artifactual or inflammatory. A percutaneous gastrostomy tube balloon terminates in the lumen of the distal stomach. Brain: No abnormal elevated uptake in the visualized brain. A rounded focus of photopenia in the right cerebral hemisphere is noted corresponding to an area of encephalomalacia on the CT images. Pharynx: Elevated uptake is identified in the posterior oropharyngeal soft tissue density mass measuring approximately 3.3 x 3.1 cm in the axial plane on series 3, image 20, SUV max 15.4. Larynx: Physiologic appearing uptake in the region of the vocal cords. Lungs, pleura and trachea: No abnormal uptake. Bilateral calcified granulomas are noted in both lungs. Heart: Normal physiologic uptake. Mediastinal space: No abnormal uptake. Liver: No abnormal uptake. Gallbladder and bile ducts: No abnormal uptake. Pancreas: No abnormal uptake. Spleen: No abnormal uptake. A calcified granuloma in the spleen is present. Adrenal glands: No abnormal uptake. Kidneys and ureters: Normal physiologic uptake. A non radiotracer avid simple appearing exophytic cyst arising from the right renal inferior pole measures 3.9 cm in diameter. A simple appearing cyst in the posterior left kidney is not radiotracer avid measuring 1.3 cm on series 3, image 84. Stomach and bowel: No abnormal uptake. Reproductive: Moderate prominence of the prostate gland without elevated uptake. Vasculature: No abnormal uptake. Diffuse atherosclerotic changes are noted including within the coronary arteries. An infrarenal abdominal aortic aneurysm measures 4.2 x 4.0 cm. Lymph nodes: A small non pathologically enlarged right paratracheal lymph node measuring 1.0 x 0.6 cm on series 3, image 39 is mildly radiotracer avid, SUV max 2.8. Mild uptake is identified in mildly prominent more inferiorly located mediastinal lymph nodes for example in the aortopulmonary window where lymph nodes measure up to 8 mm in diameter on series 3, image 46, SUV max 3.8. Additional uptake in the superior right hilar region is noted on PET series 4, image 50, SUV max 4.9 where there appears to be a lymph node on the CT images measuring approximately 1.6 x 1.1 cm on series 3, image 50. Bones/joints: No abnormal uptake in the visualized axial and appendicular skeleton. Sternotomy wires are present.There is mild to moderate diffuse vertebral body spondylosis. A partially imaged intramedullary lobulated sclerotic lesion on CT series 3, image 192 is noted in the mid to distal femoral shaft without elevated uptake. Extensive left glenohumeral joint primary osteoarthritic changes. Degenerative changes in the cervical spine appear extensive at multiple levels. A non radiotracer avid probable Schmorl's node at the superior endplate of L3 is present. Soft tissues: No abnormal uptake in the visualized head, neck, chest, abdomen, pelvis, and extremities. METRICS: Mediastinal blood pool: SUV max 2.6 PET[facility] INITIAL [id number] IMPRESSION: 1. Similar soft tissue density mass in the posterior pharyngeal region compared with the prior CT with elevated uptake (SUV max 15.4) compatible with malignancy. 2. Elevated uptake is identified within mediastinal and right hilar lymph nodes (greatest in the right hilar region with an SUV max 4.9).This uptake may be reactive, secondary to infectious or inflammatory involvement. Neoplastic involvement cannot be excluded. 3. A non radiotracer avid sclerotic lesion in the left femoral shaft is noted without elevated uptake likely representing an enchondroma or bone infarct. 4. Infrarenal abdominal aortic aneurysm. 5. Old infarct of the right cerebellar hemisphere. 6. Non radiotracer avid low-density lesions of both kidneys, statistically consistent with simple cysts. 7. Additional nonurgent findings as detailed above.
== END 2022-07-24 06:10 | disposition home or self-care (01) ==
LOC: RAD 07-26 06:09
PROVIDERS: PCP Family Medicine; Visit Provider Specialist
DX: D37.05 Neoplasm of uncertain behavior of pharynx (principal); R93.89 Abnormal findings on diagnostic imaging of other specified body structures; I71.40 Abdominal aortic aneurysm, without rupture, unspecified; Z86.73 Personal history of transient ischemic attack (TIA), and cerebral infarction without residual deficits
CPT/HCPCS: 78815; A9552

== ENCOUNTER → 2022-08-12 11:58 | Outpatient (BNVA) | payer MEDICARE, OTHER, SELFPAY | PROVIDERS: PCP Family Medicine; Visit Provider Internal Medicine Pulmonary Disease | DX: C13.2 Malignant neoplasm of posterior wall of hypopharynx (principal); R59.0 Localized enlarged lymph nodes; Z87.891 Personal history of nicotine dependence | CPT/HCPCS: 99204 ==

== ENCOUNTER 2022-08-13 08:25 | Oncology outpatient (recurring) (ONCR) | payer MEDICARE, OTHER, SELFPAY ==
--- NOTE | 2022-07-29 13:38 | N.ONRAD NP_ITS ---
Radiation Oncology Consultation Patient Name: Jose Mcdonnell Date of : 1935 Date of Service: 07/29/2022 Attending Physician: Randall Burton M.D. Jose Mcdonnell was seen in consultation this afternoon at the request of Sesar Hernandez M.D. for evaluation regarding head and neck radiotherapy in the management of a recently diagnosed hypopharyngeal carcinoma. The patient was evaluated for dysphagia by his primary care physician A CT of the neck obtained on June 15, 2022 demonstrated a circumscribed enhancing mass along the posterior pharyngeal wall measuring 1.9 (AP) cm x 2.5 (TV) cm x 3 cm (CC). A microdirect laryngoscopy with tracheostomy was performed on July 05, 2022 by William Vega M.D. Intraoperative findings included a partially obstructing mass within the hypopharynx extending from the level of the uvula to the postcricoid region. 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 A PET scan (independently reviewed in [facility]) ordered on July 24, 2022 confirmed a soft tissue lesion within the right parapharyngeal tissues measuring 2.2 cm x 1.6 cm (SUV 6.6) and FDG uptake within the right hilum and mediastinum. He was evaluated for consideration of definitive head and neck radiotherapy. I discussed with Mr. 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 I also reviewed The National Comprehensive Cancer Network Guidelines endorsing partial or total laryngopharyngectomy and neck dissection, chemoradiotherapy, or induction chemotherapy with response- based local treatment. I will refer him to pulmonology for a biopsy of the mediastinal lymphadenopathy. If metastatic disease is not confirmed, I would recommend a 7 week course of radiation therapy if the patient elects combined modality therapy. Prior to beginning treatment, a radiotherapy planning CT scan with contrast will be acquired and co-registered to the patient's PET CT scan to delineate the gross target volumes. I reviewed the potential toxicities of head and neck radiotherapy. A dental evaluation has been requested. The patient has verbalized understanding and would like to proceed as advocated. The patient's medical treatment has been discussed with Sesar Hernandez M.D. Signed by: Dr. Randall Burton 07/29/2022 1:46:21 PM
== END 2022-08-20 23:59 | disposition home or self-care (01) ==
PROVIDERS: PCP Family Medicine; Referring Provider Internal Medicine Medical Oncology; Visit Provider Radiology Radiation Oncology
DX: C13.2 Malignant neoplasm of posterior wall of hypopharynx (principal); Z93.0 Tracheostomy status; Z87.891 Personal history of nicotine dependence; R59.0 Localized enlarged lymph nodes; I71.40 Abdominal aortic aneurysm, without rupture, unspecified; Z86.73 Personal history of transient ischemic attack (TIA), and cerebral infarction without residual deficits; M89.9 Disorder of bone, unspecified
CPT/HCPCS: 99205; 99214

== ENCOUNTER 2022-08-17 05:56 | Day surgery (SDC) | payer MEDICARE, OTHER, SELFPAY ==
[2022-08-13 10:46] VITALS: BMI 23.1
--- NOTE | 2022-08-13 14:55 | ANES.PREANE2 ---
Pre-Anesthetic Assessment Height/Weight: Height 1.73 m Weight 68.946 kg Operation Date: 08/17/22 07:10 Proposed Procedures p EBUS 32850, 96044, 25438, 75737, 37946, 86983,C13.2(Not Applicable) - Bhavesh Ortiz DatarMD Familial anesthetic complications: none Was Beta Juan Miguel taken within 24 hours: Yes Was Clonidine taken within 24 hours: N/A Social No alcohol and No tobacco Exam alert, oriented x 3 and regular rate & rhythm Airway Comments: Comments: Trach (no cuff) Pulmonary Lung CA/Pharyngeal CA CV/HEM Coronary Artery Disease (CABG), Hypertension, Myocardial Infarction and Peripheral Vascular Disease (AAA) GI PEG Metabolic Hyperlipidemia Neuropsych Cerebrovascular Accident Anesthetic Plan ASA status: 3 Anesthesia: General Medications/Allergies Home Medications Medication Instructions Recorded Confirmed Last Taken Type melatonin 5 mg tablet 5 mg PO .HS 03/13/19 08/13/22 08/12/22 History nitroglycerin 0.4 mg sublingual 0.4 mg sublingual Q5M PRN Chest 03/14/19 08/13/22 Unknown History tablet (Nitrostat) Pain allopurinol 300 mg tablet 300 mg PO QDAY #30 tabs 07/12/22 08/13/22 08/13/22 Rx amlodipine 5 mg tablet 5 mg PO DAILY #90 tabs 07/12/22 08/13/22 08/13/22 Rx atorvastatin 20 mg tablet 20 mg PO QDAY #30 tabs 07/12/22 08/13/22 08/12/22 Rx clopidogrel 75 mg tablet 75 mg PO QDAY #30 tabs 07/12/22 08/13/22 08/12/22 Rx finasteride 5 mg tablet 5 mg PO DAILY #90 tabs 07/12/22 08/13/22 08/13/22 Rx gabapentin 300 mg capsule 300 mg PO TID #90 caps 07/12/22 08/13/22 08/13/22 Rx metoprolol tartrate 25 mg tablet 25 mg PO DAILY #30 tabs 07/12/22 08/13/22 08/13/22 Rx Allergies Allergy/AdvReac Type Severity Reaction Status Date / Time acetaminophen [From Tylenol] Allergy Unknown ALGY-Rash Verified 08/13/22 13:23 amoxicillin Allergy Unknown ALGY-Rash Verified 08/13/22 13:23 Penicillins Allergy Unknown RASH Verified 08/13/22 13:23 [facility] Anesthesia Medical History AAA (abdominal aortic aneurysm) ASHD (arteriosclerotic heart disease) BPH loc w urin obs/LUTS Chronic prostatitis CVA (cerebral vascular accident) DJD (degenerative joint disease), lumbar Elevated PSA Essential hypertension Gout Hyperlipidemia Myocardial infarction Palpitations Peripheral neuropathy Tobacco abuse, in remission Surgical History History of laryngoscopy (07/05/22) tracheotomy and 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) Status post insertion of percutaneous endoscopic gastrostomy (PEG) tube (07/10/22) Family History Other CAD (coronary artery disease) Cancer Hypertension Social History Smoking and tobacco status: former smoker Quit status (tobacco): has quit using tobacco Former quit date comment: smoked x 50+ years Alcohol intake: never Substance/Drug Use: never Household members: spouse Marital status: service: No Current occupational status: retired 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
[2022-08-17] MEDS: sodium chloride 0.9% 1,000 ML 30 ML IV (06:18)
[2022-08-17 06:21] VITALS: BP 127/67; PULSE 60; RESP 16; TEMP 37.1; O2SAT 97
[2022-08-17 06:37] LABS: Basophils % 0.3 %; Eosinophils # 0.2 10^3/uL (0.0-0.8); Eosinophils % 2.2 %; Hematocrit 34.1 % (42.0-52.0); Hemoglobin 11.3 g/dL (11.7-16.6); Lymphocytes # 0.4 10^3/uL (0.8-4.8); Lymphocytes % 4.9 %; Mean Corpuscular HGB Conc 33.1 g/dL (30.0-36.0); Mean Corpuscular Hemoglobin 29.4 pg (28.0-34.0); Mean Corpuscular Volume 88.6 fl (80-94); Mean Platelet Volume 11.6 fL (7.4-10.4); Monocytes # 0.8 10^3/uL (0.2-0.9); Monocytes % 10.3 %; Neutrophils # 6.38 10^3/uL (1.8-7.7); Neutrophils % 81.7 %; Nucleated Red Blood Cells % 0 %; Platelet Count 184 10^3/cmm (130-400); Red Blood Count 3.85 10^6/uL (4.1-5.3); Red Cell Distribution Width 13.3 % (12.1-15.1); White Blood Count 7.8 10^3/uL (4.0-10.0)
--- NOTE | 2022-08-17 07:08 | W.PM.OPSUD ---
Surgery/Procedure H&P Update DATE OF PROCEDURE: August 17, 2022 DATE H&P PERFORMED: 08/12/22 H&P UPDATE INFORMATION: I have reviewed H&P completed within last 30 days, I have examined patient prior to procedure and No changes to prior documentation CHANGES TO PREVIOUS DOCUMENTATION: none PREOP DIAGNOSIS: Laryngeal cancer PRIMARY INDICATION FOR PROCEDURE: PET active hilar/mediastinal and patient was recently diagnosed laryngeal cancer-schedule for endobronchial ultrasound-guided biopsies to help with staging PLANNED PROCEDURE: Operation Date: 08/17/22 07:00 Proposed Procedures p EBUS 27855, 76850, 78273, 85439, 12132, 27704,C13.2(Not Applicable) - Bhavesh Ortiz DatarMD
--- NOTE | 2022-08-17 09:27 | P.ANESUD_ITS ---
Pre-Anesthetic Update Pre-Anesthetic Assessment: Date of Surgery/Procedure: 08/17/22 Preop Millie gnosis: Laryngeal cancer Proposed Procedure: Operation Date: 08/17/22 07:00 Proposed Procedures p EBUS 41547, 85594, 95345, 14187, 95835, 41154,C13.2(Not Applicable) - Bhavesh Ortiz DatarMD Any changes to Pre-Anesthetic Assessment?: No Last Intake: Intake Last Liquid Date 08/16/22 Last Liquid Time 18:00 Last Solid Date 08/16/22 Last Solid Time 18:00 Labs Last 48hrs: Short CBC 08/17/22 Range/Units 06:27 WBC 7.8 (4.0-10.0) 10^3/ uL Hgb 11.3 L (11.7-16.6) g/dL Hct 34.1 L (42.0-52.0) % MCV 88.6 (80-94) fl Plt Count 184 (130-400) 10^3/c mm Neut % (Auto) 81.7 % Neut # (Auto) 6.38 (1.8-7.7) 10^3/u L Vitals: Temperature 98.8 F 08/17/22 06:21 Pulse Rate 60 08/17/22 06:21 Respiratory Rate 16 08/17/22 06:21 Blood Pressure 127/67 08/17/22 06:21 Blood Pressure Krystal n 87 08/17/22 06:21 Pulse Oximetry 97 08/17/22 06:21 Oxygen Delivery Me thod Room Air 08/17/22 06:21 Exam: Pre-Anes Outpt Exam: alert, oriented x 3, clear to auscultation bilaterally and regular rate & rhythm Other Pertinent Information: Other Pertinent Information: Trach examined Dr. Vega consulted for assistance for trach care to proceed with procedure. Based of history ER had difficulty placing trach following an accidental extubation at home. ENT was consulted and placed at bedside. Cardiac Studies: Echocardiogram 07/07/22 Cardiac Event Monitor 09/08/21
[2022-08-17] MEDS: lidocaine 1% INJ 10 mL (per mL) XX (11:45)
--- NOTE | 2022-08-17 12:07 | P.OP_ITS ---
Operative Report Date of procedure: August 17, 2022 Pre-op diagnosis: Preop Diagnosis Laryngeal cancer with hilar lymphadenopathy Post-op diagnosis: same Procedure done: 41329 Dx Bronchoscope w/BAL 98918 Bronchoscopy w/ therapeutic aspiration of the tracheobronchial tree (clearance of airway secretions, removal of mucus plugs) 98699 EBUS Sampling 2 nodes Surgeon: Bhavesh Bolton MD Brief History: Mr. 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 There is elevated uptake within mediastinal and right hilar lymph nodes greatest in right hilar with SUV max 4.9. He was referred to pulmonary services to obtain biopsies of hilar/mediastinal lymph nodes to help with staging.? Patient denies any shortness of breath, fever, chills, chest pains, palpitations, leg swelling. Patient held his Plavix 5 days prior to the procedure. ? Procedure: 00215 Dx Bronchoscope w/BAL 20948 Bronchoscopy w/ therapeutic aspiration of the tracheobronchial tree (clearance of airway secretions, removal of mucus plugs) 11208 EBUS Sampling station 4R Indication: PET active mediastinal/hilar lymph nodes-rule out Malignancy Anesthesia: General anesthesia. Local anesthesia: The cy in the right and left mainstem bronchi were anesthetized with 1% lidocaine, 3 mL. Description of the procedure: The procedure was explained to the patient and the consent was obtained. The patient was brought to the OR. Prior to the procedure ENT Dr. Vega has changed patient's trach Shiley 6 to larger cannula #8. The patient underwent induction for general anesthesia. The bronchoscope was advanced through the tracheostomy tube. The distal trachea was visualized. Tracheal mucosa appeared normal, no endotracheal lesion was seen. The cy was sharp. 1 mL each of 1% lidocaine was instilled in the trachea the right and left mainstem bronchi for local anesthesia. In a systematic manner bilateral bronchial tree was then examined. The bronchoscope was advanced into the left mainstem bronchus. The mucosa appeared normal with no endobronchial lesions. The left upper lobe, and lingula were examined up to the third subsegmental level and no abnormalities were identified. Mucosa of left upper lobe and lingula appeared normal with no endobronchial lesion. There were clear secretions which were suctioned right away(86199). The bronchoscope was then introduced into the right mainstem bronchus. The right upper lobe, right middle lobe and right lower lobe bronchi were examined up to the third subsegmental level and no abnormalities were identified. The mucosa appeared normal with no endobronchial lesions, active bleeding or mucous plugs.There were clear secretions which were suctioned right away(12854). BAL was taken from right upper lobe. Bronchoscope was retracted and endobronchial ultrasound (61571 ) was introduced. Identified a lymph nodes at station 4R . Using wctm-[id number]-vexjckmf were taken from all 3 lymph node stations (94036); EBUS was retracted and flexible bronchoscope introduced. There was scant evidence of bleeding from the biopsy site which is controlled with instillation of cold saline. After wedging the bronchoscope in the posterior segment of right upper lobe -30 cc normal saline was instilled and aspirated about 15 cc bronchoalveolar lavage ( 38550). The fluid is mixed with blood After making sure there is no active bleeding, bronchoscope retracted and procedure terminated. Samples: Endobronchial ultrasound guided ofvx-kcqgju-qwnmfcoq taken for lymph node station 4R (68974) A. Station 4R : touch prep -pathology reported negative for malignancy; rest of the material were placed in formalin for histopathology; B.Bronchoalveolar lavage (93163) was performed after wedging the bronchoscope in the posterior segment of right upper lobe. 30 mL of saline was instilled, fluid return was 15 mL. Bronchoalveolar lavage specimen was sent for cell count and differential, gram stain and culture, cytology Complications: None.the patient tolerated the procedure well. Postprocedure ENT Dr. Vega has put him back on [facility] 6 tracheostomy tube. He was brought to the PACU in stable condition. Disposition: Patient can be discharged home in stable condition. Pt and his family are aware that I am going to call them to update final biopsy results once available.
[2022-08-17 12:15] VITALS: BP 144/72; PULSE 84; RESP 16; TEMP 36.1; O2SAT 95
[2022-08-17 12:20] VITALS: BP 145/76; PULSE 86; RESP 16; O2SAT 94
[2022-08-17 12:25] VITALS: BP 143/68; PULSE 85; RESP 14; O2SAT 92
[2022-08-17 12:30] VITALS: BP 120/70; PULSE 86; RESP 16; TEMP 36.3; O2SAT 95
[2022-08-17 12:40] VITALS: BP 136/70; PULSE 84; RESP 16; O2SAT 93
[2022-08-17 12:56] LABS: Apprearance, Bronch Wash Cloudy (CLEAR); Color, Bronc Wash Red
[2022-08-17 12:57] LABS: Bronch Source Right Upper Lobe
[2022-08-17 12:58] LABS: Cyto Order Verification Order Verified
--- NOTE | 2022-08-17 13:53 | ANE.PACU2 ---
Inpatient post-anesthesia follow up: Airway intact: Yes Vital signs: Temperature 97.3 F Pulse Rate 84 Respiratory Rate 16 Blood Pressure 136/70 Pulse Oximetry 93 Oxygen Delivery Me thod Trach Collar Oxygen Flow Rate Fraction of Inspir ed Oxygen Hydration adequate: Yes Nausea and vomiting: Yes Pain level: 1 Mental status: Baseline
[2022-08-17 14:37] LABS: Total Cells Counted Bronch 200
--- NOTE | 2022-08-17 16:04 | PM.CONSULT ---
Providers/Reason For Consult Consulting Physician/Specialty*: Dr. William Vega MD Reason for Consult*: Airway Management Requesting Physician: Dr. Bhavesh Bolton MD Attending Physician: Bhavesh Bolton MD Primary Care Provider: Heather Hodges DO History of Present Illness History of Present Illness Jose Mcdonnell is a 86 year old male with a h/o SCCA of the oralpharynx s/p tracheotomy who is undergoing diagnostic bronchoscopy today. Dr. Bolton requested that I assist in the management of Mr. Mcdonnell's tracheotomy tube. Review of Systems ENMT: Reports: other (Review of Symptoms unremarkable) Medications/Allergies Home Medications Medication Instructions Recorded Confirmed Last Taken Type melatonin 5 mg tablet 5 mg PO .HS 03/13/19 08/17/22 08/16/22 History nitroglycerin 0.4 mg sublingual 0.4 mg sublingual Q5M PRN Chest 03/14/19 08/17/22 08/16/22 History tablet (Nitrostat) Pain allopurinol 300 mg tablet 300 mg PO QDAY #30 tabs 07/12/22 08/17/22 08/16/22 Rx amlodipine 5 mg tablet 5 mg PO DAILY #90 tabs 07/12/22 08/17/22 08/17/22 Rx atorvastatin 20 mg tablet 20 mg PO QDAY #30 tabs 07/12/22 08/17/22 08/16/22 Rx clopidogrel 75 mg tablet 75 mg PO QDAY #30 tabs 07/12/22 08/17/22 08/12/22 Rx finasteride 5 mg tablet 5 mg PO DAILY #90 tabs 07/12/22 08/17/22 08/16/22 Rx gabapentin 300 mg capsule 300 mg PO TID #90 caps 07/12/22 08/17/22 08/16/22 Rx metoprolol tartrate 25 mg tablet 25 mg PO DAILY #30 tabs 07/12/22 08/17/22 08/16/22 Rx Allergies Allergy/AdvReac Type Severity Reaction Status Date / Time acetaminophen [From Tylenol] Allergy Unknown ALGY-Rash Verified 08/17/22 06:08 amoxicillin Allergy Unknown ALGY-Rash Verified 08/17/22 06:08 Penicillins Allergy Unknown RASH Verified 08/17/22 06:08 PFSH Acute PFSH: Medical History AAA (abdominal aortic aneurysm) ASHD (arteriosclerotic heart disease) BPH loc w urin obs/LUTS Chronic prostatitis CVA (cerebral vascular accident) DJD (degenerative joint disease), lumbar Elevated PSA Essential hypertension Gout Hyperlipidemia Myocardial infarction Palpitations Peripheral neuropathy Tobacco abuse, in remission Surgical History History of laryngoscopy (07/05/22) tracheotomy and 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) Status post insertion of percutaneous endoscopic gastrostomy (PEG) tube (07/10/22) Family History Other CAD (coronary artery disease) Cancer Hypertension Social History Smoking and tobacco status: former smoker Quit status (tobacco): has quit using tobacco Former quit date comment: smoked x 50+ years Alcohol intake: never Substance/Drug Use: never Household members: spouse Marital status: service: No Current occupational status: retired 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 Current gender identity: Male Radha/Hindu: Jehovah'S Witness Vitals/I&O/Wt Last Vital Signs Temp 97.3 F L 08/17/22 12:30 Pulse 84 08/17/22 12:40 Resp 16 08/17/22 12:40 BP 136/70 08/17/22 12:40 Pulse Ox 93 08/17/22 12:40 O2 Del Method Trach Collar 08/17/22 12:40 08/17/22 08/17/22 08/17/22 06:59 14:59 22:59 Intake Total 800 / 800 Output Total / Balance 795 / 795 Physical Exam Const: COMMON NORMALS: patient oriented x3 and alert HENMT: COMMON NORMALS: normocephalic and TM's normal bilaterally HEAD & SCALP: normocephalic FACE & SINUS: normal facial exam TYMPANIC MEMBRANE: TM's normal bilaterally Eye: COMMON NORMALS: EOMs intact bilaterally Neck/C-Spine: COMMON NORMALS: no lymphadenopathy CERVICAL SPINE: Yes other (Tracheotomy site - scant amount of granulation tissue, but o/w well healed) Neuro: COMMON NORMALS: patient oriented x3 SENSORIUM/ORIENTATION: Yes alert Data 08/17/22 06:27 A&P Assessment and plan (1) Airway obstruction: Impression: s/p tracheotomy, well healed doing well from this standpoint Plan: - The trach was replaced during the procedure with a #8 adjustible trach and was replaced with a #6 Uncuffed Shiley after the procedure was complete. Consult Attestations Medical Necessity Statement: I was consulted to assist with the patient's airway during his bronchoscopy. Procedures Procedure Narrative The patient's tracheotomy tube was removed and was replaced with a cuffed, adjustable trach. Dr. Bolton performed a Bronchoscopy - see his note for details of this procedure. Once the Bronchoscopy was complete, the cuffed trach tube was removed and was replaced with an uncuffed, #6 Shiley trach. The patient tolerated this well and there were no complications. Coding Level of Care Code Acute Code for [facility] Diagnoses Airway obstruction J98.8
== END 2022-08-17 13:10 | disposition home or self-care (01) ==
PROVIDERS: Anesthesiology; PCP Family Medicine; Visit Provider Internal Medicine Pulmonary Disease
PROC: BB4BZZZ Ultrasonography of Pleura (ICD-10-PCS; principal; 2022-08-17 07:00)
DX: C13.2 Malignant neoplasm of posterior wall of hypopharynx (principal); Z87.891 Personal history of nicotine dependence; I25.10 Atherosclerotic heart disease of native coronary artery without angina pectoris; I10 Essential (primary) hypertension; I73.9 Peripheral vascular disease, unspecified; Z86.73 Personal history of transient ischemic attack (TIA), and cerebral infarction without residual deficits; Z79.02 Long term (current) use of antithrombotics/antiplatelets; E78.5 Hyperlipidemia, unspecified; Z93.0 Tracheostomy status
CPT/HCPCS: 31624; 31645; 31652; 36415; 80503; 85025; 87070; 87077; 87186; 87205; 88112; 88305; 89050; J2704; J3010; J3490; J7030

== ENCOUNTER 2022-08-26 13:36 | Oncology outpatient (recurring) (ONCR) | payer MEDICARE, OTHER, SELFPAY | END 2022-08-26 23:59 | disposition home or self-care (01) | PROVIDERS: PCP Family Medicine; Referring Provider Internal Medicine Medical Oncology; Visit Provider Internal Medicine Medical Oncology | DX: C13.2 Malignant neoplasm of posterior wall of hypopharynx (principal); C77.0 Secondary and unspecified malignant neoplasm of lymph nodes of head, face and neck; C79.51 Secondary malignant neoplasm of bone; I71.40 Abdominal aortic aneurysm, without rupture, unspecified; I25.2 Old myocardial infarction; N28.1 Cyst of kidney, acquired; R91.1 Solitary pulmonary nodule; Z79.899 Other long term (current) drug therapy; Z95.828 Presence of other vascular implants and grafts | CPT/HCPCS: 99214 ==

== ENCOUNTER → 2022-09-03 14:43 | Outpatient (BNVA) | payer MEDICARE, OTHER, SELFPAY | PROVIDERS: PCP Family Medicine; Visit Provider Surgery | DX: C13.2 Malignant neoplasm of posterior wall of hypopharynx (principal) | CPT/HCPCS: 99203 ==

== ENCOUNTER → 2022-09-08 13:15 | Outpatient (BNVA) | payer MEDICARE, OTHER, SELFPAY | PROVIDERS: PCP Family Medicine; Visit Provider Nurse Practitioner Family | DX: I25.10 Atherosclerotic heart disease of native coronary artery without angina pectoris (principal); I10 Essential (primary) hypertension; I71.40 Abdominal aortic aneurysm, without rupture, unspecified; Z87.891 Personal history of nicotine dependence | CPT/HCPCS: 99214 ==

== ENCOUNTER 2022-09-10 10:52 | Day surgery (SDC) | payer MEDICARE, OTHER, SELFPAY ==
[2022-09-10] VITALS (12 sets, daily range): BP systolic 108–153; BP diastolic 58–82; PULSE 60–90; RESP 10–18; TEMP 36.1–36.4; O2SAT 90–99; BMI 23.2
[2022-09-10] MEDS: sodium chloride 0.9% 1,000 ML 30 ML IV (11:20)
--- NOTE | 2022-09-10 11:52 | W.PM.OPSUD ---
Surgery/Procedure H&P Update DATE OF PROCEDURE: September 10, 2022 DATE H&P PERFORMED: 09/02/22 H&P UPDATE INFORMATION: I have reviewed H&P completed within last 30 days, I have examined patient prior to procedure and No changes to prior documentation PLANNED PROCEDURE: Operation Date: 09/10/22 12:45 [place] Procedures p [id number] placement of port a cath C14.0,C13.2(Not Applicable) - Luis M Hernandez DO
--- NOTE | 2022-09-10 12:02 | SC_ITS ---
WS: [id number] EXAMINATION: C-arm FL for CVA [id number] REASON FOR EXAM: Mediport placement COMPARISON: None available. ORDER DATE: 09/10/2022 12:02 PM FINDINGS: A central line entering from the left of the patient terminating at the cavoatrial junction. There ar e numerous fragmented sternal wires. SC/C-arm FL for CVA [id number] IMPRESSION: C-arm view demonstrating central line at the cavoatrial junction
--- NOTE | 2022-09-10 12:02 | XR_ITS ---
WS: [id number] PORTABLE CHEST HISTORY: Postop Mediport placement COMPARISON: 07/06/2022 Post LEFT subclavian Mediport placement. Tip of the Mediport is in the mid to distal SVC. No pneumoth orax. No mediastinal widening. Minimal hazy reticulation at the LEFT lung base. No consolidations. No pleural effusion or pneumothor ax. Cardiac size: Normal. Mediastinum/Aorta: Status post median sternotomy. Sternotomy wires are fractured and displaced. Trach eostomy tube remains in good position. No osseous abnormality seen. XR/XR chest 1V portable [id number] IMPRESSION: Status post LEFT subclavian Mediport placement. No complications.
--- NOTE | 2022-09-10 12:13 | ANES.PREANE2 ---
Pre-Anesthetic Assessment Height/Weight: Height 1.73 m Weight 69.4 kg Temp Pulse Resp BP Pulse Ox O2 Del Method 97.4 F L 79 18 152/81 99 Room Air 09/10/22 11:05 09/10/22 11:05 09/10/22 11:05 09/10/22 11:05 09/10/22 11:05 09/10/22 11:10 Operation Date: 09/10/22 12:45 Proposed Procedures p [id number] placement of port a cath C14.0,C13.2(Not Applicable) - Luis M Hernandez DO Familial anesthetic complications: none Was Beta Juan Miguel taken within 24 hours: Yes Was Clonidine taken within 24 hours: N/A Last intake: Intake Last Liquid Date 09/09/22 Last Liquid Time 18:00 Last Solid Date 09/09/22 Last Solid Time 18:00 Social No alcohol and No tobacco Exam alert, oriented x 3 and regular rate & rhythm Airway Submandibular: within normal limits Cervical ROM: within normal limits Mallampati: Class II Comments: Comments: Trach Pulmonary Chronic Obstructive Pulmonary Disease lung CA CV/HEM Anemia, Coronary Artery Disease (CABG), Hypertension, Myocardial Infarction and Peripheral Vascular Disease (AAA) Neuropsych Cerebrovascular Accident Anesthetic Plan ASA status: 3 Anesthesia: MAC Medications/Allergies Home Medications Medication Instructions Recorded Confirmed Last Taken Type nitroglycerin 0.4 mg sublingual 0.4 mg sublingual Q5M PRN Chest 03/14/19 09/09/22 08/16/22 History tablet (Nitrostat) Pain melatonin 5 mg tablet 10 mg feeding tube .HS 08/26/22 09/10/22 09/09/22 History ferrous sulfate 27 mg iron tablet 27 mg feeding tube DAILY 09/03/22 09/10/22 09/09/22 History trazodone 50 mg tablet 25 mg feeding tube DAILY 09/03/22 09/10/22 09/09/22 History ascorbic acid (vitamin C) 250 mg 250 mg feeding tube DAILY 09/08/22 09/10/22 09/09/22 History tablet allopurinol 300 mg tablet 300 mg feeding tube QDAY 09/10/22 09/10/22 09/09/22 History amlodipine 5 mg tablet 5 mg feeding tube DAILY 09/10/22 09/10/22 09/10/22 07:30 History atorvastatin 20 mg tablet 20 mg feeding tube QDAY 09/10/22 09/10/22 09/09/22 History clopidogrel 75 mg tablet 75 mg feeding tube QDAY 09/10/22 09/10/22 09/05/22 History finasteride 5 mg tablet 5 mg feeding tube DAILY 09/10/22 09/10/22 09/09/22 History gabapentin 300 mg capsule 300 mg feeding tube TID 09/10/22 09/10/22 09/09/22 History metoprolol tartrate 25 mg tablet 25 mg feeding tube DAILY 09/10/22 09/10/22 09/09/22 History Allergies Allergy/AdvReac Type Severity Reaction Status Date / Time acetaminophen [From Tylenol] Allergy Unknown ALGY-Rash Verified 09/08/22 13:32 amoxicillin Allergy Unknown ALGY-Rash Verified 09/08/22 13:32 Penicillins Allergy Unknown RASH Verified 09/08/22 13:32 Current Medications Generic Name Dose Route Start Last Admin Trade Name Freq PRN Reason Stop Dose Admin Sodium Chloride 1,000 mls @ 30 mls/hr 09/10/22 11:00 09/10/22 11:20 Sodium Chloride 0.9% IV 09/11/22 10:59 30 mls/hr .Q24H LIANE Administration PFSH Anesthesia Medical History AAA (abdominal aortic aneurysm) ASHD (arteriosclerotic heart disease) BPH loc w urin obs/LUTS Chronic prostatitis CVA (cerebral vascular accident) DJD (degenerative joint disease), lumbar Elevated PSA Essential hypertension Gout Hyperlipidemia Myocardial infarction Palpitations Peripheral neuropathy Tobacco abuse, in remission Surgical History History of laryngoscopy (07/05/22) tracheotomy and 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) Status post insertion of percutaneous endoscopic gastrostomy (PEG) tube (07/10/22) Family History Other CAD (coronary artery disease) Cancer Hypertension Social History Smoking and tobacco status: former smoker Quit status (tobacco): has quit using tobacco Former quit date comment: smoked x 50+ years Alcohol intake: never Substance/Drug Use: never Household members: spouse Marital status: service: No Current occupational status: retired 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
[2022-09-10] MEDS: vancomycin 1,500 MG/300 ML PIGGYBACK 200 MG IV (15:11)
[2022-09-10] MEDS: lidocaine-epi 2% 20 mL INJ INJECTION (16:31)
[2022-09-10] MEDS: heparin, porcine 1,000 unit/mL INJ 10 mL 10000 UNIT INJECTION (16:41)
[2022-09-10] MEDS: sodium chloride 0.9% 100 mL Bag XX (16:41)
--- NOTE | 2022-09-10 16:48 | PM.OP ---
Operative Report Date of procedure: September 10, 2022 Pre-op diagnosis: Cancer of the hypopharynx Post-op diagnosis: same Procedure done: Mediport placement Implants: PowerPort Surgeon: Dr. Luis M Hernandez, DO Anesthesia: MAC Estimated blood loss (mL): 5 Complications: None apparent Brief History: This very pleasant 86-year-old gentleman with a malignant neoplasm of the posterior wall of the hypopharynx. Mediport placement was requested for chemotherapy infusion. The risk and benefits were explained and documented Procedure: They put another order I will do right now things the patient was taken to the operating room and placed supine on the operating room table. All bony prominences were padded. She was given IV sedation and monitored throughout the case by the anesthesia personnel. SCDs were placed and turned on. The arms were tucked to the side. Patient received Ancef 2 g preoperatively IV. The bilateral chest wall was prepped and draped in usual sterile fashion using chlorhexidine base prep. Sterile drapes were applied. We did procedure pause prior to beginning. An 18 gauge needle was placed in the left subclavian vein. Dark, nonpulsatile blood was aspirated. A guidewire was placed through the needle centrally toward the atrial/vena caval junction. Fluoroscopy visualized good placement. The needle was removed and the guidewire was clipped to the drape with a hemostat. Further local anesthetic was infiltrated in the soft tissues of the left chest wall and a #15 blade was used to make a horizontal skin incision. A subcutaneous Mediport pocket was created using Bovie cautery, dissecting down through the skin and subcutaneous tissues. Meticulous hemostasis was achieved. The Mediport was sutured in position using 3-0 vicryl suture x2 stitches. A #15 blade was used to make a small skin mckayla around the guidewire insertion area. The Mediport tubing was tunneled through the subcutaneous tissues up to the needle insertion location. A dilator with a peel-away sheath was placed over the guidewire and placed centrally. After measuring the Mediport tubing was cut to length so that the tip would end at the atrial/vena caval junction. The inner cannula and the guidewire were removed, leaving the dilator sheath in place. The Mediport was flushed. The tip of the catheter was inserted through the peel-away sheath and the peel-away sheath removed in the standard fashion. The Mediport was accessed with a straight Osborne needle and dark, nonpulsatile blood was aspirated and flushed using heparinized saline to hep-lock the Mediport. Final fluoroscopy visualization showed no kink in the catheter and the tip of the Mediport tubing near the atrial/vena caval junction. Both skin incisions were thoroughly irrigated and suctioned dry. Meticulous hemostasis noted. The dermis was approximated with 3-0 Vicryl in an interrupted fashion. Skin was closed with Dermabond. Patient was awakened from anesthesia and transferred via her cart to the recovery room in stable condition. All needle, sponge, and instrument counts were correct per the operating personnel x2 counts.
--- NOTE | 2022-09-10 17:22 | ANE.PACU2 ---
Inpatient post-anesthesia follow up: Airway intact: Yes Vital signs: Temperature 97 F Pulse Rate 87 Respiratory Rate 14 Blood Pressure 133/82 Pulse Oximetry 99 Oxygen Delivery Me thod Room Air Oxygen Flow Rate Fraction of Inspir ed Oxygen Hydration adequate: Yes Nausea and vomiting: No Pain level: 2 Mental status: Baseline
== END 2022-09-10 18:15 | disposition home or self-care (01) ==
PROVIDERS: PCP Family Medicine; Visit Provider Surgery
PROC: (CPT 36561; principal; 2022-09-10 12:35)
DX: C13.2 Malignant neoplasm of posterior wall of hypopharynx; J44.9 Chronic obstructive pulmonary disease, unspecified; I25.10 Atherosclerotic heart disease of native coronary artery without angina pectoris; Z95.1 Presence of aortocoronary bypass graft; I10 Essential (primary) hypertension; Z79.02 Long term (current) use of antithrombotics/antiplatelets; E78.5 Hyperlipidemia, unspecified; Z87.891 Personal history of nicotine dependence
CPT/HCPCS: 36561; 71045; 77001; C1788; J1644; J2704; J3370; J7030

== ENCOUNTER 2022-09-20 08:00 | Oncology outpatient (recurring) (ONCR) | payer MEDICARE, OTHER, SELFPAY ==
[2022-09-13 07:59] VITALS: BMI 23.6
[2022-09-13 08:00] VITALS: BP 123/67; PULSE 59; RESP 18; TEMP 36.8; O2SAT 98
[2022-09-13 08:15] LABS: Basophils % 0.2 %; Eosinophils # 0.1 10^3/uL (0.0-0.8); Eosinophils % 1.2 %; Hemoglobin 10.6 g/dL (11.7-16.6); Lymphocytes # 0.6 10^3/uL (0.8-4.8); Lymphocytes % 9.5 %; Mean Corpuscular HGB Conc 32.1 g/dL (30.0-36.0); Mean Corpuscular Hemoglobin 28.6 pg (28.0-34.0); Mean Corpuscular Volume 89.2 fl (80-94); Mean Platelet Volume 11.5 fL (7.4-10.4); Monocytes # 0.6 10^3/uL (0.2-0.9); Monocytes % 8.8 %; Neutrophils # 5.29 10^3/uL (1.8-7.7); Nucleated Red Blood Cells % 0 %; Platelet Count 152 10^3/cmm (130-400); Red Cell Distribution Width 14.4 % (12.1-15.1); White Blood Count 6.6 10^3/uL (4.0-10.0)
[2022-09-13 08:50] LABS: Alanine Aminotransferase 350 U/L (0-41); Albumin Level 3.8 g/dL (3.5-5.2); Alkaline Phosphatase 74 U/L (40-130); Anion Gap 11.9 (5-19); Aspartate Amino Transferase 168 U/L (0-40); Blood Urea Nitrogen 26 mg/dL (8-23); Calcium 9.3 mg/dL (8.5-10.5); Carbon Dioxide 27 mmol/L (22-29); Chloride 103 mmol/L (98-107); Globulin 2.5 g/dL (1.3-4.6); Glucose 125 mg/dL (65-115); Osmolality Calculated 292 mOsm/kg (285-295); Potassium 3.9 mmol/L (3.5-5.1); Sodium 138 mmol/L (136-145); Total Bilirubin 0.5 mg/dL (0.15-1.2); Total Protein 6.3 g/dL (6.6-8.7)
[2022-09-20 07:54] VITALS: BMI 23.0
[2022-09-20 07:55] VITALS: BP 146/75; PULSE 72; RESP 16; TEMP 37.2; O2SAT 97
[2022-09-20 08:17] LABS: Basophils % 0.2 %; Eosinophils # 0.1 10^3/uL (0.0-0.8); Eosinophils % 1.5 %; Hematocrit 32.7 % (42.0-52.0); Hemoglobin 10.5 g/dL (11.7-16.6); Lymphocytes # 0.6 10^3/uL (0.8-4.8); Lymphocytes % 9.5 %; Mean Corpuscular HGB Conc 32.1 g/dL (30.0-36.0); Mean Corpuscular Hemoglobin 28.5 pg (28.0-34.0); Mean Corpuscular Volume 88.9 fl (80-94); Mean Platelet Volume 11.6 fL (7.4-10.4); Monocytes # 0.7 10^3/uL (0.2-0.9); Monocytes % 11.1 %; Neutrophils # 5.11 10^3/uL (1.8-7.7); Neutrophils % 77.4 %; Nucleated Red Blood Cells % 0 %; Platelet Count 159 10^3/cmm (130-400); Red Blood Count 3.68 10^6/uL (4.1-5.3); Red Cell Distribution Width 14.5 % (12.1-15.1); White Blood Count 6.6 10^3/uL (4.0-10.0)
[2022-09-20 08:47] LABS: Alanine Aminotransferase 181 U/L (0-41); Albumin Level 3.7 g/dL (3.5-5.2); Alkaline Phosphatase 74 U/L (40-130); Anion Gap 15.3 (5-19); Aspartate Amino Transferase 88 U/L (0-40); Blood Urea Nitrogen 30 mg/dL (8-23); Calcium 9.6 mg/dL (8.5-10.5); Carbon Dioxide 26 mmol/L (22-29); Chloride 103 mmol/L (98-107); Globulin 2.9 g/dL (1.3-4.6); Glucose 104 mg/dL (65-115); Osmolality Calculated 296 mOsm/kg (285-295); Potassium 4.3 mmol/L (3.5-5.1); Sodium 140 mmol/L (136-145); Total Bilirubin 0.4 mg/dL (0.15-1.2); Total Protein 6.6 g/dL (6.6-8.7)
[2022-09-20] MEDS: sodium chloride 0.9% 250 ML 75 ML IV (09:19)
[2022-09-20 09:23] VITALS: BP 161/70; PULSE 74; RESP 18; TEMP 36.7; O2SAT 99
[2022-09-20] MEDS: OLANZapine 5 mg TABLET PO (10:02)
[2022-09-20] MEDS: palonosetron 0.25 mg/5 mL SDV IVP (11:04)
[2022-09-20] MEDS: diphenhydrAMINE 50 mg/mL SDV 1mL 25 MG IVP (11:04)
[2022-09-20] MEDS: fosaprepitant 150 MG in sodium chloride 0.9% 150 ML 300 MG IV (11:28)
[2022-09-20] MEDS: [UNRECOGNIZED DRUG - REMARK] 256.85 MG IV (12:03)
[2022-09-20] MEDS: potassium chloride 20 MEQ in sodium chloride 0.9% 500 ML 500 MEQ IV (15:05)
[2022-09-20 15:52] VITALS: BP 146/62; PULSE 81; RESP 18; TEMP 36.2; O2SAT 98
== END 2022-09-20 23:59 | disposition home or self-care (01) ==
PROVIDERS: PCP Family Medicine; Referring Provider Internal Medicine Medical Oncology; Visit Provider Internal Medicine Medical Oncology
DX: Z51.11 Encounter for antineoplastic chemotherapy; C13.2 Malignant neoplasm of posterior wall of hypopharynx; C77.8 Secondary and unspecified malignant neoplasm of lymph nodes of multiple regions; D16.22 Benign neoplasm of long bones of left lower limb; I71.43 Infrarenal abdominal aortic aneurysm, without rupture; N28.1 Cyst of kidney, acquired; R11.2 Nausea with vomiting, unspecified; D70.1 Agranulocytosis secondary to cancer chemotherapy; D64.81 Anemia due to antineoplastic chemotherapy; T45.1X5A Adverse effect of antineoplastic and immunosuppressive drugs, initial encounter; R74.01 Elevation of levels of liver transaminase levels; Z79.899 Other long term (current) drug therapy; Z86.73 Personal history of transient ischemic attack (TIA), and cerebral infarction without residual deficits
CPT/HCPCS: 80053; 85025; 96413; 96417; 99215; J1100; J1200; J1453; J1642; J2469; J3475; J3480; J7030; J7040; J7050; J9060; J9171

== ENCOUNTER 2022-09-25 21:23 | Emergency (ER) | payer MEDICARE, OTHER, SELFPAY ==
[2022-09-25 21:46] VITALS: BP 98/55; PULSE 70; RESP 16; TEMP 36.4; O2SAT 98
--- NOTE | 2022-09-25 23:07 | XRR_ITS ---
PROCEDURE INFORMATION: Exam: XR Chest Exam date and time: 09/25/2022 11:09 PM Age: 86 years old Clinical indication: Shortness of breath; Additional info: SOB TECHNIQUE: Imaging protocol: Radiologic exam of the chest. Views: 1 view. COMPARISON: CR XR chest 1V portable [id number] 09/10/2022 3:48 PM FINDINGS: Tubes, catheters and devices: Tracheostomy tube is in satisfactory position. Left subclavian central venous infusion port catheter remains in place with its tip in the superior vena cava. Lungs: Left basilar infiltrate not significantly changed. No new infiltrate is identified. Pleural spaces: Unremarkable. No pleural effusion. No pneumothorax. Heart/Mediastinum: Heart is upper limits of normal in size. Bones/joints: Sternotomy wires and mediastinal surgical clips are present, consistent with coronary arterial bypass grafting. XR/XR chest 1V portable [id number] IMPRESSION: 1. Left basilar infiltrates not significantly changed. 2. No acute finding.
--- NOTE | 2022-09-25 23:19 | W.ED.SOB ---
HPI - SOB/Dyspnea General: Chief Complaint: Shortness of Breath/Dyspnea Stated Complaint: trach issue Time Seen by Provider: 09/25/22 22:09 Source: patient Mode of arrival: ambulatory Limitations: no limitations History of Present Illness: HPI Narrative: 86-year-old male with a history of throat cancer he had a tracheostomy earlier this year he states he did start chemo last week he states that he had some slight dyspnea today and his states when they changed his trach he had a slight greenish discharge along with some slight blood. Associated symptoms: Deny abdominal pain, chest pain, fever(s), nausea or vomiting Review of Systems Const: Denies: fever(s), chills, body aches or change in appetite ENMT: Denies: throat pain or dental pain Card: Denies: chest pain Resp: Reports: dyspnea GI: Denies: abdominal pain, nausea, vomiting or diarrhea Musc: Denies: neck pain or back pain Skin/Breast: Denies: rash Neuro: Denies: headache(s) PFSH ED PFSH: Medical History AAA (abdominal aortic aneurysm) ASHD (arteriosclerotic heart disease) BPH loc w urin obs/LUTS Chronic prostatitis CVA (cerebral vascular accident) DJD (degenerative joint disease), lumbar Elevated PSA Essential hypertension Gout Hyperlipidemia Myocardial infarction Palpitations Peripheral neuropathy Tobacco abuse, in remission Surgical History History of laryngoscopy (07/05/22) tracheotomy and 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) Status post insertion of percutaneous endoscopic gastrostomy (PEG) tube (07/10/22) Family History Other CAD (coronary artery disease) Cancer Hypertension Social History Smoking and tobacco status: former smoker Quit status (tobacco): has quit using tobacco Former quit date comment: smoked x 50+ years Alcohol intake: never Substance/Drug Use: never Household members: spouse Marital status: service: No Current occupational status: retired Previous occupational history: [employer] X 27 YEARS Current gender identity: Male Radha/Congregation: Congregation Physical Exam Const: COMMON NORMALS: no acute distress, patient oriented x3 and healthy appearing HENMT: COMMON NORMALS: normocephalic and atraumatic HEAD & SCALP: normocephalic and atraumatic Neck/C-Spine: COMMON NORMALS: full ROM and supple OTHER: Trach is in place no erythema no drainage at this time Chest: COMMONS NORMALS: normal inspection of the chest and normal palpation of entire chest wall Resp: COMMON NORMALS: normal respiratory effort, No retractions, No use of accessory muscles and clear to auscultation bilaterally AUSCULTATION: clear to auscultation bilaterally Cardio: COMMON NORMALS: regular rate, regular rhythm and No murmurs present (Cardio) RATE: regular rate RHYTHM: regular rhythm GI: COMMON NORMALS: Normal to inspection, nondistended, normoactive bowel sounds present, Soft to palpation, non-tender and no masses PALPATION: Yes Soft to palpation Extremity: COMMON NORMALS: normal to inspection and full ROM Neuro: COMMON NORMALS: patient oriented x3, moves all extremities and no focal motor deficits Psych: COMMON NORMALS: mental status grossly normal, Normal thought process present and cooperative THOUGHT PROCESS: Normal thought process present Skin: COMMON NORMALS: no rashes or lesions noted and no wounds GENERAL SKIN EXAM: no rashes or lesions noted Course Vital Signs: Vital signs: Vital Signs Temperature 97.6 F 09/25/22 21:46 Pulse Rate 70 09/25/22 21:46 Respiratory Rate 16 09/25/22 21:46 Blood Pressure 98/55 09/25/22 21:46 Pulse Oximetry 98 09/25/22 21:46 Oxygen Delivery Me thod Room Air 09/25/22 21:46 MDM - SOB/Dyspnea Medical Decision Making Patient presents here with slight drainage from his trach he is found to be neutropenic exam here is benign he has no drainage at this time we will place him on Keflex he is to follow-up with his ENT along with his oncologist return if worsening or if he has any fevers whatsoever Medical Records I reviewed the patient's medical records. Lab Data I reviewed the patient's lab results. 09/25/22 23:07 09/25/22 23:07 Labs/Radiology: Radiology Impressions Chest X-Ray 09/25/22 23:07 IMPRESSION: 1. Left basilar infiltrates not significantly changed. 2. No acute finding. Laboratory Results WBC 1.5 10^3/uL (4.0-10.0) L 09/25/22 23:07 RBC 3.48 10^6/uL (4.1-5.3) L 09/25/22 23:07 Hgb 10.0 g/dL (11.7-16.6) L 09/25/22 23:07 Hct 30.1 % (42.0-52.0) L 09/25/22 23:07 MCV 86.5 fl (80-94) 09/25/22 23:07 MCH 28.7 pg (28.0-34.0) 09/25/22 23:07 MCHC 33.2 g/dL (30.0-36.0) 09/25/22 23:07 RDW 13.9 % (12.1-15.1) 09/25/22 23:07 Plt Count 88 10^3/cmm (130-400) L 09/25/22 23:07 MPV 12.8 fL (7.4-10.4) H 09/25/22 23:07 Neut % (Auto) 64.8 % 09/25/22 23:07 Lymph % (Auto) 19.3 % 09/25/22 23:07 [place] % (Auto) 8.3 % 09/25/22 23:07 Eos % (Auto) 2.1 % 09/25/22 23:07 Baso % (Auto) 1.4 % 09/25/22 23:07 Neut # (Auto) 0.94 10^3/uL (1.8-7.7) L* 09/25/22 23:07 Lymph # (Auto) 0.3 10^3/uL (0.8-4.8) L 09/25/22 23:07 [place] # (Auto) 0.1 10^3/uL (0.2-0.9) L 09/25/22 23:07 Eos # (Auto) 0.0 10^3/uL (0.0-0.8) 09/25/22 23:07 Baso # (Auto) 0.0 10^3/uL (0.0-0.1) 09/25/22 23:07 Nucleated RBC % (auto) 0 % 09/25/22 23:07 Nucleated RBCs # 0.0 /100WBC 09/25/22 23:07 Sodium 131 mmol/L (136-145) L 09/25/22 23:07 Potassium 3.9 mmol/L (3.5-5.1) 09/25/22 23:07 Chloride 94 mmol/L (98-107) L 09/25/22 23:07 Carbon Dioxide 26 mmol/L (22-29) 09/25/22 23:07 Anion Gap 14.9 (5-19) 09/25/22 23:07 BUN 34 mg/dL (8-23) H 09/25/22 23:07 Creatinine 1.0 mg/dL (0.7-1.2) 09/25/22 23:07 GFR Calculation Not Reportable 09/25/22 23:07 Glucose 127 mg/dL (65-115) H 09/25/22 23:07 Calculated Osmolality 281 mOsm/kg (285-295) L 09/25/22 23:07 Calcium 8.8 mg/dL (8.5-10.5) 09/25/22 23:07 Discharge Plan Discharge Patient Disposition: Home Clinical Impression: Tracheostomy present, Neutropenia Condition: Stable Prescriptions: New cephalexin 500 mg capsule 500 mg PO TID 7 Days Qty: 21 0RF cephalexin 250 mg/5 mL suspension for reconstitution 500 mg PO Q8H 7 Days Qty: 210 0RF No Action melatonin 5 mg tablet 10 mg feeding tube .HS nitroglycerin [Nitrostat] 0.4 mg tablet, sublingual 0.4 mg SUBLINGUAL Q5M PRN (Reason: Chest Pain) ferrous sulfate 27 mg iron tablet 27 mg feeding tube DAILY trazodone 50 mg tablet 25 mg feeding tube DAILY ascorbic acid (vitamin C) 250 mg tablet 250 mg feeding tube DAILY lorazepam 0.5 mg tablet 0.5 mg sublingual TID PRN (Reason: nausea and vomiting) Qty: 30 2RF Rx Instructions: Use for severe nausea, anxiety, or insomnia ondansetron 4 mg tablet,disintegrating 4 mg PO TID Qty: 30 2RF Rx Instructions: Place one tab under tongue to dissolve. Use for mild nausea metoprolol tartrate 25 mg tablet 25 mg feeding tube DAILY atorvastatin 20 mg tablet 20 mg feeding tube QDAY Rx Instructions: Please convert to liquid form for PEG use clopidogrel 75 mg tablet 75 mg feeding tube QDAY Hold Instructions: Resume on 09/12/22. Rx Instructions: Please convert to liquid form for PEG use amlodipine 5 mg tablet 5 mg feeding tube DAILY Rx Instructions: Please convert to liquid form for PEG use gabapentin 300 mg capsule 300 mg feeding tube TID Rx Instructions: Please convert to liquid form for PEG use allopurinol 300 mg tablet 300 mg feeding tube QDAY Rx Instructions: Please convert to liquid form for PEG use finasteride 5 mg tablet 5 mg feeding tube DAILY Rx Instructions: Please convert to liquid form for PEG use oxycodone 5 mg tablet 5 mg PO Q6H PRN (Reason: pain) Qty: 10 0RF DOK 100 mg capsule 100 mg PO BID Qty: 7 0RF Discharge Orders: Discharge ED (Routine); Ordered 09/26/22 Ordered By: Mariann Matta Referrals: Heather Hodges DO [Primary Care Provider] - Discharge Diet: Advance as tolerated Discharge Activity: Resume usual activity Patient Instructions: Tracheostomy Care (ED) Coding Level of Care Code ED Senior Marketing Coordinator for Mayra Cote
[2022-09-25 23:22] VITALS: PULSE 54; RESP 20; O2SAT 95
[2022-09-25 23:30] VITALS: BP 139/69; PULSE 58; RESP 18; O2SAT 93
[2022-09-25 23:33] LABS: Basophils % 1.4 %; Eosinophils % 2.1 %; Hematocrit 30.1 % (42.0-52.0); Lymphocytes # 0.3 10^3/uL (0.8-4.8); Lymphocytes % 19.3 %; Mean Corpuscular HGB Conc 33.2 g/dL (30.0-36.0); Mean Corpuscular Hemoglobin 28.7 pg (28.0-34.0); Mean Corpuscular Volume 86.5 fl (80-94); Mean Platelet Volume 12.8 fL (7.4-10.4); Monocytes # 0.1 10^3/uL (0.2-0.9); Monocytes % 8.3 %; Neutrophils % 64.8 %; Nucleated Red Blood Cells % 0 %; Platelet Count 88 10^3/cmm (130-400); Red Blood Count 3.48 10^6/uL (4.1-5.3); Red Cell Distribution Width 13.9 % (12.1-15.1); White Blood Count 1.5 10^3/uL (4.0-10.0)
[2022-09-25 23:47] LABS: Neutrophils # 0.94 10^3/uL (1.8-7.7)
[2022-09-26 00:20] LABS: Anion Gap 14.9 (5-19); Blood Urea Nitrogen 34 mg/dL (8-23); Calcium 8.8 mg/dL (8.5-10.5); Carbon Dioxide 26 mmol/L (22-29); Chloride 94 mmol/L (98-107); Glucose 127 mg/dL (65-115); Osmolality Calculated 281 mOsm/kg (285-295); Potassium 3.9 mmol/L (3.5-5.1); Sodium 131 mmol/L (136-145)
== END 2022-09-26 01:19 | disposition home or self-care (01) ==
PROVIDERS: Emergency Provider Emergency Medicine; PCP Family Medicine
DX: D70.9 Neutropenia, unspecified (principal); Z93.0 Tracheostomy status; Z79.02 Long term (current) use of antithrombotics/antiplatelets; Z87.891 Personal history of nicotine dependence; Z86.73 Personal history of transient ischemic attack (TIA), and cerebral infarction without residual deficits; I10 Essential (primary) hypertension; E78.5 Hyperlipidemia, unspecified; I25.2 Old myocardial infarction; Z95.1 Presence of aortocoronary bypass graft
CPT/HCPCS: 36415; 71045; 80048; 85025; 99284

== ENCOUNTER 2022-09-29 18:19 | Emergency (ER) | payer MEDICARE, OTHER, SELFPAY ==
[2022-09-29 18:25] VITALS: BMI 22.8
[2022-09-29 18:31] VITALS: BP 120/56; PULSE 86; RESP 18; TEMP 36.4; O2SAT 99
--- NOTE | 2022-09-29 19:01 | ED_ITS ---
HPI - GI Bleed General: Chief complaint: GI Bleed Stated complaint: diarrhea, blood in stool Time Seen by Provider: 09/29/22 18:44 History of Present Illness: Patient has had a small amount of bleeding during his diarrheal episodes today. Patient has throat cancer and has a trach, port, eating tube. Patient has had diarrhea for the last week that has progressively worsened over the last several days to the point of having blood in it today. Time patient takes anything in his feeding tube it seems to worsen the diarrhea just right afterwards. 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) Status post insertion of percutaneous endoscopic gastrostomy (PEG) tube (07/10/22) Family History Other CAD (coronary artery disease) Cancer Hypertension Social History Smoking and tobacco status: former smoker Quit status (tobacco): has quit using tobacco Former quit date comment: smoked x 50+ years Alcohol intake: never Substance/Drug Use: never Household members: spouse Marital status: service: No Current occupational status: retired Previous occupational history: [employer] X 27 YEARS Current gender identity: Male Radha/Adventist: Amish Physical Exam Const: COMMON NORMALS: no acute distress, average body habitus, patient oriented x3 and alert HENMT: COMMON NORMALS: normocephalic, atraumatic, hearing grossly normal bilaterally, external ears normal, Normal external nose present and moist oral mucous membranes HEAD & SCALP: normocephalic and atraumatic NOSE: Normal external nose present EXTERNAL EAR: Yes external ears normal Neck/C-Spine: COMMON NORMALS: full ROM, supple, no meningeal signs and no JVD OTHER: Trach in place Chest: COMMONS NORMALS: normal inspection of the chest and normal palpation of entire chest wall Resp: COMMON NORMALS: normal respiratory effort, No retractions, No use of accessory muscles and clear to auscultation bilaterally AUSCULTATION: clear to auscultation bilaterally Cardio: COMMON NORMALS: no JVD, regular rate, regular rhythm, S1 normal heart sound present, S2 normal heart sound present, No gallops present (Cardio), No clicks present (Cardio), No murmurs present (Cardio) and No rub (Cardio) RATE: regular rate RHYTHM: regular rhythm HEART SOUNDS: S1 normal heart sound present and S2 normal heart sound present GI: COMMON NORMALS: Normal to inspection, nondistended, normoactive bowel sounds present, Soft to palpation, non-tender, No hepatosplenomegaly present and no masses PALPATION: Yes Soft to palpation and Yes No hepatosplenomegaly present OTHER: Feeding tube in place : COMMON NORMALS: Yes no CVA tenderness BLADDER/KIDNEY EXAM: Yes no CVA tenderness Back/Pelvis: COMMON NORMALS: no CVA tenderness Neuro: COMMON NORMALS: patient oriented x3 SENSORIUM/ORIENTATION: Yes alert MENINGEAL SIGNS: Yes no meningeal signs Course Vital Signs: Vital signs: Vital Signs Temperature 97.6 F 09/29/22 18:31 Pulse Rate 86 09/29/22 18:31 Respiratory Rate 18 09/29/22 20:00 Blood Pressure 120/56 09/29/22 18:31 Pulse Oximetry 99 09/29/22 20:00 Oxygen Delivery Me thod Room Air, Trach C ollar 09/29/22 18:31 MDM - GI Bleed Medical Decision Making Presents to the ER with complaints of multiple episodes of diarrhea with a scant amount of blood in it. Patient is tube fed and has esophageal cancer. Lab work was obtained which revealed a hemoglobin of 10.3 which is known where the patient normally runs in BUN/creatinine 27 and 1.4 otherwise everything we got back was pretty much benign. We are still waiting on a couple of stool studies. Patient be discharged home to continue the current regimen. Differential Diagnosis Likely Upper gastrointestinal hemorrhage and Lower gastrointestinal hemorrhage; Unlikely hemorrhoids, infectious diarrhea, esophageal varices, gastritis, Selena-Caballero syndrome or anal fissure Medical Records I reviewed the patient's medical records. Lab Data I reviewed the patient's lab results. 09/29/22 18:58 09/29/22 18:58 Laboratory Results WBC 7.3 10^3/uL (4.0-10.0) 09/29/22 18:58 RBC 3.58 10^6/uL (4.1-5.3) L 09/29/22 18:58 Hgb 10.3 g/dL (11.7-16.6) L 09/29/22 18:58 Hct 31.0 % (42.0-52.0) L 09/29/22 18:58 MCV 86.6 fl (80-94) 09/29/22 18:58 MCH 28.8 pg (28.0-34.0) 09/29/22 18:58 MCHC 33.2 g/dL (30.0-36.0) 09/29/22 18:58 RDW 13.7 % (12.1-15.1) 09/29/22 18:58 Plt Count 97 10^3/cmm (130-400) L 09/29/22 18:58 MPV 12.2 fL (7.4-10.4) H 09/29/22 18:58 Lymph % (Auto) Not Reportable 09/29/22 18:58 [place] % (Auto) Not Reportable 09/29/22 18:58 Lymph # (Auto) Not Reportable 09/29/22 18:58 [place] # (Auto) Not Reportable 09/29/22 18:58 Total Counted 100 (0-100) 09/29/22 18:58 Atypical Lymphs % 0.0 % (0-5) 09/29/22 18:58 Absolute Neutrophils 6.3 10^3/cmm (1.4-6.5) 09/29/22 18:58 Segmented Neutrophils 76 % 09/29/22 18:58 Abs Segm Neuts (Man) 5.5 10/cmm (1.6-7.1) 09/29/22 18:58 Band Neutrophils 10.0 % 09/29/22 18:58 Abs Band Neuts (Man) 0.7 10^3/cmm (0.0-1.2) 09/29/22 18:58 Absolute Lymphocytes 0.4 10^3/cmm (1.2-3.4) L 09/29/22 18:58 Lymphocytes (Manual) 6 % 09/29/22 18:58 Monocytes (Manual) 6.0 % 09/29/22 18:58 Absolute Monocytes 0.4 10^3/cmm (0.1-0.6) 09/29/22 18:58 Eosinophils (Manual) 0 % 09/29/22 18:58 Absolute Eosinophils 0.0 10^3/cmm (0.0-0.7) 09/29/22 18:58 Basophils (Manual) 0.0 % 09/29/22 18:58 Absolute Basophils 0.0 10^3/cmm (0.0-0.2) 09/29/22 18:58 Metamyelocytes 2.0 % 09/29/22 18:58 Myelocytes 0.0 % 09/29/22 18:58 Promyelocytes 0.0 % 09/29/22 18:58 Nucleated RBCs 0.0 /100WBC (0-1) 09/29/22 18:58 Platelet Estimate Decreased (Normal) 09/29/22 18:58 PT 15.30 SECONDS (12.1-14.9) H 09/29/22 18:58 INR 1.17 (0.8-1.2) 09/29/22 18:58 Sodium 131 mmol/L (136-145) L 09/29/22 18:58 Potassium 3.7 mmol/L (3.5-5.1) 09/29/22 18:58 Chloride 93 mmol/L (98-107) L 09/29/22 18:58 Carbon Dioxide 22 mmol/L (22-29) 09/29/22 18:58 Anion Gap 19.7 (5-19) H 09/29/22 18:58 BUN 27 mg/dL (8-23) H 09/29/22 18:58 Creatinine 1.4 mg/dL (0.7-1.2) H 09/29/22 18:58 GFR Calculation Not Reportable 09/29/22 18:58 Glucose 137 mg/dL (65-115) H 09/29/22 18:58 Calculated Osmolality 279 mOsm/kg (285-295) L 09/29/22 18:58 Calcium 9.4 mg/dL (8.5-10.5) 09/29/22 18:58 Magnesium 1.7 mg/dL (1.7-2.3) 09/29/22 18:58 Total Bilirubin 0.4 mg/dL (0.15-1.2) 09/29/22 18:58 AST 38 U/L (0-40) 09/29/22 18:58 ALT 51 U/L (0-41) H 09/29/22 18:58 Alkaline Phosphatase 81 U/L (40-130) 09/29/22 18:58 Total Protein 6.2 g/dL (6.6-8.7) L 09/29/22 18:58 Albumin 3.5 g/dL (3.5-5.2) 09/29/22 18:58 Globulin 2.7 g/dL (1.3-4.6) 09/29/22 18:58 Discharge Plan Discharge Patient Disposition: Home Clinical Impression: Diarrhea Qualifiers: Diarrhea type: unspecified type Qualified Code(s): R19.7 - Diarrhea, unspecifi ed Condition: Stable Prescriptions: No Action melatonin 5 mg tablet 10 mg feeding tube .HS nitroglycerin [Nitrostat] 0.4 mg tablet, sublingual 0.4 mg SUBLINGUAL Q5M PRN (Reason: Chest Pain) ferrous sulfate 27 mg iron tablet 27 mg feeding tube DAILY trazodone 50 mg tablet 25 mg feeding tube DAILY ascorbic acid (vitamin C) 250 mg tablet 250 mg feeding tube DAILY lorazepam 0.5 mg tablet 0.5 mg sublingual TID PRN (Reason: nausea and vomiting) Qty: 30 2RF Rx Instructions: Use for severe nausea, anxiety, or insomnia ondansetron 4 mg tablet,disintegrating 4 mg PO TID Qty: 30 2RF Rx Instructions: Place one tab under tongue to dissolve. Use for mild nausea metoprolol tartrate 25 mg tablet 25 mg feeding tube DAILY atorvastatin 20 mg tablet 20 mg feeding tube QDAY Rx Instructions: Please convert to liquid form for PEG use clopidogrel 75 mg tablet 75 mg feeding tube QDAY Hold Instructions: Resume on 09/12/22. Rx Instructions: Please convert to liquid form for PEG use amlodipine 5 mg tablet 5 mg feeding tube DAILY Rx Instructions: Please convert to liquid form for PEG use gabapentin 300 mg capsule 300 mg feeding tube TID Rx Instructions: Please convert to liquid form for PEG use allopurinol 300 mg tablet 300 mg feeding tube QDAY Rx Instructions: Please convert to liquid form for PEG use finasteride 5 mg tablet 5 mg feeding tube DAILY Rx Instructions: Please convert to liquid form for PEG use oxycodone 5 mg tablet 5 mg PO Q6H PRN (Reason: pain) Qty: 10 0RF DOK 100 mg capsule 100 mg PO BID Qty: 7 0RF cephalexin 500 mg capsule 500 mg PO TID 7 Days Qty: 21 0RF cephalexin 250 mg/5 mL suspension for reconstitution 500 mg PO Q8H 7 Days Qty: 210 0RF Discharge Orders: Discharge ED (Routine); Ordered 09/29/22 Ordered By: Delano Padilla Referrals: Heather Hodges DO [Primary Care Provider] - 1 week Patient Instructions: Diarrhea - Adult Activity Restrictions/Additional Instructions: Please keep pushing liquids. Please await final stool study results should be back in approximately 48 hours. After that if it assuming they are negative you may feel free to give patient Imodium to help firm up his stools. These follow- up with your family practice doctor in approximately 7 to 10 days as needed for further evaluation and treatment. Coding Level of Care Code ED Acrobatic Rigger for Mayra Cote
[2022-09-29 19:14] LABS: Hemoglobin 10.3 g/dL (11.7-16.6); Mean Corpuscular HGB Conc 33.2 g/dL (30.0-36.0); Mean Corpuscular Hemoglobin 28.8 pg (28.0-34.0); Mean Corpuscular Volume 86.6 fl (80-94); Mean Platelet Volume 12.2 fL (7.4-10.4); Platelet Count 97 10^3/cmm (130-400); Red Blood Count 3.58 10^6/uL (4.1-5.3); Red Cell Distribution Width 13.7 % (12.1-15.1); White Blood Count 7.3 10^3/uL (4.0-10.0)
[2022-09-29] MEDS: sodium chloride 0.9% 1,000 ML 999 ML IV (19:16)
[2022-09-29 19:19] LABS: INR 1.17 (0.8-1.2)
[2022-09-29 19:23] LABS: Slide Review Slide Review Perform
[2022-09-29 19:27] LABS: Alanine Aminotransferase 51 U/L (0-41); Albumin Level 3.5 g/dL (3.5-5.2); Alkaline Phosphatase 81 U/L (40-130); Anion Gap 19.7 (5-19); Aspartate Amino Transferase 38 U/L (0-40); Blood Urea Nitrogen 27 mg/dL (8-23); Calcium 9.4 mg/dL (8.5-10.5); Carbon Dioxide 22 mmol/L (22-29); Chloride 93 mmol/L (98-107); Globulin 2.7 g/dL (1.3-4.6); Glucose 137 mg/dL (65-115); Osmolality Calculated 279 mOsm/kg (285-295); Potassium 3.7 mmol/L (3.5-5.1); Sodium 131 mmol/L (136-145); Total Bilirubin 0.4 mg/dL (0.15-1.2); Total Protein 6.2 g/dL (6.6-8.7)
[2022-09-29 19:47] LABS: Absolute Neutrophil 6.3 10^3/cmm (1.4-6.5); Absolute Segmented Neutrophil 5.5 10/cmm (1.6-7.1); Band Neutrophils Absolute 0.7 10^3/cmm (0.0-1.2); Eosinophils 0 %; Lymphocytes 6 %; Lymphocytes Absolute 0.4 10^3/cmm (1.2-3.4); Monocytes Absolute 0.4 10^3/cmm (0.1-0.6); Platelet Estimate Decreased (Normal); Segmented Neutrophils 76 %; Total Cells Counted 100 (0-100)
[2022-09-29 19:59] LABS: Magnesium 1.7 mg/dL (1.7-2.3)
[2022-09-29 20:00] VITALS: RESP 18; O2SAT 99
== END 2022-09-29 22:56 | disposition home or self-care (01) ==
PROVIDERS: Emergency Medicine; Emergency Provider Emergency Medicine; PCP Family Medicine
DX: R19.7 Diarrhea, unspecified (principal); C15.9 Malignant neoplasm of esophagus, unspecified; Z93.0 Tracheostomy status; Z93.1 Gastrostomy status
CPT/HCPCS: 36415; 80053; 82274; 83630; 83735; 85007; 85025; 85610; 87493; 87506; 99284; J7030

== ENCOUNTER 2022-10-06 22:06 | Inpatient (IN) | payer MEDICARE, OTHER, SELFPAY ==
[2022-10-06 22:11] VITALS: BP 132/59; PULSE 79; RESP 16; TEMP 36.8; O2SAT 91; BMI 22.8
--- NOTE | 2022-10-06 22:19 | XRR_ITS ---
PROCEDURE INFORMATION: Exam: XR Chest Exam date and time: 10/06/2022 10:24 PM Age: 86 years old Clinical indication: Shortness of breath; Additional info: SOB TECHNIQUE: Imaging protocol: Radiologic exam of the chest. Views: 1 view. COMPARISON: CR (CHEST, ) 09/25/2022 11:09 PM FINDINGS: Tubes, catheters and devices: Tracheostomy tube. Left-sided Port-A-Cath. Lungs: Left lower lobe atelectasis versus infiltrate. Pleural spaces: Unremarkable. No pleural effusion. No pneumothorax. Heart/Mediastinum: Cardiomegaly. Bones/joints: Stable sternotomy wires. XR/XR chest 1V portable [id number] IMPRESSION: 1. Cardiomegaly. 2. Left lower lobe atelectasis versus infiltrate. 3. Tracheostomy tube. 4. Stable sternotomy wires. 5. Left-sided Port-A-Cath.
--- NOTE | 2022-10-06 22:32 | ED_ITS ---
HPI - SOB/Dyspnea General: Chief Complaint: Shortness of Breath/Dyspnea Stated Complaint: FEEDING TUBE ISSUES Time Seen by Provider: 10/06/22 22:09 History of Present Illness: HPI Narrative: 86-year-old male with complex medical history including throat cancer and currently with tracheostomy. Patient was discharged from [facility] yesterday after was there for a week due to bleeding from his tracheostomy. According to the daughter, patient was fed through his PEG tube and started coughing vigorously. Noticed some of feeding coming through his tracheostomy. Patient and daughter denies any visible blood. Daughter reveals that patient had a subjective fever this morning and after the episode patient had some difficulty breathing. Upon present emergency room patient appeared to be hypoxic but denies any chest pain, fever, chills, nausea or vomiting at this time. Review of Systems General: Reports: 10 or more systems reviewed and unremarkable except in HPI and below Resp: Reports: dyspnea and productive cough PFSH ED PFSH: Medical History (Updated 10/07/22 @ 02:10 by Chris Duckworth MD) AAA (abdominal aortic aneurysm) ASHD (arteriosclerotic heart disease) BPH loc w urin obs/LUTS Chronic prostatitis CVA (cerebral vascular accident) DJD (degenerative joint disease), lumbar Elevated PSA Essential hypertension Gout Hyperlipidemia Myocardial infarction Palpitations Peripheral neuropathy Secondary malignancy of lymph nodes of head, face and neck Tobacco abuse, in remission Surgical History History of laryngoscopy (07/05/22) tracheotomy and 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) Status post insertion of percutaneous endoscopic gastrostomy (PEG) tube (07/10/22) Family History Other CAD (coronary artery disease) Cancer Hypertension Social History Smoking and tobacco status: former smoker Quit status (tobacco): has quit using tobacco Former quit date comment: smoked x 50+ years Alcohol intake: never Substance/Drug Use: never Household members: spouse Marital status: service: No Current occupational status: retired 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 Current gender identity: Male Radha/Roman Catholic: Sikhism Physical Exam Const: COMMON NORMALS: no acute distress, average body habitus, patient oriented x3, no limitations, healthy appearing, alert and well nourished HENMT: COMMON NORMALS: normocephalic, atraumatic, hearing grossly normal bilaterally, external ears normal, EAC's normal, TM's normal bilaterally, Normal external nose present, Normal nasal mucous membranes and turbinates present, moist oral mucous membranes, oropharynx normal, dentition normal and gingiva normal HEAD & SCALP: normocephalic and atraumatic NOSE: Normal external nose present and Normal nasal mucous membranes and turbinates present EXTERNA L EAR: Yes external ears normal EXTERNAL AUDITORY CANAL: EAC's normal TYMPANIC MEMBRANE: TM's normal bilaterally Neck/C-Spine: COMMON NORMALS: no JVD GENERAL: No tender, Yes tracheostomy present, No JVD and No submandibular swelling OTHER: Tracheostomy in place no bleeding Lymph: LYMPHATIC: no lymphadenopathy noted Chest: COMMONS NORMALS: normal inspection of the chest, normal palpation of entire chest wall, normal inspection of the breasts and normal palpation of the breasts Breast/axilla inspection: Yes normal inspection of the breasts BREAST/AXILLA PALPATION: Yes normal palpation of the breasts Resp: AUSCULTATION: crackles, no rhonchi, no wheezes and diminished lung sounds Cardio: COMMON NORMALS: no JVD, regular rate, regular rhythm, S1 normal heart sound present, S2 normal heart sound present, No gallops present (Cardio), No clicks present (Cardio), No murmurs present (Cardio), No rub (Cardio) and Peripheral pulses 2+ throughout RATE: regular rate RHYTHM: regular rhythm HEART SOUNDS: S1 normal heart sound present and S2 normal heart sound present PERIPHERAL PULSES: Peripheral pulses 2+ throughout : COMMON NORMALS: Yes no CVA tenderness BLADDER/KIDNEY EXAM: Yes no CVA tenderness Back/Pelvis: COMMON NORMALS: no CVA tenderness, thoracic and lumbar spine normal to inspection, no thoracic nor lumbar tenderness, thoraco-lumbar ROM normal and straight leg raise negative bilaterally Extremity: COMMON NORMALS: normal to inspection, full ROM, capillary refill normal, no joint enlargement, no clubbing, cyanosis or edema, no calf tenderness and no pedal edema Neuro: COMMON NORMALS: patient oriented x3 SENSORIUM/ORIENTATION: Yes alert Course Vital Signs: Vital signs: Vital Signs Temperature 98.3 F 10/07/22 23:57 Pulse Rate 68 10/08/22 02:00 Respiratory Rate 18 10/08/22 02:00 Blood Pressure 123/48 10/07/22 23:57 Pulse Oximetry 96 10/08/22 02:00 Oxygen Delivery Me thod HAG, Trach Collar 10/08/22 02:00 Oxygen Flow Rate 2 10/07/22 19:10 Fraction of Inspir ed Oxygen 28 10/08/22 02:00 MDM - SOB/Dyspnea Medical Decision Making Patient was made comfortable emergency room. Was able to review past medical records and current medication list. Had extensive work-up including CBC, CMP, ABG, chest x-ray. Discussed all the lab findings with patient and daughter. Plan was to admit patient for further evaluation and treatment. Lab Data 10/06/22 22:35 10/06/22 22:35 Labs/Radiology: Radiology Impressions Chest X-Ray 10/06/22 22:19 IMPRESSION: 1. Cardiomegaly. 2. Left lower lobe atelectasis versus infiltrate. 3. Tracheostomy tube. 4. Stable sternotomy wires. 5. Left-sided Port-A-Cath. Laboratory Results WBC 14.7 10^3/uL (4.0-10.0) H 10/06/22 22:35 RBC 3.03 10^6/uL (4.1-5.3) L 10/06/22 22:35 Hgb 8.9 g/dL (11.7-16.6) L 10/06/22 22:35 Hct 26.6 % (42.0-52.0) L 10/06/22 22:35 MCV 87.8 fl (80-94) 10/06/22 22:35 MCH 29.4 pg (28.0-34.0) 10/06/22 22:35 MCHC 33.5 g/dL (30.0-36.0) 10/06/22 22:35 RDW 14.8 % (12.1-15.1) 10/06/22 22:35 Plt Count 154 10^3/cmm (130-400) 10/06/22 22:35 MPV 9.4 fL (7.4-10.4) 10/06/22 22:35 Neut % (Auto) 83.8 % 10/06/22 22:35 Lymph % (Auto) 3.9 % 10/06/22 22:35 Rolette % (Auto) 7.3 % 10/06/22 22:35 Eos % (Auto) 0.2 % 10/06/22 22:35 Baso % (Auto) 0.2 % 10/06/22 22:35 Neut # (Auto) 12.33 10^3/uL (1.8-7.7) H 10/06/22 22:35 Lymph # (Auto) 0.6 10^3/uL (0.8-4.8) L 10/06/22 22:35 Rolette # (Auto) 1.1 10^3/uL (0.2-0.9) H 10/06/22 22:35 Eos # (Auto) 0.0 10^3/uL (0.0-0.8) 10/06/22 22:35 Baso # (Auto) 0.0 10^3/uL (0.0-0.1) 10/06/22 22:35 Nucleated RBC % (auto) 0 % 10/06/22 22:35 Nucleated RBCs # 0.0 /100WBC 10/06/22 22:35 Specimen Type Arterial 10/06/22 23:55 Sample Site Brachial, left 10/06/22 23:55 ABG pH 7.53 (7.35-7.45) H 10/06/22 23:55 ABG pCO2 33.4 mmHg (35-45) L 10/06/22 23:55 ABG pO2 70.5 mmHg (80.0-100.0) L 10/06/22 23:55 ABG HCO3 27.8 mmol/L (22-26) H 10/06/22 23:55 ABG O2 Saturation 97.3 10/06/22 23:55 ABG Base Excess 4.9 mmol/L (-2.0-2.0) H 10/06/22 23:55 Reg Test N/a 10/06/22 23:55 A-a O2 Gradient 11.2 mmHg (5-10) H 10/06/22 23:55 Hematocrit 25.8 % (42-52) L 10/06/22 23:55 Hgb O2 Saturation 94.9 % (95-100) L 10/06/22 23:55 Carboxyhemoglobin 1.8 %THgb (0.4-20.1) 10/06/22 23:55 Methemoglobin 0.7 % (0.4-1.5) 10/06/22 23:55 Total Hemoglobin 8.4 g/dL (14-18) L 10/06/22 23:55 Sodium 134.0 mmol/L (131-143) 10/06/22 23:55 Potassium 3.4 mmol/L (3.5-5.0) L 10/06/22 23:55 Glucose 103.0 mg/dL (70-115) 10/06/22 23:55 Ionized Calcium 1.1 mmol/L (1.1-1.4) 10/06/22 23:55 O2 Delivery Device Trach collar 10/06/22 23:55 O2 Liters/Min 2.0 % 10/06/22 23:55 FiO2 28.0 % 10/06/22 23:55 Assembly Machine Tender ID [email or web address] 10/06/22 23:55 Sodium 136 mmol/L (136-145) 10/06/22 22:35 Potassium 3.6 mmol/L (3.5-5.1) 10/06/22 22:35 Chloride 101 mmol/L (98-107) 10/06/22 22:35 Carbon Dioxide 27 mmol/L (22-29) 10/06/22 22:35 Anion Gap 11.6 (5-19) 10/06/22 22:35 BUN 21 mg/dL (8-23) 10/06/22 22:35 Creatinine 0.8 mg/dL (0.7-1.2) 10/06/22 22:35 GFR Calculation Not Reportable 10/06/22 22:35 Glucose 110 mg/dL (65-115) 10/06/22 22:35 Calculated Osmolality 286 mOsm/kg (285-295) 10/06/22 22:35 Lactic Acid 1.2 mmol/L (0.5-2.2) 10/06/22 22:35 Calcium 7.8 mg/dL (8.5-10.5) L 10/06/22 22:35 Total Bilirubin 0.6 mg/dL (0.15-1.2) 10/06/22 22:35 AST 35 U/L (0-40) 10/06/22 22:35 ALT 27 U/L (0-41) 10/06/22 22:35 Alkaline Phosphatase 70 U/L (40-130) 10/06/22 22:35 Total Protein 4.9 g/dL (6.6-8.7) L 10/06/22 22:35 Albumin 2.7 g/dL (3.5-5.2) L 10/06/22 22:35 Globulin 2.2 g/dL (1.3-4.6) 10/06/22 22:35 Discharge Plan Discharge Patient Disposition: Admitted As Inpatient Admit Provider: Chris Duckworth Clinical Impression: Leukocytosis, Aspiration into main bronchus, Hypoxia Condition: Stable Coding Level of Care Code ED Counterperson for Mayra Cote
--- NOTE | 2022-10-06 22:39 | PC.NURSE ---
RN into room to speak to family. Family member who takes care of pt confirmed that pt has been coughing hard after PEG tube feedings and expelling liquid food from tracheostomy. Trach was placed last week. PEG tube was placed in June. Family states that ever since the PEG tube was placed, pt has had difficulty keeping food down. Pt also has blood streaked sputum but trach was recently placed this past week. Pt was seen in [facility] for malnutrition this month.
[2022-10-06 22:49] LABS: Basophils % 0.2 %; Eosinophils % 0.2 %; Hematocrit 26.6 % (42.0-52.0); Hemoglobin 8.9 g/dL (11.7-16.6); Lymphocytes # 0.6 10^3/uL (0.8-4.8); Lymphocytes % 3.9 %; Mean Corpuscular HGB Conc 33.5 g/dL (30.0-36.0); Mean Corpuscular Hemoglobin 29.4 pg (28.0-34.0); Mean Corpuscular Volume 87.8 fl (80-94); Mean Platelet Volume 9.4 fL (7.4-10.4); Monocytes # 1.1 10^3/uL (0.2-0.9); Monocytes % 7.3 %; Neutrophils # 12.33 10^3/uL (1.8-7.7); Neutrophils % 83.8 %; Nucleated Red Blood Cells % 0 %; Platelet Count 154 10^3/cmm (130-400); Red Blood Count 3.03 10^6/uL (4.1-5.3); Red Cell Distribution Width 14.8 % (12.1-15.1); White Blood Count 14.7 10^3/uL (4.0-10.0)
[2022-10-06 23:04] LABS: Alanine Aminotransferase 27 U/L (0-41); Albumin Level 2.7 g/dL (3.5-5.2); Alkaline Phosphatase 70 U/L (40-130); Anion Gap 11.6 (5-19); Aspartate Amino Transferase 35 U/L (0-40); Blood Urea Nitrogen 21 mg/dL (8-23); Calcium 7.8 mg/dL (8.5-10.5); Carbon Dioxide 27 mmol/L (22-29); Chloride 101 mmol/L (98-107); Globulin 2.2 g/dL (1.3-4.6); Glucose 110 mg/dL (65-115); Osmolality Calculated 286 mOsm/kg (285-295); Potassium 3.6 mmol/L (3.5-5.1); Sodium 136 mmol/L (136-145); Total Bilirubin 0.6 mg/dL (0.15-1.2); Total Protein 4.9 g/dL (6.6-8.7)
[2022-10-06 23:05] LABS: Lactic Sepsis W/Reflex 1.2 mmol/L (0.5-2.2)
[2022-10-06 23:12] VITALS: BP 96/55; PULSE 75; RESP 16; O2SAT 94
[2022-10-06 23:32] VITALS: BP 107/57; PULSE 77; RESP 16; O2SAT 94
[2022-10-06 23:59] VITALS: BP 105/55; PULSE 74; RESP 16; O2SAT 92
[2022-10-07] VITALS (14 sets, daily range): BP systolic 99–137; BP diastolic 48–68; PULSE 65–74; RESP 15–19; TEMP 36.1–37; O2SAT 93–98
[2022-10-07] MEDS: meropenem 1,000 MG in sodium chloride 0.9% (plus) 50 ML 100 MG IV ×3 (00:01→14:57)
[2022-10-07 00:07] LABS: ABG PCO2 33.4 mmHg (35-45); ABG PH Result 7.53 (7.35-7.45); Alveolar-Arterial Oxygen Gradi 11.2 mmHg (5-10); Arterial Blood Gas Hematocrit 25.8 % (42-52); Base Excess ABG 4.9 mmol/L (-2.0-2.0); Blood Gas Sample Site Brachial, left; Blood Gas Sample Type Arterial; Carboxyhemoglobin 1.8 %THgb (0.4-20.1); HCO3 ABG 27.8 mmol/L (22-26); HGB O2 Sat 94.9 % (95-100); Ionized Calcium Level - ABG 1.1 mmol/L (1.1-1.4); Methemoglobin 0.7 % (0.4-1.5); Oxygen Device TRACH COLLAR; Oxygen Saturation ABG 97.3; PO2 ABG 70.5 mmHg (80.0-100.0); Potassium Level - ABG 3.4 mmol/L (3.5-5.0); Total Hemoglobin 8.4 g/dL (14-18)
--- NOTE | 2022-10-07 02:02 | PM.HP ---
Providers/Chief Complaint Admitting Physician: Chris Duckworth MD, hospitalist Primary Care Provider: Heather Hodges DO Chief Complaint: FEEDING TUBE ISSUES History of Present Illness Jose Mcdonnell is a 86 year old male with head and neck cancer with tracheostomy and PEG tube who recently got chemotherapy approximately 2 weeks ago who presents with subjective fever, shortness of breath, and coughing. Daughter, reports that intermittently he has coughed up formula but head has become more excessive in the last 48 hours. She reports she tried to feed him today with just a little bit of gravity feed of his Jevity he was coughing this up from his tracheostomy, vigorously. He had recently been in the hospital at [facility] for hemorrhage from his tracheostomy. It sounds like this was cauterized, and he potentially had a tube with the cuff for a while. He has not been having any significant bleeding since discharge home yesterday. He was not having any fevers and Gini according to family. Daughter reports he typically does not need any oxygen at all, saturations ranging 95 to 100% but she noticed low saturations tonight with a temperature and the increased coughing. He is required 2 L of oxygen in the ER. Patient denies any chest discomfort. He reports he feels better on the oxygen but is still a little short of breath. Review of Systems General: Reports: 10 or more systems reviewed and unremarkable except in HPI and below Card: Denies: chest pain Resp: Reports: dyspnea and productive cough GI: Denies: abdominal pain, nausea, vomiting, hematochezia or melena Medications/Allergies Home Medications Medication Instructions Recorded Confirmed Last Taken Type nitroglycerin 0.4 mg sublingual 0.4 mg sublingual Q5M PRN Chest 03/14/19 09/20/22 08/16/22 History tablet (Nitrostat) Pain melatonin 5 mg tablet 10 mg feeding tube .HS 08/26/22 09/20/22 09/09/22 History ferrous sulfate 27 mg iron tablet 27 mg feeding tube DAILY 09/03/22 09/20/22 09/09/22 History trazodone 50 mg tablet 25 mg feeding tube DAILY 09/03/22 09/20/22 09/09/22 History ascorbic acid (vitamin C) 250 mg 250 mg feeding tube DAILY 09/08/22 09/20/22 09/09/22 History tablet allopurinol 300 mg tablet 300 mg feeding tube QDAY 09/10/22 09/20/22 09/09/22 History amlodipine 5 mg tablet 5 mg feeding tube DAILY 09/10/22 09/20/22 09/10/22 07:30 History atorvastatin 20 mg tablet 20 mg feeding tube QDAY 09/10/22 09/20/22 09/09/22 History clopidogrel 75 mg tablet 75 mg feeding tube QDAY 09/10/22 09/20/22 09/05/22 History docusate sodium 100 mg capsule 100 mg PO BID #7 caps 09/10/22 09/20/22 Unknown Rx (DOK) finasteride 5 mg tablet 5 mg feeding tube DAILY 09/10/22 09/20/22 09/09/22 History gabapentin 300 mg capsule 300 mg feeding tube TID 09/10/22 09/20/22 09/09/22 History metoprolol tartrate 25 mg tablet 25 mg feeding tube DAILY 09/10/22 09/20/22 09/09/22 History oxycodone 5 mg tablet 5 mg PO Q6H PRN pain #10 tabs 09/10/22 09/20/22 Unknown Rx lorazepam 0.5 mg tablet 0.5 mg sublingual TID PRN nausea 09/13/22 09/20/22 Unknown Rx and vomiting #30 tabs ondansetron 4 mg disintegrating 4 mg PO TID #30 tabs 09/13/22 09/20/22 Unknown Rx tablet Allergies Allergy/AdvReac Type Severity Reaction Status Date / Time acetaminophen [From Tylenol] Allergy Unknown ALGY-Rash Verified 09/20/22 08:58 amoxicillin Allergy Unknown ALGY-Rash Verified 09/20/22 08:58 Penicillins Allergy Unknown RASH Verified 09/20/22 08:58 Iodinated Contrast Media Allergy ALGY-Anaphy Verified 09/25/22 21:52 laxis PFSH Acute PFSH: Medical History (Updated 10/07/22 @ 02:10 by Chris Duckworth MD) AAA (abdominal aortic aneurysm) ASHD (arteriosclerotic heart disease) BPH loc w urin obs/LUTS Chronic prostatitis CVA (cerebral vascular accident) DJD (degenerative joint disease), lumbar Elevated PSA Essential hypertension Gout Hyperlipidemia Myocardial infarction Palpitations Peripheral neuropathy Secondary malignancy of lymph nodes of head, face and neck Tobacco abuse, in remission Surgical History History of laryngoscopy (07/05/22) tracheotomy and 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) Status post insertion of percutaneous endoscopic gastrostomy (PEG) tube (07/10/22) Family History Other CAD (coronary artery disease) Cancer Hypertension Social History Smoking and tobacco status: former smoker Quit status (tobacco): has quit using tobacco Former quit date comment: smoked x 50+ years Alcohol intake: never Substance/Drug Use: never Household members: spouse Marital status: service: No Current occupational status: retired 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 2 L of oxygen currently on and when I tried to discontinue this his saturation goes to 88%. HEENT: Atraumatic and normocephalic. . Oropharynx clear. Neck is supple. Tracheostomy noted Cardiovascular regular rate and rhythm without murmur Lungs clearBut some transmitted coarse breath sounds are heard from the neck area Abdomen is soft with positive bowel sounds. PEG tube is noted. exam was deferred Extremities no sinus clubbing or edema, cap refill brisk Skin no rash Neuro no obvious focal deficits Data 10/06/22 22:35 10/06/22 22:35 Other Labs: Chest x-ray which I reviewed demonstrates a left lower lobe infiltrate, which I believe is somewhat better than the previous x-ray. ABG demonstrates pH 7.53, PCO2 33, PO2 of 70 on 2 L LFTs normal, albumin 2.7, calcium 7.8 Previous echocardiogram in June demonstrated an EF of 45 to 50%, moderate MR Micro: Microbiology 10/06/22 22:41 Blood Culture - Preliminary Blood SPECIMEN COLLECTED 10/06/22 22:35 Blood Culture - Preliminary Blood SPECIMEN COLLECTED A&P Assessment and plan (1) Aspiration pneumonitis: Patient presents with shortness of breath, subjective fever, left lower lobe infiltrate, visualized formula from the tracheostomy tube. This is consistent with an aspiration pneumonitis. Currently on 2 L of oxygen, wean as tolerated Nebulized treatments every 6 hours IV antibiotics consisting of meropenem secondary to penicillin allergy Sputum culture I visited briefly with ENT. He may need his current tracheostomy replaced with 1 with a balloon/cough. It is possible this could be done on Tuesday. A consult was placed to Dr. Vega White blood cell count elevated consistent with pneumonia This is complicated by the fact he received chemotherapy consisting of cisplatin and Taxotere on 09/20 Hydration CBC, CMP tomorrow COVID PCR (2) Hypoxia: Secondary to above, wean as tolerated (3) Anemia: Recently had hemorrhage at tracheostomy site, treated at [facility]. We will request records. No evidence currently of active bleeding. On discharge will review his medication list and if antiplatelet agents are still being held CBC tomorrow (4) Protein calorie malnutrition: Patient with at least moderate to severe protein calorie malnutrition manifested by comments from daughter of weight loss and low albumin Plan Head and neck cancer, currently being treated by oncology Multiple other medical problems as outlined in his past medical history Full code currently SCDs for DVT prophylaxis. Anticoagulation contraindicated secondary to recent hemorrhage at tracheostomy site Attestations Medical Necessity Statement*: Will need greater than 2 midnight stay for evaluation and treatment of aspiration pneumonitis Diagnoses Aspiration pneumonitis J69.0 Hypoxia R09.02 Anemia D64.9 Protein calorie malnutrition E46 Time Spent (min) 49
[2022-10-07] MEDS: sodium chloride 0.9% 1,000 ML 75 ML IV ×2 (03:05→14:57)
[2022-10-07] MEDS: pantoprazole 40 mg SDV IVP (03:05)
[2022-10-07 05:32] LABS: Adenovirus Not Detected (NOT DETECT); Chlamydia Pneumoniae Not Detected (NOT DETECT); Coronavirus 229E,HKU1,NL63,OC4 Not Detected (NOT DETECT); Human Metapneumovirus Not Detected (NOT DETECT); Human Rhinovirus/Enterovirus Not Detected (NOT DETECT); Influenza A Not Detected (NOT DETECT); Influenza A H1 Not Detected (NOT DETECT); Influenza A H1-2009 Not Detected (NOT DETECT); Influenza A H3 Not Detected (NOT DETECT); Influenza B Not Detected (NOT DETECT); Mycoplasma Pneumoniae Not Detected (NOT DETECT); Parainfluenza Virus Type 1 Not Detected (NOT DETECT); Parainfluenza Virus Type 2 Not Detected (NOT DETECT); Parainfluenza Virus Type 3 Not Detected (NOT DETECT); Parainfluenza Virus Type 4 Not Detected (NOT DETECT); Respiratory Syncytial Virus A Not Detected (NOT DETECT); Respiratory Syncytial Virus B Not Detected (NOT DETECT); SARS-COV-2 Not Detected (NOT DETECT)
[2022-10-07] MEDS: ipratropium-albuterol 3 mL Neb INHALATION ×3 (08:21→19:55)
--- NOTE | 2022-10-07 09:59 | XR_ITS ---
WS: [id number] Acute abdomen series, portable AP upright chest, Clinical Data: Regurgitating tube feeds Comparison: Portable chest, 10/06/2022 Findings: The heart remains enlarged. There is a patchy opacity in the left lower lobe which may repr esent atelectasis, effusion and/or pneumonia. Midline sternotomy sutures are present. There is a wire from the mediastinal sutures which overlies the descending thoracic aorta. The tracheal tube remains in good position. The aortic arch and descending thoracic aorta show calcification and tortuosity. T he left Port-A-Cath remains in good position. The right lung is clear. There are no nodules or masses . Monitor leads are on the chest wall. The flat and upright abdomen films show minimal air in the colon. There is no evidence of any small b owel obstruction. No free air is seen. There are no abnormal intra-abdominal masses. Vascular calcifi cations are seen. There are monitor leads over the upper abdomen. Impression: 1. No change in left lower lobe opacity, cardiomegaly and atherosclerosis. 2. Negative for acute intra-abdominal or pelvic abnormalities.
--- NOTE | 2022-10-07 10:03 | P.PN_ITS ---
Subjective Subjective: Not in acute pain or distress. Has been regurgitating tube feeds recently. Daughter states that she herself has had slow transit and GI tract and suspects he may have the same issue. He additionally has not had a bowel movement it seems since possibly prior to discharge from [address]. They normally do bolus feeds about 4-5 feeds in a day plus water flushes. Vitals/I&O/Wt Last Vital Signs Temp 96.9 F L 10/07/22 07:22 Pulse 70 10/07/22 08:35 Resp 18 10/07/22 08:35 BP 112/62 10/07/22 07:22 Pulse Ox 95 10/07/22 08:35 O2 Del Method HAG, Trach Collar 10/07/22 08:35 O2 Flow Rate 2 10/07/22 08:05 FiO2 28 10/07/22 08:35 10/06/22 10/07/22 10/07/22 22:59 06:59 14:59 Intake Total 50 / 50 50 / 50 Balance 50 / 50 50 / 50 Weight last 48 hrs Weight 68.039 kg Physical Exam Narrative: Accompanied by his daughter. Const: COMMON NORMALS: patient oriented x3 and alert GENERAL APPEARANCE: cooperative ORIENTATION/CONSCIOUSNESS: Yes awake HENMT: COMMON NORMALS: oropharynx normal OTHER: Tracheostomy in place, cleaned out by RT. Neck/C-Spine: COMMON NORMALS: no JVD Resp: COMMON NORMALS: normal respiratory effort AUSCULTATION: rhonchi and wheezes Cardio: COMMON NORMALS: no JVD, regular rhythm, S1 normal heart sound present, S2 normal heart sound present and No murmurs present (Cardio) RHYTHM: regular rhythm HEART SOUNDS: S1 normal heart sound present and S2 normal heart sound present GI: COMMON NORMALS: Normal to inspection, nondistended, normoactive bowel sounds present, Soft to palpation and non-tender PALPATION: Yes Soft to palpation OTHER: PEG in place, no surrounding drainage, no erythema Extremity: COMMON NORMALS: no joint enlargement and no pedal edema Neuro: COMMON NORMALS: patient oriented x3 and moves all extremities SENS ORIUM/ORIENTATION: Yes alert Skin: COMMON NORMALS: no rashes or lesions noted GENERAL SKIN EXAM: no rashes or lesions noted Data 10/06/22 22:35 10/06/22 22:35 Micro: Microbiology 10/06/22 22:41 Blood Culture - Preliminary Blood SPECIMEN COLLECTED 10/06/22 22:35 Blood Culture - Preliminary Blood SPECIMEN COLLECTED A&P Assessment and plan (1) Aspiration pneumonitis: Tube feeds are on hold, continue to hold at this time. Continue meropenem. Assess abdominal series. Dulcolax posterior. We will try to ambulate. Slow transit. Confirm back to position, assess for possible bowel obstruction. Otherwise at some point may benefit from gastric emptying study. Discussed consideration of promotility agents, potential adverse effects. Do not resume bolus feeds. Once confirmed no obstruction, PEG positioning, respiratory status stable, consider trial of resumption/gradual escalation to continuous tube feeds. Space out water flushes. Continue oxygen support. Pending assessment by ENT for trach exchange for cuffed one. At risk of respiratory failure. Currently also unable to tolerate oral intake or tube feeds. WBC noted to 14.7. Predominantly neutrophilic 12.33. Some lymphopenia 0.6. Monocytes 1.1. COVID PCR noted negative. Sputum culture noted requested. MRSA PCR noted received. Blood culture pending. Additionally recent posterior pharyngeal/tracheostomy site? hemorrhage treated reportedly by cautery in [address]. Daughter states they went into his groin . Records have been requested. This is complicated by the fact he received chemotherapy consisting of cisplatin and Taxotere on 09/20 Continue IV hydration Repeat CBC, CMP tomorrow (2) Hypoxia: Secondary to above, wean as tolerated Continue treatment as above. (3) Anemia: Recently had hemorrhage at tracheostomy site, treated at [facility]. On discharge will review his medication list and if antiplatelet agents are still being held CBC tomorrow (4) Protein calorie malnutrition: Patient with at least moderate to severe protein calorie malnutrition manifested by comments from daughter of weight loss and low albumin Plan Head and neck cancer, currently being treated by oncology Multiple other medical problems as outlined in his past medical history Full code currently SCDs for DVT prophylaxis. Anticoagulation contraindicated secondary to recent hemorrhage at tracheostomy site Discussed with case management. Attestations Medical Necessity Statement*: Continue admission for assessment management of aspiration pneumonitis, pneumonia with hypoxia and gentleman with tracheostomy, tube feeds regurgitation, anemia, recent tracheostomy site/posterior pharyngeal hemorrhage. Diagnoses Aspiration pneumonitis J69.0 Hypoxia R09.02 Anemia D64.9 Protein calorie malnutrition E46
[2022-10-07] MEDS: bisacodyl 10 mg Supp PR (10:30)
--- NOTE | 2022-10-07 17:43 | PC.NURSE ---
DRESSING APPLIED TO PAC TO KEEP INCISION DRY.
--- NOTE | 2022-10-07 17:48 | PC.NURSE ---
Patient has had a copious amount of secretions from trach. [place] tinged. This nurse has performed trach care multiple times. Suction completed and a wash cloth placed on patient to help prevent skin breakdown. Patient has perked up as the day has progressed and is talking a lot more.
[2022-10-07] MEDS: atorvastatin 40 mg Tablet PEG-TUBE (20:21)
[2022-10-07] MEDS: gabapentin 300 mg Capsule PEG-TUBE (20:21)
[2022-10-08] VITALS (11 sets, daily range): BP systolic 126–143; BP diastolic 57–69; PULSE 65–73; RESP 15–20; TEMP 36.4–37; O2SAT 92–99
[2022-10-08] MEDS: meropenem 1,000 MG in sodium chloride 0.9% (plus) 50 ML 100 MG IV ×4 (00:20→23:57)
[2022-10-08] MEDS: ipratropium-albuterol 3 mL Neb INHALATION ×4 (02:02→20:19)
[2022-10-08] MEDS: pantoprazole 40 mg SDV IVP (03:39)
[2022-10-08] MEDS: sodium chloride 0.9% 1,000 ML 75 ML IV (04:56)
[2022-10-08 05:19] LABS: Basophils % 0.4 %; Eosinophils # 0.1 10^3/uL (0.0-0.8); Eosinophils % 1.1 %; Hematocrit 27.9 % (42.0-52.0); Hemoglobin 9.2 g/dL (11.7-16.6); Lymphocytes # 0.5 10^3/uL (0.8-4.8); Lymphocytes % 5.7 %; Mean Corpuscular Hemoglobin 29.8 pg (28.0-34.0); Mean Corpuscular Volume 90.3 fl (80-94); Mean Platelet Volume 10.1 fL (7.4-10.4); Monocytes # 0.8 10^3/uL (0.2-0.9); Monocytes % 8.4 %; Neutrophils # 7.48 10^3/uL (1.8-7.7); Neutrophils % 78.9 %; Nucleated Red Blood Cells % 0 %; Platelet Count 222 10^3/cmm (130-400); Red Blood Count 3.09 10^6/uL (4.1-5.3); Red Cell Distribution Width 14.8 % (12.1-15.1); White Blood Count 9.5 10^3/uL (4.0-10.0)
[2022-10-08 05:35] LABS: Alanine Aminotransferase 26 U/L (0-41); Albumin Level 2.6 g/dL (3.5-5.2); Alkaline Phosphatase 93 U/L (40-130); Anion Gap 13.6 (5-19); Aspartate Amino Transferase 31 U/L (0-40); Blood Urea Nitrogen 18 mg/dL (8-23); Calcium 8.1 mg/dL (8.5-10.5); Carbon Dioxide 24 mmol/L (22-29); Chloride 103 mmol/L (98-107); Globulin 2.5 g/dL (1.3-4.6); Glucose 82 mg/dL (65-115); Osmolality Calculated 285 mOsm/kg (285-295); Potassium 3.6 mmol/L (3.5-5.1); Sodium 137 mmol/L (136-145); Total Bilirubin 0.8 mg/dL (0.15-1.2); Total Protein 5.1 g/dL (6.6-8.7)
[2022-10-08 05:44] LABS: Slide Review Slide Review Perform
--- NOTE | 2022-10-08 06:33 | P.CONIM_ITS ---
Providers/Reason For Consult Consulting Physician/Specialty*: Dr. William Vega MD Otolaryngology, Head & Neck Surgery Reason for Consult*: Tracheotomy replacement Requesting Physician: Dr. River Duckworth MD Attending Physician: Pablo Saab Primary Care Provider: Heather Hodges DO History of Present Illness History of Present Illness Jose Mcdonnell is a 86 year old male s/p tracheotomy for an obstructing right posterior hypopharyngeal SCCA. The patient has recently begun a course of Chemo/XRT. I was consulted to replace his uncuffed #6 tracheotomy tube with a cuffed tracheotomy tube because of tube feeds/stomach contents present in the airway/aspiration. Review of Systems General: Reports: 10 or more systems reviewed and unremarkable except in HPI and below Medications/Allergies Home Medications Medication Instructions Recorded Confirmed Last Taken Type nitroglycerin 0.4 mg sublingual 0.4 mg sublingual Q5M PRN Chest 03/14/19 10/07/22 08/16/22 History tablet (Nitrostat) Pain melatonin 5 mg tablet 10 mg feeding tube .HS 08/26/22 10/07/22 09/09/22 History ferrous sulfate 27 mg iron tablet 27 mg feeding tube DAILY 09/03/22 10/07/22 09/09/22 History trazodone 50 mg tablet 25 mg feeding tube DAILY 09/03/22 10/07/22 09/09/22 Hist ory ascorbic acid (vitamin C) 250 mg 250 mg feeding tube DAILY 09/08/22 10/07/22 09/09/22 History tablet allopurinol 300 mg tablet 300 mg feeding tube QDAY 09/10/22 10/07/22 09/09/22 History amlodipine 5 mg tablet 5 mg feeding tube DAILY 09/10/22 10/07/22 09/10/22 07:30 History atorvastatin 20 mg tablet 20 mg feeding tube QDAY 09/10/22 10/07/22 09/09/22 History clopidogrel 75 mg tablet 75 mg feeding tube QDAY 09/10/22 10/07/22 09/05/22 History docusate sodium 100 mg capsule 100 mg PO BID #7 caps 09/10/22 10/07/22 Unknown Rx ([facility]) gabapentin 300 mg capsule 300 mg feeding tube TID 07/10/07/22 09/09/22 History metoprolol tartrate 25 mg tablet 25 mg feeding tube DAILY 09/10/22 10/07/22 09/09/22 History cetirizine 10 mg tablet 10 mg PO DAILY 10/07/22 10/07/22 Unknown History sertraline 25 mg tablet 25 mg PO DAILY 10/07/22 10/07/22 Unknown History Allergies Allergy/AdvReac Type Severity Reaction Status Date / Time acetaminophen [From Tylenol] Allergy Unknown ALGY-Rash Verified 09/20/22 08:58 amoxicillin Allergy Unknown ALGY-Rash Verified 09/20/22 08:58 Penicillins Allergy Unknown RASH Verified 09/20/22 08:58 Iodinated Contrast Media Allergy ALGY-Anaphy Verified 09/25/22 21:52 laxis Current Medications Generic Name Dose Route Start Last Admin Trade Name Freq PRN Reason Stop Dose Admin Albuterol/Ipratropium 3 ml 10/07/22 08:00 10/08/22 02:02 Ipratropium-Albuterol 3 Ml Neb INHALATION 3 ml Q6H.RESP LIANE Administration Allopurinol 300 mg 10/07/22 09:00 10/07/22 10:14 Allopurinol 300 Mg Tablet PEG-TUBE Not Given DAILY LIANE Atorvastatin Calcium 40 mg 10/07/22 21:00 10/07/22 20:21 Atorvastatin 40 Mg Tablet PEG-TUBE 40 mg BEDTIME LIANE Administration Finasteride 5 mg 10/07/22 09:00 10/07/22 10:14 Finasteride 5 Mg Tablet PEG-TUBE Not Given DAILY LIANE Gabapentin 300 mg 10/07/22 09:00 10/07/22 20:21 Gabapentin 300 Mg Capsule PEG-TUBE 300 mg TID LIANE Administration Sodium Chloride 1,000 mls @ 75 mls/hr 10/07/22 02:52 10/08/22 04:56 Sodium Chloride 0.9% IV 75 mls/hr .[id number] LIANE Administration Meropenem 1,000 mg/ Sodium 50 mls @ 100 mls/hr 10/07/22 08:00 10/08/22 01:19 Chloride IV Infused Q8H LIANE Infusion Protocol Metoprolol Tartrate 25 mg 10/07/22 09:00 10/07/22 10:14 Metoprolol Tartrate 25 Mg Tablet PEG-TUBE Not Given DAILY LIANE Pantoprazole Sodium 40 mg 10/07/22 02:52 10/08/22 03:39 Pantoprazole 40 Mg Sdv IVP 40 mg Q24H LIANE Administration PFSH Acute PFSH: Medical History AAA (abdominal aortic aneurysm) ASHD (arteriosclerotic heart disease) BPH loc w urin obs/LUTS Chronic prostatitis CVA (cerebral vascular accident) DJD (degenerative joint disease), lumbar Elevated PSA Essential hypertension Gout Hyperlipidemia Myocardial infarction Palpitations Peripheral neuropathy Secondary malignancy of lymph nodes of head, face and neck Tobacco abuse, in remission Surgical History History of laryngoscopy (07/05/22) tracheotomy and 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) Status post insertion of percutaneous endoscopic gastrostomy (PEG) tube () Family History Other CAD (coronary artery disease) Cancer Hypertension Social History Smoking and tobacco status: former smoker Quit status (tobacco): has quit using tobacco Former quit date comment: smoked x 50+ years Alcohol intake: never Substance/Drug Use: never Household members: spouse Marital status: service: No Current occupational status: retired Previous occupational history: [employer] X 27 YEARS Current gender identity: Male Radha/Restoration: [employer]ism Vitals/I&O/Wt Last Vital Signs Temp 97.6 F 10/08/22 04:00 Pulse 73 10/08/22 04:00 Resp 17 10/08/22 04:00 BP 126/66 10/08/22 04:00 Pulse Ox 98 10/08/22 04:00 O2 Del Method Trach Collar 10/08/22 04:00 O2 Flow Rate 2 10/07/22 19:10 FiO2 28 10/08/22 02:00 10/07/22 10/07/22 10/08/22 14:59 22:59 06:59 Intake Total 940 / 940 50 / 990 1050 / 2040 Output Total 500 / 500 Balance 940 / 940 -450 / 490 1050 / 1540 Weight last 48 hrs Weight 68.039 kg Physical Exam Const: COMMON NORMALS: no acute distress and patient oriented x3 HENMT: COMMON NORMALS: normocephalic and atraumatic HEAD & SCALP: normocephalic and atraumatic Eye: COMMON NORMALS: EOMs intact bilaterally and conjunctivae normal CONJUNCTIVA: Yes conjunctivae normal Neck/C-Spine: COMMON NORMALS: no lymphadenopathy GENERAL: Yes normal visual inspection, Yes trachea midline and Yes tracheostomy present (Trach site clean and well healed without erythema.) Neuro: COMMON NORMALS: patient oriented x3 Data 10/08/22 05:07 10/08/22 05:07 Micro: Microbiology 10/06/22 22:41 Blood Culture - Preliminary Blood NEGATIVE TO DATE 10/06/22 22:35 Blood Culture - Preliminary Blood NEGATIVE TO DATE 10/07/22 03:30 MRSA Culture - Final Nose A&P Assessment and plan (1) Aspiration pneumonitis: Impression: Aspiration pneumonia Plan: - I changed the patient's tracheostomy tube to a cuffed tube - RT to adjust balloon pressure - Continue TID and prn trach care - Please reconsult me for any concerns (2) Secondary malignancy of lymph nodes of head, face and neck: Consult Attestations Medical Necessity Statement: I was consulted to assist in trach care/trach replacement. Procedures Procedure Narrative The patient's #6 Shiley uncuffed trach tube was changed out for a #6 cuffed trach tube without difficulty; the patient had oxygen sats of 99% on Trach collar 02 after the trach change. Coding Level of Care Code Acute Code for Chg Fwd Diagnoses Aspiration pneumonitis J69.0 Secondary malignancy of lymph nodes of head, face and neck C77.0
--- NOTE | 2022-10-08 09:08 | PC.CHAP ---
Pastoral Care Encounter/Spiritual Assessment Type of Contact [] Declined cotton weigher operator visit [] Patient/Family/Request visit [] Outpatient visit [] Follow-up visit [] Physician referral [] Code/Alert [x] Routine visit [] Staff referral [] Actively dying [] Patient sleeping [x] Family support [] [] Out of room [] Palliative care [] [] Receiving care in room [] Pre-surgical visit [] Trauma [] Long length of stay [] ICU visit [] Other: Relational/Emotional Strength x[] Patient feels connected with others/family/visitors/staff [] Distress [] Loneliness/isolation [] Abandonment Spirituality of Patient [x] Person of Radha [] Attends Temple of their Radha [x] Believes in Prayer [] Reads Bible or Confucianist materials [] There are Spiritual issues to be addressed Floor Space Allocator Interventions [x] Prayer [x] Active listening [] Non-anxious presence [x] Spiritual/emotional support [] Crisis/trauma care [] Spiritual counseling [] Bereavement support [] Provided bereavement packet [] Provided Bible/devotional materials [] Provided toy/stuffed animal, coloring book to patient or family member [] Provided Communion [] Anointing/[place] [] Salvation [x] Completed spiritual assessment [] Other: Impact on Illness or Injury [] Angry [] Fearful [] Anxious [] Often cries [] Exhaustion [] Unable to work [] Unable to attend yazidi [] Unable to walk/stand [] Unable to read [] Unable to drive [] Unable to eat/drink [] Unable to sleep [] Unable to be with family [x] Patient intubated [] Other: Summary Time spent with patient 5 min
[2022-10-08] MEDS: allopurinol 300 mg Tablet PEG-TUBE (09:58)
[2022-10-08] MEDS: finasteride 5 mg Tablet PEG-TUBE (09:58)
[2022-10-08] MEDS: metoprolol tartrate 25 mg Tablet PEG-TUBE (09:58)
[2022-10-08] MEDS: gabapentin 300 mg Capsule PEG-TUBE ×3 (10:00→20:49)
--- NOTE | 2022-10-08 12:44 | PC.NUTR ---
Consult received for switching from bolus to continuous PEG TF's. For continuous PEG tube feedings IN HOSPITAL, recommend Jevity 1.2 beginning @ 10 mls/hr, increasing 10 mls Q8H as tolerated with goal rate of 65 mls/hr and water flushes 150 mls Q6H or per MD discretion. For HOME continuous PEG tube feeds, recommend Jevity 1.5, beginning @ 10 mls/hr, increasing 10 mls Q8H as tolerated, until goal rate of 55 mls/hr is reached with water flushes of 150 mls Q4H or per MD discretion. Details in RD assessment.
--- NOTE | 2022-10-08 15:16 | PM.PN ---
Subjective Subjective: Today he is feeling slightly better. Still producing copious phlegm. Coughing perhaps slightly less. Yesterday had a small bowel movement. Vitals/I&O/Wt Last Vital Signs Temp 98.6 F 10/08/22 11:47 Pulse 69 10/08/22 14:37 Resp 20 H 10/08/22 14:30 BP 129/66 10/08/22 11:47 Pulse Ox 97 10/08/22 14:30 O2 Del Method HAG 10/08/22 14:30 O2 Flow Rate 2 10/07/22 19:10 FiO2 28 10/08/22 14:30 10/08/22 10/08/22 10/08/22 06:59 14:59 22:59 Intake Total 1050 / 2040 50 / 50 Balance 1050 / 1540 50 / 50 Weight last 48 hrs Weight 68.039 kg Physical Exam Narrative: Accompanied by his daughter. Const: COMMON NORMALS: patient oriented x3 and alert GENERAL APPEARANCE: cooperative ORIENTATION/CONSCIOUSNESS: Yes awake HENMT: COMMON NORMALS: oropharynx normal OTHER: Tracheostomy in place, cleaned out by RT. Neck/C-Spine: COMMON NORMALS: no JVD Resp: COMMON NORMALS: normal respiratory effort AUSCULTATION: rhonchi and wheezes Cardio: COMMON NORMALS: no JVD, regular rhythm, S1 normal heart sound present, S2 normal heart sound present and No murmurs present (Cardio) RHYTHM: regular rhythm HEART SOUNDS: S1 normal heart sound present and S2 normal heart sound present GI: COMMON NORMALS: Normal to inspection, nondistended, normoactive bowel sounds present, Soft to palpation and non-tender PALPATION: Yes Soft to palpation OTHER: PEG in place, no surrounding drainage, no erythema Extremity: COMMON NORMALS: no joint enlargement and no pedal edema Neuro: COMMON NORMALS: patient oriented x3 and moves all extremities SENSORIUM/ORIENTATION: Yes alert Skin: COMMON NORMALS: no rashes or lesions noted GENERAL SKIN EXAM: no rashes or lesions noted Data 10/08/22 05:07 10/08/22 05:07 Micro: Microbiology 10/06/22 22:41 Blood Culture - Preliminary Blood NEGATIVE TO DATE 10/06/22 22:35 Blood Culture - Preliminary Blood NEGATIVE TO DATE 10/07/22 03:30 MRSA Culture - Final Nose A&P Assessment and plan (1) Aspiration pneumonitis: Aspiration pneumonia with cough, increased sputum production. Infiltrate on imaging. Some slight improvement, slightly less cough, but still copious productive sputum. ENT note reviewed. Appreciated, trach was switched for cuffed. Discussed with him and his daughter, continue antibiotics. Discussed again regarding potential options and adverse effects of promotility agent. Start Reglan. Ambulate. Continue bowel regimen. Requested basin finish operator tig welder consultation, discussed we will start gradually with continuous tube feeds, not able to tolerate boluses. At risk of additional aspiration. Monitor. Noted unremarkable abdominal series. Bowel sounds are sluggish. Consider follow-up gastric emptying study. MRSA PCR noted negative. Sputum culture noted received. Pending. Blood culture noted negative so far. WBC noted normalized down to 9.5. Neutrophils normal. Lymphopenia, 0.5. Afebrile. Additionally recent posterior pharyngeal/tracheostomy site, notes from [place] reviewed, treated by embolization in [place]. This is complicated by the fact he received chemotherapy consisting of cisplatin and Taxotere on 09/20 Reduce IV hydration Repeat CBC, CMP tomorrow (2) Hypoxia: Secondary to above, wean as tolerated Continue treatment as above. (3) Anemia: Hemoglobin 9.2. Platelets 222. Recheck CBC. Recently had hemorrhage at tracheostomy site, treated at [place]. On discharge will review his medication list and if antiplatelet agents are still being held CBC tomorrow (4) Protein calorie malnutrition: Resume tube feeds gradually as tolerating, monitor for regurgitation/aspiration. Additional measures for slow transit as above. Patient with at least moderate to severe protein calorie malnutrition manifested by comments from daughter of weight loss and low albumin Plan Head and neck cancer, currently being treated by oncology Multiple other medical problems as outlined in his past medical history Full code currently SCDs for DVT prophylaxis. Anticoagulation contraindicated secondary to recent hemorrhage at tracheostomy site Discussed with discharge planning in rounds. Attestations Medical Necessity Statement*: Continue admission for assessment management of aspiration pneumonia, gradual resumption of tube feeding with regurgitation, aspiration of tube feeds, slowed GI transit. Diagnoses Aspiration pneumonitis J69.0 Hypoxia R09.02 Anemia D64.9 Protein calorie malnutrition E46
[2022-10-08] MEDS: metoclopramide oral liquid 5 mg/5 mL (ml) PEG-TUBE ×2 (16:51→21:00)
--- NOTE | 2022-10-08 20:35 | PC.NURSE ---
Upon assessment of pts trach, this nurse with the RT Snow assessed that a skin flap on the neck was covering the trach opening at times. With verbal consent from the pt, the skin flap was reinforced away from the trach opening with a band aid. Pt reports this is now more comfortable and he can breathe better.
[2022-10-08] MEDS: atorvastatin 40 mg Tablet PEG-TUBE (20:49)
--- NOTE | 2022-10-08 20:58 | PC.NURSE ---
Spoke with pharmacy [facility] about metoclopramide not scanning and he verified the medication with this nurse and asked to manual enter it into the [facility].
[2022-10-09] VITALS (9 sets, daily range): BP systolic 125–160; BP diastolic 64–74; PULSE 67–84; RESP 14–20; TEMP 36.4–36.9; O2SAT 93–99
[2022-10-09] MEDS: pantoprazole 40 mg SDV IVP (03:39)
[2022-10-09] MEDS: metoclopramide oral liquid 5 mg/5 mL (ml) PEG-TUBE ×4 (03:39→21:36)
[2022-10-09] MEDS: sodium chloride 0.9% 1,000 ML 30 ML IV (05:38)
[2022-10-09 06:49] LABS: Basophils % 0.4 %; Eosinophils # 0.1 10^3/uL (0.0-0.8); Eosinophils % 1.1 %; Hematocrit 28.7 % (42.0-52.0); Hemoglobin 9.4 g/dL (11.7-16.6); Lymphocytes # 0.6 10^3/uL (0.8-4.8); Lymphocytes % 6.1 %; Mean Corpuscular HGB Conc 32.8 g/dL (30.0-36.0); Mean Corpuscular Hemoglobin 29.4 pg (28.0-34.0); Mean Corpuscular Volume 89.7 fl (80-94); Monocytes # 0.9 10^3/uL (0.2-0.9); Monocytes % 9.7 %; Neutrophils # 7.29 10^3/uL (1.8-7.7); Neutrophils % 78.8 %; Nucleated Red Blood Cells % 0 %; Platelet Count 235 10^3/cmm (130-400); Red Cell Distribution Width 14.5 % (12.1-15.1); White Blood Count 9.3 10^3/uL (4.0-10.0)
[2022-10-09] MEDS: meropenem 1,000 MG in sodium chloride 0.9% (plus) 50 ML 100 MG IV ×2 (08:12→16:01)
[2022-10-09] MEDS: ipratropium-albuterol 3 mL Neb INHALATION ×3 (08:53→19:54)
[2022-10-09] MEDS: metoprolol tartrate 25 mg Tablet PEG-TUBE (09:44)
[2022-10-09] MEDS: finasteride 5 mg Tablet PEG-TUBE (09:44)
[2022-10-09] MEDS: allopurinol 300 mg Tablet PEG-TUBE (09:44)
[2022-10-09] MEDS: gabapentin 300 mg Capsule PEG-TUBE ×3 (09:44→21:33)
--- NOTE | 2022-10-09 10:13 | PC.NURSE ---
I (maris lee RN) went to administer metoclopramide 5 mg to patient, the label on it would not scan notified pharmacy and pharmacy said to put in manual. When I went to manually put the barcode in for the patient, Rx number did not work. I had to administer to patient and I documented and gave to patient.
--- NOTE | 2022-10-09 14:11 | P.PN_ITS ---
Subjective Subjective: He says he is feeling about average . Still coughing up quite a bit of secretions. No vomiting. So far no regurgitation. Vitals/I&O/Wt Last Vital Signs Temp 98.4 F 10/09/22 11:38 Pulse 67 10/09/22 11:38 Resp 16 10/09/22 11:38 BP 125/68 10/09/22 11:38 Pulse Ox 97 10/09/22 11:38 O2 Del Method Trach Collar 10/09/22 11:38 O2 Flow Rate 28 10/09/22 08:00 FiO2 28 10/08/22 20:19 10/08/22 10/09/22 10/09/22 22:59 06:59 14:59 Intake Total 1050 / 1100 50 / 1150 50 / 50 Balance 1050 / 1100 50 / 1150 50 / 50 Physical Exam Narrative: Accompanied by his daughter. Const: COMMON NORMALS: patient oriented x3 and alert GENERAL APPEARANCE: cooperative ORIENTATION/CONSCIOUSNESS: Yes awake HENMT: COMMON NORMALS: oropharynx normal OTHER: Tracheostomy in place, Suctioned during the visit from secretions. Neck/C-Spine: COMMON NORMALS: no JVD Resp: COMMON NORMALS: normal respiratory effort AUSCULTATION: rhonchi and wheezes Cardio: COMMON NORMALS: no JVD, regular rhythm, S1 normal heart sound present, S2 normal heart sound present and No murmurs present (Cardio) RHYTHM: regular rhythm HEART SOUNDS: S1 normal heart sound present and S2 normal heart sound present GI: COMMON NORMALS: Normal to inspection, nondistended, normoactive bowel sounds present, Soft to palpation and non-tender PALPATION: Yes Soft to palpation OTHER: PEG in place, no surrounding drainage, no erythema Extremity: COMMON NORMALS: no joint enlargement and no pedal edema Neuro: COMMON NORMALS: patient oriented x3 and moves all extremities SENSORIUM/ORIENTATION: Yes alert Skin: COMMON NORMALS: no rashes or lesions noted GENERAL SKIN EXAM: no rashes or lesions noted Data 10/09/22 06:24 10/08/22 05:07 Micro: Microbiology 10/07/22 13:37 Gram Stain - Final Sputum - Expectorated Sputum Sputum Culture - Preliminary A&P Assessment and plan (1) Aspiration pneumonitis: Still copious secretions. Continue pulmonary toilet. Continue antibiotics. Noted FiO2 28%. continue trial of tube feeds. As tolerated continuous infusion 10 mL/h so far, discussed with him and his daughter increasing as per recommendations Tylenol per hour every 8 hours, continue to assess tolerance. At risk of Regurgitation, aspiration, worsening to respiratory failure. noted leukocytosis resolved, WBC down to 9.3. Neutrophils normal. Mild lymphopenia 0.6. Stop IV hydration. His daughter states he has still been having secretions. Discussed with his daughter as well as with him. Continue to reduce factors that may lead to regurgitation, avoid bolus feeds. Small effusion, increased gradually. Encourage ambulation. Started on Reglan as per discussion with them. Avoid constipation, continue bowel regimen. Trach has been replaced with a cuffed trach. Noted unremarkable abdominal series. Bowel sounds are sluggish. Consider follow-up gastric emptying study. MRSA PCR noted negative. Sputum culture noted received. Pending. Blood culture noted negative so far. Additionally recent posterior pharyngeal/tracheostomy site, notes from [place] reviewed, treated by embolization in [place]. This is complicated by the fact he received chemotherapy consisting of cisplatin and Taxotere on 09/20 Reduce IV hydration Repeat CBC, CMP tomorrow (2) Hypoxia: due to aspiration pneumonia. Continue treatment as above. Continue to wean oxygen as tolerated (3) Anemia: So far without worsening. Hemoglobin noted 9.4. MCV 89.7. Platelets 235. Recheck CBC. Recently had hemorrhage at tracheostomy site, treated at [place]. On discharge will review his medication list and if antiplatelet agents are still being held CBC tomorrow (4) Protein calorie malnutrition: Tube feeds resumed yesterday. Increase by 10 mill per hour every 8 hours up to target 65 mill per hour. If tolerating tube feeds increases here today, consideration of return home and continued escalation there if respiratory condition improving. Resume tube feeds gradually as tolerating, monitor for regurgitation/aspiration. Additional measures for slow transit as above. Patient with at least moderate to severe protein calorie malnutrition manifested by comments from daughter of weight loss and low albumin Plan Head and neck cancer, currently being treated by oncology Multiple other medical problems as outlined in his past medical history Full code currently SCDs for DVT prophylaxis. Anticoagulation contraindicated secondary to recent hemorrhage at tracheostomy site Discussed with case management. His daughter states pump has been obtained for continuous feeds at home. Attestations Medical Necessity Statement*: Continue admission for assessment management of aspiration pneumonia in a gentleman with tracheostomy, head and neck cancer, regurgitation of tube feeds, slow transit, increased risk of recurrent regurgitation, aspiration pneumonia, respiratory failure. Diagnoses Aspiration pneumonitis J69.0 Hypoxia R09.02 Anemia D64.9 Protein calorie malnutrition E46
[2022-10-09] MEDS: atorvastatin 40 mg Tablet PEG-TUBE (21:33)
[2022-10-10] VITALS (8 sets, daily range): BP systolic 111–138; BP diastolic 63–68; PULSE 69–80; RESP 15–18; TEMP 36.4–36.6; O2SAT 92–97
[2022-10-10] MEDS: meropenem 1,000 MG in sodium chloride 0.9% (plus) 50 ML 100 MG IV ×2 (00:10→09:16)
[2022-10-10] MEDS: ipratropium-albuterol 3 mL Neb INHALATION ×2 (01:17→07:52)
[2022-10-10] MEDS: metoclopramide oral liquid 5 mg/5 mL (ml) PEG-TUBE ×3 (02:52→15:26)
[2022-10-10] MEDS: pantoprazole 40 mg SDV IVP (03:00)
[2022-10-10 06:18] LABS: Basophils # 0.1 10^3/uL (0.0-0.1); Basophils % 0.6 %; Eosinophils # 0.1 10^3/uL (0.0-0.8); Eosinophils % 0.9 %; Hematocrit 30.3 % (42.0-52.0); Hemoglobin 10.4 g/dL (11.7-16.6); Lymphocytes # 0.6 10^3/uL (0.8-4.8); Lymphocytes % 6.8 %; Mean Corpuscular HGB Conc 34.3 g/dL (30.0-36.0); Mean Corpuscular Hemoglobin 30.2 pg (28.0-34.0); Mean Corpuscular Volume 88.1 fl (80-94); Mean Platelet Volume 9.7 fL (7.4-10.4); Monocytes % 10.8 %; Neutrophils # 7.11 10^3/uL (1.8-7.7); Neutrophils % 78.8 %; Nucleated Red Blood Cells % 0 %; Platelet Count 256 10^3/cmm (130-400); Red Blood Count 3.44 10^6/uL (4.1-5.3); Red Cell Distribution Width 14.5 % (12.1-15.1)
[2022-10-10] MEDS: finasteride 5 mg Tablet PEG-TUBE (09:16)
[2022-10-10] MEDS: metoprolol tartrate 25 mg Tablet PEG-TUBE (09:16)
[2022-10-10] MEDS: allopurinol 300 mg Tablet PEG-TUBE (09:16)
[2022-10-10] MEDS: gabapentin 300 mg Capsule PEG-TUBE ×2 (09:17→15:26)
--- NOTE | 2022-10-10 11:31 | PM.DCS ---
Discharge Providers Date of Admission: 10/07/22 01:59 Date of Discharge: October 10, 2022 Attending Provider at Admission: Chris Duckworth MD Attending Provider at Discharge: Pablo Saab Primary Care Provider: Heather Hodges DO Diagnoses at Discharge Discharge Diagnosis (1) Aspiration pneumonitis: Status: Acute (2) Hypoxia: Status: Acute (3) Anemia: Status: Acute (4) Protein calorie malnutrition: Status: Acute Reason for Visit Reason for Visit: FEEDING TUBE ISSUES Hospital Course Hospital Course Very pleasant 86-year-old gentleman with head and neck cancer, tracheostomy, PEG tube, chemotherapy 2 weeks ago, recent admission to [facility] due to hemorrhage around [place], required IR embolization, return for assessment to ER on 10/07 due to feeding tube difficulties, regurgitation of tube feeds, increased cough, shortness of breath, secretions, secretions luca to tube feeds coming up from tracheostomy. On presentation with finding of aspiration pneumonia, hypoxia, anemia noted with recent hemorrhage, but no further bleeding. It seems he has had an issue with slow transit for some time, additionally had a degree of constipation with no bowel movement for some time. Started on bowel regimen, encouraged to ambulate, IV hydration, meropenem for aspiration pneumonia, RT assessment, pulmonary toilet, was seen by ENT and uncuffed trach was exchanged for a cuffed one. Somewhat slow to transit, but no evidence of obstruction on imaging, started on Reglan, is referred to discharge for additional assessment by gastric emptying study. Continue to encourage him to ambulate as much as safely possible, avoid constipation, Dulcolax posterior as needed. As he could not tolerate bolus feeds, tube feeds switched also to continuous feeding and so far has been successfully gradually escalating, to continue Jevity 1.5 at home gradually increasing up to target 55 mill per hour, water flushes 150 mL every 4 hours. He is breathing is continue to improve. Secretions are now decreasing. Oxygenation remains stable. Please reassess for continued improvement and tolerance of feeds adjust depending on condition. Physical Exam Narrative: Accompanied by his daughter. Const: COMMON NORMALS: patient oriented x3 and alert GENERAL APPEARANCE: cooperative ORIENTATION/CONSCIOUSNESS: Yes awake HENMT: COMMON NORMALS: oropharynx normal OTHER: Tracheostomy in place, Significantly fewer secretions Neck/C-Spine: COMMON NORMALS: no JVD Resp: COMMON NORMALS: normal respiratory effort AUSCULTATION: rhonchi and wheezes Cardio: COMMON NORMALS: no JVD, regular rhythm, S1 normal heart sound present, S2 normal heart sound present and No murmurs present (Cardio) RHYTHM: regular rhythm HEART SOUNDS: S1 normal heart sound present and S2 normal heart sound present GI: COMMON NORMALS: Normal to inspection, nondistended, normoactive bowel sounds present, Soft to palpation and non-tender PALPATION: Yes Soft to palpation OTHER: PEG in place, no surrounding drainage, no erythema Extremity: COMMON NORMALS: no joint enlargement and no pedal edema Neuro: COMMON NORMALS: patient oriented x3 and moves all extremities SENSORIUM/ORIENTATION: Yes alert Skin: COMMON NORMALS: no rashes or lesions noted GENERAL SKIN EXAM: no rashes or lesions noted Discharge Data Studies Completed and Pending Completed Studies During Hospitalization Category Date Time Status XR acute abdomen series [id number] Routine Exams 10/07/22 09:59 Completed XR chest 1V portable [id number] Stat Exams 10/06/22 22:19 Completed Pending at discharge Category Date Time Status Blood Culture Stat Lab 10/06/22 22:41 Results Complete Blood Count w/Auto AM LABS Lab 10/11/22 04:00 Ordered Sputum Culture and Gram Stain Routine Lab 10/07/22 13:37 Results Radiology Impressions Chest X-Ray 10/06/22 22:19 IMPRESSION: 1. Cardiomegaly. 2. Left lower lobe atelectasis versus infiltrate. 3. Tracheostomy tube. 4. Stable sternotomy wires. 5. Left-sided Port-A-Cath. Laboratory Results WBC 9.0 10^3/uL (4.0-10.0) 10/10/22 05:52 RBC 3.44 10^6/uL (4.1-5.3) L 10/10/22 05:52 Hgb 10.4 g/dL (11.7-16.6) L 10/10/22 05:52 Hct 30.3 % (42.0-52.0) L 10/10/22 05:52 MCV 88.1 fl (80-94) 10/10/22 05:52 MCH 30.2 pg (28.0-34.0) 10/10/22 05:52 MCHC 34.3 g/dL (30.0-36.0) 10/10/22 05:52 RDW 14.5 % (12.1-15.1) 10/10/22 05:52 Plt Count 256 10^3/cmm (130-400) 10/10/22 05:52 MPV 9.7 fL (7.4-10.4) 10/10/22 05:52 Neut % (Auto) 78.8 % 10/10/22 05:52 Lymph % (Auto) 6.8 % 10/10/22 05:52 Hand % (Auto) 10.8 % 10/10/22 05:52 Eos % (Auto) 0.9 % 10/10/22 05:52 Baso % (Auto) 0.6 % 10/10/22 05:52 Neut # (Auto) 7.11 10^3/uL (1.8-7.7) 10/10/22 05:52 Lymph # (Auto) 0.6 10^3/uL (0.8-4.8) L 10/10/22 05:52 Hand # (Auto) 1.0 10^3/uL (0.2-0.9) H 10/10/22 05:52 Eos # (Auto) 0.1 10^3/uL (0.0-0.8) 10/10/22 05:52 Baso # (Auto) 0.1 10^3/uL (0.0-0.1) 10/10/22 05:52 Nucleated RBC % (auto) 0 % 10/10/22 05:52 Nucleated RBCs # 0.0 /100WBC 10/10/22 05:52 Specimen Type Arterial 10/06/22 23:55 Sample Site Brachial, left 10/06/22 23:55 ABG pH 7.53 (7.35-7.45) H 10/06/22 23:55 ABG pCO2 33.4 mmHg (35-45) L 10/06/22 23:55 ABG pO2 70.5 mmHg (80.0-100.0) L 10/06/22 23:55 ABG HCO3 27.8 mmol/L (22-26) H 10/06/22 23:55 ABG O2 Saturation 97.3 10/06/22 23:55 ABG Base Excess 4.9 mmol/L (-2.0-2.0) H 10/06/22 23:55 Reg Test N/a 10/06/22 23:55 A-a O2 Gradient 11.2 mmHg (5-10) H 10/06/22 23:55 Hematocrit 25.8 % (42-52) L 10/06/22 23:55 Hgb O2 Saturation 94.9 % (95-100) L 10/06/22 23:55 Carboxyhemoglobin 1.8 %THgb (0.4-20.1) 10/06/22 23:55 Methemoglobin 0.7 % (0.4-1.5) 10/06/22 23:55 Total Hemoglobin 8.4 g/dL (14-18) L 10/06/22 23:55 Sodium 134.0 mmol/L (131-143) 10/06/22 23:55 Potassium 3.4 mmol/L (3.5-5.0) L 10/06/22 23:55 Glucose 103.0 mg/dL (70-115) 10/06/22 23:55 Ionized Calcium 1.1 mmol/L (1.1-1.4) 10/06/22 23:55 O2 Delivery Device Trach collar 10/06/22 23:55 O2 Liters/Min 2.0 % 10/06/22 23:55 FiO2 28.0 % 10/06/22 23:55 Medical Or Surgical Instrument Maker ID [email or web address] 10/06/22 23:55 Sodium 137 mmol/L (136-145) 10/08/22 05:07 Potassium 3.6 mmol/L (3.5-5.1) 10/08/22 05:07 Chloride 103 mmol/L (98-107) 10/08/22 05:07 Carbon Dioxide 24 mmol/L (22-29) 10/08/22 05:07 Anion Gap 13.6 (5-19) 10/08/22 05:07 BUN 18 mg/dL (8-23) 10/08/22 05:07 Creatinine 0.7 mg/dL (0.7-1.2) 10/08/22 05:07 GFR Calculation Not Reportable 10/08/22 05:07 Glucose 82 mg/dL (65-115) 10/08/22 05:07 Calculated Osmolality 285 mOsm/kg (285-295) 10/08/22 05:07 Lactic Acid 1.2 mmol/L (0.5-2.2) 10/06/22 22:35 Calcium 8.1 mg/dL (8.5-10.5) L 10/08/22 05:07 Total Bilirubin 0.8 mg/dL (0.15-1.2) 10/08/22 05:07 AST 31 U/L (0-40) 10/08/22 05:07 ALT 26 U/L (0-41) 10/08/22 05:07 Alkaline Phosphatase 93 U/L (40-130) 10/08/22 05:07 Total Protein 5.1 g/dL (6.6-8.7) L 10/08/22 05:07 Albumin 2.6 g/dL (3.5-5.2) L 10/08/22 05:07 Globulin 2.5 g/dL (1.3-4.6) 10/08/22 05:07 Coronavirus 229E (PCR) Not detected (NOT DETECT) 10/07/22 03:30 SARS-CoV-2 (PCR) Not detected (NOT DETECT) 10/07/22 03:30 Vitals Last Vital Signs Temp 97.7 F 10/10/22 08:00 Pulse 74 10/10/22 08:10 Resp 18 10/10/22 08:00 BP 137/68 10/10/22 08:00 Pulse Ox 96 10/10/22 08:00 O2 Del Method Trach Collar 10/10/22 08:00 O2 Flow Rate 6 10/10/22 08:00 FiO2 28 10/10/22 07:52 Discharge Plan Discharge Patient Disposition: Home Health Service Condition: Stable Prescriptions: New metoclopramide HCl 5 mg/5 mL Solution 5 mg peg-tube Q6H Qty: 1000 1RF bisacodyl 10 mg Suppository 10 mg [place] DAILY PRN (Reason: constipation) Qty: 30 0RF levofloxacin 250 mg/10 mL solution 750 mg feeding tube DAILY 5 Days Qty: 200 0RF Continued melatonin 5 mg tablet 10 mg feeding tube .HS nitroglycerin [Nitrostat] 0.4 mg tablet, sublingual 0.4 mg SUBLINGUAL Q5M PRN (Reason: Chest Pain) ferrous sulfate 27 mg iron tablet 27 mg feeding tube DAILY trazodone 50 mg tablet 25 mg feeding tube DAILY ascorbic acid (vitamin C) 250 mg tablet 250 mg feeding tube DAILY metoprolol tartrate 25 mg tablet 25 mg feeding tube DAILY atorvastatin 20 mg tablet 20 mg feeding tube QDAY clopidogrel 75 mg tablet 75 mg feeding tube QDAY Hold Instructions: Resume on 09/12/22. amlodipine 5 mg tablet 5 mg feeding tube DAILY Rx Instructions: Please convert to liquid form for PEG use gabapentin 300 mg capsule 300 mg feeding tube TID Rx Instructions: Please convert to liquid form for PEG use allopurinol 300 mg tablet 300 mg feeding tube QDAY docusate sodium [DOK] 100 mg capsule 100 mg PO BID Qty: 7 0RF cetirizine 10 mg tablet 10 mg PO DAILY sertraline 25 mg tablet 25 mg PO DAILY Discharge Orders: Discharge Order (Routine); Ordered 10/10/22 Ordered By: Pablo Saab Other Ambulatory Orders: [place] [id number] (Routine) Timeframe: 1 Week Facility: [facility] - Location: Radiology Ordered By: Pablo Saab DME: Enteral Nutrition (Order) Location: None Selected Ordered By: Pablo Saab Referrals: [facility] [Outside] [facility] [place] [Outside] [facility] Home Care ([facility]) [Outside] William Vega MD [Physician] - 1 week (Message sent to clinic) Heather Hodges DO [Primary Care Provider] - 4-7 days (Please call Tuesday to schedule a follow up appointment with Dr. Hodges.) Patient Instructions: Levofloxacin (By mouth) (Levaquin, Levaquin Leva-adrianna), Aspiration Pneumonia (GEN), Ileus (GEN) Activity Restrictions/Additional Instructions: Complete antibiotic course for pneumonia. Follow-up with your primary doctor for reassessment of regurgitation of tube feeds. Continue gradual advancement of tube feeds with continuous delivery of Jevity 1.5, avoid boluses, increase by 10 mL/h every 8 hours until goal rate of 55 mL/h with 150 mL water flushes every 4 hours (different than in the hospital). Hold tube feedings in case of regurgitation, contact your doctor. Reglan was added to help with motility, in case tolerating tube feeds discussed with your primary doctor regarding discontinuation of Reglan. In case of any involuntary movements of the face or body, discontinue Reglan and contact your doctors office. Avoid constipation, use Dulcolax posterior as needed. Walk frequently. Maintain fall precautions. You are referred for additional assessment by gastric emptying study, hold Reglan several days before the study. Follow-up with ENT for reassessment of tracheostomy. Several days before the study. As discussed, seek medical attention in case of any worsening or new concerning symptoms Discharge Attestations Time Spent in Discharge Care*: greater than 30 min Quality Metrics Clinical Quality Measures [ No reported AMI, CVA or VTE this stay] Coding Level of Care Code Acute Code for Chg Fwd Diagnoses Aspiration pneumonitis J69.0 Hypoxia R09.02 Anemia D64.9 Protein calorie malnutrition E46
--- NOTE | 2022-10-10 13:31 | PC.SOCIAL ---
IMM Update pg 2 of IMM updated and reviewed w/ patient and daughter. Copy provided and Copy dated, initialed and placed in chart.
== END 2022-10-10 16:00 | disposition home health service (06) | DRG 177 ==
LOC: ER 23:35 → MEDSURG 10-07 02:10
PROVIDERS: Admitting Provider Internal Medicine; Emergency Provider Family Medicine; PCP Family Medicine; Visit Provider Internal Medicine
DX: J69.0 Pneumonitis due to inhalation of food and vomit (principal); E43 Unspecified severe protein-calorie malnutrition; C77.0 Secondary and unspecified malignant neoplasm of lymph nodes of head, face and neck; Z68.22 Body mass index [BMI] 22.0-22.9, adult; C13.9 Malignant neoplasm of hypopharynx, unspecified; Z93.0 Tracheostomy status; Z93.1 Gastrostomy status; K59.00 Constipation, unspecified; Z95.828 Presence of other vascular implants and grafts; Z79.891 Long term (current) use of opiate analgesic; Z79.02 Long term (current) use of antithrombotics/antiplatelets; D64.9 Anemia, unspecified; Z79.899 Other long term (current) drug therapy; Z96.651 Presence of right artificial knee joint; I25.10 Atherosclerotic heart disease of native coronary artery without angina pectoris; Z95.1 Presence of aortocoronary bypass graft; Z87.891 Personal history of nicotine dependence; G62.9 Polyneuropathy, unspecified; I25.2 Old myocardial infarction; E78.5 Hyperlipidemia, unspecified; M10.9 Gout, unspecified; I10 Essential (primary) hypertension; Z86.73 Personal history of transient ischemic attack (TIA), and cerebral infarction without residual deficits; N40.1 Benign prostatic hyperplasia with lower urinary tract symptoms; I71.40 Abdominal aortic aneurysm, without rupture, unspecified
CPT/HCPCS: 36415; 36600; 71045; 74022; 80051; 80053; 82330; 82805; 83605; 85025; 87040; 87070; 87077; 87186; 87205; 87635; 87641; 94640; 96374; 99285; C9113; J2185; J7030

== ENCOUNTER 2022-10-20 08:30 | Oncology outpatient (recurring) (ONCR) | payer MEDICARE, OTHER, SELFPAY ==
[2022-09-21] MEDS: pegfilgrastim-bmez 6 mg/0.6 mL SYR SUBCUT (14:15)
[2022-09-21 14:42] VITALS: BP 128/65; PULSE 77; TEMP 36.8; O2SAT 99
[2022-10-18 08:09] VITALS: BP 111/61; PULSE 64; RESP 18; TEMP 36.2; O2SAT 100; BMI 22.0
[2022-10-18 08:29] LABS: Basophils # 0.1 10^3/uL (0.0-0.1); Basophils % 0.8 %; Eosinophils # 0.3 10^3/uL (0.0-0.8); Lymphocytes # 0.8 10^3/uL (0.8-4.8); Lymphocytes % 8.3 %; Mean Corpuscular HGB Conc 32.8 g/dL (30-55); Mean Corpuscular Hemoglobin 29.5 pg (27-33); Mean Corpuscular Volume 89.9 fl (82-101); Mean Platelet Volume 11.1 fL (7.4-10.4); Monocytes # 1.2 10^3/uL (0.2-0.9); Monocytes % 11.8 %; Neutrophils % 74.8 %; Nucleated Red Blood Cells % 0 %; Platelet Count 249 10^3/cmm (157-399); Red Blood Count 3.56 10^6/uL (3.85-5.65); Red Cell Distribution Width 14.7 % (12.1-15.1); White Blood Count 10.15 10^3/uL (3.29-11.43)
[2022-10-18 08:45] LABS: Alanine Aminotransferase 24 U/L (0-41); Albumin Level 3.4 g/dL (3.5-5.2); Alkaline Phosphatase 93 U/L (40-130); Anion Gap 14.7 (5-19); Aspartate Amino Transferase 25 U/L (0-40); Blood Urea Nitrogen 24 mg/dL (8-23); Calcium 8.7 mg/dL (8.5-10.5); Carbon Dioxide 28 mmol/L (22-29); Chloride 96 mmol/L (98-107); Glucose 92 mg/dL (65-115); Magnesium 1.9 mg/dL (1.7-2.3); Osmolality Calculated 282 mOsm/kg (285-295); Potassium 4.7 mmol/L (3.5-5.1); Sodium 134 mmol/L (136-145); Total Bilirubin 0.4 mg/dL (0.15-1.2); Total Protein 6.4 g/dL (6.6-8.7)
[2022-10-18] MEDS: OLANZapine 5 mg TABLET PO (11:57)
[2022-10-18] MEDS: sodium chloride 0.9% 250 ML 75 ML IV (11:57)
[2022-10-18] MEDS: diphenhydrAMINE 50 mg/mL SDV 1mL 25 MG IVP (12:05)
[2022-10-18] MEDS: palonosetron 0.25 mg/5 mL SDV IVP (12:11)
[2022-10-18] MEDS: famotidine 20 mg/2 mL INJ IVP (12:14)
[2022-10-18] MEDS: methylPREDNISolone sod succ 125 mg SDV IVP (12:17)
[2022-10-18] MEDS: fosaprepitant 150 MG in sodium chloride 0.9% 150 ML 300 MG IV (12:35)
[2022-10-18] MEDS: potassium chloride 20 MEQ in sodium chloride 0.9% 500 ML 500 MEQ IV (16:14)
[2022-10-18 17:35] VITALS: BP 158/83; PULSE 67; RESP 16; TEMP 36.2; O2SAT 95
[2022-10-20] MEDS: pegfilgrastim-bmez 6 mg/0.6 mL SYR SUBCUT (08:29)
== END 2022-10-21 23:59 | disposition home or self-care (01) ==
PROVIDERS: PCP Family Medicine; Referring Provider Internal Medicine Medical Oncology; Visit Provider Internal Medicine Medical Oncology
DX: C13.2 Malignant neoplasm of posterior wall of hypopharynx (principal)
CPT/HCPCS: 80053; 83735; 85025; 96367; 96372; 96375; 96413; 96417; 99215; J1200; J1453; J2469; J2930; J3475; J3480; J3490; J7030; J7040; J7050; J9060; J9171; Q5120

== ENCOUNTER 2022-10-23 19:29 | Emergency (ER) | payer MEDICARE, OTHER, SELFPAY ==
[2022-10-23 19:57] VITALS: BP 103/60; PULSE 72; RESP 16; TEMP 36.6; O2SAT 94; BMI 22.8
--- NOTE | 2022-10-23 21:38 | ED_ITS ---
HPI - General Adult General: Chief complaint: Airway/Esophagus Foreign Body Stated complaint: Trac Relocated Time Seen by Provider: 10/23/22 21:30 Source: patient Mode of arrival: ambulatory Limitations: no limitations History of Present Illness: 86-year-old male with a history of tracheostomy states she feels like its off to the side was concerned denies any bleeding or drainage patient's had no pain or fever Associated symptoms: Deny chest pain, dyspnea or rash Review of Systems Const: Denies: fever(s) ENMT: Denies: throat pain Card: Denies: chest pain Resp: Denies: dyspnea or productive cough Musc: Denies: neck pain Skin/Breast: Denies: rash PFSH ED PFSH: Medical History AAA (abdominal aortic aneurysm) ASHD (arteriosclerotic heart disease) BPH loc w urin obs/LUTS Chronic prostatitis CVA (cerebral vascular accident) DJD (degenerative joint disease), lumbar Elevated PSA Essential hypertension Gout Hyperlipidemia Myocardial infarction Palpitations Peripheral neuropathy Secondary malignancy of lymph nodes of head, face and neck Tobacco abuse, in remission Surgical History History of laryngoscopy (07/05/22) tracheotomy and 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) Status post insertion of percutaneous endoscopic gastrostomy (PEG) tube (07/10/22) Family History Other CAD (coronary artery disease) Cancer Hypertension Social History Smoking and tobacco status: former smoker Quit status (tobacco): has quit using tobacco Year quit tobacco: 2001 Former quit date comment: smoked x 50+ years Alcohol intake: never Substance/Drug Use: never Household members: spouse Marital status: service: No Current occupational status: retired 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 Current gender identity: Male Radha/Zoroastrian: Taoism Physical Exam Const: COMMON NORMALS: no acute distress and patient oriented x3 HENMT: COMMON NORMALS: normocephalic HEAD & SCALP: normocephalic OTHER: Tracheostomy is in place with no bleeding or drainage Eye: COMMON NORMALS: conjunctivae normal CONJUNCTIVA: Yes conjunctivae normal Chest: COMMONS NORMALS: normal inspection of the chest Resp: COMMON NORMALS: normal respiratory effort Extremity: COMMON NORMALS: normal to inspection Neuro: COMMON NORMALS: patient oriented x3 Psych: COMMON NORMALS: mental status grossly normal Course Vital Signs: Vital signs: Vital Signs Temperature 97.9 F 10/23/22 19:57 Pulse Rate 72 10/23/22 19:57 Respiratory Rate 16 10/23/22 19:57 Blood Pressure 103/60 10/23/22 19:57 Pulse Oximetry 94 10/23/22 19:57 Oxygen Delivery Me thod Room Air 10/23/22 19:57 MDM - General Adult Medical Decision Making Patient presents here with tracheostomy was a little off midline but still in place RT repositioned it f he is stable for discharge Medical Records I reviewed the patient's medical records. Lab Data I reviewed the patient's lab results. Discharge Plan Discharge Patient Disposition: Home Clinical Impression: Acute tracheostomy management Condition: Stable Prescriptions: No Action melatonin 5 mg tablet 10 mg feeding tube .HS nitroglycerin [Nitrostat] 0.4 mg tablet, sublingual 0.4 mg SUBLINGUAL Q5M PRN (Reason: Chest Pain) ferrous sulfate 27 mg iron tablet 27 mg feeding tube DAILY trazodone 50 mg tablet 25 mg feeding tube DAILY famotidine 10 mg tablet 10 mg PO DAILY metoclopramide HCl 5 mg tablet 5 mg PO Q6H triamcinolone acetonide 0.1 % cream 1 applic topical BID ascorbic acid (vitamin C) 250 mg tablet 250 mg feeding tube DAILY metoprolol tartrate 25 mg tablet 25 mg feeding tube DAILY atorvastatin 20 mg tablet 20 mg feeding tube QDAY clopidogrel 75 mg tablet 75 mg feeding tube QDAY Hold Instructions: Resume on 09/12/22. amlodipine 5 mg tablet 5 mg feeding tube DAILY Rx Instructions: Please convert to liquid form for PEG use gabapentin 300 mg capsule 300 mg feeding tube TID Rx Instructions: Please convert to liquid form for PEG use allopurinol 300 mg tablet 300 mg feeding tube QDAY docusate sodium [DOK] 100 mg capsule 100 mg PO BID Qty: 7 0RF sertraline 25 mg tablet 25 mg PO DAILY bisacodyl 10 mg Suppository 10 mg [place] DAILY PRN (Reason: constipation) Qty: 30 0RF Discharge Orders: Discharge ED (Routine); Ordered 10/23/22 Ordered By: Mariann Matta Referrals: Heather Hodges DO [Primary Care Provider] - Discharge Diet: Advance as tolerated Discharge Activity: Resume usual activity Patient Instructions: Tracheostomy Care (ED) Coding Level of Care Code ED Grain Farmer for Mayra Cote
[2022-10-23 21:52] VITALS: BP 123/63; PULSE 71; RESP 18; O2SAT 97
== END 2022-10-23 21:57 | disposition home or self-care (01) ==
PROVIDERS: Emergency Provider Emergency Medicine; PCP Family Medicine
DX: Z43.0 Encounter for attention to tracheostomy (principal); Z79.02 Long term (current) use of antithrombotics/antiplatelets; Z87.891 Personal history of nicotine dependence; Z86.73 Personal history of transient ischemic attack (TIA), and cerebral infarction without residual deficits; I10 Essential (primary) hypertension; E78.5 Hyperlipidemia, unspecified; I25.2 Old myocardial infarction; Z95.1 Presence of aortocoronary bypass graft
CPT/HCPCS: 99282

== ENCOUNTER 2022-10-28 08:14 | Emergency (ER) | payer MEDICARE, OTHER, SELFPAY ==
--- NOTE | 2022-10-28 08:23 | W.ED.NECK ---
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 He has had increasing sputum discharge from the PEG tube. And some mild altered mental status and low-grade fevers while he is currently receiving chemo and they are considering transitioning to radiation he has a scan upcoming. He has not had any hemoptysis. His last chemo was 2 weeks ago they are unsure of when his next 1 will be. He is also had some diarrhea that began overnight no hematochezia or melena. Onset (ago): day(s) Relieving factors: none Exacerbating factors: none Associated symptoms: Reports dysphagia and weakness; Denies dizziness, fevers/chills, headache(s), nausea, swollen glands or tingling Treatments prior to arrival: none Review of Systems Const: Reports: fever(s), change in appetite, fatigue and malaise; Denies: chills ENMT: Denies: throat pain, ear or mastoid pain, nasal discharge or nasal congestion Card: Denies: chest pain, edema, dyspnea on exertion or orthopnea Resp: Reports: productive cough and wheezing; Denies: dyspnea or non-productive cough GI: Reports: dysphagia and diarrhea; Denies: abdominal pain or nausea : Denies: flank pain, dysuria, urinary frequency or urinary urgency Skin/Breast: Denies: rash or pruritus Neuro: Denies: headache(s) or dizziness PFS ED PFSH: Medical History AAA (abdominal aortic aneurysm) ASHD (arteriosclerotic heart disease) BPH loc w urin obs/LUTS Chronic prostatitis CVA (cerebral vascular accident) DJD (degenerative joint disease), lumbar Elevated PSA Essential hypertension Gout Hyperlipidemia Myocardial infarction Palpitations Peripheral neuropathy Secondary malignancy of lymph nodes of head, face and neck Tobacco abuse, in remission Surgical History History of laryngoscopy (07/05/22) tracheotomy and 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) Status post insertion of percutaneous endoscopic gastrostomy (PEG) tube (07/10/22) Family History Other CAD (coronary artery disease) Cancer Hypertension Social History Smoking and tobacco status: former smoker Quit status (tobacco): has quit using tobacco Year quit tobacco: 2001 Former quit date comment: smoked x 50+ years Alcohol intake: never Substance/Drug Use: never Household members: spouse Marital status: service: No Current occupational status: retired Previous occupational history: [employer] X 27 YEARS Current gender identity: Male Radha/Restorationism: Jain Physical Exam Const: GENERAL APPEARANCE: cooperative and comfortable ORIENTATION/CONSCIOUSNESS: Yes awake HENMT: COMMON NORMALS: normocephalic, atraumatic and hearing grossly normal bilaterally HEAD & SCALP: normocephalic and atraumatic Neck/C-Spine: OTHER: Tracheostomy with semitenacious sputum. No hemoptysis Resp: COMMON NORMALS: normal respiratory effort, No retractions, No use of accessory muscles and clear to auscultation bilaterally AUSCULTATION: clear to auscultation bilaterally Cardio: COMMON NORMALS: regular rate, regular rhythm and No murmurs present (Cardio) RATE: regular rate RHYTHM: regular rhythm GI: COMMON NORMALS: Soft to palpation and No hepatosplenomegaly present AUSCULTATION: Yes normoactive bowel sounds PALPATION: Yes Soft to palpation, No Tenderness to palpation present (GI), No Guarding due to palpation present (GI) and Yes No hepatosplenomegaly present OTHER: PEG tube in place Extremity: COMMON NORMALS: normal to inspection, capillary refill normal, no clubbing, cyanosis or edema, no calf tenderness and no pedal edema Skin: COMMON NORMALS: no rashes or lesions noted GENERAL SKIN EXAM: no rashes or lesions noted Course Vital Signs: Vital signs: Vital Signs Pulse Rate 92 10/28/22 11:30 Respiratory Rate 18 10/28/22 11:00 Blood Pressure 125/59 10/28/22 11:00 Pulse Oximetry 97 10/28/22 11:30 Oxygen Delivery Me thod Room Air 10/28/22 11:30 MDM - Neck Pain/Injury Medical Decision Making Patient is feeling much better. After clearing his airway with suction he is breathing much easier is much more awake and alert we did culture it chest x-ray showed a clearing pneumonia. I do not think he requires antibiotics at this time we will see what his sputum culture grows for any worsening problem return the do have the ability to suction at home encouraged suctioning to be repeated as needed if has any further problems today or can return to the emergency room. Finally noticed that his hemoglobin is slightly low from what it was about 10 days ago recommend that he recheck in the doctor's office next week he has not had any overt signs of bleeding if there are any new bleeding signs or symptoms return to the ER. Medical Records I reviewed the patient's medical records. Lab Data I reviewed the patient's lab results. 10/28/22 09:12 10/28/22 09:12 Laboratory Results WBC 6.09 10^3/uL (3.29-11.43) 10/28/22 09:12 RBC 2.86 10^6/uL (3.85-5.65) L 10/28/22 09:12 Hgb 8.50 g/dL (11.27-16.99) L 10/28/22 09:12 Hct 25.4 % (37-53) L 10/28/22 09:12 MCV 88.8 fl (82-101) 10/28/22 09:12 MCH 29.7 pg (27-33) 10/28/22 09:12 MCHC 33.5 g/dL (30-55) 10/28/22 09:12 RDW 14.2 % (12.1-15.1) 10/28/22 09:12 Plt Count 74 10^3/cmm (157-399) L 10/28/22 09:12 MPV 12.1 fL (7.4-10.4) H 10/28/22 09:12 Neut % (Auto) 83.7 % 10/28/22 09:12 Lymph % (Auto) 6.6 % 10/28/22 09:12 [place] % (Auto) 8.4 % 10/28/22 09:12 Eos % (Auto) 0.3 % 10/28/22 09:12 Baso % (Auto) 1.0 % 10/28/22 09:12 Neut # (Auto) 4.96 10^3/uL (1.8-7.7) 10/28/22 09:12 Lymph # (Auto) 0.4 10^3/uL (0.8-4.8) L 10/28/22 09:12 [place] # (Auto) 0.5 10^3/uL (0.2-0.9) 10/28/22 09:12 Eos # (Auto) 0.0 10^3/uL (0.0-0.8) 10/28/22 09:12 Baso # (Auto) 0.1 10^3/uL (0.0-0.1) 10/28/22 09:12 Nucleated RBC % (auto) 0 % 10/28/22 09:12 Nucleated RBCs # 0.0 /100WBC 10/28/22 09:12 Sodium 131 mmol/L (136-145) L 10/28/22 09:12 Potassium 3.6 mmol/L (3.5-5.1) 10/28/22 09:12 Chloride 94 mmol/L (98-107) L 10/28/22 09:12 Carbon Dioxide 26 mmol/L (22-29) 10/28/22 09:12 Anion Gap 14.6 (5-19) 10/28/22 09:12 BUN 26 mg/dL (8-23) H 10/28/22 09:12 Creatinine 1.1 mg/dL (0.7-1.2) 10/28/22 09:12 GFR Calculation Not Reportable 10/28/22 09:12 Glucose 89 mg/dL (65-115) 10/28/22 09:12 Calculated Osmolality 276 mOsm/kg (285-295) L 10/28/22 09:12 Lactic Acid 1.5 mmol/L (0.5-2.2) 10/28/22 09:12 Calcium 8.9 mg/dL (8.5-10.5) 10/28/22 09:12 Total Bilirubin 0.4 mg/dL (0.15-1.2) 10/28/22 09:12 AST 21 U/L (0-40) 10/28/22 09:12 ALT 24 U/L (0-41) 10/28/22 09:12 Alkaline Phosphatase 85 U/L (40-130) 10/28/22 09:12 Total Protein 5.9 g/dL (6.6-8.7) L 10/28/22 09:12 Albumin 3.3 g/dL (3.5-5.2) L 10/28/22 09:12 Globulin 2.6 g/dL (1.3-4.6) 10/28/22 09:12 Urine Color Yellow (Yellow) 10/28/22 11:00 Urine Appearance Clear (CLEAR) 10/28/22 11:00 Urine pH 5 (5-7) 10/28/22 11:00 Ur Specific [place] 1.005 (1.005-1.030) 10/28/22 11:00 Urine Protein Trace (Negative) 10/28/22 11:00 Urine Glucose (UA) Norm (Normal) 10/28/22 11:00 Urine Ketones Negative (Negative) 10/28/22 11:00 Urine Blood Neg (Negative) 10/28/22 11:00 Urine Nitrate Negative (Negative) 10/28/22 11:00 Urine Bilirubin Neg (Negative) 10/28/22 11:00 Urine Urobilinogen Norm mg/dL (Negative) 10/28/22 11:00 Ur Leukocyte Esterase Negative (Negative) 10/28/22 11:00 Urine RBC 0-4 /hpf (0-2) H 10/28/22 11:00 Urine WBC 0-4 /hpf (0-5) H 10/28/22 11:00 Ur Squamous Epith Cells 0-4 /hpf (0-5) H 10/28/22 11:00 Amorphous Sediment Not Reportable 10/28/22 11:00 Urine Bacteria Trace /hpf (NONE) 10/28/22 11:00 Coronavirus 229E (PCR) Not detected (NOT DETECT) 10/28/22 09:55 SARS-CoV-2 (PCR) Not detected (NOT DETECT) 10/28/22 09:55 Discharge Plan Discharge Patient Disposition: Home Clinical Impression: Tracheostomy complication, Pharynx cancer, Anemia, Elevated liver enzymes Condition: Stable Prescriptions: No Action melatonin 5 mg tablet 10 mg feeding tube .HS nitroglycerin [Nitrostat] 0.4 mg tablet, sublingual 0.4 mg SUBLINGUAL Q5M PRN (Reason: Chest Pain) trazodone 50 mg tablet 25 mg feeding tube DAILY famotidine 10 mg tablet 10 mg PO DAILY triamcinolone acetonide 0.1 % cream 1 applic topical BID metoprolol tartrate 25 mg tablet 25 mg feeding tube DAILY atorvastatin 20 mg tablet 20 mg feeding tube QDAY clopidogrel 75 mg tablet 75 mg feeding tube QDAY Hold Instructions: Resume on 09/12/22. amlodipine 5 mg tablet 5 mg feeding tube DAILY Rx Instructions: Please convert to liquid form for PEG use gabapentin 300 mg capsule 300 mg feeding tube TID Rx Instructions: Please convert to liquid form for PEG use allopurinol 300 mg tablet 300 mg feeding tube QDAY metoclopramide HCl 5 mg/5 mL Solution 5 mg PO Q6H finasteride 5 mg tablet 5 mg PO DAILY sertraline 25 mg tablet 25 mg PO DAILY Discharge Orders: Discharge ED (Routine); Ordered 10/28/22 Ordered By: Chang Siegel Referrals: Heather Hodges DO [Primary Care Provider] - Patient Instructions: Opioid Safety, Pain Management Activity Restrictions/Additional Instructions: You are seen today for mucus buildup in the tracheostomy your symptoms improved after tracheostomy care. Chest x-ray showed resolving pneumonia. You did have a slightly worsening anemia you should follow-up with your oncologist or primary care doctor in the next 10 to 14 days and recheck your hemoglobin return if you have further problems. Coding Level of Care Code ED Technical Laboratory Asst for Mayra Cote
[2022-10-28 08:29] VITALS: BP 125/59; PULSE 83; RESP 18; O2SAT 94; BMI 22.8
--- NOTE | 2022-10-28 09:02 | PC.PHAR ---
pts daughter states he will not take Ferrous Sulfate, Cetirizine, Flonase, or use the Neom/polym/dexameth eye drops
--- NOTE | 2022-10-28 09:04 | XR_ITS ---
WS: [id number] Portable AP upright chest, 10/28/2022 Clinical Data: dyspnea/cough Comparison: Portable chest, 10/07/2022 Findings: No nodules, masses or effusions are seen. The heart is normal. The pulmonary vascularity is not increased. No pneumonia or pneumothorax is seen. The patchy opacity in the left lower lobe has p artly resolved. Midline sternotomy sutures are noted. The aortic arch shows calcification and tortuos ity. The tracheal tube is above the cy. The left Port-A-Cath remains in the same position. Impression: 1. Clearing of patchy left lower lobe opacity with minimal residual. 2. Atherosclerosis. 3. No change in tracheal tube and left infusion catheter.
[2022-10-28 09:27] LABS: Basophils # 0.1 10^3/uL (0.0-0.1); Eosinophils % 0.3 %; Hematocrit 25.4 % (37-53); Lymphocytes # 0.4 10^3/uL (0.8-4.8); Lymphocytes % 6.6 %; Mean Corpuscular HGB Conc 33.5 g/dL (30-55); Mean Corpuscular Hemoglobin 29.7 pg (27-33); Mean Corpuscular Volume 88.8 fl (82-101); Mean Platelet Volume 12.1 fL (7.4-10.4); Monocytes # 0.5 10^3/uL (0.2-0.9); Monocytes % 8.4 %; Neutrophils # 4.96 10^3/uL (1.8-7.7); Nucleated Red Blood Cells % 0 %; Platelet Count 74 10^3/cmm (157-399); Red Blood Count 2.86 10^6/uL (3.85-5.65); Red Cell Distribution Width 14.2 % (12.1-15.1); White Blood Count 6.09 10^3/uL (3.29-11.43)
[2022-10-28 09:35] VITALS: PULSE 74; RESP 24; O2SAT 94
[2022-10-28] MEDS: ipratropium-albuterol 3 mL Neb INHALATION (09:35)
[2022-10-28 09:40] LABS: Lactic Sepsis W/Reflex 1.5 mmol/L (0.5-2.2)
[2022-10-28 09:41] LABS: Alanine Aminotransferase 24 U/L (0-41); Albumin Level 3.3 g/dL (3.5-5.2); Alkaline Phosphatase 85 U/L (40-130); Anion Gap 14.6 (5-19); Aspartate Amino Transferase 21 U/L (0-40); Blood Urea Nitrogen 26 mg/dL (8-23); Calcium 8.9 mg/dL (8.5-10.5); Carbon Dioxide 26 mmol/L (22-29); Chloride 94 mmol/L (98-107); Creatinine Clr Calc Pharmacy 47.3997; Globulin 2.6 g/dL (1.3-4.6); Glucose 89 mg/dL (65-115); Osmolality Calculated 276 mOsm/kg (285-295); Potassium 3.6 mmol/L (3.5-5.1); Sodium 131 mmol/L (136-145); Total Bilirubin 0.4 mg/dL (0.15-1.2); Total Protein 5.9 g/dL (6.6-8.7)
[2022-10-28 09:58] LABS: Slide Review Slide Review Perform
[2022-10-28 09:59] LABS: Neutrophils % 83.7 %
[2022-10-28 11:00] VITALS: BP 125/59; PULSE 80; RESP 18; O2SAT 97
[2022-10-28 11:14] LABS: Add Urine Culture? No; Add Urine Microscopic? YES; Bacteria Urine TRACE /hpf; Bilirubin Urine Neg (Negative); Blood Urine Neg (Negative); Glucose Urine UA Norm (Normal); Ketones Urine Negative (Negative); Leukocyte Esterase Urine Negative (Negative); Nitrate Urine Negative (Negative); Protein Urine Trace (Negative); RBC Urine 0-4 /hpf (0-2); Specific Gravity, Urine 1.005 (1.005-1.030); Squamous Epithelial Cell Urine 0-4 /hpf (0-5); Urine Appearance Clear (CLEAR); Urine Color Yellow (Yellow); Urobilinogen Urine Norm (Negative); WBC Urine 0-4 /hpf (0-5); pH Urine 5 (5-7)
[2022-10-28 11:30] VITALS: PULSE 92; O2SAT 97
[2022-10-28 11:48] LABS: Adenovirus Not Detected (NOT DETECT); Chlamydia Pneumoniae Not Detected (NOT DETECT); Coronavirus 229E,HKU1,NL63,OC4 Not Detected (NOT DETECT); Human Metapneumovirus Not Detected (NOT DETECT); Human Rhinovirus/Enterovirus Not Detected (NOT DETECT); Influenza A Not Detected (NOT DETECT); Influenza A H1 Not Detected (NOT DETECT); Influenza A H1-2009 Not Detected (NOT DETECT); Influenza A H3 Not Detected (NOT DETECT); Influenza B Not Detected (NOT DETECT); Mycoplasma Pneumoniae Not Detected (NOT DETECT); Parainfluenza Virus Type 1 Not Detected (NOT DETECT); Parainfluenza Virus Type 2 Not Detected (NOT DETECT); Parainfluenza Virus Type 3 Not Detected (NOT DETECT); Parainfluenza Virus Type 4 Not Detected (NOT DETECT); Respiratory Syncytial Virus A Not Detected (NOT DETECT); Respiratory Syncytial Virus B Not Detected (NOT DETECT); SARS-COV-2 Not Detected (NOT DETECT)
== END 2022-10-28 11:53 | disposition home or self-care (01) ==
PROVIDERS: Emergency Provider Family Medicine; PCP Family Medicine
DX: J95.00 Unspecified tracheostomy complication (principal); C14.0 Malignant neoplasm of pharynx, unspecified; D64.9 Anemia, unspecified; R74.8 Abnormal levels of other serum enzymes; Z79.02 Long term (current) use of antithrombotics/antiplatelets; Z20.822 Contact with and (suspected) exposure to COVID-19; Z86.73 Personal history of transient ischemic attack (TIA), and cerebral infarction without residual deficits; I10 Essential (primary) hypertension; E78.5 Hyperlipidemia, unspecified; I25.2 Old myocardial infarction; Z95.1 Presence of aortocoronary bypass graft; Z87.891 Personal history of nicotine dependence
CPT/HCPCS: 36415; 71045; 80053; 81001; 83605; 85025; 87040; 87070; 87077; 87186; 87205; 87635; 94640; 99284

== ENCOUNTER 2022-11-05 07:28 | Outpatient (CLI) | payer MEDICARE, OTHER, SELFPAY ==
--- NOTE | 2022-11-05 07:30 | CTR_ITS ---
PROCEDURE INFORMATION: Exam: CT Neck With Contrast Exam date and time: 11/05/2022 8:08 AM Age: 86 years old Clinical indication: Condition or disease; Throat; Prior surgery; Surgery date: 6+ months; Surgery type: Trach, port, feeding tube, left ear in the last week from skin cancer; Patient HX: Assess response to treatment. Cough, mucus from trach TECHNIQUE: Imaging protocol: Computed tomography of the neck with contrast. Radiation optimization: All CT scans at this facility use at least one of these dose optimization techniques: automated exposure control; mA and/or kV adjustment per patient size (includes targeted exams where dose is matched to clinical indication); or iterative reconstruction. Contrast material: OMNI 350; Contrast volume: 100 ml; Contrast route: INTRAVENOUS (IV); REPORTING DATA: Count of CT and Cardiac NM exams in prior 12 months: This patient has received 3 known CTs and 0 known cardiac nuclear medicine studies in the 12 months prior to the current study. COMPARISON: CT neck w con* [id number] 06/15/2022 2:00 PM, neck CTA 10/02/2022 RADIATION DOSE METRICS: Total DLP (mGy-cm): 152.26 FINDINGS: Auditory system: There are extensive calcifications within the pinna of the external ears bilaterally. Less extensive calcification within the wall of the external auditory canals bilaterally. No discrete mass identified. No change in appearance from prior scan. Paranasal sinuses: Air-fluid level in the left maxillary sinus Pharynx: On the previous scans there was a very large mass centered in the region of the hypopharynx. This has markedly resolved. There is slight soft tissue fullness in this area on series 3, images 47-50. Larynx: Unremarkable. Epiglottis is normal. Prevertebral and retropharyngeal spaces: Unremarkable. Salivary glands: Normal. Glands are normal in size. Thyroid: Normal. No enlarged or calcified nodules. Lymph nodes: There are small nonspecific cervical lymph nodes. No significantly enlarged or progressive lymph nodes identified. Trachea: Tracheostomy remains in place. The appearance is unremarkable. Lungs: Unremarkable as visualized. Bones/joints: There is multilevel cervical spondylosis and disc space narrowing. No fracture. No focal osseous lesion. Soft tissues: unremarkable CT/CT neck w con* [id number] IMPRESSION: 1. Near complete resolution of very large hypopharyngeal mass on previous scans. Slight residual soft tissue fullness in this location. 2. No acute findings
[2022-11-05] MEDS: iohexol 350 mg/mL 500 mL Btl (per mL) IV (08:22)
== END 2022-11-05 07:29 | disposition home or self-care (01) ==
PROVIDERS: PCP Family Medicine; Visit Provider Internal Medicine Medical Oncology
DX: C13.2 Malignant neoplasm of posterior wall of hypopharynx (principal)
CPT/HCPCS: 70491; Q9967

== ENCOUNTER 2022-11-08 07:59 | Oncology outpatient (recurring) (ONCR) | payer MEDICARE, OTHER, SELFPAY ==
[2022-11-08 08:19] VITALS: BP 88/50; PULSE 70; RESP 20; TEMP 36.3
[2022-11-08 08:35] LABS: Basophils % 0.2 %; Eosinophils % 0.2 %; Hematocrit 26.9 % (37-53); Lymphocytes # 0.8 10^3/uL (0.8-4.8); Lymphocytes % 6.2 %; Mean Corpuscular HGB Conc 33.5 g/dL (30-55); Mean Corpuscular Hemoglobin 30.2 pg (27-33); Mean Corpuscular Volume 90.3 fl (82-101); Monocytes # 1.2 10^3/uL (0.2-0.9); Monocytes % 10.2 %; Neutrophils # 9.66 10^3/uL (1.8-7.7); Neutrophils % 80.1 %; Nucleated Red Blood Cells % 0 %; Platelet Count 200 10^3/cmm (157-399); Red Blood Count 2.98 10^6/uL (3.85-5.65); Red Cell Distribution Width 15.4 % (12.1-15.1); White Blood Count 12.08 10^3/uL (3.29-11.43)
[2022-11-08 08:55] LABS: Alanine Aminotransferase 26 U/L (0-41); Albumin Level 3.6 g/dL (3.5-5.2); Alkaline Phosphatase 97 U/L (40-130); Anion Gap 16.8 (5-19); Aspartate Amino Transferase 25 U/L (0-40); Blood Urea Nitrogen 30 mg/dL (8-23); Calcium 9.4 mg/dL (8.5-10.5); Carbon Dioxide 23 mmol/L (22-29); Chloride 97 mmol/L (98-107); Glucose 123 mg/dL (65-115); Osmolality Calculated 284 mOsm/kg (285-295); Potassium 3.8 mmol/L (3.5-5.1); Sodium 133 mmol/L (136-145); Total Bilirubin 0.4 mg/dL (0.15-1.2); Total Protein 6.6 g/dL (6.6-8.7)
== END 2022-11-08 10:05 | disposition home or self-care (01) ==
PROVIDERS: Internal Medicine Medical Oncology; PCP Family Medicine; Referring Provider Internal Medicine Medical Oncology; Visit Provider Internal Medicine Medical Oncology
DX: C13.2 Malignant neoplasm of posterior wall of hypopharynx (principal); R11.2 Nausea with vomiting, unspecified; T45.1X5A Adverse effect of antineoplastic and immunosuppressive drugs, initial encounter; D70.1 Agranulocytosis secondary to cancer chemotherapy; D64.81 Anemia due to antineoplastic chemotherapy
CPT/HCPCS: 80053; 85025; 99214

== ENCOUNTER 2022-11-08 10:06 | Inpatient (IN) | payer MEDICARE, OTHER, SELFPAY ==
[2022-11-08 10:22] VITALS: BP 112/68; PULSE 70; TEMP 36.4; O2SAT 96; BMI 21.9
--- NOTE | 2022-11-08 10:31 | ECG_ITS ---
[facility] Test Date: 2022-11-08 Pat Name: Jose Mcdonnell Department: Room: Gender: Male Chief Fundraising Officer: : 1935 Requested By: David Ballesteros Order Number: [id number] Alejandra MD: Alecia Bertrand M.D. Measurements Intervals [place] Rate: 70 P: 57 WV: 231 QRS: 48 QRSD: 114 T: 14 QT: 409 QTc: 444 Interpretive Statements SINUS RHYTHM WITH FIRST DEGREE AV BLOCK ANTERIOR MYOCARDIAL INFARCTION , OF INDETERMINATE AGE [40+ ms Q WAVE AND/OR ST/T ABNORMALITY IN V3/V4] Compared to ECG 07/07/2022 05:12:00 Sinus arrhythmia no longer present T-wave abnormality no longer present Possible ischemia no longer present Myocardial infarct finding still present Electronically Signed On 11-08-2022 21:30:26 CDT by Alecia Bertrand M.D. [email or web address]
--- NOTE | 2022-11-08 11:02 | W.ED.SOB ---
HPI - SOB/Dyspnea General: Chief Complaint: Shortness of Breath/Dyspnea Stated Complaint: sob Time Seen by Provider: 11/08/22 10:57 History of Present Illness: HPI Narrative: 86-year-old male with history of throat cancer with 2 rounds of chemotherapy presented to the emergency room today with cough and shortness of breath within the past few days. According to daughter patient was diagnosed with pneumonia about 7 days ago and was started on antibiotics. Patient is said to take his last antibiotics today but still having productive cough and shortness of breath. Tracheostomy and daughter noticed increased sputum production yellowish from the trach. Patient was seen and evaluated by the oncologist today and was sent to the emergency room for further evaluation and treatment. Currently daughter patient has been more weaker than usual within the past 24 hours. Associated symptoms: Deny chest congestion, diaphoresis, fever(s) or hemoptysis Review of Systems General: Reports: 10 or more systems reviewed and unremarkable except in HPI and below Const: Reports: malaise; Denies: fever(s), chills, body aches, night sweats, diaphoresis, change in sleep pattern or daytime sleepiness Resp: Reports: dyspnea, productive cough and wheezing; Denies: stridor, pain on inspiration, change in phlegm color, hemoptysis or chest congestion PFS ED PFSH: Medical History AAA (abdominal aortic aneurysm) ASHD (arteriosclerotic heart disease) BPH loc w urin obs/LUTS Chronic prostatitis CVA (cerebral vascular accident) DJD (degenerative joint disease), lumbar Elevated PSA Essential hypertension Gout Hyperlipidemia Myocardial infarction Palpitations Peripheral neuropathy Secondary malignancy of lymph nodes of head, face and neck Tobacco abuse, in remission Surgical History History of laryngoscopy (07/05/22) tracheotomy and 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) Status post insertion of percutaneous endoscopic gastrostomy (PEG) tube (07/10/22) Family History Other CAD (coronary artery disease) Cancer Hypertension Social History Smoking and tobacco status: former smoker Quit status (tobacco): has quit using tobacco Year quit tobacco: 2001 Former quit date comment: smoked x 50+ years Alcohol intake: never Substance/Drug Use: never Household members: spouse Marital status: service: No Current occupational status: retired Previous occupational history: [employer] N[employer]SE X 27 YEARS Current gender identity: Male Radha/Anabaptism: Evangelical Physical Exam HENMT: COMMON NORMALS: normocephalic, atraumatic, hearing grossly normal bilaterally, external ears normal, EAC's normal, TM's normal bilaterally, Normal external nose present, Normal nasal mucous membranes and turbinates present, moist oral mucous membranes, oropharynx normal, dentition normal and gingiva normal HEAD & SCALP: normocephalic and atraumatic NOSE: Normal external nose present and Normal nasal mucous membranes and turbinates present EXTERNAL EAR: Yes external ears normal EXTERNAL AUDITORY CANAL: EAC's normal TYMPANIC MEMBRANE: TM's normal bilaterally Neck/C-Spine: COMMON NORMALS: no JVD GENERAL: No tender, No tracheal deviation, Yes tracheostomy present, No JVD and No Mass present (neck) Resp: EFFORT & INSPECTION: Yes symmetric chest movement, No labored, No stridor, No Actively coughing, No retractions, No uses accessory muscles and Yes audible wheezes AUSCULTATION: crackles and wheezes Cardio: COMMON NORMALS: no JVD, regular rate, regular rhythm, S1 normal heart sound present, S2 normal heart sound present, No gallops present (Cardio), No clicks present (Cardio), No murmurs present (Cardio), No rub (Cardio) and Peripheral pulses 2+ throughout RATE: regular rate RHYTHM: regular rhythm HEART SOUNDS: S1 normal heart sound present and S2 normal heart sound present PERIPHERAL PULSES: Peripheral pulses 2+ throughout Extremity: COMMON NORMALS: normal to inspection, full ROM, capillary refill normal, no joint enlargement, no clubbing, cyanosis or edema, no calf tenderness and no pedal edema Course Vital Signs: Vital signs: Vital Signs Temperature 97.9 F 11/09/22 20:00 Pulse Rate 67 11/09/22 20:25 Respiratory Rate 18 11/09/22 20:25 Blood Pressure 114/70 11/09/22 20:00 Pulse Oximetry 94 11/09/22 20:25 Oxygen Delivery Me thod Room Air 11/09/22 20:25 MDM - SOB/Dyspnea Medical Decision Making Patient was made comfortable emergency room and had extensive work-up done including CBC, CMP chest x-ray. Remained stable emergency room without acute distress. Patient be admitted for further evaluation and treatment. Discussed patient with the hospitalist. Differential Diagnosis Likely acute exacerbation of chronic obstructive airways disease, congestive heart failure, community acquired pneumonia, asthma with exacerbation and pulmonary embolism Lab Data 11/09/22 05:38 11/09/22 05:38 Labs/Radiology: Laboratory Results WBC 13.25 10^3/uL (3.29-11.43) H 11/08/22 11:26 RBC 2.93 10^6/uL (3.85-5.65) L 11/08/22 11:26 Hgb 8.80 g/dL (11.27-16.99) L 11/08/22 11:26 Hct 27.1 % (37-53) L 11/08/22 11:26 MCV 92.5 fl (82-101) 11/08/22 11:26 MCH 30.0 pg (27-33) 11/08/22 11:26 MCHC 32.5 g/dL (30-55) 11/08/22 11:26 RDW 15.4 % (12.1-15.1) H 11/08/22 11:26 Plt Count 189 10^3/cmm (157-399) 11/08/22 11:26 MPV 9.9 fL (7.4-10.4) 11/08/22 11:26 Neut % (Auto) 77.0 % 11/08/22 11:26 Lymph % (Auto) 7.4 % 11/08/22 11:26 Ness % (Auto) 11.0 % 11/08/22 11:26 Eos % (Auto) 0.2 % 11/08/22 11:26 Baso % (Auto) 0.4 % 11/08/22 11:26 Neut # (Auto) 10.20 10^3/uL (1.8-7.7) H 11/08/22 11:26 Lymph # (Auto) 1.0 10^3/uL (0.8-4.8) 11/08/22 11:26 Ness # (Auto) 1.5 10^3/uL (0.2-0.9) H 11/08/22 11:26 Eos # (Auto) 0.0 10^3/uL (0.0-0.8) 11/08/22 11:26 Baso # (Auto) 0.1 10^3/uL (0.0-0.1) 11/08/22 11:26 Nucleated RBC % (auto) 0 % 11/08/22 11:26 Nucleated RBCs # 0.0 /100WBC 11/08/22 11:26 Sodium 137 mmol/L (136-145) 11/08/22 11:26 Potassium 4.0 mmol/L (3.5-5.1) 11/08/22 11:26 Chloride 99 mmol/L (98-107) 11/08/22 11:26 Carbon Dioxide 22 mmol/L (22-29) 11/08/22 11:26 Anion Gap 20.0 (5-19) H 11/08/22 11:26 BUN 33 mg/dL (8-23) H 11/08/22 11:26 Creatinine 1.4 mg/dL (0.7-1.2) H 11/08/22 11:26 GFR Calculation Not Reportable 11/08/22 11:26 Glucose 89 mg/dL (65-115) 11/08/22 11:26 Calculated Osmolality 291 mOsm/kg (285-295) 11/08/22 11:26 Lactic Acid 2.2 mmol/L (0.5-2.2) 11/08/22 11:26 Calcium 8.9 mg/dL (8.5-10.5) 11/08/22 11:26 Procalcitonin 0.10 ng/mL (0-0.5) 11/08/22 11:26 XR interpretation done by ED provider, pending radiology final review Discharge Plan Discharge Patient Disposition: Admitted As Inpatient Admit Provider: Alyssa Medrano Clinical Impression: Leukocytosis, Acute dyspnea, Acute bacterial tracheitis Condition: Stable Coding Level of Care Code ED Hander In for Anahyg Kera
[2022-11-08 11:03] VITALS: BP 122/62; PULSE 72; O2SAT 99
--- NOTE | 2022-11-08 11:05 | XR_ITS ---
WS: [id number] XR chest 1V portable [id number] REASON FOR EXAM: Cough or shortness of breath FINDINGS: The chest is unchanged compared to 10/28/2022. Tracheostomy remains in place unchanged compared to 10/28/2022. Left chest chemotherapy infusion port and left subclavian vein catheter are intact and remain in the same position as 10/28/2022. Previous aortocoronary artery bypass surgery. Calcification and mild tortuosity of the thoracic aorta without aneurysmal dilatation. No significant cardiac enlargement. Calcified granulomas disease bilaterally. No acute pulmonary parenchymal or pleural abnormality. Valve Pipe Irrigator ryan reticular interstitial densities in the left lower lung. Moderate degenerative spondylosis in the mid and lower thoracic spine. IMPRESSION: Stable abnormal chest without acute abnormality.
[2022-11-08 11:33] LABS: Basophils # 0.1 10^3/uL (0.0-0.1); Basophils % 0.4 %; Eosinophils % 0.2 %; Hematocrit 27.1 % (37-53); Lymphocytes % 7.4 %; Mean Corpuscular HGB Conc 32.5 g/dL (30-55); Mean Corpuscular Volume 92.5 fl (82-101); Mean Platelet Volume 9.9 fL (7.4-10.4); Monocytes # 1.5 10^3/uL (0.2-0.9); Nucleated Red Blood Cells % 0 %; Platelet Count 189 10^3/cmm (157-399); Red Blood Count 2.93 10^6/uL (3.85-5.65); Red Cell Distribution Width 15.4 % (12.1-15.1); White Blood Count 13.25 10^3/uL (3.29-11.43)
[2022-11-08 11:56] LABS: Lactic Sepsis W/Reflex 2.2 mmol/L (0.5-2.2)
[2022-11-08 12:00] VITALS: BP 115/63; O2SAT 99
--- NOTE | 2022-11-08 12:02 | PC.PHAR ---
pts daughter verified pts medications-called cancer treatment center and verified pts chemo-states the pt gets docetaxel + cisplatin + 5FU every 21 days-ctc states pt last got chemo on 10/18/22-states the pt gets premeds of benadryl 25mg iv push,pepcid 20mg iv push, emend 150mg iv,zyprexa 5mg po, and palonosetron 0.25mg iv and states she didnt see where the pt got dexamethasone 12mg iv on 10/18/22 pts daughter states the pt is not taking iron anymore ext shows last filled 10/26/22 30d/s 325mg daily-
--- NOTE | 2022-11-08 12:17 | P.HP_ITS ---
Providers/Chief Complaint Primary Care Provider: Heather Hodges DO Chief Complaint: sob History of Present Illness Jose Mcdonnell is a 86 year old male who was sent to the hospital for copious amount of secretions from trach, patient has not endorsed any fever, chest pain however mild shortness of breath has been endorsed. He was sent from the oncology clinic for the evaluation and management. Chest x-ray did not show any active pneumonia, no fever. I have spoken with Dr. Vega with the [facility] who has recommended general cleanup of trach and frequent suctioning I have added broad-spectrum antibiotics for tracheitis Review of Systems Const: Reports: chills Eyes: Denies: change in vision ENMT: Reports: throat pain Card: Denies: chest pain Resp: Denies: dyspnea GI: Reports: abdominal pain : Denies: flank pain Musc: Denies: neck pain Skin/Breast: Reports: rash Medications/Allergies Home Medications Medication Instructions Recorded Confirmed Last Taken Type trazodone 50 mg tablet 50 mg feeding tube BEDTIME 09/03/22 11/08/22 11/07/22 History allopurinol 300 mg tablet 300 mg feeding tube QAM 09/10/22 11/08/22 11/08/22 H istory amlodipine 5 mg tablet 5 mg feeding tube QAM 09/10/22 11/08/22 11/08/22 History atorvastatin 20 mg tablet 20 mg feeding tube BEDTIME 09/10/22 11/08/22 11/07/22 History clopidogrel 75 mg tablet 75 mg feeding tube QAM 09/10/22 11/08/22 11/08/22 History gabapentin 300 mg capsule 300 mg feeding tube TID 09/10/22 11/08/22 11/08/22 History metoprolol tartrate 25 mg tablet 25 mg feeding tube QAM 09/10/22 11/08/22 11/08/22 History sertraline 25 mg tablet 25 mg PO QAM 10/07/22 11/08/22 11/08/22 History triamcinolone acetonide 0.1 % 1 applic topical BID PRN unknown 10/18/22 11/08/22 10/27/22 History topical cream finasteride 5 mg tablet 5 mg PO QAM 10/28/22 11/08/22 11/08/22 History doxycycline hyclate 100 mg capsule 100 mg PO BID 11/08/22 11/08/22 11/08/22 History famotidine 20 mg tablet 20 mg PO BID 11/08/22 11/08/22 11/08/22 History melatonin 10 mg tablet 10 mg feeding tube BEDTIME 11/08/22 11/08/22 11/07/22 History metoclopramide HCl 5 mg/5 mL oral 5 mg PO Q6H PRN Nausea And Vomiting 11/08/22 11/08/22 Unknown History solution polyethylene glycol 3350 17 gram 17 g PO BEDTIME 11/08/22 11/08/22 11/07/22 History oral powder packet (Miralax) Allergies Allergy/AdvReac Type Severity Reaction Status Date / Time acetaminophen [From Tylenol] Allergy Unknown ALGY-Rash Verified 11/08/22 10:33 amoxicillin Allergy Unknown ALGY-Rash Verified 11/08/22 10:33 Penicillins Allergy Unknown RASH Verified 11/08/22 10:33 PFSH Acute PFSH: Medical History AAA (abdominal aortic aneurysm) ASHD (arteriosclerotic heart disease) BPH loc w urin obs/LUTS Chronic prostatitis CVA (cerebral vascular accident) DJD (degenerative joint disease), lumbar Elevated PSA Essential hypertension Gout Hyperlipidemia Myocardial infarction Palpitations Peripheral neuropathy Secondary malignancy of lymph nodes of head, face and neck Tobacco abuse, in remission Surgical History History of laryngoscopy (07/05/22) tracheotomy and 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) Status post insertion of percutaneous endoscopic gastrostomy (PEG) tube (07/10/22) Family History Other CAD (coronary artery disease) Cancer Hypertension Social History Smoking and tobacco status: former smoker Quit status (tobacco): has quit using tobacco Year quit tobacco: 2001 Former quit date comment: smoked x 50+ years Alcohol intake: never Substance/Drug Use: never Household members: spouse Marital status: service: No Current occupational status: retired Previous occupational history: [employer] X [employer] YEARS Current gender identity: Male Radha/Zoroastrian: Uatsdin Vitals/I&O/Wt Last Vital Signs Temp 97.5 F L 11/08/22 10:22 Pulse 72 11/08/22 11:03 BP 115/63 11/08/22 12:00 Pulse Ox 99 11/08/22 12:00 O2 Del Method Room Air 11/08/22 11:03 Weight last 48 hrs Weight 65.317 kg Physical Exam Narrative: Copious secretions around trach collar Yellow color Hemodynamically stable Afebrile Currently on room air Daughter at the bedside Patient is awake and alert Nonfocal exam Pleasant cooperative , PERRLA S1, S2 Data 11/08/22 11:26 Micro: Microbiology 11/08/22 11:26 Blood Culture - Preliminary Blood SPECIMEN COLLECTED 11/08/22 11:25 Blood Culture - Preliminary Blood SPECIMEN COLLECTED A&P Assessment and plan (1) Tracheitis: (2) Leukocytosis: (3) Acute dyspnea: (4) Protein calorie malnutrition: (5) Antineoplastic chemotherapy induced anemia: Plan Tracheitis Start anti-MRSA antipseudomonal coverage Afebrile No sign of sepsis Dr. Ward recommended general care of trach frequent suctioning and washing with normal saline Monitor for any signs of development of pneumonia Currently patient is doing well on room air I would like to keep him on antibiotics IV Patient is immunocompromised PEG tube feeding Jevity 1.250 mL/h with water flushes Full code goals of care discussed with the patient N.p.o. Attestations Medical Necessity Statement*: More than 2 midnights anticipated Diagnoses Tracheitis J04.10 Leukocytosis D72.829 Acute dyspnea R06.00 Protein calorie malnutrition E46 Antineoplastic chemotherapy induced anemia D64.81; T45.1X5A
[2022-11-08 12:30] VITALS: BP 140/68; PULSE 75; O2SAT 99
[2022-11-08] MEDS: vancomycin 1,500 MG/300 ML PIGGYBACK 200 MG IV (12:47)
[2022-11-08 13:19] LABS: Reflex Lactate Order REFLEX LACTIC ORDERD
[2022-11-08 14:58] LABS: Lactic Acid level (Lactate) 1.5 mmol/L (0.5-2.2)
[2022-11-08] MEDS: heparin 5,000 unit/mL INJ 1 mL 5000 UNIT SUBCUT (16:07)
[2022-11-08] MEDS: gabapentin 300 mg Capsule PO ×2 (16:07→20:11)
[2022-11-08] MEDS: levofloxacin-dextrose 5 % 500 MG/100 ML PREMIX 100 MG IV (16:07)
--- NOTE | 2022-11-08 16:13 | PC.NUTR ---
Consult received for PEG TF continuous, Jevity 1.2. Recommend consideration of Jevity 1.2 beginning @ 20 mls/hr and increasing 15 mls/hr Q8H - as tolerated - until goal rate of 65 mls/hr is reached with fresh water flushes 100 mls Q4H or per MD discretion. Details in RD assessment.
[2022-11-08 16:49] LABS: Blood Urea Nitrogen 33 mg/dL (8-23); Calcium 8.9 mg/dL (8.5-10.5); Carbon Dioxide 22 mmol/L (22-29); Chloride 99 mmol/L (98-107); Glucose 89 mg/dL (65-115); Osmolality Calculated 291 mOsm/kg (285-295); Sodium 137 mmol/L (136-145)
[2022-11-08] MEDS: aztreonam 2,000 MG in sodium chloride 0.9% (plus) 100 ML 200 MG IV (18:00)
[2022-11-08 19:24] VITALS: BP 94/51; PULSE 73; RESP 16; TEMP 36.8; O2SAT 94
[2022-11-08] MEDS: famotidine 20 mg Tablet PO (20:11)
[2022-11-08] MEDS: trazodone 50 mg Tablet PO (20:11)
[2022-11-08 21:10] VITALS: PULSE 84; RESP 18; O2SAT 97
[2022-11-09] VITALS (10 sets, daily range): BP systolic 97–117; BP diastolic 52–70; PULSE 67–79; RESP 13–18; TEMP 36.4–37; O2SAT 94–99
[2022-11-09] MEDS: heparin 5,000 unit/mL INJ 1 mL 5000 UNIT SUBCUT ×2 (03:09→14:20)
[2022-11-09] MEDS: aztreonam 2,000 MG in sodium chloride 0.9% (plus) 100 ML 200 MG IV ×2 (03:15→15:21)
[2022-11-09 05:46] LABS: Basophils # 0.1 10^3/uL (0.0-0.1); Basophils % 0.4 %; Eosinophils # 0.1 10^3/uL (0.0-0.8); Eosinophils % 0.4 %; Hematocrit 25.6 % (37-53); Lymphocytes # 0.7 10^3/uL (0.8-4.8); Lymphocytes % 5.6 %; Mean Corpuscular Volume 93.8 fl (82-101); Mean Platelet Volume 10.1 fL (7.4-10.4); Monocytes # 1.1 10^3/uL (0.2-0.9); Monocytes % 9.3 %; Neutrophils # 9.52 10^3/uL (1.8-7.7); Neutrophils % 82.3 %; Nucleated Red Blood Cells % 0 %; Platelet Count 164 10^3/cmm (157-399); Red Blood Count 2.73 10^6/uL (3.85-5.65); Red Cell Distribution Width 15.8 % (12.1-15.1); White Blood Count 11.58 10^3/uL (3.29-11.43)
[2022-11-09] MEDS: metoprolol tartrate 25 mg Tablet 12.5 MG PO (06:05)
[2022-11-09 06:06] LABS: Anion Gap 15.6 (5-19); Blood Urea Nitrogen 33 mg/dL (8-23); C Reactive Protein 25.4 mg/L (0.0-4.9); Calcium 8.7 mg/dL (8.5-10.5); Carbon Dioxide 22 mmol/L (22-29); Chloride 101 mmol/L (98-107); Glucose 126 mg/dL (65-115); Magnesium 1.7 mg/dL (1.7-2.3); Osmolality Calculated 289 mOsm/kg (285-295); Phosphorus 3.2 mg/dL (2.5-4.5); Potassium 3.6 mmol/L (3.5-5.1); Sodium 135 mmol/L (136-145)
[2022-11-09] MEDS: finasteride 5 mg Tablet PO (06:12)
[2022-11-09] MEDS: sertraline 50 mg Tablet 25 MG PO (06:12)
[2022-11-09] MEDS: clopidogrel 75 mg Tablet PO (06:12)
[2022-11-09] MEDS: allopurinol 300 mg Tablet PO (06:13)
[2022-11-09] MEDS: famotidine 20 mg Tablet PO ×2 (08:42→17:29)
[2022-11-09] MEDS: gabapentin 300 mg Capsule PO ×3 (08:42→20:12)
[2022-11-09] MEDS: sennosides-docusate Tablet 1 TAB PO (08:42)
--- NOTE | 2022-11-09 10:04 | PC.CHAP ---
Pastoral Care Encounter/Spiritual Assessment Type of Contact [] Declined body maker visit [] Patient/Family/Request visit [] Outpatient visit [] Follow-up visit [] Physician referral [] Code/Alert [] Routine visit [] Staff referral [] Actively dying [] Patient sleeping [] Family support [] [] Out of room [] Palliative care [] [x] Receiving care in room [] Pre-surgical visit [] Trauma [] Long length of stay [] ICU visit [] Other: Relational/Emotional Strength [] Patient feels connected with others/family/visitors/staff [] Distress [] Loneliness/isolation [] Abandonment Spirituality of Patient [] Person of Radha [] Attends Alevism of their Radha [] Believes in Prayer [] Reads Bible or Rastafarian materials [] There are Spiritual issues to be addressed V Belt Inspector Interventions [] Prayer [] Active listening [] Non-anxious presence [] Spiritual/emotional support [] Crisis/trauma care [] Spiritual counseling [] Bereavement support [] Provided bereavement packet [] Provided Bible/devotional materials [] Provided toy/stuffed animal, coloring book to patient or family member [] Provided Communion [] Anointing/[place] [] Salvation [] Completed spiritual assessment [] Other: Impact on Illness or Injury [] Angry [] Fearful [] Anxious [] Often cries [] Exhaustion [] Unable to work [] Unable to attend church [] Unable to walk/stand [] Unable to read [] Unable to drive [] Unable to eat/drink [] Unable to sleep [] Unable to be with family [] Patient intubated [] Other: Summary Time spent with patient
--- NOTE | 2022-11-09 11:25 | PM.PN ---
Subjective Subjective: Patient is stating that his secretions have improved a little bit No fever Endorsing feeling better Tolerating tube feeds Vitals/I&O/Wt Last Vital Signs Temp 97.6 F 11/09/22 08:00 Pulse 75 11/09/22 08:00 Resp 18 11/09/22 08:00 BP 103/60 11/09/22 08:00 Pulse Ox 94 11/09/22 08:00 O2 Del Method Trach Collar 11/09/22 08:00 11/08/22 11/09/22 11/09/22 22:59 06:59 14:59 Intake Total 200 / 500 130 / 630 0 / 0 Output Total 100 / 100 200 / 300 400 / 400 Balance 100 / 400 -70 / 330 -400 / -400 Weight last 48 hrs Weight 65.317 kg Physical Exam Narrative: Lungs sounding clear Currently on room air with humidified oxygen GCS 15 Nonfocal neuro exam Pleasant and cooperative Signs of dehydration improving Feeding tube in place S1, S2 Data 11/09/22 05:38 11/09/22 05:38 Micro: Microbiology 11/08/22 11:40 Gram Stain - Final Sputum - Endotracheal Tube Aspirate Sputum Culture - Preliminary Gram Negative Rods 11/08/22 11:26 Blood Culture - Preliminary Blood SPECIMEN COLLECTED 11/08/22 11:25 Blood Culture - Preliminary Blood SPECIMEN COLLECTED A&P Assessment and plan (1) Tracheitis: (2) Leukocytosis: (3) Acute dyspnea: (4) Acute bacterial tracheitis: (5) Antineoplastic chemotherapy induced anemia: (6) Protein calorie malnutrition: Plan Bacterial tracheitis Cover antipseudomonal anti-MRSA with IV antibiotics Plan to discharge him tomorrow if remains stable No severe leukocytosis No fever Lungs sound clear Continue tube feeds N.p.o. DVT prophylaxis on board Attestations Medical Necessity Statement*: Discharge tomorrow Diagnoses Tracheitis J04.10 Leukocytosis D72.829 Acute dyspnea R06.00 Acute bacterial tracheitis J04.10 Antineoplastic chemotherapy induced anemia D64.81; T45.1X5A Protein calorie malnutrition E46
[2022-11-09] MEDS: vancomycin 1,000 MG in sodium chloride 0.9% 250 ML 250 MG IV (12:46)
--- NOTE | 2022-11-09 14:41 | PC.NURSE ---
Discharge instructions given to patient and son. No questions at this time. Advised scripts sent to [facility]. Patient escorted to private vehicle with all belongings via wheelchair with son at side.
[2022-11-09] MEDS: trazodone 50 mg Tablet PO (20:12)
[2022-11-10] VITALS: BP 116/74; PULSE 65; RESP 17; TEMP 36.6; O2SAT 90
[2022-11-10] MEDS: aztreonam 2,000 MG in sodium chloride 0.9% (plus) 100 ML 200 MG IV (03:41)
[2022-11-10] MEDS: heparin 5,000 unit/mL INJ 1 mL 5000 UNIT SUBCUT (03:41)
[2022-11-10 03:56] VITALS: PULSE 68; RESP 20; O2SAT 97
[2022-11-10 04:00] VITALS: BP 119/59; PULSE 80; RESP 17; TEMP 36.7; O2SAT 96
[2022-11-10] MEDS: metoprolol tartrate 25 mg Tablet 12.5 MG PO (06:22)
[2022-11-10] MEDS: sertraline 50 mg Tablet 25 MG PO (06:23)
[2022-11-10] MEDS: clopidogrel 75 mg Tablet PO (06:23)
[2022-11-10] MEDS: allopurinol 300 mg Tablet PO (06:23)
[2022-11-10] MEDS: finasteride 5 mg Tablet PO (06:24)
[2022-11-10 08:00] VITALS: BP 102/60; PULSE 64; RESP 19; TEMP 35.9; O2SAT 97
[2022-11-10] MEDS: gabapentin 300 mg Capsule PO (08:08)
[2022-11-10] MEDS: sennosides-docusate Tablet 1 TAB PO (08:08)
[2022-11-10] MEDS: famotidine 20 mg Tablet PO (08:08)
--- NOTE | 2022-11-10 10:15 | PM.DCS ---
Discharge Providers Date of Admission: 11/08/22 12:21 Date of Discharge: November 10, 2022 Attending Provider at Admission: Alyssa Medrano MD Attending Provider at Discharge: Alyssa Medrano MD Primary Care Provider: Heather Hodges DO Diagnoses at Discharge Discharge Diagnosis (1) Tracheitis: Status: Acute (2) Leukocytosis: Status: Acute (3) Acute dyspnea: Status: Acute (4) Acute bacterial tracheitis: Status: Acute (5) Antineoplastic chemotherapy induced anemia: Status: Acute (6) Protein calorie malnutrition: Status: Acute Reason for Visit Reason for Visit: sob Hospital Course Hospital Course 86-year-old male who was admitted for management evaluation of copious amount of secretions from trach, he was put on antipseudomonal and anti-MRSA IV antibiotics throughout hospitalization, no fever or leukocytosis, no signs of pneumonia, his secretions significantly improved, we have taught the nursing care of trach to the family, they already know how to suction it, Dr. Ward recommended washing it and using suction for now. He seems to have colonization of bacteria, previous culture reviewed I am going to prescribe p.o. antibiotics at the time of discharge 10-day regimen. Previous cultures have revealed Klebsiella and Pseudomonas Klebsiella was sensitive to ciprofloxacin, Pseudomonas showed intermediate sensitivity to Cipro We will follow-up with final report I have not decided not to go with IV antibiotics because blood cultures are negative patient is not showing any signs of fever or sepsis Physical Exam Narrative: Awake and alert Secretions from the trach improved No new focal deficit Using tube feeds for feeding Patient gets Jevity 1.2 Abdomen soft Pleasant and cooperative Using hearing aid Currently on room air saturating 100% Discharge Data Studies Completed and Pending Completed Studies During Hospitalization Category Date Time Status XR chest 1V portable [id number] Stat Exams 11/08/22 11:05 Completed Pending at discharge Category Date Time Status Blood Culture Stat Lab 11/08/22 11:26 Results Sputum Culture and Gram Stain Stat Lab 11/08/22 11:40 Results Laboratory Results WBC 11.58 10^3/uL (3.29-11.43) H 11/09/22 05:38 RBC 2.73 10^6/uL (3.85-5.65) L 11/09/22 05:38 Hgb 8.20 g/dL (11.27-16.99) L 11/09/22 05:38 Hct 25.6 % (37-53) L 11/09/22 05:38 MCV 93.8 fl (82-101) 11/09/22 05:38 MCH 30.0 pg (27-33) 11/09/22 05:38 MCHC 32.0 g/dL (30-55) 11/09/22 05:38 RDW 15.8 % (12.1-15.1) H 11/09/22 05:38 Plt Count 164 10^3/cmm (157-399) 11/09/22 05:38 MPV 10.1 fL (7.4-10.4) 11/09/22 05:38 Neut % (Auto) 82.3 % 11/09/22 05:38 Lymph % (Auto) 5.6 % 11/09/22 05:38 Hendricks % (Auto) 9.3 % 11/09/22 05:38 Eos % (Auto) 0.4 % 11/09/22 05:38 Baso % (Auto) 0.4 % 11/09/22 05:38 Neut # (Auto) 9.52 10^3/uL (1.8-7.7) H 11/09/22 05:38 Lymph # (Auto) 0.7 10^3/uL (0.8-4.8) L 11/09/22 05:38 Hendricks # (Auto) 1.1 10^3/uL (0.2-0.9) H 11/09/22 05:38 Eos # (Auto) 0.1 10^3/uL (0.0-0.8) 11/09/22 05:38 Baso # (Auto) 0.1 10^3/uL (0.0-0.1) 11/09/22 05:38 Nucleated RBC % (auto) 0 % 11/09/22 05:38 Nucleated RBCs # 0.0 /100WBC 11/09/22 05:38 Sodium 135 mmol/L (136-145) L 11/09/22 05:38 Potassium 3.6 mmol/L (3.5-5.1) 11/09/22 05:38 Chloride 101 mmol/L (98-107) 11/09/22 05:38 Carbon Dioxide 22 mmol/L (22-29) 11/09/22 05:38 Anion Gap 15.6 (5-19) 11/09/22 05:38 BUN 33 mg/dL (8-23) H 11/09/22 05:38 Creatinine 1.4 mg/dL (0.7-1.2) H 11/09/22 05:38 GFR Calculation Not Reportable 11/09/22 05:38 Glucose 126 mg/dL (65-115) H 11/09/22 05:38 Calculated Osmolality 289 mOsm/kg (285-295) 11/09/22 05:38 Lactic Acid 2.2 mmol/L (0.5-2.2) 11/08/22 11:26 Lactic Acid (Sepsis) 1.5 mmol/L (0.5-2.2) 11/08/22 14:30 Calcium 8.7 mg/dL (8.5-10.5) 11/09/22 05:38 Phosphorus 3.2 mg/dL (2.5-4.5) 11/09/22 05:38 Magnesium 1.7 mg/dL (1.7-2.3) 11/09/22 05:38 C-Reactive Protein 25.4 mg/L (0.0-4.9) H 11/09/22 05:38 Procalcitonin 0.10 ng/mL (0-0.5) 11/08/22 11:26 Vitals Last Vital Signs Temp 96.7 F L 11/10/22 08:00 Pulse 64 11/10/22 08:00 Resp 19 H 11/10/22 08:00 BP 102/60 11/10/22 08:00 Pulse Ox 97 11/10/22 08:00 O2 Del Method Room Air 11/10/22 08:00 Discharge Plan Discharge Patient Disposition: Home Condition: Stable Prescriptions: New ciprofloxacin HCl 500 mg tablet 500 mg PO BID Qty: 10 0RF Continued trazodone 50 mg tablet 50 mg feeding tube BEDTIME triamcinolone acetonide 0.1 % cream 1 applic topical BID PRN (Reason: unknown) metoprolol tartrate 25 mg tablet 25 mg feeding tube QAM atorvastatin 20 mg tablet 20 mg feeding tube BEDTIME clopidogrel 75 mg tablet 75 mg feeding tube QAM Hold Instructions: Resume on 09/12/22. amlodipine 5 mg tablet 5 mg feeding tube QAM Rx Instructions: Please convert to liquid form for PEG use gabapentin 300 mg capsule 300 mg feeding tube TID Rx Instructions: Please convert to liquid form for PEG use allopurinol 300 mg tablet 300 mg feeding tube QAM finasteride 5 mg tablet 5 mg PO QAM Miralax 17 gram Powder In Packet 17 g PO BEDTIME metoclopramide HCl 5 mg/5 mL solution 5 mg PO Q6H PRN (Reason: Nausea And Vomiting) famotidine 20 mg tablet 20 mg PO BID melatonin 10 mg Tablet 10 mg feeding tube BEDTIME sertraline 25 mg tablet 25 mg PO QAM Discontinued doxycycline hyclate 100 mg capsule 100 mg PO BID Rx Instructions: for 7 days (rx filled 11/01/22) Discharge Orders: Discharge Order (Routine); Ordered 11/10/22 Ordered By: Alyssa Medrano Referrals: Heather Hodges DO [Primary Care Provider] - Patient Instructions: Opioid Safety Discharge Attestations Time Spent in Discharge Care*: greater than 30 min Quality Metrics Clinical Quality Measures [ No reported AMI, CVA or VTE this stay] Coding Level of Care Code Acute Code for Chg Fwd Diagnoses Tracheitis J04.10 Leukocytosis D72.829 Acute dyspnea R06.00 Acute bacterial tracheitis J04.10 Antineoplastic chemotherapy induced anemia D64.81; T45.1X5A Protein calorie malnutrition E46
[2022-11-10 11:42] VITALS: BP 108/64; PULSE 65; RESP 18; TEMP 36.6; O2SAT 96
--- NOTE | 2022-11-10 13:41 | PC.NURSE ---
Discussed discharge paperwork with family and patient. Discussed new medications, stopped medication and follow up appointments. Deactivated left chest port and peg tube feeding from continuous feeding. Verbalized understanding of all instructions. Respiratory did not go over trach cleaning due to all in one piece. Respiratory therapy stated the patient needed to see the ENT for care. Patients daughter stated appointment was made by them for TuesdayNovember 15.
--- NOTE | 2022-11-10 13:46 | PC.NURSE ---
This nurse failed to send packet home with patient. Patients daughter will be called to give appointment dates and packet will be mailed to patient.
[2022-11-10 13:48] VITALS: BP 108/64; PULSE 65; RESP 18; TEMP 36.6; O2SAT 96
== END 2022-11-10 12:12 | disposition home health service (06) | DRG 202 ==
LOC: ER 12:19 → MEDSURG 14:22
PROVIDERS: Admitting Provider Internal Medicine; Emergency Provider Family Medicine; PCP Family Medicine; Visit Provider Internal Medicine
DX: J04.10 Acute tracheitis without obstruction (principal); C77.8 Secondary and unspecified malignant neoplasm of lymph nodes of multiple regions; E46 Unspecified protein-calorie malnutrition; R06.00 Dyspnea, unspecified; Z87.891 Personal history of nicotine dependence; Z68.20 Body mass index [BMI] 20.0-20.9, adult; I10 Essential (primary) hypertension; G62.9 Polyneuropathy, unspecified; Z79.02 Long term (current) use of antithrombotics/antiplatelets; B96.5 Pseudomonas (aeruginosa) (mallei) (pseudomallei) as the cause of diseases classified elsewhere
CPT/HCPCS: 36415; 70491; 71045; 80048; 80053; 83605; 83735; 84100; 84145; 85025; 86140; 87040; 87070; 87077; 87186; 87205; 93005; 96365; 96367; 96372; 99214; 99285; J1644; J1956; J3370; J3490; J7050; Q9967

== ENCOUNTER 2022-11-18 11:00 | Oncology outpatient (recurring) (ONCR) | payer MEDICARE, OTHER, SELFPAY ==
[2022-11-17 08:21] VITALS: BMI 22.4
[2022-11-17 08:22] VITALS: BP 88/44; PULSE 66; RESP 17; TEMP 36.8; O2SAT 98
[2022-11-17 08:38] LABS: Basophils % 0.2 %; Eosinophils # 0.4 10^3/uL (0.0-0.8); Eosinophils % 4.3 %; Hematocrit 26.3 % (37-53); Lymphocytes # 0.7 10^3/uL (0.8-4.8); Lymphocytes % 7.2 %; Mean Corpuscular HGB Conc 33.1 g/dL (30-55); Mean Corpuscular Hemoglobin 30.6 pg (27-33); Mean Corpuscular Volume 92.6 fl (82-101); Mean Platelet Volume 10.4 fL (7.4-10.4); Monocytes # 0.9 10^3/uL (0.2-0.9); Monocytes % 9.7 %; Neutrophils # 7.28 10^3/uL (1.8-7.7); Neutrophils % 77.5 %; Nucleated Red Blood Cells % 0 %; Platelet Count 169 10^3/cmm (157-399); Red Blood Count 2.84 10^6/uL (3.85-5.65); Red Cell Distribution Width 17.9 % (12.1-15.1); White Blood Count 9.39 10^3/uL (3.29-11.43)
[2022-11-17 08:55] LABS: Alanine Aminotransferase 29 U/L (0-41); Albumin Level 3.5 g/dL (3.5-5.2); Alkaline Phosphatase 86 U/L (40-130); Aspartate Amino Transferase 27 U/L (0-40); Blood Urea Nitrogen 34 mg/dL (8-23); Calcium 8.6 mg/dL (8.5-10.5); Carbon Dioxide 24 mmol/L (22-29); Chloride 100 mmol/L (98-107); Creatinine Clr Calc Pharmacy 47.0769; Globulin 2.9 g/dL (1.3-4.6); Glucose 96 mg/dL (65-115); Magnesium 2.1 mg/dL (1.7-2.3); Osmolality Calculated 287 mOsm/kg (285-295); Sodium 135 mmol/L (136-145); Total Bilirubin 0.3 mg/dL (0.15-1.2); Total Protein 6.4 g/dL (6.6-8.7)
== END 2022-11-20 23:59 | disposition home or self-care (01) ==
PROVIDERS: Internal Medicine Medical Oncology; PCP Family Medicine; Visit Provider Internal Medicine Medical Oncology
DX: Z45.2 Encounter for adjustment and management of vascular access device (principal)
CPT/HCPCS: 80053; 83735; 85025; 99214; J1642

== ENCOUNTER 2022-11-24 14:50 | Emergency (ER) | payer MEDICARE, OTHER, SELFPAY ==
[2022-11-24 15:00] VITALS: BP 124/58; PULSE 68; RESP 18; TEMP 36.4; O2SAT 100; BMI 22.8
--- NOTE | 2022-11-24 15:03 | CTR_ITS ---
PROCEDURE INFORMATION: Exam: CT Head Without Contrast Exam date and time: 11/24/2022 3:39 PM Age: 87 years old Clinical indication: Altered mental status/memory loss TECHNIQUE: Imaging protocol: Computed tomography of the head without contrast. Radiation optimization: All CT scans at this facility use at least one of these dose optimization techniques: automated exposure control; mA and/or kV adjustment per patient size (includes targeted exams where dose is matched to clinical indication); or iterative reconstruction. REPORTING DATA: Count of CT and Cardiac NM exams in prior 12 months: This patient has received 5 known CTs and 0 known cardiac nuclear medicine studies in the 12 months prior to the current study. COMPARISON: CT angio headneck* [id number] 10/02/2022 9:54 AM RADIATION DOSE METRICS: Total DLP (mGy-cm): 1138 FINDINGS: Brain: Remote ischemic lesion right cerebellar hemisphere. Moderate parenchymal volume loss. Moderate bilateral periventricular and subcortical white matter hypodensities are present compatible with small-vessel ischemic disease. No midline shift. No mass, acute infarct, hemorrhage, or extra-axial fluid collection. Cerebral ventricles: No ventriculomegaly. Paranasal sinuses: Air-fluid level left maxillary antrum. Minor mucosal thickening in bilateral anterior ethmoids and right frontal sinus. Mastoid air cells: Visualized mastoid air cells are well aerated. Bones/joints: Unremarkable. No acute fracture. Soft tissues: Unremarkable. CT/CT head wo con* [id number] IMPRESSION: No acute intracranial abnormality.
--- NOTE | 2022-11-24 15:03 | ECG_ITS ---
[facility] Test Date: 2022-11-24 Pat Name: Jose Mcdonnell Department: Room: Gender: Male [employer]: : 1935 Requested By: Delano Padilla Order Number: [id number] Alejandra MD: Abisai Saldana M.D. Measurements Intervals [place] Rate: 68 P: 64 WV: 270 QRS: 8 QRSD: 122 T: 79 QT: 427 QTc: 457 Interpretive Statements SINUS RHYTHM WITH FIRST DEGREE AV BLOCK POSSIBLE RIGHT VENTRICULAR CONDUCTION DELAY [RSR (QR) IN V1/V2] INFERIOR MYOCARDIAL INFARCTION , PROBABLY OLD [40+ ms Q WAVE AND/OR ST/T ABNORMALITY IN II/aVF] Compared to ECG 11/08/2022 10:31:04 No significant changes Electronically Signed On 11-24-2022 16:34:28 CDT by Abisai Saldana M.D. [email or web address]
--- NOTE | 2022-11-24 15:03 | XR_ITS ---
WS: [id number] EXAMINATION: XR chest 1V portable [id number] REASON FOR EXAM: ams COMPARISON: 11/08/2022 ORDER DATE: 11/24/2022 3:08 PM TECHNIQUE: A single, portable frontal chest x-ray was obtained. X-RAY FINDINGS: Tracheostomy remains in place unchanged compared to 10/28/2022. Left chest chemotherapy infusion port and left subclavian vein catheter are intact and remain in the same position as previous. Previous aortocoronary artery bypass surgery. Calcification and mild tortuosity of the thoracic aorta without aneurysmal dilatation. No significant cardiac enlargement. Calcified granulomas disease bilaterally. No acute pulmonary parenchymal or pleural abnormality. Chronic reticular interstitial densities in the left lower lung. Moderate degenerative spondylosis in the mid and lower thoracic spine. IMPRESSION: Stable abnormal chest without acute abnormality.
[2022-11-24 15:45] LABS: INR 1.08 (0.8-1.2)
[2022-11-24 15:51] LABS: Phosphorus 1.2 mg/dL (2.5-4.5); Uric Acid 3.3 mg/dL (3.4-7.0)
--- NOTE | 2022-11-24 16:01 | W.ED.AMS ---
HPI - Altered Mental Status General: Chief Complaint: Altered Mental Status Stated Complaint: ams Time Seen by Provider: 11/24/22 15:02 History of Present Illness: Patient was brought over from oncology for altered mental status/auditory visual hallucinations. He was over there to start radiation therapy today they did draw some lab work and a urine sample. All of which was essentially benign so they sent him over here for further evaluation and treatment. Patient's daughter states the patient has been seeing things such as mice and rats running across the room and has also stated that he saw her catch 1 whole 1 in her hand. Patient's daughter states there are no mice and she definitely would not catch 1. They states he has been doing this off and on for the last couple days. Otherwise no complaints. Review of Systems General: Reports: 10 or more systems reviewed and unremarkable except in HPI and below PFSH ED PFSH: Medical History AAA (abdominal aortic aneurysm) Acute bacterial tracheitis Acute dyspnea Antineoplastic chemotherapy induced anemia ASHD (arteriosclerotic heart disease) BPH loc w urin obs/LUTS Chronic prostatitis CVA (cerebral vascular accident) DJD (degenerative joint disease), lumbar Elevated PSA Essential hypertension Gout Hyperlipidemia Leukocytosis Myocardial infarction Palpitations Peripheral neuropathy Protein calorie malnutrition Secondary malignancy of lymph nodes of head, face and neck Tobacco abuse, in remission Tracheitis Surgical History History of laryngoscopy (07/05/22) tracheotomy and 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) Status post insertion of percutaneous endoscopic gastrostomy (PEG) tube (07/10/22) Family History Other CAD (coronary artery disease) Cancer Hypertension Social History Smoking and tobacco status: former smoker Quit status (tobacco): has quit using tobacco Year quit tobacco: 2001 Former quit date comment: smoked x 50+ years Alcohol intake: never Substance/Drug Use: never Household members: spouse Marital status: service: No Current occupational status: retired Previous occupational history: [employer] X 27 YEARS Current gender identity: Male Radha/Jain: Sikhism Physical Exam Const: COMMON NORMALS: no acute distress, average body habitus, patient oriented x3, no limitations, healthy appearing, alert and well nourished HENMT: COMMON NORMALS: normocephalic, atraumatic, hearing grossly normal bilaterally, external ears normal, Normal external nose present and moist oral mucous membranes HEAD & SCALP: normocephalic and atraumatic NOSE: Normal external nose present EXTERNAL EAR: Yes external ears normal Eye: COMMON NORMALS: Equal, round and reactive pupils present, EOMs intact bilaterally, conjunctivae normal and no scleral icterus CONJUNCTIVA: Yes conjunctivae normal PUPIL: Yes Equal, round and reactive pupils present Neck/C-Spine: COMMON NORMALS: no JVD OTHER: Trach in place Chest: COMMONS NORMALS: normal inspection of the chest and normal palpation of entire chest wall Resp: COMMON NORMALS: normal respiratory effort, No retractions, No use of accessory muscles and clear to auscultation bilaterally AUSCULTATION: clear to auscultation bilaterally Cardio: COMMON NORMALS: no JVD, regular rate, regular rhythm, S1 normal heart sound present, S2 normal heart sound present, No gallops present (Cardio), No clicks present (Cardio), No murmurs present (Cardio) and No rub (Cardio) RATE: regular rate RHYTHM: regular rhythm HEART SOUNDS: S1 normal heart sound present and S2 normal heart sound present GI: COMMON NORMALS: Normal to inspection, nondistended, normoactive bowel sounds present, Soft to palpation, non-tender, No hepatosplenomegaly present, no masses and no bruits PALPATION: Yes Soft to palpation and Yes No hepatosplenomegaly present : COMMON NORMALS: Yes no CVA tenderness BLADDER/KIDNEY EXAM: Yes no CVA tenderness Back/Pelvis: COMMON NORMALS: no CVA tenderness Neuro: COMMON NORMALS: patient oriented x3 SENSORIUM/ORIENTATION: Yes alert Course Vital Signs: Vital signs: Vital Signs Temperature 97.5 F L 11/24/22 15:00 Pulse Rate 80 11/24/22 16:17 Respiratory Rate 18 11/24/22 15:00 Blood Pressure 170/83 11/24/22 16:17 Pulse Oximetry 91 11/24/22 16:17 Oxygen Delivery Me thod Room Air 11/24/22 16:17 MDM - Altered Mental Status Medical Decision Making Patient was brought over from oncology for altered mental status. They performed a CBC CMP and urinalysis over there all of which were essentially benign for the patient and did not explain his hallucinations. Head CT, chest x-ray, PT/INR, lactic acid, procalcitonin, uric acid, magnesium, phosphorus was performed in the ER. On review of our lab work her head CT and chest x-ray read by the radiologist which are of have all been benign we do not have any reason for the visual hallucinations. This was explained to the patient and his family. Patient will be instructed to follow-up with his PCP and/or oncology for possible for further testing. Patient be discharged from the ER. Differential Diagnosis Unlikely alcoholic intoxication, altered mental status, delirium, dementia, hypoglycemia, hyponatremia, subarachnoid hemorrhage or sepsis Medical Records I reviewed the patient's medical records. Lab Data I reviewed the patient's lab results. Radiology Impressions Head CT 11/24/22 15:03 IMPRESSION: No acute intracranial abnormality. Laboratory Results PT 14.40 SECONDS (12.1-14.9) 11/24/22 15:26 INR 1.08 (0.8-1.2) 11/24/22 15:26 Lactic Acid 2.0 mmol/L (0.5-2.2) 11/24/22 15:26 Uric Acid 3.3 mg/dL (3.4-7.0) L 11/24/22 15:26 Phosphorus 1.2 mg/dL (2.5-4.5) L 11/24/22 15:26 Magnesium 2.0 mg/dL (1.7-2.3) 11/24/22 15:26 Procalcitonin 0.10 ng/mL (0-0.5) 11/24/22 15:26 All radiology interpretation(s) finalized by discharge EKG Data EKG 1: I personally reviewed and interpreted this EKG as follows: EKG interpretation date: 11/24/22 EKG interpretation time: 15:25 Prior EKG tracings: not available for review Interpretation: EKG shows ventricular rate 68 beats a minute, WI interval 270, QRS duration 122, QTc of 445, sinus rhythm with first-degree AV block, Discharge Plan Discharge Patient Disposition: Home Clinical Impression: Hallucinations, visual Condition: Stable Prescriptions: No Action trazodone 50 mg tablet 50 mg feeding tube BEDTIME triamcinolone acetonide 0.1 % cream 1 applic topical BID PRN (Reason: unknown) metoprolol tartrate 25 mg tablet 25 mg feeding tube QAM atorvastatin 20 mg tablet 20 mg feeding tube BEDTIME clopidogrel 75 mg tablet 75 mg feeding tube QAM Hold Instructions: Resume on 09/12/22. amlodipine 5 mg tablet 2.5 mg feeding tube QAM Rx Instructions: Please convert to liquid form for PEG use gabapentin 300 mg capsule 300 mg feeding tube TID Rx Instructions: Please convert to liquid form for PEG use allopurinol 300 mg tablet 300 mg feeding tube QAM finasteride 5 mg tablet 5 mg PO QAM polyethylene glycol 3350 [Miralax] 17 gram Powder In Packet 17 g PO BEDTIME metoclopramide HCl 5 mg/5 mL solution 5 mg PO Q6H PRN (Reason: Nausea And Vomiting) famotidine 20 mg tablet 20 mg PO BID melatonin 10 mg Tablet 10 mg feeding tube BEDTIME sertraline 25 mg tablet 25 mg PO QAM ondansetron HCl 4 mg Tablet 4 mg PO QID PRN (Reason: Nausea/vomiting) Qty: 30 3RF prochlorperazine maleate [Compazine] 10 mg tablet 10 mg PO Q4H PRN (Reason: Mild Nausea) Qty: 30 3RF lorazepam 1 mg tablet 0.5 - 1 mg PO Q6H PRN (Reason: Severe Nausea) Qty: 30 3RF Discharge Orders: Discharge ED (Routine); Ordered 11/24/22 Ordered By: Delano Padilla Referrals: Heather Hodges DO [Primary Care Provider] - 1 week Patient Instructions: Hallucinations (ED) Activity Restrictions/Additional Instructions: Please follow-up with your family practice physician and/or oncologist for further evaluation testing of your hallucinations. If these worsen or anything changes please feel free to return to the ER. Coding Level of Care Code ED Account Installer for Mayra Cote
[2022-11-24 16:17] VITALS: BP 170/83; PULSE 80; O2SAT 91
--- NOTE | 2022-11-24 17:22 | PC.NURSE ---
pt arrived to ED sent from over from Oncology for AMS. Pt arrives with chest port already accessed. pt states he has a follow up apt with oncology tomorrow. Port remained accessed with tegaderm still clean, dry and intact with no signs of redness or irritation noted.
== END 2022-11-24 17:25 | disposition home or self-care (01) ==
PROVIDERS: Emergency Provider Emergency Medicine; PCP Family Medicine
DX: R44.1 Visual hallucinations (principal); Z79.02 Long term (current) use of antithrombotics/antiplatelets; Z87.891 Personal history of nicotine dependence; Z86.73 Personal history of transient ischemic attack (TIA), and cerebral infarction without residual deficits; Z92.21 Personal history of antineoplastic chemotherapy; I10 Essential (primary) hypertension; E78.5 Hyperlipidemia, unspecified; I25.2 Old myocardial infarction; Z95.1 Presence of aortocoronary bypass graft
CPT/HCPCS: 36415; 70450; 71045; 83605; 83735; 84100; 84145; 84550; 85610; 93005; 99214; 99285

== ENCOUNTER 2022-12-02 10:58 | Oncology outpatient (recurring) (ONCR) | payer MEDICARE, OTHER, SELFPAY ==
[2022-11-24 10:04] VITALS: BP 95/58; PULSE 66; RESP 16; TEMP 36.7; O2SAT 96
[2022-11-24 10:23] LABS: Basophils % 0.4 %; Eosinophils # 0.2 10^3/uL (0.0-0.8); Eosinophils % 2.4 %; Hematocrit 25.8 % (37-53); Lymphocytes # 0.6 10^3/uL (0.8-4.8); Lymphocytes % 8.2 %; Mean Corpuscular HGB Conc 33.7 g/dL (30-55); Mean Corpuscular Hemoglobin 31.2 pg (27-33); Mean Corpuscular Volume 92.5 fl (82-101); Mean Platelet Volume 11.2 fL (7.4-10.4); Monocytes # 0.6 10^3/uL (0.2-0.9); Monocytes % 8.2 %; Neutrophils # 5.79 10^3/uL (1.8-7.7); Neutrophils % 80.5 %; Nucleated Red Blood Cells % 0 %; Platelet Count 129 10^3/cmm (157-399); Red Blood Count 2.79 10^6/uL (3.85-5.65); Red Cell Distribution Width 18.1 % (12.1-15.1); White Blood Count 7.19 10^3/uL (3.29-11.43)
[2022-11-24 10:39] LABS: Alanine Aminotransferase 26 U/L (0-41); Albumin Level 3.7 g/dL (3.5-5.2); Alkaline Phosphatase 84 U/L (40-130); Anion Gap 12.6 (5-19); Aspartate Amino Transferase 25 U/L (0-40); Blood Urea Nitrogen 30 mg/dL (8-23); Calcium 8.8 mg/dL (8.5-10.5); Carbon Dioxide 24 mmol/L (22-29); Chloride 101 mmol/L (98-107); Globulin 2.4 g/dL (1.3-4.6); Glucose 98 mg/dL (65-115); Osmolality Calculated 284 mOsm/kg (285-295); Potassium 3.6 mmol/L (3.5-5.1); Sodium 134 mmol/L (136-145); Total Bilirubin 0.4 mg/dL (0.15-1.2); Total Protein 6.1 g/dL (6.6-8.7)
[2022-11-24] MEDS: sodium chloride 0.9% 250 ML 75 ML IV (11:25)
[2022-11-24] MEDS: ondansetron 2 mg/ML SDV 2 mL 8 MG IVP (11:29)
[2022-11-24 14:14] LABS: Add Urine Microscopic? NO; Charge for UA Resulting for Rev
[2022-11-24 14:22] LABS: Bilirubin Urine Neg (Negative); Blood Urine Neg (Negative); Glucose Urine UA Norm (Normal); Ketones Urine Negative (Negative); Leukocyte Esterase Urine Negative (Negative); Nitrate Urine Negative (Negative); Protein Urine Neg (Negative); Specific Gravity, Urine 1.015 (1.005-1.030); Urine Appearance Clear (CLEAR); Urine Color Yellow (Yellow); Urobilinogen Urine Norm (Negative); pH Urine 7 (5-7)
--- NOTE | 2022-11-24 15:04 | PC.NURSE ---
Pt scheduled today for new start Carboplatin. Pt arrived to infusion suite for treatment with daughter present. Daughter stated that patient was displaying altered mental status and seeing people that were not there since , 11/18/22. This nurse notified Destiny Verde APRN regarding this and a urinalysis was ordered at 1200. Destiny Verde reviewed urinalysis findings with Dr. Cerda and decision was made to take patient to ER. Patient was taken to ER today at 1445.
[2022-11-25 13:30] VITALS: BP 102/56; PULSE 75; RESP 20; TEMP 36.1; O2SAT 95
--- NOTE | 2022-11-30 12:26 | ONCRAD TMN_ITS ---
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 ID: [id number], Energy: 6X, Dose/Fx (cGy): 200, #Fx: 5 / 35, Dose Correction (cGy): 0, Total Dose (cGy): 1,000, Start Date: 11/24/2022, Elapsed Days: 6 Reason for visit: The patient is being seen today as part of their regularly scheduled weekly on treatment visits to assess for acute toxicities from radiotherapy. Review of Systems: He continues to have a trach in which is bothersome and limits his swallowing. PEG tube feedings at night are disrupted when he disconnects the tube and it then leaks in the bed. Vital Signs: Performed on 11/30/2022 11:12 AM BMI - 21.5 kg/m2, Height - 68 in, Weight - 141.4 lbs, Temperature - 96.5 f, Pulse - 62 /min, Respiration - 16 /min, O2 Sat - 98 %, Pain - 0, Fatigue - 0 and BP - 107/ 53 mm(hg)(/low). Physical Exam: Imaging: Radiation therapy imaging related to accurate target localization (i.e. KV, MV and CBCT) was reviewed. Appropriate changes, if any, were made to ensure treatment accuracy. Plan: Continue treatment. See ENT for early trach tube removal. Encouraged PEG feeding during the day only. Signed by: Artie Gordon 11/30/2022 12:25:24 PM Telemedicine Consent Patient seen today via Telemedicine by agreement and consent of patient. Telemedicine technology used during the visit include audio and, as available, review of images. This patient encounter is appropriate and reasonable under the circumstances given the patient???s particular presentation at this time. The patient has been advised of the potential risks and limitations of this mode of treatment (including but not limited to the absence of in-person examination) and has agreed to be treated in a remote fashion in spite of them. Any and all of the patient???s/patient???s family???s questions on this issue have been answered and I have made no promises or guarantees to the patient. The patient has also been advised to contact this office for worsening conditions or problems, and seek emergency medical treatment and/or call 911 if the patient deems either necessary.
[2022-12-01 09:30] VITALS: BP 89/52; PULSE 71; RESP 18; TEMP 36.5; O2SAT 97; BMI 21.7
[2022-12-01 09:56] LABS: Basophils % 0.3 %; Eosinophils # 0.1 10^3/uL (0.0-0.8); Eosinophils % 2.2 %; Hematocrit 28.1 % (37-53); Lymphocytes # 0.4 10^3/uL (0.8-4.8); Lymphocytes % 11.3 %; Mean Corpuscular HGB Conc 33.5 g/dL (30-55); Mean Corpuscular Hemoglobin 31.4 pg (27-33); Mean Platelet Volume 10.4 fL (7.4-10.4); Monocytes # 0.3 10^3/uL (0.2-0.9); Monocytes % 8.3 %; Neutrophils # 2.89 10^3/uL (1.8-7.7); Neutrophils % 77.6 %; Nucleated Red Blood Cells % 0 %; Platelet Count 92 10^3/cmm (157-399); Red Blood Count 2.99 10^6/uL (3.85-5.65); Red Cell Distribution Width 16.9 % (12.1-15.1); White Blood Count 3.72 10^3/uL (3.29-11.43)
[2022-12-01 10:17] LABS: Alanine Aminotransferase 21 U/L (0-41); Albumin Level 3.9 g/dL (3.5-5.2); Alkaline Phosphatase 91 U/L (40-130); Anion Gap 13.4 (5-19); Aspartate Amino Transferase 22 U/L (0-40); Blood Urea Nitrogen 24 mg/dL (8-23); Calcium 9.1 mg/dL (8.5-10.5); Carbon Dioxide 23 mmol/L (22-29); Chloride 103 mmol/L (98-107); Globulin 2.5 g/dL (1.3-4.6); Glucose 108 mg/dL (65-115); Osmolality Calculated 287 mOsm/kg (285-295); Potassium 3.4 mmol/L (3.5-5.1); Sodium 136 mmol/L (136-145); Total Bilirubin 0.6 mg/dL (0.15-1.2); Total Protein 6.4 g/dL (6.6-8.7)
== END 2022-12-02 23:59 | disposition home or self-care (01) ==
PROVIDERS: Internal Medicine Medical Oncology; Nurse Practitioner Family; PCP Family Medicine; Visit Provider Radiology Radiation Oncology
DX: Z51.0 Encounter for antineoplastic radiation therapy (principal); C13.2 Malignant neoplasm of posterior wall of hypopharynx
CPT/HCPCS: 77300; 77301; 77334; 77336; 77338; 77386; 80053; 81003; 85025; 99214; J1100; J1642; J2405; J7050

== ENCOUNTER 2022-12-21 10:58 | Oncology outpatient (recurring) (ONCR) | payer MEDICARE, OTHER, SELFPAY ==
--- NOTE | 2022-12-08 13:35 | ONCRAD TMN_ITS ---
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 ID: [id number], Energy: 6X, Dose/Fx (cGy): 200, #Fx: , Dose Correction (cGy): 0, Total Dose (cGy): 2,000, Start Date: 11/24/2022, Elapsed Days: 13 Reason for visit: The patient is being seen today as part of their regularly scheduled weekly on treatment visits to assess for acute toxicities from radiotherapy. Review of Systems: He was congested . Began breathing treatments which thinned his mucous secretions. Overnight PEG are difficult All food is via PEG he swallows his own saliva. Otherwise not eating. He was seen by ENT who want to keep trach in as it is too dangerous to remove. Vital Signs: Performed on 12/07/2022 11:06 AM BMI - 21.774 kg/m2, Height - 68 in, Weight - 143.2 lbs, Temperature - 96.9 f, Pulse - 65 /min, Respiration - 18 /min, O2 Sat - 96 %, Pain - 0, Fatigue - 0 and BP - 123/ 77 mm(hg). Physical Exam: Imaging: Radiation therapy imaging related to accurate target localization (i.e. KV, MV and CBCT) was reviewed. Appropriate changes, if any, were made to ensure treatment accuracy. Plan: Good tolerance of treatment. Will continue as planned. Need to see dietitian for PEG tube management and possible changes of feeding schedule. Needs speech path to assess for swallowing function. Signed by: Artie Gordon 12/08/2022 1:34:19 PM Telemedicine Consent Patient seen today via Telemedicine by agreement and consent of patient. Telemedicine technology used during the visit include audio and, as available, review of images. This patient encounter is appropriate and reasonable under the circumstances given the patient???s particular presentation at this time. The patient has been advised of the potential risks and limitations of this mode of treatment (including but not limited to the absence of in-person examination) and has agreed to be treated in a remote fashion in spite of them. Any and all of the patient???s/patient???s family???s questions on this issue have been answered and I have made no promises or guarantees to the patient. The patient has also been advised to contact this office for worsening conditions or problems, and seek emergency medical treatment and/or call 911 if the patient deems either necessary.
--- NOTE | 2022-12-14 11:39 | ONCRAD TMN_ITS ---
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 ID: [id number], Energy: 6X, Dose/Fx (cGy): 200, #Fx: 15 35, Dose Correction (cGy): 0, Total Dose (cGy): 3,000, Start Date: 11/24/2022, Elapsed Days: 20 Reason for visit: The patient is being seen today as part of their regularly scheduled weekly on treatment visits to assess for acute toxicities from radiotherapy. Review of Systems: Patient is present today with his daughter. He had some chest congestion last night and did not sleep well. He was taking an antibiotic prescribed by Dr. Hernandez and experienced a rash. The antibiotic was switched and he is taking Benadryl and applying cream to his arms. His weight is stable today. His daughter is monitoring his tracheostomy and notes an area of redness. She uses 4 x 4's in the area. Vital Signs: Performed on 12/14/2022 10:52 AM BMI - 21.743 kg/m2, Height - 68 in, Weight - 143.0 lbs, Temperature - 97.3 f, Pulse - 67 /min, Respiration - 16 /min, O2 Sat - 96 %, Pain - 0, Fatigue - 0 and BP - 98/ 59 mm(hg)(/low). Physical Exam: Alert and oriented male who is extremely hard of hearing. (He did not bring either hearing aid today). Tracheostomy intact. Skin in the area is mildly erythematous with no dry or moist desquamation. Small petechia are present on the forearms bilaterally. The lesions are flat with no sign of bleeding or infection. Feeding tube is intact. Patient ambulatory by wheelchair. Imaging: Radiation therapy imaging related to accurate target localization (i.e. KV, MV and CBCT) was reviewed. Appropriate changes, if any, were made to ensure treatment accuracy. Plan: Continue prescribed treatment. Signed by: Gamal Tena 12/14/2022 11:38:55 AM
--- NOTE | 2022-12-21 11:54 | ONCRAD TMN_ITS ---
Radiation Oncology Weekly Treatment Management Patient: Sathya Olivia MR#: [id number] : 1935> Attending Physician: Dr. 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 ID: [id number], Energy: 6X, Dose/Fx (cGy): 200, #Fx: 20 / 35, Dose Correction (cGy): 0, Total Dose (cGy): 4,000, Start Date: 11/24/2022, Elapsed Days: 27 Reason for visit: The patient is being seen today as part of their regularly scheduled weekly on treatment visits to assess for acute toxicities from radiotherapy. Review of Systems: Patient is having some difficulty with choking ever since he had his trach placed. His daughter says that when he tries to swallow pudding she finds that the pudding will come out through his trach. She says she is let the ear nose and throat physician know. He does have a speech therapy consultation pending as well as dietitian. Vital Signs: Performed on 12/21/2022 11:09 AM BMI - 21.986 kg/m2, Height - 68 in, Weight - 144.6 lbs, Temperature - 96.6 f, Pulse - 65 /min, Respiration - 18 /min, O2 Sat - 92 % (low), Pain - 0, Fatigue - 0 and BP - 111/ 58 mm(hg)(/low). Physical Exam: Examination of his skin does not reveal any areas of erythema or dryness. The area around the tragus is mildly erythematous Imaging: Radiation therapy imaging related to accurate target localization (i.e. KV, MV and CBCT) was reviewed. Appropriate changes, if any, were made to ensure treatment accuracy. Plan: At this point we will continue with his treatments as planned. We will have speech therapy take a look at his swallowing. In the interim he will continue to use his feeding tube. We will otherwise continue with his treatments this plan Signed by: Dr. Radha Flanagan 12/21/2022 11:53:44 AM
== END 2022-12-21 23:59 | disposition home or self-care (01) ==
PROVIDERS: PCP Family Medicine; Visit Provider Radiology Radiation Oncology
DX: C13.2 Malignant neoplasm of posterior wall of hypopharynx (principal); Z51.0 Encounter for antineoplastic radiation therapy; Z95.828 Presence of other vascular implants and grafts
CPT/HCPCS: 77336; 77386; 99024; J1642

== ENCOUNTER 2023-01-05 10:02 | Outpatient (RCR) | payer MEDICARE, OTHER, SELFPAY | END 2023-01-20 23:59 | disposition home or self-care (01) | LOC: SST 10:02 | PROVIDERS: PCP Family Medicine; Visit Provider Radiology Radiation Oncology | DX: R13.10 Dysphagia, unspecified (principal) | CPT/HCPCS: 92526; 92610; 99024 ==

== ENCOUNTER 2023-01-10 10:27 | Oncology outpatient (recurring) (ONCR) | payer MEDICARE, OTHER, SELFPAY ==
--- NOTE | 2022-12-28 11:40 | ONCRAD TMN_ITS ---
Radiation Oncology Weekly Treatment Management Patient: Sathya Garcia MR#: [id number] : 1935 Attending Physician: Dr. Radha Flanagan Date of Service: 12/28/2022 Fractions: 25 out of 35 Chief complaint: His sister who has been taking excellent care of him have noticed today that when she cleaned his trach and he coughed up phlegm it was a fluorescent green. He had been previously on doxycycline as he had reacted to Levaquin. He has not been running any fever that she is aware of. He is down 3 pounds from last week. She did start his breathing treatments again. He has not let her put lotion on his skin and is becoming slightly erythematous mostly around the trach. He does have his speech therapy appointment tomorrow to assess why he has food that he swallows come out around his trach. 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 ID: [id number], Energy: 6X, Dose/Fx (cGy): 200, #Fx: 25 / 35, Dose Correction (cGy): 0, Total Dose (cGy): 5,000, Start Date: 11/24/2022, Elapsed Days: 34 Reason for visit: The patient is being seen today as part of their regularly scheduled weekly on treatment visits to assess for acute toxicities from radiotherapy. Review of Systems: As above Vital Signs: Performed on 12/28/2022 10:54 AM BMI - 21.561 kg/m2, Height - 68 in, Weight - 141.8 lbs, Temperature - 96.8 f, Pulse - 65 /min, Respiration - 16 /min, O2 Sat - 98 %, Pain - 0, Fatigue - 0 and BP - 97/ 54 mm(hg)(/low). Physical Exam: Examination of the skin reveals it to be mostly erythematous right around the trach. It is just mildly so. He has no moist or dry desquamation noted. She did bring sample of the sputum and and it was green. Imaging: Radiation therapy imaging related to accurate target localization (i.e. KV, MV and CBCT) was reviewed. Appropriate changes, if any, were made to ensure treatment accuracy. Plan: At this point we will continue with his treatments as planned. I will go ahead and send the doxycycline refill to his pharmacy. We will await speech therapy's recommendations for his trach. Signed by: Dr. Radha Flanagan 12/28/2022 11:38:57 AM
--- NOTE | 2023-01-05 14:29 | ONCRAD TMN_ITS ---
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 ID: [id number], Energy: 6X, Dose/Fx (cGy): 200, #Fx: 30 / 35, Dose Correction (cGy): 0, Total Dose (cGy): 6,000, Start Date: 11/24/2022Elapsed Days: 40 Reason for visit: The patient is being seen today as part of their regularly scheduled weekly on treatment visits to assess for acute toxicities from radiotherapy. Review of Systems: Overall doing better. All food via PG. Swallowing oral ice chips. Now with cap over trach which facilitates speech. Uisng Neosporin over PEG exit site and Aquaphor over neck regions. He as dietitian assisting in eating strategies and speech path for swallowing assistance. Vital Signs: Performed on 01/05/2023 11:02 AM BMI - 21.743 kg/m2, Height - 68 in, Weight - 143 lbs, Temperature - 97.7 f, Pulse - 69 /min, Respiration - 16 /min, O2 Sat - 98 %, Pain - 0, Fatigue - 5 and BP - 104/ 60 mm(hg)(/low). Physical Exam: Bilateral neck erythema. No desquamation. Minimal erythema and DC around PEG tube exit site. Imaging: Radiation therapy imaging related to accurate target localization (i.e. KV, MV and CBCT) was reviewed. Appropriate changes, if any, were made to ensure treatment accuracy. Plan: Good tolerance of treatment. Continue as planned. Signed by: Artie Gordon 01/05/2023 2:28:09 PM
== END 2023-01-10 23:59 | disposition home or self-care (01) ==
PROVIDERS: PCP Family Medicine; Visit Provider Specialist
DX: C13.2 Malignant neoplasm of posterior wall of hypopharynx (principal); Z51.0 Encounter for antineoplastic radiation therapy; Z95.828 Presence of other vascular implants and grafts; Z93.0 Tracheostomy status; Z79.2 Long term (current) use of antibiotics; H91.93 Unspecified hearing loss, bilateral; Z45.2 Encounter for adjustment and management of vascular access device
CPT/HCPCS: 77014; 77336; 77386; 77417; 99024

== ENCOUNTER 2023-01-12 10:54 | Oncology outpatient (recurring) (ONCR) | payer MEDICARE, OTHER, SELFPAY ==
--- NOTE | 2023-01-11 12:02 | ONCRAD TMN_ITS ---
Radiation Oncology Weekly Treatment Management Patient: Corwin Mcdonnell MR#: [id number] : 1935> Attending Physician: Renaldo Tellez Date of Service: 01/11/2023 Referring Physician(s) : Dr. 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 ID: [id number], Energy: 6X, Dose/Fx (cGy): 200, #Fx: 34 / 35, Dose Correction (cGy): 0, Total Dose (cGy): 6,800, Start Date: 11/24/2022, Elapsed Days: 48 Reason for visit: The patient is being seen today as part of his regularly scheduled weekly on treatment visits to assess for acute toxicities from radiotherapy. Review of Systems: Mr. Mcdonnell has 1 treatment ago. He received neoadjuvant chemotherapy with an excellent response and has undergone radiation without concomitant systemic therapy. His trach tube is functioning well. He has moderate phlegm and sputum production that is grayish and white. No purulent sputum. He has good speech. He is not swallowing anything but ice chips. His daughter asked about advancing to clear liquids such as Jell-O. They are not seeing speech therapy until Tuesday of next week and so I recommended that they very cautiously try some clear liquids in small amounts. The tube feedings are going okay. He is getting 5 containers of Jevity per day. No complications with the feeding tube. He has no skin problems or complaints. They can continue to apply triple antibiotic ointment around the feeding tube puncture site. He is seeing Dr. Vega in a few days to see if his trach tube can be removed. Vital Signs: Performed on 01/11/2023 11:25 AM BMI - 21.895 kg/m2, Height - 68 in, Weight - 144.0 lbs, Temperature - 97.2 f, Pulse - 75 /min, Respiration - 16 /min, O2 Sat - 95 % (low), Pain - 0, Fatigue - 6 and BP - 112/ 62 mm(hg)(/low). Physical Exam: Alert, oriented, no distress. He appears chronically ill. Oral cavity exam reveals mucous membranes to be moist. No evidence of yeast or lesions. Neck is free of lymphadenopathy. Skin reaction is mild. Trach stoma site is clean. Lungs have a few faint scattered rhonchi. Heart rhythm is regular. The feeding tube puncture site is not inflamed. Imaging: Radiation therapy imaging related to accurate target localization (i.e. KV, MV and CBCT) was reviewed. Appropriate changes, if any, were made to ensure treatment accuracy. Plan: 1 treatment to go. As noted above they will see the Dr. Vega next week about his trach tube removal. He will continue to see speech therapy for counseling in regard to progression of his diet. I recommended a 1 month follow-up in the radiation center. Discussed that he should not have a PET scan for about 3 months. Signed by: Renaldo Tellez 01/11/2023 12:01:17 PM
--- NOTE | 2023-01-12 13:28 | N.ONRD TS_ITS ---
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 ID: [id number], Energy: 6X, Dose/Fx (cGy): 200, #Fx: 35 / 35, Dose Correction (cGy): 0, Total Dose (cGy): 7,000, Start Date: 11/24/2022, End Date: 01/12/2023, Elapsed Days: 49 Clinical Summary: The patient tolerated RT well. Pain in the treatment area has not been a significant problem. He has some residual taste and moderate dry mouth. At the completion of treatment his tracheostomy tube was stable. The stoma was in good condition. He is seeing Dr. Vega next week about removal of the tracheostomy. His feeding tube is working well. He is getting 5 containers of Jevity per day. He is seeing speech therapy to assist with swallowing. He would like to progress his diet beyond ice chips. I told him he could carefully take some clear liquids by mouth until he sees the speech therapist next week. His exam reveals no yeast in the oral cavity. He has no significant skin reaction. No lymphadenopathy in the neck. Plan: End of treatment today Follow up in one month. 3.. See Dr. Ward next week for possible removal of his trach tube. I recommended that he get a follow-up exam in about 6 weeks for an assessment of local response to treatment. 4. PET scan in about 3 months. Signed by: Renaldo Tellez>01/12/2023 1:28:03 PM <<Signature on File>>
== END 2023-01-20 23:59 | disposition home or self-care (01) ==
PROVIDERS: PCP Family Medicine; Visit Provider Specialist
DX: C13.2 Malignant neoplasm of posterior wall of hypopharynx (principal); Z51.0 Encounter for antineoplastic radiation therapy; Z95.828 Presence of other vascular implants and grafts; Z93.0 Tracheostomy status; Z79.2 Long term (current) use of antibiotics; H91.93 Unspecified hearing loss, bilateral; Z45.2 Encounter for adjustment and management of vascular access device
CPT/HCPCS: 77336; 77386; 77417; 99024

== ENCOUNTER 2023-01-21 06:00 | Outpatient (RCR) | payer MEDICARE, OTHER, SELFPAY | END 2023-02-20 23:59 | disposition home or self-care (01) | LOC: SST 06:00 | PROVIDERS: PCP Family Medicine; Visit Provider Radiology Radiation Oncology | DX: R13.10 Dysphagia, unspecified (principal) | CPT/HCPCS: 92526 ==

== ENCOUNTER 2023-02-09 10:41 | Oncology outpatient (recurring) (ONCR) | payer MEDICARE, OTHER, SELFPAY ==
[2023-02-01 14:36] VITALS: BP 120/69; PULSE 75; RESP 16; TEMP 37.1; O2SAT 98
[2023-02-01 14:54] LABS: Basophils % 0.2 %; Eosinophils # 0.1 10^3/uL (0.0-0.8); Eosinophils % 2.6 %; Hematocrit 30.7 % (37-53); Lymphocytes # 0.3 10^3/uL (0.8-4.8); Lymphocytes % 5.9 %; Mean Corpuscular HGB Conc 33.9 g/dL (30-55); Mean Corpuscular Hemoglobin 32.6 pg (27-33); Mean Corpuscular Volume 96.2 fl (82-101); Mean Platelet Volume 10.6 fL (7.4-10.4); Monocytes # 0.6 10^3/uL (0.2-0.9); Monocytes % 11.9 %; Neutrophils # 4.25 10^3/uL (1.8-7.7); Nucleated Red Blood Cells % 0 %; Platelet Count 124 10^3/cmm (157-399); Red Blood Count 3.19 10^6/uL (3.85-5.65); White Blood Count 5.38 10^3/uL (3.29-11.43)
[2023-02-01 15:35] LABS: Alanine Aminotransferase 66 U/L (0-41); Albumin Level 3.9 g/dL (3.5-5.2); Alkaline Phosphatase 91 U/L (40-130); Aspartate Amino Transferase 50 U/L (0-40); Blood Urea Nitrogen 36 mg/dL (8-23); Calcium 9.3 mg/dL (8.5-10.5); Carbon Dioxide 29 mmol/L (22-29); Chloride 102 mmol/L (98-107); Glucose 107 mg/dL (65-115); Osmolality Calculated 297 mOsm/kg (285-295); Sodium 139 mmol/L (136-145); Total Bilirubin 0.4 mg/dL (0.15-1.2); Total Protein 6.9 g/dL (6.6-8.7)
--- NOTE | 2023-02-09 16:37 | ONCRAD EPV_ITS ---
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 ID: [id number], Energy: 6X Dose/Fx (cGy): 200, #Fx: 35 / 35, Dose Correction (cGy): 0, Total Dose (cGy): 7,000, Start Date: 11/24/2022, End Date: 01/12/2023, Elapsed Days: 49 Current History: Current Medications: Allopurinol, amLODIPine Besylate, atorvastatin Calcium, clopidogrel Bisulfate, cVS Melatonin, finasteride, gabapentin, metoprolol Tartrate, nitroglycerin. Current Complaints / Review of Systems: He had a good follow-up with ENT. No malignancy seen. Smaller trach recommended to use first before trach tube completely removed. No pain anywhere. Not yet swallowing at all and still spitting out saliva. He remains fully PEG tube dependent. Sees speech pathology 1 a week. He has exercise from speech pathologist which he hates to do. Smaller trach now ordered as requested by ENT but not yet obtained. Inactive at home. Sleeping a lot of the day. Living with daughter. FU barium swallow for speech pathologist 03/03/2023. Vital Signs: Performed on 02/09/2023 11:06 AM BMI - 22.26 kg/m2, Height - 68 in, Weight - 146.4 lbs, Temperature - 97.7 f, Pulse - 77 /min, Respiration - 16 /min, O2 Sat - 99 %, Pain - 0, Fatigue - 0 and BP - 134/ 68 mm(hg). Physical Exam: General: Alert and oriented x 3. No acute distress. No palpable adenopathy. Oral cavity limited exam but no visible posterior pharyngeal mass. Performance Status: 1-2 Lab: None pending. Pathology: Primary, c13.2 - malignant neoplasm of posterior wall of hypopharynx, Diagnosed 07/05/2022 (active). Impression: Good tolerance of treatment. Good response from limited exam. Encouraged him to work with speech pathologist on swallowing exercises. We will see him in [address] Signed by: 02/09/2023 4:37:00 PM <<Signature on File>> Time spent with patient: CPT Code: CPT Code:
== END 2023-02-20 23:59 | disposition home or self-care (01) ==
PROVIDERS: Internal Medicine Medical Oncology; PCP Family Medicine; Visit Provider Radiology Radiation Oncology
DX: Z53.9 Procedure and treatment not carried out, unspecified reason
CPT/HCPCS: 36591; 80053; 85025; 99214; J1642

== ENCOUNTER 2023-02-21 06:00 | Outpatient (RCR) | payer MEDICARE, OTHER, SELFPAY | END 2023-03-23 23:59 | disposition home or self-care (01) | LOC: SST 06:00 | PROVIDERS: PCP Family Medicine; Visit Provider Radiology Radiation Oncology | DX: R13.10 Dysphagia, unspecified (principal) | CPT/HCPCS: 92526 ==

== ENCOUNTER 2023-02-22 09:00 | Outpatient (CLI) | payer MEDICARE, OTHER, SELFPAY ==
--- NOTE | 2023-02-22 09:15 | USCV_ITS ---
Jose Mcdonnell Age: 87 Gender: M : 1935 Exam Date: 02/22/2023 09:33 Ordering Phys: Marium Correia Technologist: [place] [facility] [place] HISTORY: Diameter (cm) AP x Transverse x Length Velocity (cm/s) Waveform Prox Aorta: x x Mid Aorta: 2.29 x 2.09 x 55.10 Distal Aorta: 4.06 x 4.28 x 70.70 Right Iliac Prox: 1.57 x 1.43 x 87.30 Left Iliac Prox: 1.50 x 1.38 x 97.00 Stent Prox Landing x x Aneurysmal Sac Max x x Lt Lat Sac Dim Rt Lat Sac Dim Stent Dist Landing x x Right Iliac Stent x x Left Iliac Stent x x Right Renal Art Left Renal Art FINDINGS: comparison 03/02/22 CONCLUSIONS Distal AAA measuring 4.1 x 4.3 x 5.3cm AP x trans x CC. This measures slightly larger today compared to previous 3.7 x 4.1 x 6.0cm Moderate atheromatous plaque with mural thrombus Normal iliac arteries Timmy Menard MD (Electronically Signed) Final Date: 22 February 2023 17:01 S
== END 2023-02-22 09:01 | disposition home or self-care (01) ==
PROVIDERS: PCP Family Medicine; Visit Provider Nurse Practitioner Family
DX: I71.40 Abdominal aortic aneurysm, without rupture, unspecified (principal); I51.3 Intracardiac thrombosis, not elsewhere classified; I70.0 Atherosclerosis of aorta
CPT/HCPCS: 93978

== ENCOUNTER 2023-03-02 12:46 | Oncology outpatient (recurring) (ONCR) | payer MEDICARE, OTHER, SELFPAY ==
[2023-03-02 14:33] VITALS: BP 123/62; PULSE 63; RESP 16; TEMP 36.7; O2SAT 97
[2023-03-02 14:54] LABS: Basophils % 0.4 %; Eosinophils # 0.2 10^3/uL (0.0-0.8); Eosinophils % 3.1 %; Hematocrit 31.6 % (37-53); Lymphocytes # 0.4 10^3/uL (0.8-4.8); Lymphocytes % 6.3 %; Mean Corpuscular HGB Conc 33.2 g/dL (30-55); Mean Corpuscular Volume 96.3 fl (82-101); Monocytes # 0.6 10^3/uL (0.2-0.9); Monocytes % 10.6 %; Neutrophils # 4.39 10^3/uL (1.8-7.7); Neutrophils % 79.2 %; Nucleated Red Blood Cells % 0 %; Platelet Count 134 10^3/cmm (157-399); Red Blood Count 3.28 10^6/uL (3.85-5.65); Red Cell Distribution Width 13.8 % (12.1-15.1); White Blood Count 5.54 10^3/uL (3.29-11.43)
[2023-03-02 15:14] LABS: Alanine Aminotransferase 102 U/L (0-41); Albumin Level 3.9 g/dL (3.5-5.2); Alkaline Phosphatase 101 U/L (40-130); Anion Gap 14.3 (5-19); Aspartate Amino Transferase 73 U/L (0-40); Blood Urea Nitrogen 36 mg/dL (8-23); Calcium 9.5 mg/dL (8.5-10.5); Carbon Dioxide 27 mmol/L (22-29); Chloride 101 mmol/L (98-107); Glucose 109 mg/dL (65-115); Osmolality Calculated 295 mOsm/kg (285-295); Potassium 4.3 mmol/L (3.5-5.1); Sodium 138 mmol/L (136-145); Total Bilirubin 0.4 mg/dL (0.15-1.2); Total Protein 6.9 g/dL (6.6-8.7)
== END 2023-03-23 23:59 | disposition home or self-care (01) ==
LOC: ONCMED 12:47
PROVIDERS: Internal Medicine Medical Oncology; PCP Family Medicine; Visit Provider Radiology Radiation Oncology
DX: C77.0 Secondary and unspecified malignant neoplasm of lymph nodes of head, face and neck; D64.9 Anemia, unspecified; C13.2 Malignant neoplasm of posterior wall of hypopharynx
CPT/HCPCS: 36591; 80053; 85025; J1642

== ENCOUNTER → 2023-03-21 12:42 | Outpatient (BNVA) | payer MEDICARE, OTHER, SELFPAY | PROVIDERS: PCP Family Medicine; Visit Provider Internal Medicine | DX: I10 Essential (primary) hypertension (principal); I25.2 Old myocardial infarction; Z95.1 Presence of aortocoronary bypass graft; E78.01 Familial hypercholesterolemia; I25.10 Atherosclerotic heart disease of native coronary artery without angina pectoris; I71.40 Abdominal aortic aneurysm, without rupture, unspecified; Z87.891 Personal history of nicotine dependence | CPT/HCPCS: 99214 ==

== ENCOUNTER 2023-03-23 10:49 | Outpatient (CLI) | payer MEDICARE, OTHER, SELFPAY ==
--- NOTE | 2023-03-23 10:54 | FL_ITS ---
WS: [id number] Modified barium swallow, 03/23/2023 Clinical Data: Other dysphagia Comparison: None. Fluoroscopy time: 1min [id number] # of spot films: 1 Findings: The patient swallowed nectar but there was slow oral propulsion. There was aspiration and penetration . There is a large amount of residue in the vallecula and piriform sinuses which only partly cleared with multiple swallows. Impression: 1. Aspiration and penetration of nectar. 2. Residue in the vallecula and piriform sinuses which only cleared partly with swallowing.
== END 2023-03-23 10:50 | disposition home or self-care (01) ==
LOC: RAD 10:49
PROVIDERS: PCP Family Medicine; Visit Provider Specialist
DX: R13.19 Other dysphagia (principal); R93.3 Abnormal findings on diagnostic imaging of other parts of digestive tract
CPT/HCPCS: 74230; 92611

== ENCOUNTER 2023-03-24 06:00 | Outpatient (RCR) | payer MEDICARE, OTHER, SELFPAY | END 2023-04-21 23:59 | disposition home or self-care (01) | LOC: SST 06:00 | PROVIDERS: PCP Family Medicine; Visit Provider Radiology Radiation Oncology | DX: R13.10 Dysphagia, unspecified (principal) | CPT/HCPCS: 92526 ==

== ENCOUNTER 2023-04-02 07:57 | Emergency (ER) | payer MEDICARE, OTHER, SELFPAY ==
[2023-04-02 08:02] VITALS: BP 167/78; PULSE 69; RESP 17; O2SAT 99
--- NOTE | 2023-04-02 08:30 | W.ED.GENADLT ---
HPI - General Adult General: Chief complaint: General Medical Stated complaint: pulled trach tube out Time Seen by Provider: 04/02/23 08:00 Source: patient Mode of arrival: ambulatory History of Present Illness: 87-year-old male presents emergency room after inadvertently removing his tracheostomy in his sleep. 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 He underwent laryngectomy and treatment. He has no other problems no fever sweats or chills he is awake and alert. According to his son is at the bedside that actually been contemplating removing the trachea appliance and allowing it to heal over however at this point there is still leaving it in place. Associated symptoms: Deny dyspnea Review of Systems Const: Denies: fever(s) or chills Resp: Denies: dyspnea PFSH ED PFSH: Medical History Tracheitis Acute bacterial tracheitis Acute dyspnea Leukocytosis Antineoplastic chemotherapy induced anemia Protein calorie malnutrition Secondary malignancy of lymph nodes of head, face and neck Peripheral neuropathy Gout BPH loc w urin obs/LUTS Elevated PSA Chronic prostatitis Tobacco abuse, in remission DJD (degenerative joint disease), lumbar Hyperlipidemia Essential hypertension ASHD (arteriosclerotic heart disease) AAA (abdominal aortic aneurysm) CVA (cerebral vascular accident) Palpitations Myocardial infarction Surgical History History of total right knee replacement History of laryngoscopy (07/05/22) tracheotomy and 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 Status post insertion of percutaneous endoscopic gastrostomy (PEG) tube (07/10/22) S/P CABG (coronary artery bypass graft) Family History Other CAD (coronary artery disease) Cancer Hypertension Social History Smoking and tobacco/nicotine status: former use of tobacco/nicotine Quit status (tobacco/nicotine): has quit using Year quit tobacco: 2001 Former quit date comment: smoked x 50+ years Alcohol intake: never Substance/Drug Use: never Household members: spouse Marital status: service: No Current occupational status: retired Previous occupational history: [employer] X 27 YEARS Current gender identity: Male Radha/Restoration: Sikh Physical Exam Narrative: EXAM NARRATIVE: Mucus from tracheostomy and this was suction with the assistance of RT was able to insert the tracheostomy that the patient had brought with him without any significant difficulties he put into place further suction patient tolerated well secured with appliance applied with the original packaging Course Vital Signs: Vital signs: Vital Signs Pulse Rate 69 04/02/23 08:02 Respiratory Rate 17 04/02/23 08:02 Blood Pressure 167/78 04/02/23 08:02 Pulse Oximetry 99 04/02/23 08:02 Oxygen Delivery Me thod Room Air 04/02/23 08:02 MDM - General Adult Medical Decision Making Replaced as described above follow-up with his ENT or oncology team Medical Records I reviewed the patient's medical records. Lab Data I reviewed the patient's lab results. 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 Condition: Stable Prescriptions: No Action trazodone 50 mg tablet 25 mg feeding tube BEDTIME triamcinolone acetonide 0.1 % cream 1 applic topical BID PRN (Reason: unknown) ciprofloxacin HCl 500 mg tablet 500 mg PO BID Qty: 10 0RF acetylcysteine 100 mg/mL (10 %) solution 3 ml inhalation Q6H PRN (Reason: increased mucous) Qty: 90 2RF Rx Instructions: nebulization via tracheostomy (DME) trach mask and neb kit See Rx Instructions .Route .MEDSUPPLY Qty: 1 0RF Rx Instructions: As directed metoprolol tartrate 25 mg tablet 25 mg feeding tube QAM atorvastatin 20 mg tablet 20 mg feeding tube BEDTIME clopidogrel 75 mg tablet 75 mg feeding tube QAM Hold Instructions: Resume on 09/12/22. amlodipine 5 mg tablet 2.5 mg feeding tube QAM Rx Instructions: Please convert to liquid form for PEG use gabapentin 300 mg capsule 300 mg feeding tube TID Rx Instructions: Please convert to liquid form for PEG use allopurinol 300 mg tablet 300 mg feeding tube QAM finasteride 5 mg tablet 5 mg PO QAM metoclopramide HCl 5 mg/5 mL solution 5 mg PO Q6H PRN (Reason: Nausea And Vomiting) famotidine 20 mg tablet 20 mg PO BID polyethylene glycol 3350 [Miralax] 17 gram powder in packet 17 g PO BEDTIME PRN melatonin 10 mg tablet 5 mg feeding tube BEDTIME sertraline 25 mg tablet 25 mg PO QAM ondansetron HCl 4 mg Tablet 4 mg PO QID PRN (Reason: Nausea/vomiting) Qty: 30 3RF prochlorperazine maleate [Compazine] 10 mg tablet 10 mg PO Q4H PRN (Reason: Mild Nausea) Qty: 30 3RF lorazepam 1 mg tablet 0.5 - 1 mg PO Q6H PRN (Reason: Severe Nausea) Qty: 30 3RF Discharge Orders: Discharge ED (Routine); Ordered 04/02/23 Ordered By: Chang Siegel Referrals: Heather Hodges, [Primary Care Provider] - Discharge Diet: Usual diet Discharge Activity: Resume usual activity Patient Instructions: Opioid Safety, Pain Management Activity Restrictions/Additional Instructions: Thank you for choosing [facility] for your healthcare needs today. Please realize this is an emergency room and that we are providing you with a medical screening exam and this may not be complete and all inclusive of all the testing and or work up that you may need to determine your ailment or severity of your illness. It is very important that you follow up as instructed or that you return to the Emergency Department should you have concerns or if your condition changes or worsens in any way. You are seen today to replace her tracheostomy. It was replaced without difficulty and suctioned. Recommend you follow-up with your oncology team or primary care doctor regarding further care. Coding Level of Care Code ED Cargoman for Mayra Cote
== END 2023-04-02 08:50 | disposition home or self-care (01) ==
PROVIDERS: Emergency Provider Family Medicine; PCP Family Medicine
DX: Z43.0 Encounter for attention to tracheostomy (principal); C13.2 Malignant neoplasm of posterior wall of hypopharynx; Z79.02 Long term (current) use of antithrombotics/antiplatelets; Z87.891 Personal history of nicotine dependence; Z92.21 Personal history of antineoplastic chemotherapy; E78.5 Hyperlipidemia, unspecified; I10 Essential (primary) hypertension; Z86.73 Personal history of transient ischemic attack (TIA), and cerebral infarction without residual deficits; I25.2 Old myocardial infarction; Z95.1 Presence of aortocoronary bypass graft; Z90.02 Acquired absence of larynx
CPT/HCPCS: 94799; 99283

== ENCOUNTER 2023-04-07 08:45 | Outpatient (CLI) | payer MEDICARE, OTHER, SELFPAY ==
--- NOTE | 2023-04-07 08:54 | CTR_ITS ---
PROCEDURE INFORMATION: Exam: CT Neck With Contrast Exam date and time: 04/07/2023 9:07 AM Age: 87 years old Clinical indication: Condition or disease; Cancer; Throat; Additional info: Head and neck cancer TECHNIQUE: Imaging protocol: Computed tomography of the neck with contrast. Radiation optimization: All CT scans at this facility use at least one of these dose optimization techniques: automated exposure control; mA and/or kV adjustment per patient size (includes targeted exams where dose is matched to clinical indication); or iterative reconstruction. Contrast material: OMNI 350; Contrast volume: 95 ml; Contrast route: INTRAVENOUS (IV); COMPARISON: CT neck w con* [id number] 11/05/2022 8:08 AM RADIATION DOSE METRICS: Total DLP (mGy-cm): 126.67 FINDINGS: Tubes, catheters and devices: Evidence of left central venous line/poor partially included, similar to prior study. Hypodensity left internal jugular vein may be related to inflow of unenhanced, noncontrasted blood, with similar appearance of portion of right external jugular vein. Paranasal sinuses: Opacification of much of the left maxillary sinus with evidence of fluid and probably mucosal thickening, suggesting acute obstruction/sinusitis. Pharynx: Mild residual soft tissue fullness hypopharynx area grossly similar to 11/05/2022. Larynx: Epiglottis appears mildly diffusely thickened compared to the prior studies 11/05/2022, 06/15/2022, but otherwise appears grossly unremarkable. Vallecula appears grossly unremarkable. Prevertebral and retropharyngeal spaces: Unremarkable. Salivary glands: Stable appearance visualized portions parotids, submandibular glands bilaterally. Thyroid: Stable appearance thyroid. Lymph nodes: Small lymph nodes of neck, upper mediastinum, right paratracheal region appears similar to studies from 06/15/2022, 11/05/2022. Trachea: Tracheostomy similar to prior study. Lungs: Visualized portions lung apices included appear stable. Bones/joints: Degenerative changes spine. Prior sternal splitting procedure partially included. Vasculature: Atherosclerotic disease areas of stenosis carotid arteries, left subclavian artery. Soft tissues: Unremarkable. CT/CT neck w con* [id number] IMPRESSION: 1. Mild residual soft tissue fullness hypopharynx area grossly similar to 11/05/2022. 2. Epiglottis appears mildly diffusely thickened compared to the prior studies 11/05/2022, 06/15/2022, but otherwise appears grossly unremarkable.
[2023-04-07] MEDS: iohexol 350 mg/mL 500 mL Btl (per mL) IV (09:16)
== END 2023-04-07 08:46 | disposition home or self-care (01) ==
LOC: RAD 08:45
PROVIDERS: PCP Family Medicine; Visit Provider Radiology Radiation Oncology
DX: C14.0 Malignant neoplasm of pharynx, unspecified
CPT/HCPCS: 70491; Q9967

== ENCOUNTER 2023-04-08 10:04 | Emergency (ER) | payer MEDICARE, OTHER, SELFPAY ==
[2023-04-08 10:11] VITALS: BP 138/79; PULSE 65; RESP 16; O2SAT 98
--- NOTE | 2023-04-08 10:20 | W.ED.GENADLT ---
Documented by User: JAYMIE Voss 04/08/23 11:03 HPI - General Adult General: Chief complaint: General Medical Stated complaint: Pulled trach out Time Seen by Provider: 04/08/23 10:10 Source: patient and family () Mode of arrival: ambulatory Limitations: no limitations History of Present Illness: Patient is an 87-year-old male who presents to the emergency room after inadvertently removing his tracheostomy in his sleep. 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 He underwent laryngectomy and treatment. Has spoken to Dr. Vega and plan will be to eventually remove trach. They are scheduled to start decreasing size. states she has new/smaller size with her today as it came in the mail this morning. Patient alert and in NAD upon arrival. Onset (ago): hour(s) Relieving factors: none Exacerbating factors: none Associated symptoms: Reports no associated symptoms; Deny chest pain, dyspnea, headache(s) or malaise Treatments prior to arrival: none Review of Systems Const: Denies: fever(s), chills, body aches, fatigue or malaise Card: Denies: chest pain Resp: Denies: dyspnea Musc: Denies: neck pain Neuro: Denies: headache(s) or dizziness PFSH ED PFSH: Medical History Tracheitis Acute bacterial tracheitis Acute dyspnea Leukocytosis Antineoplastic chemotherapy induced anemia Protein calorie malnutrition Secondary malignancy of lymph nodes of head, face and neck Peripheral neuropathy Gout BPH loc w urin obs/LUTS Elevated PSA Chronic prostatitis Tobacco abuse, in remission DJD (degenerative joint disease), lumbar Hyperlipidemia Essential hypertension ASHD (arteriosclerotic heart disease) AAA (abdominal aortic aneurysm) CVA (cerebral vascular accident) Palpitations Myocardial infarction Surgical History History of total right knee replacement History of laryngoscopy (07/05/22) tracheotomy and 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 Status post insertion of percutaneous endoscopic gastrostomy (PEG) tube (07/10/22) S/P CABG (coronary artery bypass graft) Family History Other CAD (coronary artery disease) Cancer Hypertension Social History Smoking and tobacco/nicotine status: former use of tobacco/nicotine Quit status (tobacco/nicotine): has quit using Year quit tobacco: 2001 Former quit date comment: smoked x 50+ years Alcohol intake: never Substance/Drug Use: never Household members: spouse Marital status: service: No Current occupational status: retired 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 Current gender identity: Male Radha/Sikhism: Moravian Physical Exam Const: COMMON NORMALS: no acute distress, patient oriented x3, no limitations, healthy appearing, alert and well nourished Neck/C-Spine: COMMON NORMALS: full ROM GENERAL: Yes tracheostomy present Chest: COMMONS NORMALS: normal inspection of the chest Resp: COMMON NORMALS: normal respiratory effort and clear to auscultation bilaterally AUSCULTATION: clear to auscultation bilaterally Cardio: COMMON NORMALS: regular rate and regular rhythm RATE: regular rate RHYTHM: regular rhythm Neuro: COMMON NORMALS: patient oriented x3 SENSORIUM/ORIENTATION: Yes alert Course Vital Signs: Vital signs: Vital Signs Pulse Rate 65 04/08/23 10:11 Respiratory Rate 16 04/08/23 10:11 Blood Pressure 138/79 04/08/23 10:11 Pulse Oximetry 98 04/08/23 10:11 Oxygen Delivery Me thod Room Air 04/08/23 10:11 [facility] - General Adult Medical Decision Making RT was initially consulted for insertion of trach. They were having trouble replacing as his tract was edematous/inflamed. Dr. Siegel eventually came in and placed without difficulty. Patient is stable for DC at this time. No radiology studies performed this visit Discharge Plan Discharge Patient Disposition: Home Clinical Impression: Tracheostomy, acute management Condition: Stable Prescriptions: No Action trazodone 50 mg tablet 25 mg feeding tube BEDTIME triamcinolone acetonide 0.1 % cream 1 applic topical BID PRN (Reason: unknown) ciprofloxacin HCl 500 mg tablet 500 mg PO BID Qty: 10 0RF acetylcysteine 100 mg/mL (10 %) solution 3 ml inhalation Q6H PRN (Reason: increased mucous) Qty: 90 2RF Rx Instructions: nebulization via tracheostomy (DME) trach mask and neb kit See Rx Instructions .Route .MEDSUPPLY Qty: 1 0RF Rx Instructions: As directed metoprolol tartrate 25 mg tablet 25 mg feeding tube QAM atorvastatin 20 mg tablet 20 mg feeding tube BEDTIME clopidogrel 75 mg tablet 75 mg feeding tube QAM Hold Instructions: Resume on 09/12/22. amlodipine 5 mg tablet 2.5 mg feeding tube QAM Rx Instructions: Please convert to liquid form for PEG use gabapentin 300 mg capsule 300 mg feeding tube TID Rx Instructions: Please convert to liquid form for PEG use allopurinol 300 mg tablet 300 mg feeding tube QAM finasteride 5 mg tablet 5 mg PO QAM metoclopramide HCl 5 mg/5 mL solution 5 mg PO Q6H PRN (Reason: Nausea And Vomiting) famotidine 20 mg tablet 20 mg PO BID polyethylene glycol 3350 [Miralax] 17 gram powder in packet 17 g PO BEDTIME PRN melatonin 10 mg tablet 5 mg feeding tube BEDTIME sertraline 25 mg tablet 25 mg PO QAM ondansetron HCl 4 mg Tablet 4 mg PO QID PRN (Reason: Nausea/vomiting) Qty: 30 3RF prochlorperazine maleate [Compazine] 10 mg tablet 10 mg PO Q4H PRN (Reason: Mild Nausea) Qty: 30 3RF lorazepam 1 mg tablet 0.5 - 1 mg PO Q6H PRN (Reason: Severe Nausea) Qty: 30 3RF Discharge Orders: Discharge ED (Routine); Ordered 04/08/23 Ordered By: Libertad Herrera Referrals: Heather Hodges DO [Primary Care Provider] - Coding Level of Care Code 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 Documented by User: Chang Siegel DO 04/08/23 13:42 HPI - General Adult General: Chief complaint: General Medical Stated complaint: Pulled trach out Time Seen by Provider: 04/08/23 10:10 PFS ED PFSH: Medical History Tracheitis Acute bacterial tracheitis Acute dyspnea Leukocytosis Antineoplastic chemotherapy induced anemia Protein calorie malnutrition Secondary malignancy of lymph nodes of head, face and neck Peripheral neuropathy Gout BPH loc w urin obs/LUTS Elevated PSA Chronic prostatitis Tobacco abuse, in remission DJD (degenerative joint disease), lumbar Hyperlipidemia Essential hypertension ASHD (arteriosclerotic heart disease) AAA (abdominal aortic aneurysm) CVA (cerebral vascular accident) Palpitations Myocardial infarction Surgical History History of total right knee replacement History of laryngoscopy (07/05/22) tracheotomy and 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 Status post insertion of percutaneous endoscopic gastrostomy (PEG) tube (07/10/22) S/P CABG (coronary artery bypass graft) Family History Other CAD (coronary artery disease) Cancer Hypertension Social History Smoking and tobacco/nicotine status: former use of tobacco/nicotine Quit status (tobacco/nicotine): has quit using Year quit tobacco: 2001 Former quit date comment: smoked x 50+ years Alcohol intake: never Substance/Drug Use: never Household members: spouse Marital status: service: No Current occupational status: 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 They were having trouble replacing as his tract was edematous/inflamed. Dr. Siegel eventually came in and placed without difficulty. Patient is stable for DC at this time. Chart reviewed and patient discussed with midlevel. Agree with assessment and plan. Discharge Plan Discharge Patient Disposition: Home Clinical Impression: Tracheostomy, acute management Condition: Stable Prescriptions: No Action trazodone 50 mg tablet 25 mg feeding tube BEDTIME triamcinolone acetonide 0.1 % cream 1 applic topical BID PRN (Reason: unknown) ciprofloxacin HCl 500 mg tablet 500 mg PO BID Qty: 10 0RF acetylcysteine 100 mg/mL (10 %) solution 3 ml inhalation Q6H PRN (Reason: increased mucous) Qty: 90 2RF Rx Instructions: nebulization via tracheostomy (DME) trach mask and neb kit See Rx Instructions .Route .MEDSUPPLY Qty: 1 0RF Rx Instructions: As directed metoprolol tartrate 25 mg tablet 25 mg feeding tube QAM atorvastatin 20 mg tablet 20 mg feeding tube BEDTIME clopidogrel 75 mg tablet 75 mg feeding tube QAM Hold Instructions: Resume on 09/12/22. amlodipine 5 mg tablet 2.5 mg feeding tube QAM Rx Instructions: Please convert to liquid form for PEG use gabapentin 300 mg capsule 300 mg feeding tube TID Rx Instructions: Please convert to liquid form for PEG use allopurinol 300 mg tablet 300 mg feeding tube QAM finasteride 5 mg tablet 5 mg PO QAM metoclopramide HCl 5 mg/5 mL solution 5 mg PO Q6H PRN (Reason: Nausea And Vomiting) famotidine 20 mg tablet 20 mg PO BID polyethylene glycol 3350 [Miralax] 17 gram powder in packet 17 g PO BEDTIME PRN melatonin 10 mg tablet 5 mg feeding tube BEDTIME sertraline 25 mg tablet 25 mg PO QAM ondansetron HCl 4 mg Tablet 4 mg PO QID PRN (Reason: Nausea/vomiting) Qty: 30 3RF prochlorperazine maleate [Compazine] 10 mg tablet 10 mg PO Q4H PRN (Reason: Mild Nausea) Qty: 30 3RF lorazepam 1 mg tablet 0.5 - 1 mg PO Q6H PRN (Reason: Severe Nausea) Qty: 30 3RF Discharge Orders: Discharge ED (Routine); Ordered 04/08/23 Ordered By: Libertad Herrera Referrals: Heather Hodges DO [Primary Care Provider] - Coding 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
== END 2023-04-08 11:30 | disposition home or self-care (01) ==
PROVIDERS: Emergency Provider Physician Assistant; PCP Family Medicine
DX: Z43.0 Encounter for attention to tracheostomy (principal); Z79.02 Long term (current) use of antithrombotics/antiplatelets; Z87.891 Personal history of nicotine dependence; E78.5 Hyperlipidemia, unspecified; I10 Essential (primary) hypertension; Z86.73 Personal history of transient ischemic attack (TIA), and cerebral infarction without residual deficits; I25.2 Old myocardial infarction; Z95.1 Presence of aortocoronary bypass graft
CPT/HCPCS: 99283

== ENCOUNTER 2023-04-13 13:14 | Oncology outpatient (recurring) (ONCR) | payer MEDICARE, OTHER, SELFPAY ==
[2023-04-13 13:34] LABS: Basophils % 0.4 %; Eosinophils # 0.2 10^3/uL (0.0-0.8); Hematocrit 30.4 % (37-53); Lymphocytes # 0.5 10^3/uL (0.8-4.8); Lymphocytes % 8.3 %; Mean Corpuscular HGB Conc 34.5 g/dL (30-55); Mean Corpuscular Hemoglobin 32.5 pg (27-33); Mean Corpuscular Volume 94.1 fl (82-101); Mean Platelet Volume 10.8 fL (7.4-10.4); Monocytes # 0.6 10^3/uL (0.2-0.9); Neutrophils # 4.35 10^3/uL (1.8-7.7); Neutrophils % 76.8 %; Nucleated Red Blood Cells % 0 %; Platelet Count 119 10^3/cmm (157-399); Red Blood Count 3.23 10^6/uL (3.85-5.65); Red Cell Distribution Width 13.8 % (12.1-15.1); White Blood Count 5.66 10^3/uL (3.29-11.43)
[2023-04-13 14:06] LABS: Alanine Aminotransferase 27 U/L (0-41); Albumin Level 4.1 g/dL (3.5-5.2); Alkaline Phosphatase 114 U/L (40-130); Anion Gap 14.6 (5-19); Aspartate Amino Transferase 29 U/L (0-40); Blood Urea Nitrogen 34 mg/dL (8-23); Calcium 9.3 mg/dL (8.5-10.5); Carbon Dioxide 26 mmol/L (22-29); Chloride 101 mmol/L (98-107); Globulin 3.2 g/dL (1.3-4.6); Glucose 91 mg/dL (65-115); Osmolality Calculated 291 mOsm/kg (285-295); Potassium 4.6 mmol/L (3.5-5.1); Sodium 137 mmol/L (136-145); Total Bilirubin 0.6 mg/dL (0.15-1.2); Total Protein 7.3 g/dL (6.6-8.7)
[2023-04-13 16:05] LABS: Reticulocyte % 1.7 % (0.5-2.0)
[2023-04-13 16:28] LABS: LAB Peripheral Smear Sent for Review
[2023-04-13 16:50] LABS: Hepatitis A Antibody IgM Non-Reactive (Nonreactive); Hepatitis B Core AB, Total Reactive (Nonreactive); Hepatitis B Surface AB 282.1 (11.5-1000); Hepatitis B Surface Antigen Non-Reactive (Nonreactive); Hepatitis C Virus Antibody Non-Reactive (Nonreactive)
[2023-04-13 16:57] LABS: Folate Level 12.8 ng/mL (4.5-32.2)
[2023-04-13 20:41] LABS: Iron 71 ug/dL (59-158); Percent Saturation 33.3 % (20-50); Thyroid Stimulating Hormone 5.79 uIU/mL (0.27-4.20); Total Iron Binding Capacity 213 mcg/dl; Unsaturated Iron Binding 142 ug/dL (112-347); Vitamin B12 748 pg/mL (232-1245)
[2023-04-13 20:58] LABS: Ferritin 2111 ng/mL (30-400)
[2023-04-14 11:34] LABS: Free T4 Free Thyroxine 0.87 ng/dL (0.82-1.77)
[2023-04-16 08:06] LABS: Methylmalonic Acid 221 nmol/L (87-318)
[2023-04-16 13:15] LABS: Soluble Transferrin Receptor 1.37 mg/L (0.76-1.76)
[2023-04-17 09:36] LABS: Zinc Level, Serum or Plasma 49 mcg/dL (60-130)
[2023-04-17 18:29] LABS: Copper Level 133 mcg/dL (70-175)
== END 2023-04-21 23:59 | disposition home or self-care (01) ==
PROVIDERS: Internal Medicine; PCP Family Medicine; Visit Provider Radiology Radiation Oncology
DX: D64.9 Anemia, unspecified; C13.2 Malignant neoplasm of posterior wall of hypopharynx; R53.83 Other fatigue; R13.10 Dysphagia, unspecified; Z93.1 Gastrostomy status; Z92.21 Personal history of antineoplastic chemotherapy; Z92.3 Personal history of irradiation; Z87.891 Personal history of nicotine dependence; Z11.59 Encounter for screening for other viral diseases
CPT/HCPCS: 36591; 80053; 82525; 82607; 82728; 82746; 83540; 83550; 83921; 84238; 84439; 84443; 84630; 85025; 85045; 86705; 86706; 86709; 86803; 87340; 99214

== ENCOUNTER 2023-04-22 06:00 | Outpatient (RCR) | payer MEDICARE, OTHER, SELFPAY | END 2023-05-22 23:59 | disposition home or self-care (01) | LOC: SST 06:00 | PROVIDERS: PCP Family Medicine; Visit Provider Radiology Radiation Oncology | DX: R13.10 Dysphagia, unspecified (principal) | CPT/HCPCS: 92526 ==

== ENCOUNTER 2023-04-26 08:28 | Outpatient (CLI) | payer MEDICARE, OTHER, SELFPAY ==
--- NOTE | 2023-04-26 08:40 | PETR_ITS ---
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 Then, PET images were obtained. Attenuation corrected images were constructed using the CT scan. Fused images of PET and CT were reviewed. The standardized uptake values (SUV) reported below are maximum values within a region of interest, expressed in gm/ml. Exam includes orbital meatal line to mid-thigh. Radiopharmaceutical: 12.87 mCi F-18 FDG (Fluorodeoxyglucose), IV. Time of imaging post radiopharmaceutical administration: 1 hour Injection site: Right hand COMPARISON: PT PET skulltothigh INITIAL [id number] 07/24/2022, CT neck 04/07/2023 and 06/15/2022 FINDINGS: Tubes, catheters and devices: Tracheostomy tube in place. Linear increased uptake of 4.1 SUV along the course of tracheostomy suggestive of benign inflammatory finding. Percutaneous gastrostomy tube is in place. Linear uptake of 2.2 SUV along the course of the percutaneous gastrostomy tube compatible with benign inflammatory finding. Port catheter placed via the left subclavian vein terminates in the superior vena cava. Brain: Visualized brain has normal physiologic uptake. Stable small old infarction in the right cerebellum. Paranasal sinuses: No abnormal uptake. Significant partial opacification of the left maxillary sinus suggestive of chronic sinusitis is stable since 04/07/2023. Other paranasal sinuses are clear. Pharynx: No abnormal uptake. There is complete metabolic and morphologic response with resolution of previously present FDG avid mass in the hypopharynx. Larynx: No abnormal uptake. Lungs, pleura and trachea: No abnormal uptake. No suspicious lung nodules or masses. Stable 4 mm calcified granuloma in the right upper lobe (axial image 80). No pleural effusion. Heart: Normal physiologic uptake. Coronary arteries: Status post CABG surgery. Mediastinal space: No abnormal uptake. Liver: No abnormal uptake. Gallbladder and bile ducts: No abnormal uptake. The gallbladder is distended to 5.5 cm in the transverse diameter with no calcified gallstones with no wall thickening with no pericholecystic fluid or edema. Pancreas: No abnormal uptake. Spleen: No abnormal uptake. No splenomegaly. Stable small calcified granuloma. Adrenal glands: No abnormal uptake. Kidneys and ureters: Normal physiologic uptake. No hydronephrosis. Stable simple renal cysts. Stomach and bowel: No abnormal uptake. Intraperitoneal and retroperitoneal spaces: No abnormal uptake. No ascites. Urinary bladder: Normal physiologic uptake. Reproductive: No abnormal uptake. Stable enlarged prostate with small peripheral calcifications. Vasculature: No abnormal uptake. Stable 4.2 cm nonruptured infrarenal abdominal aortic aneurysm. Lymph nodes: No abnormal uptake. No lymphadenopathy in the head, neck, chest, abdomen, pelvis, and extremities. Stable sequela of exposure to granulomatous disease with small calcified granulomas within normal size right paratracheal and right subcarinal lymph nodes. Bones/joints: No abnormal uptake. Status post sternotomy. Stable non FDG avid sclerotic intramedullary focus in the left femoral shaft represents benign finding, enchondroma or bone infarct. Soft tissues: No abnormal uptake in the visualized head, neck, chest, abdomen, pelvis, and extremities. PET/PET [facility] INITIAL [id number] IMPRESSION: Complete response to treatment with no abnormal radiotracer uptake to suggest focal malignancy in the hypopharynx or metastatic disease. Benign focal uptake along the course of tracheostomy and percutaneous gastrostomy tube.
== END 2023-04-26 08:29 | disposition home or self-care (01) ==
LOC: RAD 08:28
PROVIDERS: PCP Family Medicine; Visit Provider Specialist
DX: D37.05 Neoplasm of uncertain behavior of pharynx (principal)
CPT/HCPCS: 78815; A9552

== ENCOUNTER 2023-05-08 02:53 | Emergency (ER) | payer MEDICARE, OTHER, SELFPAY ==
[2023-05-08 03:00] VITALS: BP 119/76; PULSE 73; RESP 16; TEMP 36.6; O2SAT 100; BMI 22.8
--- NOTE | 2023-05-08 03:14 | XRR_ITS ---
PROCEDURE INFORMATION: Exam: XR Chest Exam date and time: 05/08/2023 3:16 AM Age: 87 years old Clinical indication: Other: Dislodged tracheostomy; Prior surgery; Surgery date: 6+ months; Surgery type: Cabg; Patient HX: Patienst tracheostomy nearly dislodged. Removed prior to exposure. History of esophageal cancer. ; Additional info: Tracheostomy problem TECHNIQUE: Imaging protocol: Radiologic exam of the chest. Views: 1 view. COMPARISON: CR XR chest 1V portable [id number] 11/24/2022 3:09 PM FINDINGS: Tubes, catheters and devices: A Port-A-Cath is noted on the left with the catheter tip projected over the lying the superior vena cava. Airway: There has been interval removal of a tracheostomy. Lungs: Basilar atelectasis is noted on the left. Pleural spaces: Unremarkable. No pleural effusion. No pneumothorax. Heart/Mediastinum: Unremarkable. No cardiomegaly. Bones/joints: The patient is post sternotomy. Several sternal wires are fractured. XR/XR chest 1V portable [id number] IMPRESSION: Basilar atelectasis. Tracheostomy longer seen.
[2023-05-08 03:17] VITALS: BP 119/76; PULSE 72; RESP 16; O2SAT 100
--- NOTE | 2023-05-08 04:25 | ED_ITS ---
HPI - General Adult General: Chief complaint: Airway/Esophagus Foreign Body Stated complaint: almost pulled trach out Time Seen by Provider: 05/08/23 02:58 History of Present Illness: 87-year-old male with a history of hypop haryngeal head and neck cancer. He has had a tracheostomy for quite some time. He was seen on Tuesday by his ENT surgeon. He was set to have the tracheostomy removed, and the stoma allowed to close at that point. His son notes that his fingers were cold, and they were unable to get a good pulse ox reading on the patient, so they rescheduled her tracheostomy cannula removal. He has not been short of breath. He turned over in his sleep, and partially dislodged his tracheostomy tube this morning. He complains that he is having significant pain with swallowing. He is handling his own secretions. He is not overly short of breath. He has pain also with cough, and at the site itself. He denies fever. Associated symptoms: Deny chest pain, dyspnea, palpitations or vomiting Review of Systems Const: Denies: fever(s) ENMT: Reports: throat pain and odynophagia; Denies: mouth pain or swelling of lips/tongue Card: Denies: chest pain or palpitations Resp: Reports: productive cough; Denies: dyspnea GI: Denies: vomiting PFSH ED PFSH: Medical History Tracheitis Acute bacterial tracheitis Acute dyspnea Leukocytosis Antineoplastic chemotherapy induced anemia Protein calorie malnutrition Secondary malignancy of lymph nodes of head, face and neck Peripheral neuropathy Gout BPH loc w urin obs/LUTS Elevated PSA Chronic prostatitis Tobacco abuse, in remission DJD (degenerative joint disease), lumbar Hyperlipidemia Essential hypertension ASHD (arteriosclerotic heart disease) AAA (abdominal aortic aneurysm) CVA (cerebral vascular accident) Palpitations Myocardial infarction Surgical History History of total right knee replacement History of laryngoscopy (07/05/22) tracheotomy and 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 Status post insertion of percutaneous endoscopic gastrostomy (PEG) tube (07/10/22) S/P CABG (coronary artery bypass graft) Family History Other CAD (coronary artery disease) Cancer Hypertension Social History Smoking and tobacco/nicotine status: former use of tobacco/nicotine Quit status (tobacco/nicotine): has quit using Year quit tobacco: 2001 Former quit date comment: smoked x 50+ years Alcohol intake: never Substance/Drug Use: never Household members: spouse Marital status: service: No Current occupational status: retired 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 Tracheostomy tube was dislodged, sitting in the edge of the stoma. Eye: COMMON NORMALS: EOMs intact bilaterally Neck/C-Spine: GENERAL: Yes trachea midline, No anterior neck swelling and No tracheal deviation Chest: CHEST: Yes Symmetrical chest wall rise Resp: COMMON NORMALS: normal respiratory effort and clear to auscultation bilaterally AUSCULTATION: clear to auscultation bilaterally Cardio: COMMON NORMALS: regular rate and regular rhythm RATE: regular rate RHYTHM: regular rhythm Course Vital Signs: Vital signs: Vital Signs Temperature 98 F 05/08/23 04:47 Pulse Rate 72 05/08/23 04:47 Respiratory Rate 16 05/08/23 04:47 Blood Pressure 119/76 05/08/23 04:47 Pulse Oximetry 100 05/08/23 04:47 Oxygen Delivery Me thod Room Air 05/08/23 03:17 [facility] - General Adult Medical Decision Making The patient's saturations have been 97 to 100% on room air. The tracheostomy cannula was found to be partially dislodged. It is dislodged, because the stoma has begun to granulate in, and is too narrow for the tube in place at this point. The tracheostomy cannula was removed. A small wet-to-dry dressing was placed. It is covered with Tegaderm. The patient is handling his own secretions well. His saturations remained 97 to 100% on room air. He is not tachypneic or short of breath. His cough reflex is good. Chest x-ray is completed and shows no airway obstruction. At this point, as they were going to remove his cannula less than 48 hours ago, and with good pulse ox readings here, we elected to leave the tracheostomy cannula out. It is occluded with a dressing. He will call his ENT surgeon tomorrow which is Tuesday and let them know what we did. Will give him wound care instructions and supplies for now. He knows to return immediately for increasing shortness of breath. He has a pulse ox at home and can measure frequently which she is encouraged to do. He has a follow-up appointment tomorrow with his oncologist, to flush his port. They can check his pulse ox at that time as well. XR interpretation done by ED provider, pending radiology final review Discharge Plan Discharge Patient Disposition: Home Clinical Impression: Complication of tracheostomy tube Condition: Stable Prescriptions: No Action trazodone 50 mg tablet 25 mg feeding tube BEDTIME triamcinolone acetonide 0.1 % cream 1 applic topical BID PRN (Reason: unknown) acetylcysteine 100 mg/mL (10 %) solution 3 ml inhalation Q6H PRN (Reason: increased mucous) Qty: 90 2RF Rx Instructions: nebulization via tracheostomy (DME) trach mask and neb kit See Rx Instructions .Route .MEDSUPPLY Qty: 1 0RF Rx Instructions: As directed levothyroxine 25 mcg capsule 25 mcg PO DAILY Qty: 30 2RF metoprolol tartrate 25 mg tablet 25 mg feeding tube QAM atorvastatin 20 mg tablet 20 mg feeding tube BEDTIME clopidogrel 75 mg tablet 75 mg feeding tube QAM Hold Instructions: Resume on 09/12/22. amlodipine 5 mg tablet 2.5 mg feeding tube QAM Rx Instructions: Please convert to liquid form for PEG use gabapentin 300 mg capsule 300 mg feeding tube TID Rx Instructions: Please convert to liquid form for PEG use allopurinol 300 mg tablet 300 mg feeding tube QAM finasteride 5 mg tablet 5 mg PO QAM metoclopramide HCl 5 mg/5 mL solution 5 mg PO Q6H PRN (Reason: Nausea And Vomiting) famotidine 20 mg tablet 20 mg PO BID polyethylene glycol 3350 [Miralax] 17 gram powder in packet 17 g PO BEDTIME PRN melatonin 10 mg tablet 5 mg feeding tube BEDTIME sertraline 25 mg tablet 25 mg PO QAM ondansetron HCl 4 mg Tablet 4 mg PO QID PRN (Reason: Nausea/vomiting) Qty: 30 3RF prochlorperazine maleate [Compazine] 10 mg tablet 10 mg PO Q4H PRN (Reason: Mild Nausea) Qty: 30 3RF lorazepam 1 mg tablet 0.5 - 1 mg PO Q6H PRN (Reason: Severe Nausea) Qty: 30 3RF Discharge Orders: Discharge ED (Routine); Ordered 05/08/23 Ordered By: Anton Mcdonnell Referrals: Heather Hodges DO [Primary Care Provider] - Patient Instructions: Opioid Safety, Pain Management Activity Restrictions/Additional Instructions: Check your pulse ox frequently to monitor your oxygen level. Return immediately for any worsening shortness of breath. Return also for trouble handling your secretions, fever, altered mental status, or any other concerning symptoms. See your doctor tomorrow as scheduled. Call your ENT surgeon tomorrow and let them know what we did here. Wound care as shown in the ER. Coding Level of Care Code ED Senior Water/Wastewater Engineer for Mayra Cote
[2023-05-08 04:47] VITALS: BP 119/76; PULSE 72; RESP 16; TEMP 36.6; O2SAT 100
== END 2023-05-08 04:49 | disposition home or self-care (01) ==
PROVIDERS: Emergency Provider Emergency Medicine; PCP Family Medicine
DX: J95.09 Other tracheostomy complication (principal); Z79.02 Long term (current) use of antithrombotics/antiplatelets; Z87.891 Personal history of nicotine dependence; E78.5 Hyperlipidemia, unspecified; I10 Essential (primary) hypertension; Z86.73 Personal history of transient ischemic attack (TIA), and cerebral infarction without residual deficits; I25.2 Old myocardial infarction; Z95.1 Presence of aortocoronary bypass graft
CPT/HCPCS: 71045; 99283

== ENCOUNTER 2023-05-11 12:30 | Oncology outpatient (recurring) (ONCR) | payer MEDICARE, OTHER, SELFPAY ==
--- NOTE | 2023-05-04 13:45 | ONCRAD EPV_ITS ---
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 ID: [id number] Energy: 6X, Dose/Fx (cGy): 200, #Fx: 35 / 35, Dose Correction (cGy): 0, Total Dose Delivered (cGy): 7,000, Start Date: 11/24/2022, End Date: 01/12/2023, Elapsed Days: 49 Current History: Patient is present today with his daughter. He indicates that he still is utilizing his feeding tube. His tracheotomy tube remains intact but may be evaluated for possible removal this Tuesday. Patient reports that he is resuming his physical activity and feels that his muscle strength in his arms is improving. He denies difficulty with pain, cough, or shortness of breath. He denies any difficulty sleeping. Current Medications: Allopurinol, amLODIPine Besylate, atorvastatin Calcium, clopidogrel Bisulfate, cVS Melatonin, finasteride, gabapentin, metoprolol Tartrate, nitroglycerin. Allergies: Current Complaints / Review of Systems: . Vital Signs: Performed on 05/04/2023 12:51 PM BMI - 22.503 kg/m2, Height - 68 in, Weight - 148 lbs, Temperature - 96.9 f, Pulse - 52 /min (low), Respiration - 16 /min, O2 Sat - 96 %, Pain - 0, Fatigue - 0 and BP - 131/ 65 mm(hg). Physical Exam: General: Alert and oriented x 3. No acute distress. HEENT: Normocephalic, atraumatic. Extraocular Movements Intact: Pupils Equal, Round, Reactive to Light and Accommodation: Sclerae anicteric. Oral cavity is clear without lesions, masses or ulcers. Patient is edentulous. NECK: Supple without supraclavicular or jugular lymphadenopathy. Tracheostomy tube is clean and dry. LUNGS: Clear to auscultation bilaterally without rales, rhonchi or wheeze. HEART: Regular rate and rhythm, normal S1 and S2 without murmur, gallop or rub. MUSCULOSKELETAL: No tenderness or percussion pain over the axial skeleton, scapulae or pelvis. ABDOMEN: Soft, nontender, nondistended without masses or organomegaly. Bowell sounds are present. EXTREMITIES: No peripheral edema is identified. Limited motor and sensory examination are grossly intact and symmetric bilaterally. NEUROLOGIC: Cranial nerves II ???XII are grossly intact. Normal sensation, strength 5/5 in all extremities, normal gait, no ataxia. Performance Status: Lab: None pending. 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 Imaging: See HPI Impression: Jose Mcdonnell has recovered well from the acute effects of his external beam radiation therapy and chemotherapy. He is PET/CT from April 26, 2023 reveals complete response to treatment with no abnormal radiotracer uptake to suggest focal malignancy in the hypopharynx or any metastatic disease. Copy of the report was given to the patient and his daughter. The patient has been instructed to continue follow-up with medical oncology and Dr. Vega. He indicates plans to keep his appointment this Tuesday regarding tracheostomy evaluation. He has been instructed to contact our office if he has questions or concerns regarding his radiation therapy. Signed by: 05/04/2023 1:43:47 PM <<Signature on File>> Time spent with patient: 30 min CPT Code: CPT Code:
== END 2023-05-22 23:59 | disposition home or self-care (01) ==
PROVIDERS: PCP Family Medicine; Visit Provider Internal Medicine Medical Oncology
DX: Z45.1 Encounter for adjustment and management of infusion pump; Z53.9 Procedure and treatment not carried out, unspecified reason
CPT/HCPCS: 99213; J1642

== ENCOUNTER 2023-05-23 06:00 | Outpatient (RCR) | payer MEDICARE, OTHER, SELFPAY | END 2023-06-21 23:59 | disposition home or self-care (01) | LOC: SST 06:00 | PROVIDERS: PCP Family Medicine; Visit Provider Radiology Radiation Oncology | DX: R13.10 Dysphagia, unspecified (principal); Z93.0 Tracheostomy status | CPT/HCPCS: 92526 ==

== ENCOUNTER 2023-06-08 10:01 | Oncology outpatient (recurring) (ONCR) | payer MEDICARE, OTHER, SELFPAY | END 2023-06-21 23:59 | disposition home or self-care (01) | LOC: ONCMED 10:01 | PROVIDERS: PCP Family Medicine; Visit Provider Internal Medicine Medical Oncology | DX: Z45.2 Encounter for adjustment and management of vascular access device | CPT/HCPCS: 96523 ==

== ENCOUNTER 2023-06-22 06:00 | Outpatient (RCR) | payer MEDICARE, OTHER, SELFPAY | END 2023-07-22 23:59 | disposition home or self-care (01) | LOC: SST 06:00 | PROVIDERS: PCP Family Medicine; Visit Provider Radiology Radiation Oncology | DX: R13.10 Dysphagia, unspecified (principal) | CPT/HCPCS: 92526 ==

== ENCOUNTER 2023-07-05 12:10 | Oncology outpatient (recurring) (ONCR) | payer MEDICARE, OTHER, SELFPAY | END 2023-07-22 23:59 | disposition home or self-care (01) | PROVIDERS: PCP Family Medicine; Visit Provider Internal Medicine Medical Oncology | DX: Z45.2 Encounter for adjustment and management of vascular access device (principal) | CPT/HCPCS: 36591 ==

== ENCOUNTER 2023-07-23 06:00 | Outpatient (RCR) | payer MEDICARE, OTHER, SELFPAY | END 2023-08-11 23:59 | disposition home or self-care (01) | LOC: SST 06:00 | PROVIDERS: PCP Family Medicine; Visit Provider Radiology Radiation Oncology | DX: R13.10 Dysphagia, unspecified (principal) | CPT/HCPCS: 92526 ==

== ENCOUNTER 2023-08-10 13:29 | Oncology outpatient (recurring) (ONCR) | payer MEDICARE, OTHER, SELFPAY ==
[2023-08-10 14:04] LABS: Basophils % 0.4 %; Eosinophils # 0.2 10^3/uL (0.0-0.8); Eosinophils % 4.8 %; Hematocrit 29.8 % (37-53); Lymphocytes # 0.4 10^3/uL (0.8-4.8); Lymphocytes % 7.5 %; Mean Corpuscular HGB Conc 33.6 g/dL (30-55); Mean Corpuscular Hemoglobin 31.9 pg (27-33); Mean Corpuscular Volume 95.2 fl (82-101); Mean Platelet Volume 11.9 fL (7.4-10.4); Monocytes # 0.5 10^3/uL (0.2-0.9); Monocytes % 9.4 %; Neutrophils # 3.67 10^3/uL (1.8-7.7); Neutrophils % 77.1 %; Nucleated Red Blood Cells % 0 %; Platelet Count 97 10^3/cmm (157-399); Red Blood Count 3.13 10^6/uL (3.85-5.65); Red Cell Distribution Width 14.3 % (12.1-15.1); White Blood Count 4.77 10^3/uL (3.29-11.43)
[2023-08-10 14:22] LABS: Alanine Aminotransferase 20 U/L (0-41); Alkaline Phosphatase 98 U/L (40-130); Anion Gap 15.7 (5-19); Aspartate Amino Transferase 26 U/L (0-40); Blood Urea Nitrogen 35 mg/dL (8-23); Calcium 9.4 mg/dL (8.5-10.5); Carbon Dioxide 27 mmol/L (22-29); Chloride 100 mmol/L (98-107); Globulin 2.9 g/dL (1.3-4.6); Glucose 106 mg/dL (65-115); Osmolality Calculated 294 mOsm/kg (285-295); Potassium 4.7 mmol/L (3.5-5.1); Sodium 138 mmol/L (136-145); Total Bilirubin 0.3 mg/dL (0.15-1.2); Total Protein 6.9 g/dL (6.6-8.7)
== END 2023-08-21 23:59 | disposition home or self-care (01) ==
PROVIDERS: Internal Medicine; PCP Family Medicine; Visit Provider Internal Medicine Medical Oncology
DX: Z53.9 Procedure and treatment not carried out, unspecified reason (principal); C13.2 Malignant neoplasm of posterior wall of hypopharynx
CPT/HCPCS: 36591; 80053; 85025; 99214

== ENCOUNTER 2023-08-16 15:41 | Outpatient (CLI) | payer MEDICARE, OTHER, SELFPAY ==
--- NOTE | 2023-08-16 15:43 | CT_ITS ---
WS: [id number] CT NECK TECHNIQUE: Contrast-enhanced CT of the neck with coronal and sagittal reformatted images. CLINICAL INFORMATION: HEMOPTYSIS COMPARISON: PET/CT 04/26/2023 CT neck 04/07/2023 DLP: 146.[address] scans at [facility] use at least one of these dose optimization techniques: automated e xposure control; mA and/or kV adjustment per patient size (includes targeted exams where dose is matc hed to clinical indication); or iterative reconstruction. FINDINGS: Inspissated secretions in the LEFT maxillary sinus compatible with sinusitis with partial opacificati on. Mucosal thickening RIGHT mastoid tip. LEFT mastoid air cells are well aerated. Normal nasopharynx . Normal parapharyngeal fat. No evidence of supraglottic or glottic mass. Normal subglottic airway. P rior tracheostomy. Carotid bulb calcification. Small noncalcified nodule RIGHT upper lobe laterally m easuring 4 mm unchanged compared to previous. Thoracic aortic calcification. No cervical lymphadenopathy. Advanced spondylitic changes cervical spi ne. CT/CT neck w con* [id number] IMPRESSION: 1. LEFT maxillary sinusitis. 2. No evidence of recurrent or residual disease. 3. Prior tracheostomy. 4. 4 mm noncalcified nodule RIGHT upper lobe laterally is unchanged since 04/07. Recommend 6-month chest CT follow-up.
[2023-08-16] MEDS: iohexol 350 mg/mL 500 mL Btl (per mL) IV (16:02)
== END 2023-08-16 15:42 | disposition home or self-care (01) ==
LOC: RAD 15:42
PROVIDERS: PCP Family Medicine; Visit Provider Specialist
DX: R91.1 Solitary pulmonary nodule (principal); J32.0 Chronic maxillary sinusitis; Z93.0 Tracheostomy status; I65.23 Occlusion and stenosis of bilateral carotid arteries
CPT/HCPCS: 70491; Q9967

== ENCOUNTER 2023-08-30 12:49 | Outpatient (CLI) | payer MEDICARE, OTHER, SELFPAY ==
--- NOTE | 2023-08-30 13:00 | USCV_ITS ---
Jose Mcdonnell Age: 87 Gender: M : 1935 Exam Date: 08/30/2023 13:00 Ordering Phys: Marium Correia Technologist: TORREY [place] [facility] [place]: F/U KNOWN AAA HISTORY: Diameter (cm) AP x Transverse x Length Velocity (cm/s) Waveform Prox Aorta: 1.50 x 1.60 x 117.30 Triphasic Mid Aorta: 1.90 x 2.20 x 71.00 Triphasic Distal Aorta: 4.20 x 4.60 x 19.60 Triphasic Right Iliac Prox: 1.20 x 1.00 x 129.90 Triphasic Left Iliac Prox: 1.40 x 1.30 x 114.50 Triphasic Stent Prox Landing x x Aneurysmal Sac Max x x Lt Lat Sac Dim Rt Lat Sac Dim Stent Dist Landing x x Right Iliac Stent x x Left Iliac Stent x x Right Renal Art Left Renal Art FINDINGS: CONCLUSIONS Infrarenal AAA measuring 4.2 x 4.6cm distal abdominal aorta Moderate atheromatous disease Normal common iliac arteries Timmy Menard MD (Electronically Signed) Final Date: 30 August 2023 14:48 S
== END 2023-08-30 12:50 | disposition home or self-care (01) ==
LOC: RAD 12:49
PROVIDERS: PCP Family Medicine; Visit Provider Nurse Practitioner Family
DX: I71.40 Abdominal aortic aneurysm, without rupture, unspecified (principal); I70.90 Unspecified atherosclerosis
CPT/HCPCS: 93978

== ENCOUNTER 2023-11-04 09:33 | Oncology outpatient (recurring) (ONCR) | payer MEDICARE, OTHER, SELFPAY | END 2023-11-21 23:59 | disposition home or self-care (01) | PROVIDERS: PCP Family Medicine; Visit Provider Internal Medicine Medical Oncology | DX: Z53.9 Procedure and treatment not carried out, unspecified reason (principal) | CPT/HCPCS: 96523 ==

== ENCOUNTER 2023-12-12 10:43 | Outpatient (CLI) | payer MEDICARE, OTHER, SELFPAY ==
--- NOTE | 2023-12-12 10:52 | XR_ITS ---
WS: [id number] Exam: XR chest 2V* [id number] Date/Time of Exam: 12/12/2023 10:54 AM Reason For Exam: ACUTE UPPER RESPIRATORY INFECTION Comparison 05/08/2023. The lungs are hyperinflated and clear. Heart size is normal. The mediastinum is normal in contour. Si gns of previous CABG surgery. A LEFT subclavian port ends in the lower one third of the SVC in good p osition. No pleural effusions. Unremarkable bony elements. Moderate DJD of the LEFT shoulder. XR/XR chest 2V* [id number] IMPRESSION: 1. Pulmonary hyperinflation. No acute finding.
== END 2023-12-12 10:44 | disposition home or self-care (01) ==
LOC: RAD 10:46
PROVIDERS: PCP Family Medicine
DX: R05.1 Acute cough (principal); J06.9 Acute upper respiratory infection, unspecified
CPT/HCPCS: 71046

== ENCOUNTER 2023-12-13 12:34 | Oncology outpatient (recurring) (ONCR) | payer MEDICARE, OTHER, SELFPAY ==
[2023-12-13 12:51] LABS: Basophils % 0.2 %; Eosinophils # 0.1 10^3/uL (0.0-0.8); Eosinophils % 2.3 %; Hematocrit 32.1 % (37-53); Lymphocytes # 0.5 10^3/uL (0.8-4.8); Lymphocytes % 10.6 %; Mean Corpuscular HGB Conc 33.6 g/dL (30-55); Mean Corpuscular Hemoglobin 32.3 pg (27-33); Mean Corpuscular Volume 96.1 fl (82-101); Mean Platelet Volume 11.2 fL (7.4-10.4); Monocytes # 0.5 10^3/uL (0.2-0.9); Monocytes % 10.6 %; Neutrophils # 3.29 10^3/uL (1.8-7.7); Neutrophils % 75.8 %; Nucleated Red Blood Cells % 0 %; Platelet Count 106 10^3/cmm (157-399); Red Blood Count 3.34 10^6/uL (3.85-5.65); Red Cell Distribution Width 13.9 % (12.1-15.1); White Blood Count 4.34 10^3/uL (3.29-11.43)
[2023-12-13 13:09] LABS: Alanine Aminotransferase 20 U/L (0-41); Albumin Level 4.4 g/dL (3.5-5.2); Alkaline Phosphatase 91 U/L (40-130); Anion Gap 15.2 (5-19); Aspartate Amino Transferase 27 U/L (0-40); Blood Urea Nitrogen 33 mg/dL (8-23); Calcium 9.4 mg/dL (8.5-10.5); Carbon Dioxide 26 mmol/L (22-29); Chloride 99 mmol/L (98-107); Creatinine Clr Calc Pharmacy 39.6764; Globulin 2.6 g/dL (1.3-4.6); Glucose 115 mg/dL (65-115); Osmolality Calculated 290 mOsm/kg (285-295); Potassium 4.2 mmol/L (3.5-5.1); Sodium 136 mmol/L (136-145); Total Bilirubin 0.6 mg/dL (0.15-1.2)
== END 2023-12-22 23:59 | disposition home or self-care (01) ==
PROVIDERS: Nurse Practitioner Family; PCP Family Medicine; Visit Provider Internal Medicine Medical Oncology
DX: Z53.9 Procedure and treatment not carried out, unspecified reason; C13.2 Malignant neoplasm of posterior wall of hypopharynx
CPT/HCPCS: 36591; 80053; 85025; 99214

== ENCOUNTER → 2023-12-19 10:40 | Outpatient (BNVA) | payer MEDICARE, OTHER, SELFPAY | PROVIDERS: PCP Family Medicine; Visit Provider Nurse Practitioner Family | DX: I71.40 Abdominal aortic aneurysm, without rupture, unspecified (principal); I25.10 Atherosclerotic heart disease of native coronary artery without angina pectoris; E78.01 Familial hypercholesterolemia; I10 Essential (primary) hypertension; Z86.73 Personal history of transient ischemic attack (TIA), and cerebral infarction without residual deficits; I25.2 Old myocardial infarction; Z87.891 Personal history of nicotine dependence | CPT/HCPCS: 99214 ==

== ENCOUNTER 2023-12-27 14:35 | Outpatient (CLI) | payer MEDICARE, OTHER, SELFPAY ==
--- NOTE | 2023-12-27 14:38 | CTR_ITS ---
PROCEDURE INFORMATION: Exam: CTA Abdomen With Contrast Exam date and time: 12/27/2023 2:51 PM Age: 88 years old Clinical indication: Condition or disease; Other: Infrarenal aaa; Prior surgery; Surgery date: 6+ months; Surgery type: Port, open heart, trach, feeding tube; Patient HX: HX of throat CA 35 radiation/2 chemo; Additional info: Infrarenal aaa 4.6 cm TECHNIQUE: Imaging protocol: Computed tomographic angiography of the abdomen with contrast. Exam focused on the arteries. 3D rendering (Not supervised by radiologist): MIP and/or 3D reconstructed images were created by the technologist. Radiation optimization: All CT scans at this facility use at least one of these dose optimization techniques: automated exposure control; mA and/or kV adjustment per patient size (includes targeted exams where dose is matched to clinical indication); or iterative reconstruction. Contrast material: OMNI 350; Contrast volume: 100 ml; Contrast route: INTRAVENOUS (IV); COMPARISON: PT PET skull to thigh INIT [id number] 04/26/2023 9:43 AM RADIATION DOSE METRICS: Total DLP (mGy-cm): 274.79 FINDINGS: Tubes, catheters and devices: A PEG tube is properly positioned within the stomach. There is a 4.4 cm diameter infrarenal abdominal aortic aneurysm. Moderate mural thrombus is noted. Lungs: Both lung bases demonstrate chronic interstitial coarsening. Aorta: See Tubes, catheters and devices finding. Celiac trunk and mesenteric arteries: No occlusion or significant stenosis. Renal arteries: No occlusion or significant stenosis. Liver: Normal. No mass. Gallbladder and biliary ducts: Normal. No calcified stones. No ductal dilation. Pancreas: Normal. No ductal dilation. Spleen: Normal. No splenomegaly. Adrenal glands: Normal. No mass. Kidneys: Normal. No hydronephrosis. Stomach and bowel: Unremarkable. No obstruction. No mucosal thickening. Lymph nodes: Unremarkable. No enlarged lymph nodes. Intraperitoneal space: Unremarkable. No free air. No significant fluid collection. Bones/joints: Unremarkable. No acute fracture. Soft tissues: Unremarkable. CT/CT angio abdomen [id number] IMPRESSION: Stable 4.4 cm abdominal aortic aneurysm
[2023-12-27] MEDS: iohexol 350 mg/mL 500 mL Btl (per mL) IV (15:24)
== END 2023-12-27 14:36 | disposition home or self-care (01) ==
LOC: RAD 14:36
PROVIDERS: PCP Family Medicine; Visit Provider Nurse Practitioner Family
DX: I71.40 Abdominal aortic aneurysm, without rupture, unspecified (principal); Z93.1 Gastrostomy status
CPT/HCPCS: 74175

== ENCOUNTER 2024-01-10 15:18 | Oncology outpatient (recurring) (ONCR) | payer MEDICARE, OTHER, SELFPAY | END 2024-01-21 23:59 | disposition home or self-care (01) | PROVIDERS: PCP Family Medicine; Visit Provider Internal Medicine Medical Oncology | DX: Z45.2 Encounter for adjustment and management of vascular access device (principal); Z53.9 Procedure and treatment not carried out, unspecified reason | CPT/HCPCS: 74175; 96523 ==

== ENCOUNTER 2024-02-07 15:01 | Oncology outpatient (recurring) (ONCR) | payer MEDICARE, OTHER, SELFPAY | END 2024-02-21 23:59 | disposition home or self-care (01) | LOC: ONCMED 15:01 | PROVIDERS: PCP Family Medicine; Visit Provider Internal Medicine Medical Oncology | DX: Z45.2 Encounter for adjustment and management of vascular access device (principal) | CPT/HCPCS: 96523 ==

== ENCOUNTER → 2024-02-13 11:20 | Outpatient (BNVA) | payer MEDICARE, OTHER, SELFPAY | PROVIDERS: PCP Family Medicine; Visit Provider Surgery | DX: T85.598A Other mechanical complication of other gastrointestinal prosthetic devices, implants and grafts, initial encounter (principal); R11.10 Vomiting, unspecified; K94.23 Gastrostomy malfunction; Y73.2 Prosthetic and other implants, materials and accessory gastroenterology and urology devices associated with adverse incidents | CPT/HCPCS: 43762; 99214 ==

== ENCOUNTER 2024-02-15 10:50 | Emergency (ER) | payer MEDICARE, OTHER, SELFPAY ==
[2024-02-15 10:58] VITALS: BP 163/76; PULSE 67; RESP 16; TEMP 36.6; O2SAT 98; BMI 24.0
--- NOTE | 2024-02-15 11:18 | ED_ITS ---
HPI - General Adult General: Chief complaint: General Medical Stated complaint: pulled feeding tube out Time Seen by Provider: 02/15/24 10:54 Source: patient Mode of arrival: ambulatory Limitations: no limitations History of Present Illness: 88-year-old male who has a PEG tube stat es that he had excellently pulled out overnight to the balloon needs it replaced he has no other complaints this time no bleeding denies any other issues Associated symptoms: Deny chest pain, dyspnea, headache(s), nausea, rash or vomiting Related Data Home Medications Medication Instructions Recorded Confirmed allopurinol 300 mg tablet 300 mg feeding tube QAM 09/10/22 02/13/24 atorvastatin 20 mg tablet 20 mg feeding tube BEDTIME 09/10/22 02/13/24 clopidogrel 75 mg tablet 75 mg feeding tube QAM 09/10/22 02/13/24 sertraline 25 mg tablet 25 mg PO QAM 10/07/22 02/13/24 triamcinolone acetonide 0.1 % 1 applic topical BID PRN unknown 10/18/22 02/13/24 topical cream finasteride 5 mg tablet 5 mg PO QAM 10/28/22 02/13/24 famotidine 20 mg tablet 20 mg PO BID 11/08/22 02/13/24 metoclopramide HCl 5 mg/5 mL oral 5 mg PO Q6H PRN Nausea And Vomiting 11/08/22 02/13/24 solution polyethylene glycol 3350 17 gram 17 g PO BEDTIME PRN 12/01/22 02/13/24 oral powder packet (Miralax) trazodone 50 mg tablet 25 mg feeding tube BEDTIME 12/01/22 02/13/24 doxycycline hyclate 100 mg tablet mg PO 12/13/23 02/13/24 fluticasone propionate 50 intranasal 12/13/23 02/13/24 mcg/actuation nasal spray,suspension gabapentin 300 mg capsule 300 mg feeding tube BID 12/19/23 02/13/24 metoprolol tartrate 25 mg tablet 12.5 mg PO QAM 12/19/23 02/13/24 Previous Rx's Medication Instructions Recorded trach mask and neb kit #1 ea 12/02/22 acetylcysteine 100 mg/mL (10 %) 3 ml inhalation Q6H PRN increased 08/10/23 solution mucous #30 mL levothyroxine 50 mcg tablet 50 mcg PO DAILY #1 tab 10/28/24 Allergies Allergy/AdvReac Type Severity Reaction Status Date / Time acetaminophen [From Tylenol] Allergy Unknown ALGY-Rash Verified 02/13/24 11:25 amoxicillin Allergy Unknown ALGY-Rash Verified 02/13/24 11:25 levofloxacin Allergy Unknown ALGY-Rash Verified 02/13/24 11:25 Penicillins Allergy Unknown RASH Verified 02/13/24 11:25 Review of Systems Const: Denies: fever(s) or chills ENMT: Denies: throat pain or dental pain Card: Denies: chest pain Resp: Denies: dyspnea GI: Denies: abdominal pain, nausea or vomiting Musc: Denies: neck pain or back pain Skin/Breast: Denies: rash Neuro: Denies: headache(s) PFSH ED PFSH: Medical History Tracheitis Acute bacterial tracheitis Acute dyspnea Leukocytosis Antineoplastic chemotherapy induced anemia Protein calorie malnutrition Secondary malignancy of lymph nodes of head, face and neck Peripheral neuropathy Gout BPH loc w urin obs/LUTS Elevated PSA Chronic prostatitis Tobacco abuse, in remission DJD (degenerative joint disease), lumbar Hyperlipidemia Essential hypertension ASHD (arteriosclerotic heart disease) AAA (abdominal aortic aneurysm) CVA (cerebral vascular accident) Palpitations Myocardial infarction Surgical History History of total right knee replacement History of laryngoscopy (07/05/22) tracheotomy and 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 Status post insertion of percutaneous endoscopic gastrostomy (PEG) tube (07/10/22) S/P CABG (coronary artery bypass graft) Family History Other CAD (coronary artery disease) Cancer Hypertension Social History Smoking and tobacco/nicotine status: former use of tobacco/nicotine Quit status (tobacco/nicotine): has quit using Year quit tobacco: 2001 Former quit date comment: smoked x 50+ years Alcohol intake: never Substance/Drug Use: never Household members: spouse Marital status: service: No Current occupational status: retired 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 Current gender identity: Male Radha/Zoroastrianism: Episcopalian Physical Exam Const: COMMON NORMALS: no acute distress, patient oriented x3 and healthy appearing HENMT: COMMON NORMALS: normocephalic and atraumatic HEAD & SCALP: normocephalic and atraumatic Eye: COMMON NORMALS: conjunctivae normal CONJUNCTIVA: Yes conjunctivae normal Neck/C-Spine: COMMON NORMALS: full ROM and supple Chest: COMMONS NORMALS: normal inspection of the chest Resp: COMMON NORMALS: normal respiratory effort Cardio: COMMON NORMALS: regular rate RATE: regular rate GI: OTHER: No bleeding from PEG tube site Extremity: COMMON NORMALS: normal to inspection and full ROM Neuro: COMMON NORMALS: patient oriented x3, moves all extremities and no focal motor deficits Psych: COMMON NORMALS: mental status grossly normal, Normal thought process present and cooperative THOUGHT PROCESS: Normal thought process present Skin: COMMON NORMALS: no rashes or lesions noted and no wounds GENERAL SKIN EXAM: no rashes or lesions noted Procedures Feeding Tube Replacement Type of Tube: gastrostomy Insertion Site Prior to Procedure: clean Tube Used for Reinsertion: other (g tube) Russian Tube Size (F): 20 Balloon size (mL): 10 Verification of Placement: KUB and gastrografin injection Patient Tolerated Procedure: well Course Vital Signs: Vital signs: Vital Signs Temperature 97.9 F 02/15/24 10:58 Pulse Rate 61 02/15/24 11:50 Respiratory Rate 16 02/15/24 10:58 Blood Pressure 163/76 02/15/24 10:58 Pulse Oximetry 99 02/15/24 11:50 Oxygen Delivery La thod Room Air 02/15/24 11:50 [facility] - General Adult Medical Decision Making Patient presents here after having his G-tube excellently pulled out did replace it with a new G-tube KUB shows it in place he is stable for discharge. Medical Records I reviewed the patient's medical records. All radiology interpretation(s) finalized by discharge Discharge Plan Discharge Patient Disposition: Home Clinical Impression: Dislodged gastrostomy tube Condition: Stable Prescriptions: No Action trazodone 50 mg tablet 25 mg feeding tube BEDTIME triamcinolone acetonide 0.1 % cream 1 applic topical BID PRN (Reason: unknown) acetylcysteine 100 mg/mL (10 %) solution 3 ml inhalation Q6H PRN (Reason: increased mucous) Qty: 30 2RF Rx Instructions: nebulization via tracheostomy doxycycline hyclate 100 mg tablet PO fluticasone propionate 50 mcg/actuation spray,suspension intranasal levothyroxine 50 mcg tablet 50 mcg PO DAILY Qty: 1 0RF gabapentin 300 mg capsule 300 mg feeding tube BID Rx Instructions: Please convert to liquid form for PEG use (DME) trach mask and neb kit See Rx Instructions .Route .MEDSUPPLY Qty: 1 0RF Rx Instructions: As directed atorvastatin 20 mg tablet 20 mg feeding tube BEDTIME clopidogrel 75 mg tablet 75 mg feeding tube QAM Hold Instructions: Resume on 09/12/22. allopurinol 300 mg tablet 300 mg feeding tube QAM metoprolol tartrate 25 mg tablet 12.5 mg PO QAM finasteride 5 mg tablet 5 mg PO QAM metoclopramide HCl 5 mg/5 mL solution 5 mg PO Q6H PRN (Reason: Nausea And Vomiting) famotidine 20 mg tablet 20 mg PO BID polyethylene glycol 3350 [Miralax] 17 gram powder in packet 17 g PO BEDTIME PRN sertraline 25 mg tablet 25 mg PO QAM Discharge Orders: Discharge ED (Routine); Ordered 02/15/24 Ordered By: Mariann Matta Referrals: Heather Hodges DO [Primary Care Provider] - 4-7 days Discharge Diet: Advance as tolerated Discharge Activity: Resume usual activity Patient Instructions: How to Use and Care for Your PEG Tube (DC) Coding Level of Care Code ED Poultry Offal Icer for Mayra Cote
--- NOTE | 2024-02-15 11:46 | PC.NURSE ---
rounding pt resting in bed with support person at side. no needs expressed at this time.
--- NOTE | 2024-02-15 11:48 | XRR_ITS ---
PROCEDURE INFORMATION: Exam: XR Abdomen Exam date and time: 02/15/2024 11:53 AM Age: 88 years old Clinical indication: Device placement; Gi device; Peg tube; Prior surgery; Surgery date: 6+ months; Additional info: G tube placement TECHNIQUE: Imaging protocol: Radiologic exam of the abdomen. Views: Frontal supine view of the abdomen. 1 View. COMPARISON: CT angio abdomen [id number] 12/27/2023 2:51 PM FINDINGS: Gastrointestinal tract: Contrast material projects over the stomach and proximal small bowel. No bowel obstruction or distinct pneumoperitoneum. Stool is present in large bowel. Bones/joints: Prior median sternotomy presumably for CABG. XR/XR KUB [id number] IMPRESSION: Contrast material projects over the stomach and proximal small bowel. No bowel obstruction or distinct pneumoperitoneum.
[2024-02-15 11:50] VITALS: PULSE 61; O2SAT 99
--- NOTE | 2024-02-15 12:30 | XRR_ITS ---
PROCEDURE INFORMATION: Exam: XR Abdomen Exam date and time: 02/15/2024 12:34 PM Age: 88 years old Clinical indication: Device placement; Gi device; Peg tube; Prior surgery; Surgery date: 6+ months; Additional info: G tube placement TECHNIQUE: Imaging protocol: Radiologic exam of the abdomen. Views: Frontal supine view of the abdomen. 1 View. COMPARISON: CR (ABDOMEN, ) 02/15/2024 11:53 AM FINDINGS: Heart/Mediastinum: Cardiomegaly. Prior median sternotomy. Gastrointestinal tract: Contrast projects over the stomach. Enteric/colonic contents mixed with contrast also present. No appreciable bowel obstruction or pneumoperitoneum. Bones/joints: See Heart/Mediastinum finding. XR/XR KUB [id number] IMPRESSION: Contrast projects over the stomach. Enteric/colonic contents mixed with contrast also present. No appreciable bowel obstruction or pneumoperitoneum.
[2024-02-15 12:40] VITALS: BP 136/67; PULSE 59; RESP 17; O2SAT 98
[2024-02-15 13:05] VITALS: BP 138/63; PULSE 61; O2SAT 96
== END 2024-02-15 13:06 | disposition home or self-care (01) ==
PROVIDERS: Emergency Provider Emergency Medicine; PCP Family Medicine
DX: Z43.1 Encounter for attention to gastrostomy (principal); Z87.891 Personal history of nicotine dependence; Z95.1 Presence of aortocoronary bypass graft; E78.5 Hyperlipidemia, unspecified; I10 Essential (primary) hypertension
CPT/HCPCS: 49440; 74018; 99283

== ENCOUNTER 2024-03-13 13:36 | Oncology outpatient (recurring) (ONCR) | payer MEDICARE, OTHER, SELFPAY ==
[2024-03-13 14:10] LABS: Basophils % 0.2 %; Eosinophils # 0.1 10^3/uL (0.0-0.8); Eosinophils % 2.3 %; Hematocrit 34.3 % (37-53); Lymphocytes # 0.4 10^3/uL (0.8-4.8); Lymphocytes % 8.4 %; Mean Corpuscular HGB Conc 32.9 g/dL (30-55); Mean Corpuscular Hemoglobin 31.7 pg (27-33); Mean Corpuscular Volume 96.3 fl (82-101); Mean Platelet Volume 11.3 fL (7.4-10.4); Monocytes # 0.5 10^3/uL (0.2-0.9); Monocytes % 9.7 %; Neutrophils # 3.73 10^3/uL (1.8-7.7); Neutrophils % 78.6 %; Nucleated Red Blood Cells % 0 %; Platelet Count 103 10^3/cmm (157-399); Red Blood Count 3.56 10^6/uL (3.85-5.65); Red Cell Distribution Width 13.8 % (12.1-15.1); White Blood Count 4.75 10^3/uL (3.29-11.43)
[2024-03-13 14:26] LABS: Alanine Aminotransferase 18 U/L (0-41); Albumin Level 4.2 g/dL (3.5-5.2); Alkaline Phosphatase 98 U/L (40-130); Anion Gap 16.4 (5-19); Aspartate Amino Transferase 27 U/L (0-40); Blood Urea Nitrogen 37 mg/dL (8-23); Calcium 9.6 mg/dL (8.5-10.5); Carbon Dioxide 26 mmol/L (22-29); Chloride 99 mmol/L (98-107); Globulin 2.5 g/dL (1.3-4.6); Glucose 107 mg/dL (65-115); Osmolality Calculated 293 mOsm/kg (285-295); Potassium 4.4 mmol/L (3.5-5.1); Sodium 137 mmol/L (136-145); Total Bilirubin 0.4 mg/dL (0.15-1.2); Total Protein 6.7 g/dL (6.6-8.7)
== END 2024-03-23 23:59 | disposition home or self-care (01) ==
PROVIDERS: Nurse Practitioner Family; PCP Family Medicine; Visit Provider Internal Medicine Medical Oncology
DX: Z08 Encounter for follow-up examination after completed treatment for malignant neoplasm (principal); Z87.891 Personal history of nicotine dependence; Z95.828 Presence of other vascular implants and grafts; Z85.818 Personal history of malignant neoplasm of other sites of lip, oral cavity, and pharynx
CPT/HCPCS: 36415; 80053; 85025; 99214

== ENCOUNTER → 2024-03-26 14:50 | Outpatient (BNVA) | payer MEDICARE, OTHER, SELFPAY | PROVIDERS: PCP Family Medicine; Visit Provider Surgery | DX: Z45.2 Encounter for adjustment and management of vascular access device (principal); Z95.828 Presence of other vascular implants and grafts; K94.23 Gastrostomy malfunction | CPT/HCPCS: 43762; 99214 ==

== ENCOUNTER 2024-06-13 12:20 | Oncology outpatient (recurring) (ONCR) | payer MEDICARE, OTHER, SELFPAY ==
[2024-06-13 12:46] LABS: Basophils % 0.4 %; Eosinophils # 0.1 10^3/uL (0.0-0.8); Eosinophils % 1.7 %; Lymphocytes # 0.5 10^3/uL (0.8-4.8); Lymphocytes % 8.9 %; Mean Corpuscular HGB Conc 33.3 g/dL (30-55); Mean Corpuscular Hemoglobin 32.2 pg (27-33); Mean Corpuscular Volume 96.5 fl (82-101); Monocytes # 0.6 10^3/uL (0.2-0.9); Monocytes % 12.2 %; Neutrophils # 3.94 10^3/uL (1.8-7.7); Nucleated Red Blood Cells % 0 %; Platelet Count 110 10^3/cmm (157-399); Red Blood Count 3.42 10^6/uL (3.85-5.65); Red Cell Distribution Width 13.8 % (12.1-15.1); White Blood Count 5.18 10^3/uL (3.29-11.43)
[2024-06-13 13:13] LABS: Alanine Aminotransferase 19 U/L (0-41); Albumin Level 4.3 g/dL (3.5-5.2); Alkaline Phosphatase 96 U/L (40-130); Anion Gap 15.4 (5-19); Aspartate Amino Transferase 24 U/L (0-40); Blood Urea Nitrogen 33 mg/dL (8-23); Calcium 9.6 mg/dL (8.5-10.5); Carbon Dioxide 26 mmol/L (22-29); Chloride 100 mmol/L (98-107); Creatinine Clr Calc Pharmacy 42.0248; Globulin 2.9 g/dL (1.3-4.6); Glucose 91 mg/dL (65-115); Osmolality Calculated 291 mOsm/kg (285-295); Potassium 4.4 mmol/L (3.5-5.1); Sodium 137 mmol/L (136-145); Total Bilirubin 0.4 mg/dL (0.15-1.2); Total Protein 7.2 g/dL (6.6-8.7)
== END 2024-06-20 23:59 | disposition home or self-care (01) ==
PROVIDERS: Nurse Practitioner Family; PCP Family Medicine; Visit Provider Internal Medicine Medical Oncology
DX: Z08 Encounter for follow-up examination after completed treatment for malignant neoplasm (principal); Z85.818 Personal history of malignant neoplasm of other sites of lip, oral cavity, and pharynx; R03.0 Elevated blood-pressure reading, without diagnosis of hypertension
CPT/HCPCS: 36415; 80053; 85025; 99214

== ENCOUNTER 2024-09-11 12:24 | Oncology outpatient (recurring) (ONCR) | payer MEDICARE, OTHER, SELFPAY ==
[2024-09-11 13:04] LABS: Hematocrit 32.7 % (37-53); Hemoglobin 11.20 g/dL (11.27-16.99); Mean Corpuscular HGB Conc 34.3 g/dL (30-55); Mean Corpuscular Hemoglobin 33.4 pg (27-33); Mean Corpuscular Volume 97.6 fl (82-101); Nucleated Red Blood Cells % 0 %; Platelet Count 115 10^3/cmm (157-399); Red Blood Count 3.35 10^6/uL (3.85-5.65); White Blood Count 6.46 10^3/uL (3.29-11.43)
[2024-09-11 13:26] LABS: Alanine Aminotransferase 16 U/L (0-41); Albumin Level 4.4 g/dL (3.5-5.2); Alkaline Phosphatase 96 U/L (40-130); Anion Gap 15.2 (5-19); Aspartate Amino Transferase 25 U/L (0-40); Blood Urea Nitrogen 29 mg/dL (8-23); Calcium 9.7 mg/dL (8.5-10.5); Carbon Dioxide 27 mmol/L (22-29); Chloride 100 mmol/L (98-107); Creatinine Clr Calc Pharmacy 35.8305; Globulin 2.8 g/dL (1.3-4.6); Glucose 84 mg/dL (65-115); Osmolality Calculated 291 mOsm/kg (285-295); Potassium 4.2 mmol/L (3.5-5.1); Sodium 138 mmol/L (136-145); Total Protein 7.2 g/dL (6.6-8.7)
== END 2024-09-20 23:59 | disposition home or self-care (01) ==
PROVIDERS: Nurse Practitioner Family; PCP Family Medicine; Visit Provider Internal Medicine Medical Oncology
DX: Z08 Encounter for follow-up examination after completed treatment for malignant neoplasm (principal); Z85.818 Personal history of malignant neoplasm of other sites of lip, oral cavity, and pharynx; R03.0 Elevated blood-pressure reading, without diagnosis of hypertension; Z87.891 Personal history of nicotine dependence; Z92.3 Personal history of irradiation; Z92.21 Personal history of antineoplastic chemotherapy
CPT/HCPCS: 36415; 80053; 85025; 99214

== ENCOUNTER → 2024-10-03 15:51 | Outpatient (BNVA) | payer MEDICARE, OTHER, SELFPAY | PROVIDERS: PCP Family Medicine; Visit Provider Internal Medicine Cardiovascular Disease | DX: I25.10 Atherosclerotic heart disease of native coronary artery without angina pectoris (principal); I71.40 Abdominal aortic aneurysm, without rupture, unspecified; I10 Essential (primary) hypertension; Z95.1 Presence of aortocoronary bypass graft; Z86.73 Personal history of transient ischemic attack (TIA), and cerebral infarction without residual deficits; Z87.891 Personal history of nicotine dependence; I25.2 Old myocardial infarction | CPT/HCPCS: 99214 ==

== ENCOUNTER 2024-10-09 01:13 | Emergency (ER) | payer MEDICARE, OTHER, SELFPAY ==
[2024-10-09 01:19] VITALS: BP 119/59; PULSE 54; RESP 18; TEMP 36.5; O2SAT 99
[2024-10-09 01:24] VITALS: BP 122/70; PULSE 54; RESP 18; O2SAT 99
--- OUTSIDE RECORDS SUMMARY | 2024-10-09 01:24 | XMS_ITS | Encounter Summary ---
Author Organization [facility] Address [address] [place] [address] Care Team Providers Care Heel Padder Name Role Phone Heather Hodges DO Primary Care Provider [phone] Encounter Details Date Type Department Care Team (Latest Contact Info) Description 04/26/2005 Outpatient Historical [facility] [address] [id number] Renaldo Koenig, [place] NO ADDRESS ON FILE Generalized Osteoarthrosis, Involving Multiple Sites (Primary Dx) Social History Tobacco Use Types Packs/Day Years Used Date Smoking Tobacco: Never Assessed Sex and Gender Information Value Date Recorded Sex Assigned at Not on file 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
--- OUTSIDE RECORDS SUMMARY | 2024-10-09 01:24 | XMS_ITS | Encounter Summary ---
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); HYPERLIPIDEMIA NEC/NOS; ANXIETY STATE NOS Social History Tobacco Use Types Packs/Day Years Used Date Smoking Tobacco: Never Assessed Sex and Gender Information Value Date Recorded Sex Assigned at Not on file 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
--- OUTSIDE RECORDS SUMMARY | 2024-10-09 01:25 | XMS_ITS | Clinical Summary ---
Author Organization [facility] Address [address] [facility] [address] [place] [address] Phone Care Team Providers Care Boat Outfitter Name Role Phone Heather Hodges Primary Care Provider Allergies Active Allergy Reactions Criticality Noted Date Comments Amoxicillin Hives High 06/30/2013 Haloperidol Lactate Hallucination High 10/21/2014 Medications melatonin 5 mg Tablet Take by mouth nightly as needed. Active nitroglycerin (NITROSTAT) 0.4 mg Tablet, Sublingual Place 0.4 mg under tongue every 5 minutes as needed for Chest Pain. Active finasteride (PROSCAR) 5 mg tabletIndications:B enign prostatic hyperplasia, unspecified whether lower urinary tract symptoms present Take 1 Tablet (5 mg) by mouth daily. 90 Tablet 4 0 Active gabapentin (NEURONTIN) 300 mg capsuleIndications: Primary osteoarthritis of right knee,Inflammatory arthritis Take 1 Capsule (300 mg) by mouth 3 times daily. 270 Capsule 4 1 Active allopurinoL (ZYLOPRIM) 300 mg tabletIndications:G out, unspecified cause, unspecified chronicity, unspecified site Take 1 Tablet (300 mg) by mouth daily before breakfast. 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 90 Tablet 1 1 Active Active Problems Problem Noted Date Diagnosed Date Right TKA- Ingrid 10/21/2014 10/21/2014 Preoperative general physical examination 2014 Anemia, unspecified 10/04/2014 CAD (coronary artery disease) 10/04/2014 Primary osteoarthritis of right knee 09/17/2014 Right knee pain 09/17/2014 Gout Elevated cholesterol Hx of CABG Hard of hearing Inflammatory arthritis HTN (hypertension) Chest pain Calculus of kidney Coronary artery disease Immunizations Immunization Administration Dates Next Due (TDVAX)(7 YRS UP) TETANUS AN D DIPHTHERIA TOXOIDS, ADSORBED (2 LF OF TETANUS TOXOID AND 2 LF OF DIPHTHERIA TOXOID), 0.5ML (PF), IM 10/03/2003 Influenza Seasonal Unspecifi ed Formulation IM 12/12/2007,11/17/2006,01/03/2002,1998 Influenza Vaccine High Dose 65+ Yrs IM 11/20/2019 Family History Medical History Relation Name Comments Cancer Brother Tito prostate Heart Disease Brother Tito High Cholesterol Brother Tito Hypertension Brother Tito Hypertension Daughter 1 Peace Unknown Daughter 2 Melany Heart Disease Father Heart Disease Mother Lung Cancer Mother never tobacco u ser Hypertension Son Mark Relation Name Status Comments Brother Tito Alive Daughter 1 Peace Alive Daughter 2 Melany Alive Daughter 3 Soo Alive Father (Age 88) Mother (Age 93) Son Mark Alive Social History Tobacco Use Types Packs/Day Years Used Date Smoking Tobacco: Former Cigarettes 3 50 0 [birth year]/04/1952 - 10/04/2002 Smokeless Tobacco: Never Tobacco Cessation:Counseling Given: No Alcohol Use Standard Drinks/Week Comments No 0 (1 standard drink = 0.6 oz pur e alcohol) Sex and Gender Information Value Date Recorded Sex Assigned at Not on file 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 Gender Identity Not on file Sexual Orientation Not on file Last Filed Vital Signs Vital Sign Reading Time Taken Comments Blood Pressure 134/58 08/14/2020 10:44 AM CDT Pulse 59 08/14/2020 10:44 AM CDT Temperature 36.8 C (98.3 F) 08/14/2020 10:44 AM CDT Respiratory Rate 14 10/23/2014 12:00 PM CDT Oxygen Saturation 98% 08/14/2020 10:44 AM CDT Inhaled Oxygen Concentration - - Weight 79.4 kg (175 lb) 08/14/2020 10:44 AM CDT Height 170.2 cm (5' 7 ) 08/14/2020 10:44 AM CDT Body Mass Index 27.41 08/14/2020 10:44 AM CDT Plan of Treatment Health Maintenance Due Date Last Done Comments PNEUMOCOCCAL VACCINE 50+ YEA RS (1 of 1 - PCV) 1986 ZOSTER VACCINE (1 of 2) 1986 DTAP/TDAP/TD VACCINES (1 - Tdap) 10/04/2003 10/03/19 04 RSV VACCINE (60+ or ) (1 - 1-dose 75+ series) 11/25/2011 INFLUENZA VACCINE (#1) 2024 0, 12/12/2007, 11/17/2006, Additional history exists Medical Devices Implanted Type Area Quilting Supervisor Device Identifier Shelf Expiration Date Model / Serial / Lot Cement Simplex Hvisc 6194-1-001 - [id number] Implanted:Qty: 2 on 10/21/2014 by Buster Rick MD at [facility] Cement Right: Knee [employer] 05/22/2015 6194-1-00 1 / / [id number] V Comp Tib Triathlon Cmnt 5520-B-500 - [id number] Implanted:Qty: 1 on 10/21/2014 by Buster Rick MD at [facility] Knee Right: Knee [employer] 03/23/2019 5520-B-50 0 / / [id number] Patella Trthln Asym Poly 5551-L-350 - [id number] Implanted:Qty: 1 on 10/21/2014 by Buster Rick MD at [facility] Knee Right: Patella [employer]- [employer] INT INC 09/21/2019 5551-L-35 0 / / [id number] Comp Fem Trthln Cr Sz5 Rt 5510-F-502 - [id number] Implanted:Qty: 1 on 10/21/2014 by Buster Rick MD at [facility] Knee Right: Knee [employer] 06/21/2019 5510-F-50 2 / / [id number] Insert Tib Trthln X3 Cs 5531-G-513 - [id number] Implanted:Qty: 1 on 10/21/2014 by Buster Rick MD at [facility] Knee Right: Knee [employer] 05/22/2019 5531-G-51 3 / / [id number] Advance Directives For more information, please contact: [phone] * Full Code (Latest Code Status on File) Date Activated Date Inactivated Comments 10/21/2014 12:55 PM 10/23/2014 6:40 PM * Full Code Date Activated Date Inactivated Comments 10/21/2014 6:19 AM 10/21/2014 12:54 PM Care Teams Boat Outfitter Relationship Specialty Start Date End Date Heather Hodges DO [address] [place] [id number] PCP - General Family Practice 11/20/19
--- OUTSIDE RECORDS SUMMARY | 2024-10-09 01:25 | XMS_ITS | Encounter Summary ---
Author Organization [facility] Address [address] [place] [address] Care Team Providers Care Audio Visual Aids Director Name Role Phone Heather Hodges DO Primary Care Provider [phone]- [phone] Encounter Details Date Type Department Care Team (Latest Contact Info) Description 12/26/1997 Outpatient Historical [facility] Medicine [place] 104 [facility] 60 [place] [address] Loren Roy NO ADDRESS ON FILE Acute bronchitis (Primary Dx); Acute sinusitis, unspecified Social History Tobacco Use Types Packs/Day Years Used Date Smoking Tobacco: Never Assessed Sex and Gender Information Value Date Recorded Sex Assigned at Not on file 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
--- OUTSIDE RECORDS SUMMARY | 2024-10-09 01:25 | XMS_ITS | Encounter Summary ---
Author Organization [facility] Address [address] [place] [address] Care Team Providers Care Full Stack Python Developer Name Role Phone Heather Hodges DO Primary Care Provider +1- [phone] Encounter Details Date Type Department Care Team (Latest Contact Info) Description 01/09/1998 Outpatient Historical 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
--- OUTSIDE RECORDS SUMMARY | 2024-10-09 01:25 | XMS_ITS | Encounter Summary ---
Author Organization [facility] Address [address] [place] [address] Care Team Providers Care Miter Saw Operator Name Role Phone Heather Hodges DO Primary Care Provider [phone]- [phone] Encounter Details Date Type Department Care Team (Latest Contact Info) Description 01/22/1998 Outpatient Historical [facility] Medicine [place] [address] 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
--- OUTSIDE RECORDS SUMMARY | 2024-10-09 01:25 | XMS_ITS | Encounter Summary ---
Author Organization [facility] Address [address] [place] [address] Care Team Providers Care Quiller Tender Name Role Phone Heather Hodges DO Primary Care Provider +1- [phone] Encounter Details Date Type Department Care Team (Latest Contact Info) Description 11/13/1997 Outpatient Historical [facility] Medicine [place] [address] [facility] 60 [place] [address] Loren Roy NO ADDRESS ON FILE Open wound of chest (wall), without mention of complication (Primary Dx) Social History Tobacco Use Types Packs/Day Years Used Date Smoking Tobacco: Never Assessed Sex and Gender Information Value Date Recorded Sex Assigned at Not on file 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
--- OUTSIDE RECORDS SUMMARY | 2024-10-09 01:26 | XMS_ITS | Encounter Summary ---
Author Organization [facility] Address [address] [place] [address] Care Team Providers Care Drug Abuse Counselor Name Role Phone Heather Hodges DO Primary Care Provider [phone] Encounter Details Date Type Department Care Team (Latest Contact Info) Description 11/27/1998 Outpatient Historical [facility] Medicine [place] 104 [facility] 60 [place] [address] Loren Roy NO ADDRESS ON FILE Acute sinusitis, unspecified (Primary Dx); Unspecified essential hypertension; Other nonspecific abnormal serum enzyme levels Social History Tobacco Use Types Packs/Day Years Used Date Smoking Tobacco: Never Assessed Sex and Gender Information Value Date Recorded Sex Assigned at Not on file 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
--- OUTSIDE RECORDS SUMMARY | 2024-10-09 01:26 | XMS_ITS | Encounter Summary ---
Author Organization [facility] Address [address] [place] [address] Care Team Providers Care Tipple Tender Name Role Phone Heather Hodges DO Primary Care Provider +1- [phone] Encounter Details Date Type Department Care Team (Latest Contact Info) Description 11/09/2000 Outpatient Historical [facility] Medicine [place] 104 [facility] 60 [place] [address] Joann Moore MD NO ADDRESS ON FILE Gout, unspecified (Primary Dx); Pure hypercholesterolem Social History Tobacco Use Types Packs/Day Years Used Date Smoking Tobacco: Never Assessed Sex and Gender Information Value Date Recorded Sex Assigned at Not on file 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
--- OUTSIDE RECORDS SUMMARY | 2024-10-09 01:26 | XMS_ITS | Encounter Summary ---
Author Organization [facility] Address [address] [place] [address] Care Team Providers Care Organic Extractions Technician Name Role Phone Heather Hodges DO Primary Care Provider [phone] Encounter Details Date Type Department Care Team (Latest Contact Info) Description 02/03/2001 Outpatient Historical [facility] Medicine- [address] [address] Adam Torres MD [address] [phone] ACUTE URI NOS (Primary Dx) Social History Tobacco Use Types Packs/Day Years Used Date Smoking Tobacco: Never Assessed Sex and Gender Information Value Date Recorded Sex Assigned at Not on file 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
--- OUTSIDE RECORDS SUMMARY | 2024-10-09 01:26 | XMS_ITS | Encounter Summary ---
Author Organization [facility] Address [address] [place] [address] Care Team Providers Care Enginehouse Brakeman Name Role Phone Heather Hodges DO Primary Care Provider [phone]- [phone] Encounter Details Date Type Department Care Team (Latest Contact Info) Description 11/13/2001 Outpatient Historical [facility] Medicine [place] [address] 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
--- OUTSIDE RECORDS SUMMARY | 2024-10-09 01:26 | XMS_ITS | Encounter Summary ---
Author Organization [facility] Address [address] [place] [address] Care Team Providers Care Commercial Ocean Clammer Name Role Phone Heather Hodges DO Primary Care Provider +1- [phone] Encounter Details Date Type Department Care Team (Late st Contact Info) Description 06/02/2001 Outpatient Historical [facility] [address] [place] [address] Social History Tobacco Use Types Packs/Day Years Used Date Smoking Tobacco: Never Assessed Sex and Gender Information Value Date Recorded Sex Assigned at Not on file 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
--- OUTSIDE RECORDS SUMMARY | 2024-10-09 01:26 | XMS_ITS | Encounter Summary ---
Author Organization [facility] Address [address] [place] [address] Care Team Providers Care Delivery Rn Name Role Phone Heather Hodges DO Primary Care Provider +1- [phone] Encounter Details Date Type Department Care Team (Latest Contact Info) Description 05/30/2001 Outpatient Historical [facility] Medicine [place] 104 [facility] 60 [place] [address] Jericho Laura DO NO ADDRESS ON FILE COUGH (Primary Dx) Social History Tobacco Use Types Packs/Day Years Used Date Smoking Tobacco: Never Assessed Sex and Gender Information Value Date Recorded Sex Assigned at Not on file 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
--- OUTSIDE RECORDS SUMMARY | 2024-10-09 01:26 | XMS_ITS | Encounter Summary ---
Author Organization [facility] Address [address] [place] [address] Care Team Providers Care Transportation Planning Technician Name Role Phone Heather Hodges DO Primary Care Provider +1- [phone] Encounter Details Date Type Department Care Team (Latest Contact Info) Description 02/04/1999 Outpatient Historical [facility] Medicine [place] 104 [facility] 60 [place] [address] Loren Roy NO ADDRESS ON FILE Gout, unspecified (Primary Dx); Pure hypercholesterolem Social History Tobacco Use Types Packs/Day Years Used Date Smoking Tobacco: Never Assessed Sex and Gender Information Value Date Recorded Sex Assigned at Not on file 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
--- OUTSIDE RECORDS SUMMARY | 2024-10-09 01:26 | XMS_ITS | Encounter Summary ---
Author Organization [facility] Address [address] [place] [address] Care Team Providers Care Heavy Forger Name Role Phone Heather Hodges DO Primary Care Provider +1- [phone] Encounter Details Date Type Department Care Team (Latest Contact Info) Description 09/01/2001 Outpatient Historical [facility] Medicine [place] 104 [facility] [address] [place] [address] Jericho Laura DO NO ADDRESS ON FILE CHEST PAIN NOS (Primary Dx); HYPERTENSION NOS Social History Tobacco Use Types Packs/Day Years Used Date Smoking Tobacco: Never Assessed Sex and Gender Information Value Date Recorded Sex Assigned at Not on file Legal Sex Male 3:07 AM MANAGER DATABASE ADMINISTRATION Gender Identity Not on file Sexual Orientation Not on file documented as of this encounter Plan of Treatment Not on file documented as of this encounter Visit Diagnoses Diagnosis Chest pain, unspecified- Primary Unspecified essential hypertension documented in this encounter Care Teams Heavy Forger Relationship Specialty Start Date End Date Heather Hodges DO [address] [place] [address] PCP - General Family Practice 11/20/19 documented as of this encounter
--- OUTSIDE RECORDS SUMMARY | 2024-10-09 01:26 | XMS_ITS | Encounter Summary ---
Author Organization [facility] Address [address] [place] [address] Care Team Providers Care Dispersion Mixer Name Role Phone Heather Hodges DO Primary Care Provider Encounter Details Date Type Department Care Team (Latest Contact Info) Description 12/09/1999 Outpatient Historical [facility] Medicine [place] 104 [facility] 60 [place] [address] Loren Roy NO ADDRESS ON FILE Other bursitis disorders (Primary Dx); Gout, unspecified; Pure hypercholesterolem; Unspecified essential hypertension Social History Tobacco Use Types Packs/Day Years Used Date Smoking Tobacco: Never Assessed Sex and Gender Information Value Date Recorded Sex Assigned at Not on file 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
--- OUTSIDE RECORDS SUMMARY | 2024-10-09 01:26 | XMS_ITS | Encounter Summary ---
Author Organization [facility] Address [address] [place] [address] Care Team Providers Care Mounter Hand Name Role Phone Heather Hodges DO Primary Care Provider [phone]- [phone] Encounter Details Date Type Department Care Team (Latest Contact Info) Description 01/12/2000 Outpatient Historical [facility] Medicine [place] 104 [facility] 60 [place] [address] Jericho Laura DO NO ADDRESS ON FILE Acute bronchitis (Primary Dx) Social History Tobacco Use Types Packs/Day Years Used Date Smoking Tobacco: Never Assessed Sex and Gender Information Value Date Recorded Sex Assigned at Not on file 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
--- OUTSIDE RECORDS SUMMARY | 2024-10-09 01:26 | XMS_ITS | Encounter Summary ---
Author Organization [facility] Address [address] [place] [address] Care Team Providers Care Configuration Consultant Name Role Phone Heather Hodges DO Primary Care Provider [phone]- [phone] Encounter Details Date Type Department Care Team (Latest Contact Info) Description 05/30/2001 Outpatient Historical [facility] [address] [place] [address] Jericho Laura DO NO ADDRESS ON FILE ALLERGIC RHINITIS NOS (Primary Dx); COUGH; HYPERLIPIDEMIA NEC/NOS Social History Tobacco Use Types Packs/Day Years Used Date Smoking Tobacco: Never Assessed Sex and Gender Information Value Date Recorded Sex Assigned at Not on file 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
--- OUTSIDE RECORDS SUMMARY | 2024-10-09 01:26 | XMS_ITS | Encounter Summary ---
Author Organization [facility] Address [address] [place] [address] Care Team Providers Care Hr Internship Name Role Phone Heather Hodges DO Primary Care Provider [phone]- [phone] Encounter Details Date Type Department Care Team (Latest Contact Info) Description 01/07/1999 Outpatient Historical [facility] Medicine [place] [address] [facility] [address] [place] [address] Loren Roy NO ADDRESS ON FILE Other and unspecified hyperlipidemia (Primary Dx); Unspecified essential hypertension; Gout, unspecified; Special screening for malignant neoplasm of prostate Social History Tobacco Use Types Packs/Day Years Used Date Smoking Tobacco: Never Assessed Sex and Gender Information Value Date Recorded Sex Assigned at Not on file 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
--- OUTSIDE RECORDS SUMMARY | 2024-10-09 01:26 | XMS_ITS | Encounter Summary ---
Author Organization [facility] Address [address] [place] [address] Care Team Providers Care Electronic Wirer Name Role Phone Heather Hodges DO Primary Care Provider [phone]- [phone] Encounter Details Date Type Department Care Team (Latest Contact Info) Description 11/03/2001 Outpatient Historical [facility] Medicine [place] 104 [facility] 60 [place] [address] Jericho Laura DO NO ADDRESS ON FILE CORON ATHEROSCL [place] CORON VESSEL (Primary Dx); PERIPH VASCULAR DIS NOS Social History Tobacco Use Types Packs/Day Years Used Date Smoking Tobacco: Never Assessed Sex and Gender Information Value Date Recorded Sex Assigned at Not on file 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
--- OUTSIDE RECORDS SUMMARY | 2024-10-09 01:27 | XMS_ITS | Encounter Summary ---
Author Organization [facility] Address [address] [place] [address] Care Team Providers Care Microbiology Lab Technician Name Role Phone Heather Hodges DO Primary Care Provider [phone]- [phone] Encounter Details Date Type Department Care Team (Latest Contact Info) Description 05/23/2002 Outpatient Historical [facility] Medicine [place] 104 [facility] 60 [place] [address] Jericho Laura DO NO ADDRESS ON FILE ANXIETY STATE NOS (Primary Dx); CORONARY ATHEROSCLER UNSPEC VESSEL Social History Tobacco Use Types Packs/Day Years Used Date Smoking Tobacco: Never Assessed Sex and Gender Information Value Date Recorded Sex Assigned at Not on file 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
--- OUTSIDE RECORDS SUMMARY | 2024-10-09 01:27 | XMS_ITS | Encounter Summary ---
Author Organization [facility] Address [address] [place] [address] Care Team Providers Care Welding Machine Operator Gas Name Role Phone Heather Hodges DO Primary Care Provider [phone]- [phone] Encounter Details Date Type Department Care Team (Latest Contact Info) Description 03/06/[address] 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
--- OUTSIDE RECORDS SUMMARY | 2024-10-09 01:27 | XMS_ITS | Encounter Summary ---
Author Organization [facility] Address [address] [place] [address] Care Team Providers Care Mold Yard Worker Name Role Phone Heather Hodges DO Primary Care Provider [phone] Encounter Details Date Type Department Care Team (Latest Contact Info) Description 01/03/2002 Outpatient Historical [facility] Medicine [place] 104 [facility] 60 [place] [address] Jericho Laura DO NO ADDRESS ON FILE ANXIETY STATE NOS (Primary Dx); PERIPH VASCULAR DIS NOS; CORONARY ATHEROSCLER UNSPEC VESSEL; VACCINE FOR INFLUENZA Social History Tobacco Use Types Packs/Day Years Used Date Smoking Tobacco: Never Assessed Sex and Gender Information Value Date Recorded Sex Assigned at Not on file 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 Gender Identity Not on file Sexual Orientation Not on file documented as of this encounter Plan of Treatment Not on file documented as of this encounter Visit Diagnoses Diagnosis Anxiety state, unspecified- Primary Peripheral vascular disease, unspecified Coronary atherosclerosis of unspecified type of vessel, [place] or graft Need vaccination-viral disease Need for prophylactic vaccination and inoculation against other viral diseases documented in this encounter Care Teams Mold Yard Worker Relationship Specialty Start Date End Date Heather Hodges DO [address] [place] [address] PCP - General Family Practice 11/20/19 documented as of this encounter
--- OUTSIDE RECORDS SUMMARY | 2024-10-09 01:27 | XMS_ITS | Encounter Summary ---
Author Organization [facility] Address [address] [place] [address] Care Team Providers Care Environmental Services Associate Name Role Phone Heather Hodges DO Primary Care Provider [phone]- [phone] Encounter Details Date Type Department Care Team (Latest Contact Info) Description 02/28/2002 Outpatient Historical [facility] Medicine [place] [address] 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
--- OUTSIDE RECORDS SUMMARY | 2024-10-09 01:27 | XMS_ITS | Encounter Summary ---
Author Organization [facility] Address [address] [place] [address] Care Team Providers Care Mold Tooler Name Role Phone Heather Hodges DO Primary Care Provider [phone] Encounter Details Date Type Department Care Team (Latest Contact Info) Description 10/03/[address] 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
--- OUTSIDE RECORDS SUMMARY | 2024-10-09 01:27 | XMS_ITS | Encounter Summary ---
Author Organization [facility] Address [address] [place] [address] Care Team Providers Care Loader [place]alt [place] Name Role Phone Heather Hodges DO Primary Care Provider [phone] Encounter Details Date Type Department Care Team (Latest Contact Info) Description 02/08/2002 Outpatient Historical [facility] Medicine [place] 104 [facility] 60 [place] [address] Joann Moore MD NO ADDRESS ON FILE CORONARY ATHEROSCLER UNSPEC VESSEL (Primary Dx); HYPERTENSION NOS; ADV EFFECT MED/BIOL SUB NOS Social History Tobacco Use Types Packs/Day Years Used Date Smoking Tobacco: Never Assessed Sex and Gender Information Value Date Recorded Sex Assigned at Not on file 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 Gender Identity Not on file Sexual Orientation Not on file documented as of this encounter Plan of Treatment Not on file documented as of this encounter Visit Diagnoses Diagnosis Coronary atherosclerosis of unspecified type of vessel, [place] or graft- Primary Unspecified essential hypertension Other and unspecified adverse effect of drug, medicinal and biological substance documented in this encounter Care Teams Loader Malt House Relationship Specialty Start Date End Date Heather Hodges DO [address] [place] [address] PCP - General Family Practice 11/20/19 documented as of this encounter
--- OUTSIDE RECORDS SUMMARY | 2024-10-09 01:27 | XMS_ITS | Clinical Summary ---
Author Organization Rachael Molina [facility] Address [address] [facility] [address] [place] [address] Phone Care Team Providers Care Customs Verifier Name Role Phone Heather Hodges Primary Care Provider Allergies Active Allergy Reactions Criticality Noted Date Comments Acetaminophen Rash Low 04/13/2023 Amoxicillin Hives High 06/30/2013 Haloperidol Lactate Hallucination High 10/21/2014 Iodinated Contrast Media Other (See Comments) 10/02/2022 Possible stopped heart, not sure if heart stopped d/t contrast dye or another thing Levofloxacin Itching Medium 12/15/2022 Penicillin Rash Low 10/02/2022 Medications diclofenac sodium (VOLTAREN) 1 % gelIndications:My algia of muscle of neck Apply 4 Grams to affected area 4 times daily. 100 Gram 4 09/02/19 23 Active LORAZEPAM ORAL Take by mouth. Active finasteride (PROSCAR) 5 mg tabletIndications :Benign prostatic hyperplasia, unspecified whether lower urinary tract symptoms present Take 1 Tablet (5 mg) by mouth daily. 90 Tablet 4 09/29/19 24 Active allopurinoL (ZYLOPRIM) 300 mg tabletIndications :Idiopathic chronic gout of multiple sites without tophus Take 1 Tablet (300 mg) by mouth daily before breakfast. 90 Tablet 3 10/28/19 24 Active tamsulosin (FLOMAX) 0.4 mg capsuleIndication s:Benign prostatic hyperplasia, unspecified whether lower urinary tract symptoms present Take 1 Capsule (0.4 mg) by mouth daily. 30 Capsule 3 10/28/19 24 Active gabapentin (NEURONTIN) 300 mg capsuleIndication s:Primary osteoarthritis of right knee,Inflammatory arthritis TAKE 1 CAPSULE BY MOUTH THREE TIMES DAILY 270 Capsule 3 12/29/19 24 Active traZODone (DESYREL) 50 mg tabletIndications :Primary insomnia Take 1 Tablet (50 mg) by mouth daily at bedtime. 90 Tablet 3 05/04/19 25 Active clopidogreL (PLAVIX) 75 mg TabletIndications :Aortic aneurysm without rupture, unspecified portion of aorta,Angina pectoris TAKE 1 TABLET BY MOUTH ONCE DAILY BEFORE BREAKFAST 100 Tablet 1 06/16/19 25 Active famotidine (PEPCID) 20 mg tabletIndications :Gastroesophageal reflux disease without esophagitis Take 1 tablet by mouth twice daily 180 Tablet 1 07/17/19 25 Active doxycycline hyclate (VIBRAMYCIN) 100 mg tablet Take 1 Tablet by mouth 2 times daily. 07/25/19 25 Active fluticasone propionate (FLONASE) 50 mcg/spray [place], Suspension nasal inhaler Administer 2 Sprays in each nostril daily. shake before using 07/25/19 25 Active sertraline (ZOLOFT) 25 mg tabletIndications :Situational depression Take 1 tablet by mouth once daily 100 Tablet 3 07/31/19 25 Active metoprolol tartrate (LOPRESSOR) 25 mg tabletIndications :Primary hypertension Take 1 tablet by mouth once daily 100 Tablet 3 07/31/19 25 Active levothyroxine 75 mcg tabletIndications :Acquired hypothyroidism Take 1 Tablet (75 mcg) by mouth daily in the morning. 90 Tablet 3 07/31/19 25 Active atorvastatin (LIPITOR) 20 mg tabletIndications :Aortic aneurysm without rupture, unspecified portion of aorta,Angina pectoris TAKE 1 TABLET BY MOUTH ONCE DAILY AT BEDTIME 100 Tablet 09/11/19 25 Active atorvastatin (LIPITOR) 20 mg tabletIndications :Aortic aneurysm without rupture, unspecified portion of aorta,Angina pectoris take 1 tablet by mouth once daily at bedtime 90 Tablet 4 09/10/19 24 2024 Discontinued Active Problems Problem Noted Date Diagnosed Date Chronic bilateral low back pain without sciatica 07/27/2024 Frequent falls 07/27/2024 Frail elderly 07/27/2024 Acquired hypothyroidism 10/30/2023 Grief at loss of child 10/28/2023 Hospice care 10/28/2023 Benign prostatic hyperplasia 10/28/2023 Absolute anemia 10/28/2023 Pseudomonas aeruginosa infection 07/31/2023 History of throat cancer 05/09/2023 Head injury without concussion or intracranial h emorrhage 03/31/2023 Chest congestion 03/31/2023 Episode of confusion 03/31/2023 Uses feeding tube 07/15/2022 Aortic aneurysm without rupture 08/12/2021 Right TKA- [place] 10/21/2014 10/21/2014 Right knee pain 09/17/2014 Mixed hyperlipidemia Inflammatory arthritis Idiopathic chronic gout of multiple sites withou t tophus Hard of hearing Calculus of kidney Hx of CABG Primary hypertension Atherosclerosis of [place] 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 Resolved Problems Problem Noted Date Diagnosed Date Resolved Date 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 09/01/2022 05/09/2023 Tracheostomy status 07/15/2022 05/09/19 Stage 3b chronic kidney disease 08/12/2021 08/21/2023 Acute cervical myofascial strain 08/12/2021 08/12/2021 Angina pectoris 05/09/2023 Encounters Date Type Department Care Team Description 09/10/2024 Refill [facility] [address] [place] [phone] Heather Hodges DO Aortic aneurysm without rupture, unspecified portion of aorta; Angina pectoris 08/27/2024 External Device Data Initial Department [address] [place] [address] Dr VILLARREAL: [place] [address] [facility] 08/20/2024 External Device Data Initial Department [address] [place] [address] Dr VILLARREAL: [place] [address] [facility] 08/14/2024 External Device Data Initial Department [address] [place] [address] Dr VILLARREAL: [address]rel[address] [place], [place] [address] 08/09/2024 External Device Data Initial Department [address] [place] [address] Dr VILLARREAL: [address] [place], [place] [address], 08/01/2024 External Device Data Initial Department [address] [place] [address] Dr VILLARREAL: [address] [place], [place] [address] 07/30/2024 Results Follow-Up [facility] [address] [place] [address] Kraig Fox, TAB CUTTING MACHINE OPERATOR IRON, TIBC, AND PERCENT SATURATION, TSH, COMPREHENSIVE METABOLIC PANEL, Additional followed-up results: 2 07/30/2024 Refill [facility] [address] [place] [address] Kraig Fox, TAB CUTTING MACHINE OPERATOR Primary hypertension 07/30/2024 Refill [facility] [address] [place] [address] Heather Hodges, Situational depression 07/27/2024 11:53 AM CDT - 07/27/2024 11:59 PM CDT Hospital Encounter [facility] [address] [place] [address] FoxKraig Faraz, TAB CUTTING MACHINE OPERATOR Discharge Disposition: Home or Self Care 07/27/2024 10:00 AM CDT Office Visit [place] [address] [place] [address] Kraig Fox, TAB CUTTING MACHINE OPERATOR Foul smelling urine (Primary Dx); Primary hypertension; Acquired hypothyroidism; Benign prostatic hyperplasia with urinary obstruction; Other iron deficiency anemia; Frequent falls; Chronic bilateral low back pain without sciatica; Frail elderly 07/25/2024 External Device Data Initial Department [address] [place] [address] Dr VILLARREAL: [address]rel[address] [place], [place] [address]Jennifer Murillo Md 07/24/2024 Telephone [facility] [address] [place] [address] Heather Hodges, Question 07/23/2024 External Device Data Initial Department [address] [place] [address] Dr VILLARREAL: [place], [place] [address]Jennifer Murillo Md 07/18/2024 External Device Data Initial Department [address] [place] [address] Dr VILLARREAL: [place], [place] [address]Jennifer Murillo Md 07/17/2024 External Device Data STL ABSTRACTION Provider, Abstract 07/17/2024 External Device Data STL ABSTRACTION Provider, Abstract 07/17/2024 External Device Data STL ABSTRACTION Provider, Abstract 07/14/2024 [facility] [place] [address] [place] [phone] Kraig Fox, JEANNE Gastroesophageal reflux disease without esophagitis 07/12/2024 External Device Data STL ABSTRACTION Provider, Abstract 07/09/2024 External Device Data Initial Department [address] [facility] [address] VILLARREAL: [place] [address] [facility], from Last 3 Months Immunizations Immunization Administration Dates Next Due (TDVAX)(7 YRS UP) TETANUS AN D DIPHTHERIA TOXOIDS, ADSORBED (2 LF OF TETANUS TOXOID AND 2 LF OF DIPHTHERIA TOXOID), 0.5ML (PF), IM 10/03/2003 INFLUENZA VACCINE HIGH DOSE QUADRIVALENT 65 YR UP PF IM 11/11/2021,12/16/2020 INFLUENZA VACCINE HIGH DOSE TRIVALENT SPLIT VIRUS, (65 YR UP), 0.5ML (PF), IM 12/21/2023 Influenza Seasonal Unspecifi ed Formulation IM 12/12/2007,11/17/2006,01/03/2002,1998 [...] Mark Relation Name Status Comments Brother Tito Daughter 1 Peace Alive Daughter 2 Melany Daughter 3 Soo Alive Father (Age 88) Mother (Age 93) Son Mark Alive Social History Tobacco Use Types Packs/Day Years Used Date Smoking Tobacco: Former Cigarettes Q uit: 10/04/2002 Passive Smoke Exposure: Past Smokeless Tobacco: Never Tobacco Cessation:Counseling Given: No Alcohol Use Standard Drinks/Week Comments No 0 (1 standard drink = 0.6 oz pur e alcohol) Sex and Gender Information Value Date Recorded Sex Assigned at Not on file Legal Sex Male 12:43 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 Gender Identity Not on file Sexual Orientation Not on file Last Filed Vital Signs Vital Sign Reading Time Taken Comments Blood Pressure 122/60 07/27/2024 10:15 AM CDT Pulse 64 07/27/2024 10:15 AM CDT Temperature 36.2 C (97.2 F) 07/27/2024 10:15 AM CDT Respiratory Rate 18 07/27/2024 10:1 5 AM CDT Oxygen Saturation 92% 07/27/2024 10: 15 AM CDT Inhaled Oxygen Concentration - - Weight 72.5 kg (159 lb 12.8 oz) 025 10:15 AM CDT Height 170.2 cm (5' 7 ) 07/27/2024 10:1 5 AM CDT Body Mass Index 25.03 07/27/2024 10:15 AM CDT Plan of Treatment Health Maintenance Due Date Last Done Comments PNEUMOCOCCAL VACCINE 50+ YEA RS (1 of 1 - PCV) 1986 ZOSTER VACCINE (1 of 2) 1986 DTAP/TDAP/TD VACCINES (1 - Tdap) 10/04/2003 10/03/19 04 RSV VACCINE (60+ or ) (1 - 1-dose 75+ series) 11/25/2011 INFLUENZA VACCINE (#1) 2024 , 11/11/2021, 12/16/2020, Additional history exists Medical Devices Implanted Type Area [employer] Senior [employer] Device Identifier Shelf Expiration Date Model / Serial / Lot Cement Simplex Hvisc 6194-1-001 - [id number] Implanted:Qty : 2 on 10/21/2014 by Buster Rick MD Cement Right: Knee [employer] 05/22/2015 6194-1-001 / / [id number] Comp Fem Trthln Cr Sz5 Rt 5510-F-502 - [id number] Implanted:Qty : 1 on 10/21/2014 by Buster Rick MD Knee Right: Knee [employer] 06/21/2019 5510-F-502 / / [id number] Comp Tib Triathlon Cmnt 5520-B-500 - [id number] Implanted:Qty : 1 on 10/21/2014 by Buster Rick MD Knee Right: Knee [employer] 03/23/2019 5520-B-500 / / [id number] Insert Tib Trthln X3 Cs 5531-G-513 - [id number] Implanted:Qty : 1 on 10/21/2014 by Buster Rick MD Knee Right: Knee [employer] 05/22/2019 5531-G-513 / / [id number] Patella Trthln Asym Poly 5551-L-350 - [id number] Implanted:Qty : 1 on 10/21/2014 by Bustre Rick MD Knee Right: Patella [employer] 09/21/2019 5551-L-350 / / [id number] Procedures Procedure Name Priority Date/Time Associated Diagnosis Comments XR LUMBAR SPINE 2 OR 3 VW Routine 07/27/2024 12:17 PM CDT Frequent falls Chronic bilateral low back pain without sciatica CBC WITH DIFFERENTIAL Routine 07/27/2024 10:54 AM CDT Primary hypertension Acquired hypothyroidism Other iron deficiency anemia COMPREHENSIVE METABOLIC PANEL Routine 07/27/2024 10:54 AM CDT Primary hypertension Acquired hypothyroidism TSH Routine 07/27/2024 10:54 AM CDT Primary hypertension Acquired hypothyroidism IRON, TIBC, AND PERCENT SATURATION Routine 07/27/2024 10:54 AM CDT Other iron deficiency anemia from Last 3 Months Results * XR LUMBAR SPINE 2 OR 3 VW (07/27/2024 12:17 PM CDT) Anatomical Region Laterality Modality Spine Computed Radiogr aphy 07/27/2024 12:1 7 PM CDT Impressions 07/30/2024 5:10 AM CDT IMPRESSION: Please see below. Exam: XR LUMBAR SPINE 2 OR 3 VW Date/Time of Exam: 07/27/2024 12:17 PM Reason For Exam: See Diagnosis. Diagnosis: Frequent falls; Chronic bilateral low back pain without sciatica; Chronic bilateral low back pain without sciatica. Comparison: None Findings: No significant vertebral body height loss. Extensive multilevel disc and endplate degenerative changes. Slight retrolisthesis at L2-3 and L3-4 and very slight anterior subluxation L4-5. Advanced lower lumbar facet degenerative changes. Minimal degenerative change at the right inferior sacral iliac joint and at the right hip. Sternotomy wires and mediastinal clips noted. IMPRESSION:. Degenerative changes. Narrative Procedure Note Josiah Hernadez MD - 07/30/2024 IMPRESSION: Please see below. Exam: XR LUMBAR SPINE 2 OR 3 VW Date/Time of Exam: 07/27/2024 12:17 PM Reason For Exam: See Diagnosis. Diagnosis: Frequent falls; Chronic bilateral low back pain without sciatica; Chronic bilateral low back pain without sciatica. Comparison: None Findings: No significant vertebral body height loss. Extensive multilevel disc and endplate degenerative changes. Slight retrolisthesis at L2-3 and L3-4 and very slight anterior subluxation L4-5. Advanced lower lumbar facet degenerative changes. Minimal degenerative change at the right inferior sacral iliac joint and at the right hip. Sternotomy wires and mediastinal clips noted. IMPRESSION:. Degenerative changes. Kraig Fox [facility] DIAGNOSTIC IMAGING ORDERAB LES Final Result * (ABNORMAL) IRON, TIBC, AND PERCENT SATURATION (07/27/2024 10:54 AM CDT) Pathologist [facility] IRON 108 50 - 180 mcg/dL Speed Dating by [facility] TIBC 244(L) 250 - 425 mcg/dL (calc) [facility] IRON % SATURATION 44 20 - 48 % (calc) [facility] Comment: Test Performed at: [facility] [address] Malick Pierre MD Blood 07/27/2024 10:5 4 AM CDT 07/28/2024 2:58 AM CDT Kraig Fox [facility] CHEMISTRY ORDERABLES Final Result [facility] [phone] [facility] [place] [address] [address] * (ABNORMAL) CBC WITH DIFFERENTIAL (07/27/2024 10:54 AM CDT) Pathologist [facility] WBC 5.6 3.8 - 10.8 Thousand/u L [facility] RBC 3.69(L) 4.20 - 5.80 Million/uL [facility] HEMOGLOBIN 12.1(L) 13.2 - 17.1 g/dL [facility] HEMATOCRIT 36.6(L) 38.5 - 50.0 % [facility] MCV 99.2 80.0 - 100.0 fL [facility] MCH 32.8 27.0 - 33.0 pg [facility] MCHC 33.1 32.0 - 36.0 g/dL [facility] Comment: For adults, a slight decrease in the calculated MCHC value (in the range of 30 to 32 g/dL) is most likely not clinically significant; however, it should be interpreted with caution in correlation with other red cell parameters and the patient's clinical condition. RDW 13.2 11.0 - 15.0 % [facility] PLATELETS 111(L) 140 - 400 Thousand/u L [facility] MPV 12.2 7.5 - 12.5 fL [facility] NEUTROPHIL ABSOLUTE 4,469 1,500 - 7,800 cells/uL [facility] LYMPHOCYTE ABSOLUTE 515(L) 850 - 3,900 cells/uL [facility] MONOCYTE ABSOLUTE 526 200 - 950 cells/uL [facility] EOSINOPHIL ABSOLUTE 78 15 - 500 cells/uL [facility] BASOPHILS ABSOLUTE 11 0 - 200 cells/uL [facility] NEUTROPHIL 79.8 % [facility] LYMPHOCYTES 9.2 % [facility] MONOCYTE 9.4 % [facility] EOSINOPHILS 1.4 % [facility] BASOPHILS 0.2 % [facility] Comment: Test Performed at: [facility] [address] [address] Malick Pierre MD Blood 07/27/2024 10:5 4 AM CDT 07/28/2024 2:58 AM CDT Kraig Fox TAB CUTTING MACHINE OPERATOR HEMATOLOGY ORDERABLES Misti l Result [facility] [phone] [facility] [address] [place] [address] * (ABNORMAL) TSH (07/27/2024 10:54 AM CDT) TSH 5.82(H) 0.40 - 4.50 mIU/L [facility] Comment: Test Performed at: [facility] [address] [place] [address] Malick Pierre MD Blood 07/27/2024 10:5 4 AM CDT 07/28/2024 2:58 AM CDT Kraig Fox TAB CUTTING MACHINE OPERATOR CHEMISTRY ORDERABLES Final Result Performing Organization Address [facility] Co de Phone Number [facility] [phone] [facility] [address] * (ABNORMAL) COMPREHENSIVE METABOLIC PANEL (07/27/2024 10:54 AM CDT) Pathologist [facility] GLUCOSE 75 65 - 99 mg/dL [facility] Comment: Fasting reference interval BUN 32(H) 7 - 25 mg/dL [facility] CREATININE 1.33(H) 0.70 - 1.22 mg/dL [facility] GFR 52(L) > OR = 60 mL/min/1.7 3m2 [facility] BUN/CREAT RATIO 24(H) 6 - 22 (calc) [facility] SODIUM 138 135 - 146 mmol/L [facility] POTASSIUM 4.0 3.5 - 5.3 mmol/L [facility] CHLORIDE 100 98 - 110 mmol/L [facility] CO2 28 20 - 32 mmol/L [facility] CALCIUM 9.9 8.6 - 10.3 mg/dL [facility] TOTAL PROTEIN 7.3 6.1 - 8.1 g/dL [facility] ALBUMIN 4.7 3.6 - 5.1 g/dL [facility] GLOBULIN 2.6 1.9 - 3.7 g/dL (calc) [facility] ALBUMIN/GLOBULIN RATIO 1.8 1.0 - 2.5 (calc) [facility] BILIRUBIN TOTAL 0.6 0.2 - 1.2 mg/dL [facility] ALKALINE PHOSPHATASE 83 35 - 144 U/L [facility] AST 23 10 - 35 U/L [facility] ALT 17 9 - 46 U/L [facility] Comment: Test Performed at: [facility] [address] [address] Malick Pierre MD Blood 07/27/2024 10:5 4 AM CDT 07/28/2024 2:58 AM CDT Kraig Fox TAB CUTTING MACHINE OPERATOR CHEMISTRY ORDERABLES Final Result Performing Organization Address City/State/[facility] Co de Phone Number [facility] [phone] [facility] [address] [phone] from Last 3 Months Insurance MEDICARE PART A AND B [facility] [place] [id number] Care Teams Customs Verifier Relationship Specialty Start Date End Date Heather Hodges DO [address] [place] [address] PCP - General Family Practice 11/20/19
--- OUTSIDE RECORDS SUMMARY | 2024-10-09 01:27 | XMS_ITS | Encounter Summary ---
Author Organization [facility] Address [address] [place] [address] Care Team Providers Care Call Out Clerk Name Role Phone Heather Hodges DO Primary Care Provider [phone] Encounter Details Date Type Department Care Team (Latest Contact Info) Description 07/02/2003 Outpatient Historical [facility] Cardiology- [place] [address] [place] [address] Luciano Parks MD [address] [facility] [address] [place] [address] CORON ATHEROSCL REDDING CORON VESSEL (Primary Dx); Aortocoronary bypass; HYPERTENSION NOS; Pure hypercholesterolem Social History Tobacco Use Types Packs/Day Years Used Date Smoking Tobacco: Never Assessed Sex and Gender Information Value Date Recorded Sex Assigned at Not on file Legal Sex Male 3:07 AM PAINTER BOTTOM Gender Identity Not on file Sexual Orientation Not on file documented as of this encounter Plan of Treatment Not on file documented as of this encounter Visit Diagnoses Diagnosis Coronary atherosclerosis of [place] coronary artery- Primary Aortocoronary bypass Postsurgical aortocoronary bypass status Unspecified essential hypertension Pure hypercholesterolem Pure hypercholesterolemia documented in this encounter Care Teams Call Out Clerk Relationship Specialty Start Date End Date Heather Hodges DO [address] [place] [phone] PCP - General Family Practice 11/20/19 documented as of this encounter
--- OUTSIDE RECORDS SUMMARY | 2024-10-09 01:27 | XMS_ITS | Encounter Summary ---
Author Organization [facility] Address [address] [place] [address] Care Team Providers Care Rack Room Worker Name Role Phone Heather Hodges DO Primary Care Provider [phone]- [phone] Encounter Details Date Type Department Care Team (Latest Contact Info) Description 05/27/1999 Outpatient Historical [facility] Medicine [place] [address] [facility] [address] [place] [address] Loren Roy NO ADDRESS ON FILE Gout, unspecified (Primary Dx) Social History Tobacco Use Types Packs/Day Years Used Date Smoking Tobacco: Never Assessed Sex and Gender Information Value Date Recorded Sex Assigned at Not on file Legal Sex Male 3: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
--- OUTSIDE RECORDS SUMMARY | 2024-10-09 01:27 | XMS_ITS | Encounter Summary ---
Author Organization [facility] Address [address] [place] [address] Care Team Providers Care Electrician Helper Powerhouse Name Role Phone Heather Hodges DO Primary Care Provider [phone]- [phone] Encounter Details Date Type Department Care Team (Latest Contact Info) Description 02/23/2002 Outpatient Historical [facility] Medicine [place] [address] [facility] [address] [place] [address] oJann Moore MD NO ADDRESS ON FILE HYPERTENSION NOS (Primary Dx) Social History Tobacco Use Types Packs/Day Years Used Date Smoking Tobacco: Never Assessed Sex and Gender Information Value Date Recorded Sex Assigned at Not on file Legal Sex Male 3:07 AM RN ENDOCRINOLOGY Gender Identity Not on file Sexual Orientation Not on file documented as of this encounter Plan of Treatment Not on file documented as of this encounter Visit Diagnoses Diagnosis Unspecified essential hypertension- Primary documented in this encounter Care Teams Electrician Helper Powerhouse Relationship Specialty Start Date End Date Heather Hodges DO [address] [place] [address] PCP - General Family Practice 11/20/19 documented as of this encounter
--- OUTSIDE RECORDS SUMMARY | 2024-10-09 01:27 | XMS_ITS | Encounter Summary ---
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
--- OUTSIDE RECORDS SUMMARY | 2024-10-09 01:27 | XMS_ITS ---
Author Organization Rachael Molina [facility] Address [address] [facility] [address] [place] [address] Phone Care Team Providers Care Relations Manager Name Role Phone Heather Hodges Primary Care Provider Active Problems Problem Noted Date Diagnosed Date [...] Aortic aneurysm without rupture 08/12/2021 Right TKA- Ingrid 10/21/2014 10/21/2014 Right knee pain 09/17/2014 Mixed hyperlipidemia Inflammatory arthritis Idiopathic chronic gout of multiple sites withou t tophus Hard of hearing Calculus of kidney Hx of CABG Primary hypertension Atherosclerosis of [place] co ronary artery of [place] heart without angina pectoris Current Treatment and Therapy Plans No current plan information found. Past Treatment and Therapy Plans No past plan information found. 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
--- OUTSIDE RECORDS SUMMARY | 2024-10-09 01:27 | XMS_ITS | Encounter Summary ---
Author Organization [facility] Address [address] [place] [address] Care Team Providers Care Mass Communications Professor Name Role Phone Heather Hodges DO Primary Care Provider Encounter Details Date Type Department Care Team (Latest Contact Info) Description 06/21/2002 Outpatient Historical [facility] ParksLuciano arenas MD [address] [facility] [address] [place] [address] CORON ATHEROSCL [place] CORON VESSEL (Primary Dx); Aortocoronary bypass; Pure hypercholesterolem ; HYPERTENSION NOS Social History Tobacco Use Types Packs/Day Years Used Date Smoking Tobacco: Never Assessed Sex and Gender Information Value Date Recorded Sex Assigned at Not on file 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 Sex Male 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 Gender Identity Not on file Sexual Orientation Not on file documented as of this encounter Plan of Treatment Not on file documented as of this encounter Visit Diagnoses Diagnosis Coronary atherosclerosis of [place] coronary artery- Primary Aortocoronary bypass Postsurgical aortocoronary bypass status Pure hypercholesterolem Pure hypercholesterolemia Unspecified essential hypertension documented in this encounter Care Teams Mass Communications Professor Relationship Specialty Start Date End Date Heather Hodges DO [address] [place] [phone] PCP - General Family Practice 11/20/19 documented as of this encounter
--- OUTSIDE RECORDS SUMMARY | 2024-10-09 01:27 | XMS_ITS | Clinical Summary ---
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 Denies 10/02/2022 Sex and Gender Information Value Date Recorded Sex Assigned at Not on file Legal Sex Male 3:31 PM CDT Gender Identity Not on file Sexual Orientation Not on file Obstetrics History Last Filed Vital Signs Vital Sign Reading Time Taken Comments Blood Pressure 113/48 10/05/2022 7:00 PM CDT Pulse 80 10/05/2022 7:00 PM CDT Temperature 36.8 C (98.3 F) 10/05/2022 3:47 PM CDT Respiratory Rate 18 10/05/2022 7:00 PM CDT Oxygen Saturation 99% 10/05/2022 7:00 PM CDT Inhaled Oxygen Concentration - - Weight 75.3 kg (166 lb 0.1 oz) 10/04/2022 4:00 P M CDT Height 170.2 cm (5' 7.01 ) 10/04/2022 2:00 PM CD T Body Mass Index 25.99 10/04/2022 2:00 PM CDT Plan of Treatment Health Maintenance Due Date Last Done Comments Depression Screening 1936 Hepatitis B Screening 1953 Pneumococcal vaccine 65+ (1 of 2 - PCV) 11/25/1955 Zoster Vaccine (1 of 2) 11/25/1954 Well Visit 65+ 2001 Fall Risk Assessment 10/06/2023 10/05/2022 Covid-19 Vaccine (4 - 2023-2 5 season) 2023 12/22/2020, 05/01/2020, 04/03/2020 Influenza Vaccine (#1) 2024 2, 12/16/2020, 11/20/2019, Additional history exists DTaP/Tdap/Td Vaccine (2 - Td or Tdap) 05/11/2027 05/10/2017, 10/03/2003 Insurance MEDICARE [facility] INSURANCE [id number] MEDICARE [place] [id number] Advance Directives For more information, please contact: [phone] * Full Code (Latest Code Status on File) Date Activated Date Inactivated Comments 10/02/2022 12:47 PM 10/06/2022 12:05 AM Care Teams Weed Controller Relationship Specialty Start Date End Date Heather Hodges DO [address] [place] [address] PCP - General Family Practice 10/02/22
--- NOTE | 2024-10-09 01:34 | W.ED.GENADLT ---
HPI - General Adult General: Chief complaint: General Medical Stated complaint: Pulled G-Tube out Time Seen by Provider: 10/09/24 01:28 History of Present Illness: Patient comes in after accidentally pulling out his G-tube. States that happened shortly prior to arrival. On physical exam he has a fistula site in his mid upper abdomen. The G-tube is a 20 [place]. Will replace the G-tube and reassess. Related Data Home Medications ?Medication ?Instructions ?Recorded ?Confirmed allopurinol 300 mg tablet 300 mg feeding tube QAM 09/10/22 10/03/24 atorvastatin 20 mg tablet 20 mg feeding tube BEDTIME 09/10/22 10/03/24 clopidogrel 75 mg tablet 75 mg feeding tube QAM 09/10/22 10/03/24 sertraline 25 mg tablet 25 mg PO QAM 10/07/22 10/03/24 triamcinolone acetonide 0.1 % 1 applic topical BID PRN unknown 10/18/22 09/11/24 topical cream finasteride 5 mg tablet 5 mg PO QAM 10/28/22 10/03/24 famotidine 20 mg tablet 20 mg PO BID 11/08/22 10/03/24 metoclopramide HCl 5 mg/5 mL oral 5 mg PO Q6H PRN Nausea And Vomiting 11/08/22 09/11/24 solution polyethylene glycol 3350 17 gram 17 g PO BEDTIME PRN 12/01/22 09/11/24 oral powder packet (Miralax) trazodone 50 mg tablet 25 mg feeding tube BEDTIME 12/01/22 10/03/24 fluticasone propionate 50 intranasal 12/13/23 10/03/24 mcg/actuation nasal spray,suspension metoprolol tartrate 25 mg tablet 12.5 mg PO QAM 12/19/23 10/03/24 gabapentin 300 mg capsule 300 mg feeding tube .QPM 10/03/24 10/03/24 Previous Rx's ?Medication ?Instructions ?Recorded trach mask and neb kit #1 ea 12/02/22 acetylcysteine 100 mg/mL (10 %) 3 ml inhalation Q6H PRN increased 08/10/23 solution mucous #30 mL levothyroxine 50 mcg tablet 50 mcg PO DAILY #1 tab 12/19/23 Allergies Allergy/AdvReac Type Severity Reaction Status Date / Time acetaminophen (From Tylenol) Allergy Unknown ALGY-Rash Verified 10/09/24 01:24 amoxicillin Allergy Unknown ALGY-Rash Verified 10/09/24 01:24 levofloxacin Allergy Unknown ALGY-Rash Verified 10/09/24 01:24 Penicillins Allergy Unknown RASH Verified 10/09/24 01:24 Review of Systems GI: Reports: other (Dislodged G-tube) PFSH ED PFSH: Medical History (Updated 10/09/24 @ 01:53 by William Urena MD) Tracheitis Acute bacterial tracheitis Acute dyspnea Leukocytosis Antineoplastic chemotherapy induced anemia Protein calorie malnutrition Secondary malignancy of lymph nodes of head, face and neck Peripheral neuropathy Gout BPH loc w urin obs/LUTS Elevated PSA Chronic prostatitis Tobacco abuse, in remission DJD (degenerative joint disease), lumbar Hyperlipidemia Essential hypertension ASHD (arteriosclerotic heart disease) AAA (abdominal aortic aneurysm) CVA (cerebral vascular accident) Palpitations Myocardial infarction Surgical History History of total right knee replacement History of laryngoscopy (07/05/22) tracheotomy and 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 Status post insertion of percutaneous endoscopic gastrostomy (PEG) tube (07/10/22) S/P CABG (coronary artery bypass graft) Family History Other CAD (coronary artery disease) Cancer Hypertension Social History Smoking and tobacco/nicotine status: never used tobacco/nicotine Quit status (tobacco/nicotine): has quit using Year quit tobacco: 2001 Former quit date comment: smoked x 50+ years Alcohol intake: never Substance/Drug Use: never Household members: spouse Marital status: service: No Current occupational status: retired 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 I get good return of gastric contents. Will discharge at this time with precautions to return for worsening or changing symptoms. No radiology studies performed this visit Discharge Plan Discharge Patient Disposition: Home Clinical Impression: Dislodged gastrostomy tube Condition: Stable Prescriptions: No Action trazodone 50 mg tablet 25 mg feeding tube BEDTIME triamcinolone acetonide 0.1 % cream 1 applic topical BID PRN (Reason: unknown) acetylcysteine 100 mg/mL (10 %) solution 3 ml inhalation Q6H PRN (Reason: increased mucous) Qty: 30 2RF Rx Instructions: nebulization via tracheostomy fluticasone propionate 50 mcg/actuation spray,suspension intranasal levothyroxine 50 mcg tablet 50 mcg PO DAILY Qty: 1 0RF gabapentin 300 mg capsule 300 mg feeding tube .QPM Rx Instructions: Please convert to liquid form for PEG use (DME) trach mask and neb kit See Rx Instructions .Route .MEDSUPPLY Qty: 1 0RF Rx Instructions: As directed atorvastatin 20 mg tablet 20 mg feeding tube BEDTIME clopidogrel 75 mg tablet 75 mg feeding tube QAM allopurinol 300 mg tablet 300 mg feeding tube QAM metoprolol tartrate 25 mg tablet 12.5 mg PO QAM finasteride 5 mg tablet 5 mg PO QAM metoclopramide HCl 5 mg/5 mL solution 5 mg PO Q6H PRN (Reason: Nausea And Vomiting) famotidine 20 mg tablet 20 mg PO BID polyethylene glycol 3350 [Miralax] 17 gram powder in packet 17 g PO BEDTIME PRN sertraline 25 mg tablet 25 mg PO QAM Discharge Orders: Discharge ED (Routine); Ordered 10/09/24 Ordered By: William Urena Referrals: Heather Hodges DO [Primary Care Provider, Family Practice] Patient Instructions: How to Use and Care for Your PEG Tube (DC), Patient Portal & M[facility]enzie Instructions Print Language: Spanish Coding Level of Care Code ED Health And Safety Specialist for Mayra Cote
[2024-10-09 02:13] VITALS: BP 128/59; PULSE 59; O2SAT 98
== END 2024-10-09 02:15 | disposition home or self-care (01) ==
PROVIDERS: Emergency Provider Emergency Medicine; PCP Family Medicine
DX: T85.528A Displacement of other gastrointestinal prosthetic devices, implants and grafts, initial encounter (principal); X58.XXXA Exposure to other specified factors, initial encounter; Z93.1 Gastrostomy status; E78.5 Hyperlipidemia, unspecified; I10 Essential (primary) hypertension; Z86.73 Personal history of transient ischemic attack (TIA), and cerebral infarction without residual deficits; Z87.891 Personal history of nicotine dependence; Z79.02 Long term (current) use of antithrombotics/antiplatelets; Z95.1 Presence of aortocoronary bypass graft
CPT/HCPCS: 99282

== ENCOUNTER → 2024-11-28 12:59 | Outpatient (BNVA) | payer MEDICARE, OTHER, SELFPAY | PROVIDERS: PCP Family Medicine; Visit Provider Podiatrist Foot & Ankle Surgery | DX: L90.9 Atrophic disorder of skin, unspecified (principal); M79.672 Pain in left foot | CPT/HCPCS: 99203 ==

== ENCOUNTER 2024-12-07 05:40 | Emergency (ER) | payer MEDICARE, OTHER, SELFPAY ==
--- OUTSIDE RECORDS SUMMARY | 2024-12-07 05:50 | XMS_ITS | Encounter Summary ---
Author Organization [facility] Address [address] [place] [address] Care Team Providers Care Bilingual Receptionist Name Role Phone Heather Hodges DO Primary Care Provider +1- [phone] Encounter Details Date Type Department Care Team (Latest Contact Info) Description 11/13/1997 Outpatient Historical [facility] Medicine [place] [address] [facility] [address] [place] [address] Loren Roy NO ADDRESS ON FILE Open wound of chest (wall), without mention of complication (Primary Dx) Social History Tobacco Use Types Packs/Day Years Used Date Smoking Tobacco: Never Assessed Sex and Gender Information Value Date Recorded Sex Assigned at Not on file 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
--- OUTSIDE RECORDS SUMMARY | 2024-12-07 05:50 | XMS_ITS | Encounter Summary ---
Author Organization [facility] Address [address] [place] [address] Care Team Providers Care Glue Cook Name Role Phone Heather Hodges DO Primary Care Provider +1- [phone] Encounter Details Date Type Department Care Team (Latest Contact Info) Description 05/27/1999 Outpatient Historical [facility] Medicine [place] [address] [facility] [address] [place] [address] Loren Roy NO ADDRESS ON FILE Gout, unspecified (Primary Dx) Social History Tobacco Use Types Packs/Day Years Used Date Smoking Tobacco: Never Assessed Sex and Gender Information Value Date Recorded Sex Assigned at Not on file Legal Sex Male 3:07 AM SHOER Gender Identity Not on file Sexual Orientation Not on file documented as of this encounter Plan of Treatment Not on file documented as of this encounter Visit Diagnoses Diagnosis Gout, unspecified- Primary documented in this encounter Care Teams Glue Cook Relationship Specialty Start Date End Date Heather Hodges DO [address] [place] [address] PCP - General Family Practice 11/20/19 documented as of this encounter
--- OUTSIDE RECORDS SUMMARY | 2024-12-07 05:50 | XMS_ITS | Encounter Summary ---
Author Organization [facility] Address [address] [place] [address] Care Team Providers Care Mice Raiser Name Role Phone Heather Hodges DO Primary Care Provider +1- [phone] Encounter Details Date Type Department Care Team (Latest Contact Info) Description 01/03/2002 Outpatient Historical [facility] Medicine [place] [address] [facility] [address] [place] [address] Jericho Laura DO NO ADDRESS ON FILE ANXIETY STATE NOS (Primary Dx); PERIPH VASCULAR DIS NOS; CORONARY ATHEROSCLER UNSPEC VESSEL; VACCINE FOR INFLUENZA Social History Tobacco Use Types Packs/Day Years Used Date Smoking Tobacco: Never Assessed Sex and Gender Information Value Date Recorded Sex Assigned at Not on file 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 Gender Identity Not on file Sexual Orientation Not on file documented as of this encounter Plan of Treatment Not on file documented as of this encounter Visit Diagnoses Diagnosis Anxiety state, unspecified- Primary Peripheral vascular disease, unspecified Coronary atherosclerosis of unspecified type of vessel, hoopa or graft Need vaccination-viral disease Need for prophylactic vaccination and inoculation against other viral diseases documented in this encounter Care Teams Mice Raiser Relationship Specialty Start Date End Date Heather Hodges DO [address] [place] [phone] PCP - General Family Practice 11/20/19 documented as of this encounter
--- OUTSIDE RECORDS SUMMARY | 2024-12-07 05:50 | XMS_ITS | Encounter Summary ---
Author Organization [facility] Address [address] [place] [address] Care Team Providers Care Box Spring Maker Name Role Phone Heather Hodges DO Primary Care Provider +1- [phone] Encounter Details Date Type Department Care Team (Latest Contact Info) Description 12/09/1999 Outpatient Historical [facility] Medicine [place] [address] [facility] [address] [place] [address] Loren Roy NO ADDRESS ON FILE Other bursitis disorders (Primary Dx); Gout, unspecified; Pure hypercholesterolem; Unspecified essential hypertension Social History Tobacco Use Types Packs/Day Years Used Date Smoking Tobacco: Never Assessed Sex and Gender Information Value Date Recorded Sex Assigned at Not on file 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
--- OUTSIDE RECORDS SUMMARY | 2024-12-07 05:50 | XMS_ITS | Encounter Summary ---
Author Organization [facility] Address [address] [place] [address] Care Team Providers Care Manager Apple Name Role Phone Heather Hodges DO Primary Care Provider +1- [phone] Encounter Details Date Type Department Care Team (Latest Contact Info) Description 02/28/2002 Outpatient Historical [facility] Medicine [place] [address] [facility] [address] [place] [address] Joann Moore MD NO ADDRESS ON FILE HYPERTENSION NOS (Primary Dx); MONONEURITIS NOS Social History Tobacco Use Types Packs/Day Years Used Date Smoking Tobacco: Never Assessed Sex and Gender Information Value Date Recorded Sex Assigned at Not on file 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
--- OUTSIDE RECORDS SUMMARY | 2024-12-07 05:50 | XMS_ITS | Encounter Summary ---
Author Organization [facility] Address [address] [place] [address] Care Team Providers Care Landscape Designer Name Role Phone Heather Hodges DO Primary Care Provider +1- [phone] Reason for Visit * Reason Comments Med Refill Encounter Details Date Type Department Care Team ([facility] st Contact Info) Description 12/07/2024 Refill [facility] Family Medicine [place] [address] [place] [address] [facility] [address] [place] [address] Idiopathic chronic gout of multiple sites without tophus Social History Tobacco Use Types Packs/Day Years Used Date Smoking Tobacco: Former Cigarettes Q uit: 10/04/2002 Passive Smoke Exposure: Past Smokeless Tobacco: Never Alcohol Use Standard Drinks/Week Comments No 0 (1 standard drink = 0.6 oz pur e alcohol) Financial Resource Strain Answer Date R ecorded How hard is it for you to pa y for the very basics like food, housing, medical care, and heating? Somewhat hard 08/27/2021 Food Insecurity Answer Date Recorded In the past 12 months, have you worried that your food would run out before you had money to buy more? Never true 08/27/2021 In the past 12 months, did y ou run out of food and didn't have money to buy more? Never true 08/27/2021 Transportation Needs Answer Date Record ed In the past 12 months, has l ack of transportation kept you from medical appointments or from getting medications? No 08/27/2021 Lack of Transportation (Non-Medical) Not on file 08/27/2021 Feeling Safe Answer Date Recorded Are you in a relationship wi th someone who hurts you emotionally and/or physically? 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 Gender Identity Not on file Sexual Orientation Not on file documented as of this encounter Plan of Treatment Upcoming Encounters Date Type Department Care Team (Late st Contact Info) Description 12/11/2024 2:40 PM CDT Office Visit [facility] Medicine [place] [address] [place] [address] Kraig Fox, [facility] [address] [place] [address] documented as of this encounter Visit Diagnoses Diagnosis Idiopathic chronic gout of multiple sites without tophus Chronic gouty arthropathy without mention of tophus (tophi) documented in this encounter Care Teams Landscape Designer Relationship Specialty Start Date End Date Heather Hodges DO [address] [place] [address] PCP - General Family Practice 11/20/19 documented as of this encounter
--- OUTSIDE RECORDS SUMMARY | 2024-12-07 05:50 | XMS_ITS | Encounter Summary ---
Author Organization [facility] Address [address] [place] [address] Care Team Providers Care Pulpwood Cutter Name Role Phone Heather Hodges DO Primary Care Provider +1- [phone] Encounter Details Date Type Department Care Team (Latest Contact Info) Description 01/09/1998 Outpatient Historical [facility] Medicine [place] [address] [facility] [address] [place] [address] Loren Roy NO ADDRESS ON FILE Sebaceous cyst (Primary Dx) Social History Tobacco Use Types Packs/Day Years Used Date Smoking Tobacco: Never Assessed Sex and Gender Information Value Date Recorded Sex Assigned at Not on file 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
--- OUTSIDE RECORDS SUMMARY | 2024-12-07 05:50 | XMS_ITS | Clinical Summary ---
Author Organization [facility] Address [facility] [place] [address] Care Team Providers Care Kraft Digester Operator Name Role Phone Heather Hodges DO Primary Care Provider +1- [phone] Allergies No known active allergies Active Problems [...] Assessment 10/06/2023 10/05/2022 Covid-19 Vaccine (4 - 2024-2 6 season) 2024 12/22/2020, 05/01/2020, 04/03/2020 Influenza Vaccine (#1) 2024 2, 12/16/2020, 11/20/2019, Additional history exists DTaP/Tdap/Td Vaccine (2 - Td or Tdap) 05/11/2027 05/10/2017, 10/03/2003 Insurance MEDICARE [facility] Address: [facility] [address] [place] [address] [facility] INSURANCE [id number] MEDICARE [id number] Advance Directives For more information, please contact: [phone] * Full Code (Latest Code Status on File) Date Activated Date Inactivated Comments 10/02/2022 12:47 PM 10/06/2022 12:05 AM Care Teams Kraft Digester Operator Relationship Specialty Start Date End Date Heather Hodges DO [address] [place] [address] PCP - General Family Practice 10/02/22
--- OUTSIDE RECORDS SUMMARY | 2024-12-07 05:50 | XMS_ITS | Encounter Summary ---
Author Organization [facility] Address [address] [place] [address] Care Team Providers Care Utilization Management Nurse Name Role Phone Heather Hodges DO Primary Care Provider +1- [phone] Encounter Details Date Type Department Care Team (Latest Contact Info) Description 05/23/2002 Outpatient Historical [facility] Medicine [place] 104 [facility] 60 [place] [address] Jericho Laura DO NO ADDRESS ON FILE ANXIETY STATE NOS (Primary Dx); CORONARY ATHEROSCLER UNSPEC VESSEL Social History Tobacco Use Types Packs/Day Years Used Date Smoking Tobacco: Never Assessed Sex and Gender Information Value Date Recorded Sex Assigned at Not on file 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
--- OUTSIDE RECORDS SUMMARY | 2024-12-07 05:50 | XMS_ITS | Encounter Summary ---
Author Organization [facility] Address [address] [place] [address] Care Team Providers Care Principal Clerk Name Role Phone Heather Hodges DO Primary Care Provider +1- [phone] Encounter Details Date Type Department Care Team (Latest Contact Info) Description 01/12/2000 Outpatient Historical [facility] Medicine [place] 104 [facility] 60 [place] [address] Jericho Laura DO NO ADDRESS ON FILE Acute bronchitis (Primary Dx) Social History Tobacco Use Types Packs/Day Years Used Date Smoking Tobacco: Never Assessed Sex and Gender Information Value Date Recorded Sex Assigned at Not on file 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
--- OUTSIDE RECORDS SUMMARY | 2024-12-07 05:50 | XMS_ITS | Encounter Summary ---
Author Organization [facility] Address [address] [place] [address] Care Team Providers Care Telephone Directory Distributor Driver Name Role Phone Heather Hodges DO Primary Care Provider +1- [phone] Encounter Details Date Type Department Care Team (Latest Contact Info) Description 11/27/1998 Outpatient Historical [facility] Medicine [place] 104 [facility] [address] [place] [address] Loren Roy NO ADDRESS ON FILE Acute sinusitis, unspecified (Primary Dx); Unspecified essential hypertension; Other nonspecific abnormal serum enzyme levels Social History Tobacco Use Types Packs/Day Years Used Date Smoking Tobacco: Never Assessed Sex and Gender Information Value Date Recorded Sex Assigned at Not on file Legal Sex Male 3:07 AM DOCUMENTATION SPEC Gender Identity Not on file Sexual Orientation Not on file documented as of this encounter Plan of Treatment Not on file documented as of this encounter Visit Diagnoses Diagnosis Acute sinusitis, unspecified- Primary Unspecified essential hypertension Other nonspecific abnormal serum enzyme levels documented in this encounter Care Teams Telephone Directory Distributor Driver Relationship Specialty Start Date End Date Heather Hodges DO [address] [place] [address] PCP - General Family Practice 11/20/19 documented as of this encounter
--- OUTSIDE RECORDS SUMMARY | 2024-12-07 05:50 | XMS_ITS | Encounter Summary ---
Author Organization [facility] Address [address] [place] [address] Care Team Providers Care Occupational Therapy Aide Name Role Phone Heather Hodges DO Primary Care Provider +1- [phone] Encounter Details Date Type Department Care Team (Latest Contact Info) Description 11/09/2000 Outpatient Historical [facility] Medicine [place] 104 [facility] [address] [place] [address] Joann Moore MD NO ADDRESS ON FILE Gout, unspecified (Primary Dx); Pure hypercholesterolem Social History Tobacco Use Types Packs/Day Years Used Date Smoking Tobacco: Never Assessed Sex and Gender Information Value Date Recorded Sex Assigned at Not on file 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
--- OUTSIDE RECORDS SUMMARY | 2024-12-07 05:50 | XMS_ITS | Encounter Summary ---
Author Organization [facility] Address [address] [place] [address] Care Team Providers Care Machine Adjuster Leader Case Trim Name Role Phone Heather Hodges DO Primary Care Provider +1- [phone] Encounter Details Date Type Department Care Team (Latest Contact Info) Description 05/30/2001 Outpatient Historical [facility] Family Medicine- [place] [address] [place] [address] Jericho Laura DO NO ADDRESS ON FILE ALLERGIC RHINITIS NOS (Primary Dx); COUGH; HYPERLIPIDEMIA NEC/NOS Social History Tobacco Use Types Packs/Day Years Used Date Smoking Tobacco: Never Assessed Sex and Gender Information Value Date Recorded Sex Assigned at Not on file 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
--- OUTSIDE RECORDS SUMMARY | 2024-12-07 05:50 | XMS_ITS | Encounter Summary ---
Author Organization [facility] Address [address] [place] [address] Care Team Providers Care Engine Setter Name Role Phone Heather Hodges DO Primary Care Provider +1- [phone] Encounter Details Date Type Department Care Team (Latest Contact Info) Description 02/08/2002 Outpatient Historical [facility] Medicine [place] 104 [facility] 60 [place] [address] Joann Moore MD NO ADDRESS ON FILE CORONARY ATHEROSCLER UNSPEC VESSEL (Primary Dx); HYPERTENSION NOS; ADV EFFECT MED/BIOL SUB NOS Social History Tobacco Use Types Packs/Day Years Used Date Smoking Tobacco: Never Assessed Sex and Gender Information Value Date Recorded Sex Assigned at Not on file 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
--- OUTSIDE RECORDS SUMMARY | 2024-12-07 05:50 | XMS_ITS | Encounter Summary ---
Author Organization [facility] Address [address] [place] [address] Care Team Providers Care Machine Heel Sprayer Name Role Phone Heather Hodges DO Primary Care Provider +1- [phone] Encounter Details Date Type Department Care Team (Latest Contact Info) Description 05/30/2001 Outpatient Historical [facility] Medicine [place] 104 [facility] 60 [place] [address] Jericho Laura DO NO ADDRESS ON FILE COUGH (Primary Dx) Social History Tobacco Use Types Packs/Day Years Used Date Smoking Tobacco: Never Assessed Sex and Gender Information Value Date Recorded Sex Assigned at Not on file 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
--- OUTSIDE RECORDS SUMMARY | 2024-12-07 05:50 | XMS_ITS | Encounter Summary ---
Author Organization [facility] Address [address] [place] [address] Care Team Providers Care Strap Making Machine Operator Name Role Phone Heather Hodges DO Primary Care Provider [phone]- [phone] Encounter Details Date Type Department Care Team (Latest Contact Info) Description 12/26/1997 Outpatient Historical [facility] Medicine [place] 104 [facility] 60 [place] [address] Loren Roy NO ADDRESS ON FILE Acute bronchitis (Primary Dx); Acute sinusitis, unspecified Social History Tobacco Use Types Packs/Day Years Used Date Smoking Tobacco: Never Assessed Sex and Gender Information Value Date Recorded Sex Assigned at Not on file 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
--- OUTSIDE RECORDS SUMMARY | 2024-12-07 05:50 | XMS_ITS | Clinical Summary ---
Author Organization [facility] Address [address] [facility] [address] [place] [address] Phone Care Team Providers Care Gasket Maker Name Role Phone Heather Hodges Primary Care [...] 10/02/2022 Medications diclofenac sodium (VOLTAREN) 1 % gelIndications:Dagmar lgia of muscle of neck Apply 4 Grams to affected area 4 times daily. 100 Gram 4 3 Active LORAZEPAM ORAL Take by mouth. Active allopurinoL (ZYLOPRIM) 300 mg tabletIndications: Idiopathic chronic gout of multiple sites without tophus Take 1 Tablet (300 mg) by mouth daily before breakfast. 90 Tablet 3 4 Active tamsulosin (FLOMAX) 0.4 mg capsuleIndications :Benign prostatic hyperplasia, unspecified whether lower urinary tract symptoms present Take 1 Capsule (0.4 mg) by mouth daily. 30 Capsule 3 4 Active gabapentin (NEURONTIN) 300 mg capsuleIndications :Primary osteoarthritis of right knee,Inflammatory arthritis TAKE 1 CAPSULE BY MOUTH THREE TIMES DAILY 270 Capsule 3 4 Active traZODone (DESYREL) 50 mg tabletIndications: Primary insomnia Take 1 Tablet (50 mg) by mouth daily at bedtime. 90 Tablet 3 5 Active clopidogreL (PLAVIX) 75 mg TabletIndications: Aortic aneurysm without rupture, unspecified portion of aorta,Angina pectoris TAKE 1 TABLET BY MOUTH ONCE DAILY BEFORE BREAKFAST 100 Tablet 1 5 Active famotidine (PEPCID) 20 mg tabletIndications: Gastroesophageal reflux disease without esophagitis Take 1 tablet by mouth twice daily 180 Tablet 1 5 Active doxycycline hyclate (VIBRAMYCIN) 100 mg tablet Take 1 Tablet by mouth 2 times daily. 5 Active fluticasone propionate (FLONASE) 50 mcg/spray [place], Suspension nasal inhaler Administer 2 Sprays in each nostril daily. shake before using 5 Active sertraline (ZOLOFT) 25 mg tabletIndications: Situational depression Take 1 tablet by mouth once daily 100 Tablet 3 5 Active metoprolol tartrate (LOPRESSOR) 25 mg tabletIndications: Primary hypertension Take 1 tablet by mouth once daily 100 Tablet 3 5 Active levothyroxine 75 mcg tabletIndications: Acquired hypothyroidism Take 1 Tablet (75 mcg) by mouth daily in the morning. 90 Tablet 3 5 Active atorvastatin (LIPITOR) 20 mg tabletIndications: Aortic aneurysm without rupture, unspecified portion of aorta,Angina pectoris TAKE 1 TABLET BY MOUTH ONCE DAILY AT BEDTIME 100 Tablet 5 Active finasteride (PROSCAR) 5 mg tabletIndications: Benign prostatic hyperplasia, unspecified whether lower urinary tract symptoms present TAKE 1 TABLET BY MOUTH ONCE DAILY. PLEASE CONVERT TO LIQUID FORM FOR PEG USE. 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 [address] [place] [address] Kraig Fox, SCANNING TECH Idiopathic chronic gout of multiple sites without tophus 11/27/2024 3:[address]T Clinical Support [facility] [address] [place] [address] Need for influenza vaccination (Primary Dx) 10/25/[address] [facility] [address] [place] [address] Kraig Fox, SCANNING TECH Benign prostatic hyperplasia, unspecified whether lower urinary tract symptoms present 09/10/[address] [facility] [address] [place] [address] Heather Hodges, Aortic aneurysm without rupture, unspecified portion of aorta; Angina pectoris from Last 3 Months Immunizations Immunization Administration Dates Next Due (TDVAX)(7 YRS UP) TETANUS AN D DIPHTHERIA TOXOIDS, ADSORBED (2 LF OF TETANUS TOXOID AND 2 LF OF DIPHTHERIA TOXOID), 0.5ML (PF), IM 10/03/2003 INFLUENZA VACCINE HIGH DOSE QUADRIVALENT 65 YR UP PF IM 11/11/2021,12/16/2020 INFLUENZA VACCINE HIGH DOSE TRIVALENT SPLIT VIRUS, (65 YR UP), 0.5ML (PF), IM 11/27/2024,12/21/2023 Influenza Seasonal Unspecifi ed Formulation IM 12/12/2007,11/17/2006,01/03/2002,1998 [...] on file Legal Sex Male 12:43 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 [address] [place] [address] Kevin Foxmariyajean Ruth, [facility] [address] [place] [address] Health Maintenance Due Date Last Done Comments PNEUMOCOCCAL VACCINE 50+ YEA RS (1 of 1 - PCV) 1986 ZOSTER VACCINE (1 of 2) 1986 DTAP/TDAP/TD VACCINES (1 - Tdap) 10/04/2003 10/03/19 04 RSV VACCINE (60+ or ) (1 - 1-dose 75+ series) 11/25/2011 COVID-19 Vaccine (2024-2 6 season) 2024 12/22/2020, 05/01/2020, 04/03/2020 INFLUENZA VACCINE Completed 11/27/2024, , 11/11/2021, Additional history exists Medical Devices Implanted Type Area Worm Picker Device Identifier Shelf Expiration Date Model / Serial / Lot Cement Simplex Hvisc 6194-1-001 - [id number] Implanted:Qty : 2 on 10/21/2014 by Buster Rick MD Cement Right: Knee [employer] 05/22/2015 6194-1-001 / / [id number] Comp Fem Trthln Cr Sz5 Rt 5510-F-502 - [id number] Implanted:Qty : 1 on 10/21/2014 by Buster Rick MD Knee Right: Knee [employer] 06/21/2019 5510-F-502 / / [id number] Comp Tib Triathlon Cmnt 5520-B-500 - [id number] Implanted:Qty : 1 on 10/21/2014 by Buster Rick MD Knee Right: Knee [employer] 03/23/2019 5520-B-500 / / [id number] Insert Tib Trthln X3 Cs 5531-G-513 - [id number] Implanted:Qty : 1 on 10/21/2014 by Buster Rick MD Knee Right: Knee [employer] 05/22/2019 5531-G-513 / / [id number] Patella Trthln Asym Poly 5551-L-350 - [id number] Implanted:Qty : 1 on 10/21/2014 by Buster Rick MD Knee Right: Patella [employer] 09/21/2019 5551-L-350 / / [id number] Insurance MEDICARE PART A AND B [place] [facility] Address: [facility] [address] [phone] Care Teams Gasket Maker Relationship Specialty Start Date End Date Heather Hodges DO [address] [place] [address] PCP - General Family Practice 11/20/19
--- OUTSIDE RECORDS SUMMARY | 2024-12-07 05:50 | XMS_ITS | Encounter Summary ---
Author Organization [facility] Address [address] [place] [address] Care Team Providers Care Warehouse Receiving Clerk Name Role Phone Heather Hodges DO Primary Care Provider +1- [phone] Encounter Details Date Type Department Care Team (Latest Contact Info) Description 02/04/1999 Outpatient Historical [facility] Medicine [place] 104 [facility] 60 [place] [address] Loren Roy NO ADDRESS ON FILE Gout, unspecified (Primary Dx); Pure hypercholesterolem Social History Tobacco Use Types Packs/Day Years Used Date Smoking Tobacco: Never Assessed Sex and Gender Information Value Date Recorded Sex Assigned at Not on file 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
--- OUTSIDE RECORDS SUMMARY | 2024-12-07 05:50 | XMS_ITS | Encounter Summary ---
Author Organization [facility] Address [address] [place] [address] Care Team Providers Care Shaft Mechanic Name Role Phone Heather Hodges DO Primary Care Provider +1- [phone] Encounter Details Date Type Department Care Team (Latest Contact Info) Description 02/23/2002 Outpatient Historical [facility] Medicine [place] 104 [facility] 60 [place] [address] Joann Moore MD NO ADDRESS ON FILE HYPERTENSION NOS (Primary Dx) Social History Tobacco Use Types Packs/Day Years Used Date Smoking Tobacco: Never Assessed Sex and Gender Information Value Date Recorded Sex Assigned at Not on file 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
--- OUTSIDE RECORDS SUMMARY | 2024-12-07 05:50 | XMS_ITS | Encounter Summary ---
Author Organization [facility] Address [address] [place] [address] Care Team Providers Care Pot Fluxer Name Role Phone Heather Hodges DO Primary Care Provider +1- [phone] Encounter Details Date Type Department Care Team (Latest Contact Info) Description 03/31/2004 Outpatient Historical [facility] Medicine [place] 104 [facility] [address] [place] [address] Jericho Laura DO NO ADDRESS ON FILE HYPERTROPHY PROSTATE W/O OBST (Primary Dx); HYPERLIPIDEMIA NEC/NOS; ANXIETY STATE NOS Social History Tobacco Use Types Packs/Day Years Used Date Smoking Tobacco: Never Assessed Sex and Gender Information Value Date Recorded Sex Assigned at Not on file Legal Sex Male 3:07 AM QUALITY ASSURANCE MONITOR BODY Gender Identity Not on file Sexual Orientation Not on file documented as of this encounter Plan of Treatment Not on file documented as of this encounter Visit Diagnoses Diagnosis Hypertrophy of prostate without urinary obstruction and other lower urinary tract symptoms (LUTS)- Primary Other and unspecified hyperlipidemia Anxiety state, unspecified documented in this encounter Care Teams Pot Fluxer Relationship Specialty Start Date End Date Heather Hodges DO [address] [place] [address] PCP - General Family Practice 11/20/19 documented as of this encounter
--- OUTSIDE RECORDS SUMMARY | 2024-12-07 05:50 | XMS_ITS | Encounter Summary ---
Author Organization [facility] Address [address] [place] [address] Care Team Providers Care Spring Fitter Helper Name Role Phone Heather Hodges DO Primary Care Provider +1- [phone] Encounter Details Date Type Department Care Team (Latest Contact Info) Description 07/02/2003 Outpatient Historical 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 Gender Identity Not on file Sexual Orientation Not on file documented as of this encounter Plan of Treatment Not on file documented as of this encounter Visit Diagnoses Diagnosis Coronary atherosclerosis of [place] coronary artery- Primary Aortocoronary bypass Postsurgical aortocoronary bypass status Unspecified essential hypertension Pure hypercholesterolem Pure hypercholesterolemia documented in this encounter Care Teams Spring Fitter Helper Relationship Specialty Start Date End Date Heather Hodges DO [address] [place] [phone] PCP - General Family Practice 11/20/19 documented as of this encounter
--- OUTSIDE RECORDS SUMMARY | 2024-12-07 05:50 | XMS_ITS | Encounter Summary ---
Author Organization [facility] Address [address] [place] [address] Care Team Providers Care It Trainee Name Role Phone Heather Hodges DO Primary Care Provider Encounter Details Date Type Department Care Team (Latest Contact Info) Description 06/21/2002 Outpatient Historical [facility] ParksLuciano arenas MD [address] [facility] [address] [place] [phone] CORON ATHEROSCL [place] CORON VESSEL (Primary Dx); Aortocoronary bypass; Pure hypercholesterolem ; HYPERTENSION NOS Social History Tobacco Use Types Packs/Day Years Used Date Smoking Tobacco: Never Assessed Sex and Gender Information Value Date Recorded Sex Assigned at Not on file Legal Sex Male 3:07 AM ON AIR TALENT Gender Identity Not on file Sexual Orientation Not on file documented as of this encounter Plan of Treatment Not on file documented as of this encounter Visit Diagnoses Diagnosis Coronary atherosclerosis of [place] coronary artery- Primary Aortocoronary bypass Postsurgical aortocoronary bypass status Pure hypercholesterolem Pure hypercholesterolemia Unspecified essential hypertension documented in this encounter Care Teams It Trainee Relationship Specialty Start Date End Date Heather Hodges DO [address] [place] [address] PCP - General Family Practice 11/20/19 documented as of this encounter
--- OUTSIDE RECORDS SUMMARY | 2024-12-07 05:50 | XMS_ITS | Encounter Summary ---
Author Organization [facility] Address [address] [place] [address] Care Team Providers Care Salesperson Women'S Hats Name Role Phone Heather Hodges DO Primary Care Provider +1- [phone] Encounter Details Date Type Department Care Team (Late st Contact Info) Description 06/02/2001 Outpatient Historical [facility] [place] [address] [place] [address] Social History Tobacco Use Types Packs/Day Years Used Date Smoking Tobacco: Never Assessed Sex and Gender Information Value Date Recorded Sex Assigned at Not on file 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
--- OUTSIDE RECORDS SUMMARY | 2024-12-07 05:50 | XMS_ITS | Encounter Summary ---
Author Organization [facility] Address [address] [place] [address] Care Team Providers Care Computer Artist Name Role Phone Heather Hodges DO Primary Care Provider +1- [phone] Encounter Details Date Type Department Care Team (Latest Contact Info) Description 04/26/2005 Outpatient Historical [facility] [address] [phone] Renaldo Koenig, [place] NO ADDRESS ON FILE Generalized Osteoarthrosis, Involving Multiple Sites (Primary Dx) Social History Tobacco Use Types Packs/Day Years Used Date Smoking Tobacco: Never Assessed Sex and Gender Information Value Date Recorded Sex Assigned at Not on file Legal Sex Male 3:07 AM UPPER CUTTER Gender Identity Not on file Sexual Orientation Not on file documented as of this encounter Plan of Treatment Not on file documented as of this encounter Visit Diagnoses Diagnosis Generalized osteoarthrosis, involving multiple sites- Primary documented in this encounter Care Teams Computer Artist Relationship Specialty Start Date End Date Heather Hodges DO [address] [place] [address] PCP - General Family Practice 11/20/19 documented as of this encounter
--- OUTSIDE RECORDS SUMMARY | 2024-12-07 05:50 | XMS_ITS | Encounter Summary ---
Author Organization [facility] Address [address] [place] [address] Care Team Providers Care Pipefitter Welder Name Role Phone Heather Hodges DO Primary Care Provider +1- [phone] Encounter Details Date Type Department Care Team (Latest Contact Info) Description 11/03/2001 Outpatient Historical [facility] Medicine [place] [address] [facility] [address] [place] [address] Jericho Laura DO NO ADDRESS ON FILE CORON ATHEROSCL [place] CORON VESSEL (Primary Dx); PERIPH VASCULAR DIS NOS Social History Tobacco Use Types Packs/Day Years Used Date Smoking Tobacco: Never Assessed Sex and Gender Information Value Date Recorded Sex Assigned at Not on file Legal Sex Male 3:07 AM ART MUSEUM AIDE Gender Identity Not on file Sexual Orientation Not on file documented as of this encounter Plan of Treatment Not on file documented as of this encounter Visit Diagnoses Diagnosis Coronary atherosclerosis of [place] coronary artery- Primary Peripheral vascular disease, unspecified documented in this encounter Care Teams Pipefitter Welder Relationship Specialty Start Date End Date Heather Hodges DO [address] [place] [address] PCP - General Family Practice 11/20/19 documented as of this encounter
--- OUTSIDE RECORDS SUMMARY | 2024-12-07 05:50 | XMS_ITS | Encounter Summary ---
Author Organization [facility] Address [address] [place] [address] Care Team Providers Care Real Estate Director Name Role Phone Heather Hodges DO Primary Care Provider +1- [phone] Encounter Details Date Type Department Care Team (Latest Contact Info) Description 01/07/1999 Outpatient Historical [facility] Medicine [place] [address] [facility] 60 [place] [address] Loren Roy NO ADDRESS ON FILE Other and unspecified hyperlipidemia (Primary Dx); Unspecified essential hypertension; Gout, unspecified; Special screening for malignant neoplasm of prostate Social History Tobacco Use Types Packs/Day Years Used Date Smoking Tobacco: Never Assessed Sex and Gender Information Value Date Recorded Sex Assigned at Not on file 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
--- OUTSIDE RECORDS SUMMARY | 2024-12-07 05:50 | XMS_ITS | Clinical Summary ---
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 Gender Identity Not on file Sexual Orientation [...] history exists Medical Devices Implanted Type Area Material Requisitioner Device Identifier Shelf Expiration Date Model / Serial / Lot Cement Simplex Hvisc 6194-1-001 - [id number] Implanted:Qty: 2 on 10/21/2014 by Buster Rick MD at [facility] Cement Right: Knee [employer] 05/22/2015 6194-1-00 1 / / [id number] V Comp Tib Triathlon Cmnt 5520-B-500 - [id number] Implanted:Qty: 1 on 10/21/2014 by Buster Rick MD at [facility] Knee Right: Knee [employer] 03/23/2019 5520-B-50 0 / / [id number] Patella Trthln Asym Poly 5551-L-350 - [id number] Implanted:Qty: 1 on 10/21/2014 by Buster Rick MD at [facility] Knee Right: Patella INGRID- [employer] INT INC 09/21/2019 5551-L-35 0 / / [id number] Comp Fem Trthln Cr Sz5 Rt 5510-F-502 - [id number] Implanted:Qty: 1 on 10/21/2014 by Buster Rick MD at [facility] Knee Right: Knee [employer] 06/21/2019 5510-F-50 2 / / [id number] Insert Tib Trthln X3 Cs 5531-G-513 - [id number] Implanted:Qty: 1 on 10/21/2014 by Buster Rick MD at [facility] Knee Right: Knee [employer] OR[employer] 05/22/2019 5531-G-51 3 / / [id number] Advance Directives For more information, please contact: [phone] * Full Code (Latest Code Status on File) Date Activated Date Inactivated Comments 10/21/2014 12:55 PM 10/23/2014 6:40 PM * Full Code Date Activated Date Inactivated Comments 10/21/2014 6:19 AM 10/21/2014 12:54 PM Care Teams Superintendent Laundry Relationship Specialty Start Date End Date Heather Hodges DO [address] [place] [phone] PCP - General Family Practice 11/20/19
--- OUTSIDE RECORDS SUMMARY | 2024-12-07 05:50 | XMS_ITS | Encounter Summary ---
Author Organization [facility] Address [address] [place] [address] Care Team Providers Care Railway Traction Line Worker Name Role Phone Heather Hodges DO Primary Care Provider +1- [phone] Encounter Details Date Type Department Care Team (Latest Contact Info) Description 11/13/2001 Outpatient Historical [facility] Medicine [place] [address] [facility] [address] [place] [address] Jericho Laura DO NO ADDRESS ON FILE Pain in limb (Primary Dx); PERIPH VASCULAR DIS NOS Social History Tobacco Use Types Packs/Day Years Used Date Smoking Tobacco: Never Assessed Sex and Gender Information Value Date Recorded Sex Assigned at Not on file 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
--- OUTSIDE RECORDS SUMMARY | 2024-12-07 05:50 | XMS_ITS | Encounter Summary ---
Author Organization [facility] Address [address] [place] [address] Care Team Providers Care Manufacturing Design Engineer Name Role Phone Heather Hodges DO Primary Care Provider [phone]- [phone] Encounter Details Date Type Department Care Team (Latest Contact Info) Description 02/03/2001 Outpatient Historical [facility] Medicine- [address] [id number] Adam Torres MD [address] [phone] ACUTE URI NOS (Primary Dx) Social History Tobacco Use Types Packs/Day Years Used Date Smoking Tobacco: Never Assessed Sex and Gender Information Value Date Recorded Sex Assigned at Not on file 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
--- OUTSIDE RECORDS SUMMARY | 2024-12-07 05:50 | XMS_ITS | Encounter Summary ---
Author Organization [facility] Address [address] [place] [address] Care Team Providers Care Sleeve Setter Lockstitch Name Role Phone Heather Hodges DO Primary Care Provider +1- [phone] Encounter Details Date Type Department Care Team (Latest Contact Info) Description 01/22/1998 Outpatient Historical [facility] Medicine [place] [address] [facility] 60 [place] [address] Loren Roy NO ADDRESS ON FILE Attention to dressings and sutures (Primary Dx) Social History Tobacco Use Types Packs/Day Years Used Date Smoking Tobacco: Never Assessed Sex and Gender Information Value Date Recorded Sex Assigned at Not on file 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
--- OUTSIDE RECORDS SUMMARY | 2024-12-07 05:50 | XMS_ITS | Encounter Summary ---
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
--- OUTSIDE RECORDS SUMMARY | 2024-12-07 05:50 | XMS_ITS ---
Author Organization [facility] Address [address] [facility] [address] [place] [address] Phone Care Team Providers Care Satellite Communications Engineer Name Role Phone Heather Hodges Primary Care Provider [phone] Active Problems Problem Noted Date Diagnosed Date [...] Hx of CABG Primary hypertension Atherosclerosis of [place] ronary artery of [place] heart without angina pectoris Current Treatment and [...]
--- OUTSIDE RECORDS SUMMARY | 2024-12-07 05:50 | XMS_ITS | Encounter Summary ---
Author Organization [facility] Address [address] [place] [address] Care Team Providers Care Minibus Driver Name Role Phone Heather Hodges DO Primary Care Provider +1- [phone] Encounter Details Date Type Department Care Team (Latest Contact Info) Description 09/01/2001 Outpatient Historical [facility] Medicine [place] [address] [facility] [address] [place] [address] Jericho Laura DO NO ADDRESS ON FILE CHEST PAIN NOS (Primary Dx); HYPERTENSION NOS Social History Tobacco Use Types Packs/Day Years Used Date Smoking Tobacco: Never Assessed Sex and Gender Information Value Date Recorded Sex Assigned at Not on file 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
--- OUTSIDE RECORDS SUMMARY | 2024-12-07 05:51 | XMS_ITS | Encounter Summary ---
Author Organization [facility] Address [address] [place] [address] Care Team Providers Care Dividend Clerk Name Role Phone Heather Hodges DO Primary Care Provider +1- [phone] Encounter Details Date Type Department Care Team (Latest Contact Info) Description 03/06/2004 Outpatient Historical [facility] Medicine [place] [address] [facility] 60 [place] [address] Jericho Laura DO NO ADDRESS ON FILE ANXIETY STATE NOS (Primary Dx) Social History Tobacco Use Types Packs/Day Years Used Date Smoking Tobacco: Never Assessed Sex and Gender Information Value Date Recorded Sex Assigned at Not on file Legal Sex Male 3:07 AM 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
--- OUTSIDE RECORDS SUMMARY | 2024-12-07 05:51 | XMS_ITS | Encounter Summary ---
Author Organization [facility] Address [address] [place] [address] Care Team Providers Care Production Shift Supervisor Name Role Phone Heather Hodges DO Primary Care Provider +1- [phone] Encounter Details Date Type Department Care Team (Latest Contact Info) Description 10/03/2003 Outpatient Historical [facility] Medicine [place] [address] [facility] 60 [place] [address] Jarod House NP NO ADDRESS ON FILE VACCINE FOR TETANUS/DIPHTERIA (Primary Dx); Pain in limb Social History Tobacco Use Types Packs/Day Years Used Date Smoking Tobacco: Never Assessed Sex and Gender Information Value Date Recorded Sex Assigned at Not on file 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
[2024-12-07 05:54] VITALS: BP 142/54; PULSE 66; RESP 18; TEMP 36.8; O2SAT 99
--- NOTE | 2024-12-07 05:55 | W.ED.GENADLT ---
HPI - General Adult General: Chief complaint: General Medical Stated complaint: pulled feeding tube out and left leg injury Time Seen by Provider: 12/07/24 05:46 History of Present Illness: 89-year-old man with a history of BPH, gout, hyperlipidemia, hypertension, coronary artery disease, AAA, CVA, and feeding tube dependence who presents emergency room after he pulled out his feeding tube accidentally while he was sleeping. This has happened several times in the past. He is also complaining of some right leg pain after he bumped his leg a few days ago. No obvious bruising or swelling. He is still ambulatory. No altered mental status. No focal motor deficits. No fevers. No abdominal pain. No vomiting. Related Data Home Medications ?Medication ?Instructions ?Recorded ?Confirmed allopurinol 300 mg tablet 300 mg feeding tube QAM 09/10/22 11/28/24 atorvastatin 20 mg tablet 20 mg feeding tube BEDTIME 09/10/22 11/28/24 clopidogrel 75 mg tablet 75 mg feeding tube QAM 09/10/22 11/28/24 sertraline 25 mg tablet 25 mg PO QAM 10/07/22 11/28/24 triamcinolone acetonide 0.1 % 1 applic topical BID PRN unknown 10/18/22 11/28/24 topical cream finasteride 5 mg tablet 5 mg PO QAM 10/28/22 11/28/24 famotidine 20 mg tablet 20 mg PO BID 11/08/22 11/28/24 metoclopramide HCl 5 mg/5 mL oral 5 mg PO Q6H PRN Nausea And Vomiting 11/08/22 11/28/24 solution polyethylene glycol 3350 17 gram 17 g PO BEDTIME PRN 12/01/22 11/28/24 oral powder packet (Miralax) trazodone 50 mg tablet 25 mg feeding tube BEDTIME 12/01/22 11/28/24 fluticasone propionate 50 intranasal 12/13/23 11/28/24 mcg/actuation nasal spray,suspension metoprolol tartrate 25 mg tablet 12.5 mg PO QAM 12/19/23 11/28/24 gabapentin 300 mg capsule 300 mg feeding tube .QPM 10/03/24 11/28/24 Previous Rx's ?Medication ?Instructions ?Recorded trach mask and neb kit #1 ea 12/02/22 acetylcysteine 100 mg/mL (10 %) 3 ml inhalation Q6H PRN increased 08/10/23 solution mucous #30 mL levothyroxine 50 mcg tablet 50 mcg PO DAILY #1 tab 12/19/23 Allergies Allergy/AdvReac Type Severity Reaction Status Date / Time acetaminophen (From Tylenol) Allergy Unknown ALGY-Rash Verified 11/28/24 13:10 amoxicillin Allergy Unknown ALGY-Rash Verified 11/28/24 13:10 levofloxacin Allergy Unknown ALGY-Rash Verified 11/28/24 13:10 Penicillins Allergy Unknown RASH Verified 11/28/24 13:10 Review of Systems Narrative: Constitutional symptoms: Negative except as documented in HPI. Skin symptoms: Negative except as documented in HPI. Eye symptoms: Negative except as documented in HPI. ENMT symptoms: Negative except as documented in HPI. Respiratory symptoms: Negative except as documented in HPI. Cardiovascular symptoms: Negative except as documented in HPI. Gastrointestinal symptoms: Negative except as documented in HPI. Genitourinary symptoms: Negative except as documented in HPI. Musculoskeletal symptoms: Negative except as documented in HPI. Neurologic symptoms: Negative except as documented in HPI. Psychiatric symptoms: Negative except as documented in HPI. Endocrine symptoms: Negative except as documented in HPI. PFSH ED PFSH: Medical History (Updated 12/07/24 @ 05:56 by Kathy Garcia MD) Tracheitis Acute bacterial tracheitis Acute dyspnea Leukocytosis Antineoplastic chemotherapy induced anemia Protein calorie malnutrition Secondary malignancy of lymph nodes of head, face and neck Peripheral neuropathy Gout BPH loc w urin obs/LUTS Elevated PSA Chronic prostatitis Tobacco abuse, in remission DJD (degenerative joint disease), lumbar Hyperlipidemia Essential hypertension ASHD (arteriosclerotic heart disease) AAA (abdominal aortic aneurysm) CVA (cerebral vascular accident) Palpitations Myocardial infarction Surgical History History of total right knee replacement History of laryngoscopy (07/05/22) tracheotomy and 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 Status post insertion of percutaneous endoscopic gastrostomy (PEG) tube (07/10/22) S/P CABG (coronary artery bypass graft) Family History Other CAD (coronary artery disease) Cancer Hypertension Social History Smoking and tobacco/nicotine status: never used tobacco/nicotine Quit status (tobacco/nicotine): has quit using Year quit tobacco: 2001 Former quit date comment: smoked x 50+ years Alcohol intake: never Substance/Drug Use: never Household members: spouse Marital status: service: No Current occupational status: retired 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 Skin: Warm, dry. Head: Normocephalic, atraumatic. Neck: Supple, trachea midline. Eye: Extraocular movements are intact. Ears, nose, mouth and throat: mucosa moist. Cardiovascular: Regular, Normal peripheral perfusion. Respiratory: Lungs are clear to auscultation, respirations are non-labored, breath sounds are equal, Symmetrical chest wall expansion. Gastrointestinal: Soft, Nontender, Non distended. Feeding tube is dislodged. Musculoskeletal: Normal ROM, no deformity. Neurological: Alert and oriented, No focal neurological deficit observed. Psychiatric: Cooperative, appropriate mood & affect. Course Vital Signs: Vital signs: Vital Signs Temperature 98.3 F 12/07/24 05:54 Pulse Rate 66 12/07/24 05:54 Respiratory Rate 18 12/07/24 05:54 Blood Pressure 142/54 12/07/24 05:54 Pulse Oximetry 99 12/07/24 05:54 [facility] - General Adult Medical Decision Making Medical decision making: Differential diagnosis including but not limited to and based on the above HPI, review of systems and physical exam: Feeding tube displaced again. This was replaced. Procedure note: Feeding tube was placed. 7 cc of saline were placed into the bulb. No complications. Assessment and plan: Feeding tube displaced. Feeding tube replaced. - Discharged home - Discussed plan with patient. Answered any questions. - Evaluation and treatment of this problem were appropriate in the emergency setting. No radiology studies performed this visit Discharge Plan Discharge Patient Disposition: Home Clinical Impression: Encounter for feeding tube placement Condition: Stable Prescriptions: No Action trazodone 50 mg tablet 25 mg feeding tube BEDTIME triamcinolone acetonide 0.1 % cream 1 applic topical BID PRN (Reason: unknown) acetylcysteine 100 mg/mL (10 %) solution 3 ml inhalation Q6H PRN (Reason: increased mucous) Qty: 30 2RF Rx Instructions: nebulization via tracheostomy fluticasone propionate 50 mcg/actuation spray,suspension intranasal levothyroxine 50 mcg tablet 50 mcg PO DAILY Qty: 1 0RF gabapentin 300 mg capsule 300 mg feeding tube .QPM Rx Instructions: Please convert to liquid form for PEG use (DME) trach mask and neb kit See Rx Instructions .Route .MEDSUPPLY Qty: 1 0RF Rx Instructions: As directed atorvastatin 20 mg tablet 20 mg feeding tube BEDTIME clopidogrel 75 mg tablet 75 mg feeding tube QAM allopurinol 300 mg tablet 300 mg feeding tube QAM metoprolol tartrate 25 mg tablet 12.5 mg PO QAM finasteride 5 mg tablet 5 mg PO QAM metoclopramide HCl 5 mg/5 mL solution 5 mg PO Q6H PRN (Reason: Nausea And Vomiting) famotidine 20 mg tablet 20 mg PO BID polyethylene glycol 3350 [Miralax] 17 gram powder in packet 17 g PO BEDTIME PRN sertraline 25 mg tablet 25 mg PO QAM Discharge Orders: Discharge ED (Routine); Ordered 12/07/24 Ordered By: Kathy Garcia Referrals: Heather Hodges DO [Primary Care Provider, Family Practice] Discharge Diet: Usual diet Discharge Activity: Increase activity as tolerated Patient Instructions: Opioid Safety, Pain Management, Patient Portal & Mckenzie Instructions Activity Restrictions/Additional Instructions: Thank you for choosing [facility] for your healthcare needs today. You have been screened and evaluated and felt safe for discharge. Health conditions do change or evolve sometimes and as such it is important that you follow up with your Primary Doctor to be re checked, 3-5 days is a general good time frame for follow up. You are always welcome to return to the ED for re assessment if your symptoms are worsening or you have new concerns Print Language: Kiswahili Coding Level of Care Code ED General Labor Forklift Operator for Mayra Cote
[2024-12-07 05:58] VITALS: BP 142/54; PULSE 71; RESP 16; O2SAT 99
[2024-12-07 06:29] VITALS: BP 142/54; PULSE 71; O2SAT 99
--- NOTE | 2024-12-07 06:33 | PC.NURSE ---
AVANOS Gastrostomy Feeding Tube 20 Fr replaced. Unable to find location to charge patient. Lot #[id number] Exp: 05/02/27 Ref:[id number]
== END 2024-12-07 06:37 | disposition home or self-care (01) ==
PROVIDERS: Emergency Provider Emergency Medicine; PCP Family Medicine
DX: Z46.6 Encounter for fitting and adjustment of urinary device (principal); Z79.02 Long term (current) use of antithrombotics/antiplatelets; Z87.891 Personal history of nicotine dependence; Z95.1 Presence of aortocoronary bypass graft; E78.5 Hyperlipidemia, unspecified; I10 Essential (primary) hypertension; Z86.73 Personal history of transient ischemic attack (TIA), and cerebral infarction without residual deficits; Z85.89 Personal history of malignant neoplasm of other organs and systems
CPT/HCPCS: 99283

== ENCOUNTER 2025-02-14 12:51 | Emergency (ER) | payer MEDICARE, OTHER, SELFPAY ==
--- OUTSIDE RECORDS SUMMARY | 2025-02-12 15:40 | XMS_ITS | Encounter Summary ---
Author Organization [facility] Address [address] [place] [address] Care Team Providers Care Quiller Machine Fixer Name Role Phone Heather Hodges Primary Care Provider [phone] Reason for Visit * Reason Comments Feeding Problem Feeding issues/stoma ch issues Encounter Details Date Type Department Care Team ([facility] st Contact Info) Description 02/12/2025 3:40 PM SENIOR PRODUCT INTEGRITY ENGINEER Office Visit [facility] [address] [place] [address] [facility] [address] [place] [address] Uses feeding tube (Primary Dx); History of throat cancer; Infrarenal abdominal aortic aneurysm (AAA) without rupture; Gastroesophageal reflux disease without esophagitis Social History Tobacco Use Types Packs/Day Years Used Date Smoking Tobacco: Former Cigarettes 3 Q uit: 10/04/2002 Passive Smoke Exposure: Past [...] on file Legal Sex Male 12:43 PM SENIOR PRODUCT INTEGRITY ENGINEER Gender Identity Not on file Sexual Orientation Not on file documented as of this encounter Last Filed Vital Signs Vital Sign Reading Time Taken Comments Blood Pressure 108/60 02/12/2025 3:52 PM SENIOR PRODUCT INTEGRITY ENGINEER Pulse 68 02/12/2025 3:52 PM SENIOR PRODUCT INTEGRITY ENGINEER Temperature 36.4 C (97.6 F) 02/12/2025 3:52 PM SENIOR PRODUCT INTEGRITY ENGINEER Respiratory Rate 18 02/12/2025 3:52 PM SENIOR PRODUCT INTEGRITY ENGINEER Oxygen Saturation 97% 02/12/2025 3:52 PM SENIOR PRODUCT INTEGRITY ENGINEER Inhaled Oxygen Concentration - - Weight 70.8 kg (156 lb) 02/12/2025 3:52 PM SENIOR PRODUCT INTEGRITY ENGINEER Height 170.2 cm (5' 7 ) 02/12/2025 3:52 PM SENIOR PRODUCT INTEGRITY ENGINEER Body Mass Index 24.43 02/12/2025 3:52 PM SENIOR PRODUCT INTEGRITY ENGINEER documented in this encounter Progress Notes * Kraig Fox, JEANNE - 02/12/2025 3:59 PM CST Chief Complaint Patient presents with Feeding Problem Feeding issues/stomach issues Patient Active Problem List Diagnosis Code Right knee pain M25.561 Right TKA- Ingrid 10/21/2014 M17.11 Mixed hyperlipidemia E78.2 Inflammatory arthritis M13.80 Angina pectoris I20.9 Idiopathic chronic gout of multiple sites without tophus M1A.09X0 Hard of hearing H91.90 Calculus of kidney N20.0 Hx of CABG Z95.1 Primary hypertension I10 Atherosclerosis of mo[place] coronary artery of mo[place] heart without angina pectoris I25.10 Aortic aneurysm without rupture I71.9 Uses feeding tube Z97.8 Head injury without concussion or intracranial hemorrhage S09.90XA Chest congestion R09.89 Episode of confusion R41.0 History of throat cancer Z85.819 Pseudomonas aeruginosa infection A49.8 Grief at loss of child F43.21, Z63.4 Hospice care Z51.5 Benign prostatic hyperplasia N40.0 Absolute anemia D64.9 Acquired hypothyroidism E03.9 Chronic bilateral low back pain without sciatica M54.50, G89.29 Frequent falls R29.6 Frail elderly R54 Primary insomnia F51.01 Chronic neck pain M54.2, G89.29 Gastroesophageal reflux disease without esophagitis K21.9 Environmental and seasonal allergies J30.89 History of Present Illness An 89-year-old male with a history of throat cancer, who is dependent on a feeding tube, presents with issues related to the feeding tube. He is experiencing persistent coughing with small amounts ofblood every 2-3 days and is concerned it may be related to his existing abdominal aortic aneurysm. He consumes 9 cups of liquid between 8:30-9:30 AM and goes to bed at 8:00 PM. Overfeeding triggers his coughing, and he reports slow digestion. He discontinued medication for digestive speed due to diarrhea. He is dependent on tube feeding and is unable to swallow. He experiences a burning sensationduring coughing and takes famotidine twice daily. His coughing intensifies post- feeding, especiallyafter consuming 3 cups of liquid. He is under hospice care but has had no recent contact. He does not have a director education and has had multiple feeding tubes inserted, which dislodge during sleep. He had a recent ENT consultation which revealed no reoccurrence of throat cancer but a severe sinusinfection. He completed a course of doxycycline 100 mg twice daily for 14 days by ENT and believes that Tylenol upset his stomach. He has not tried Mucinex. He is currently living with his sister. 10 point review of systems is otherwise negative except as mentioned above. Past Medical History: Diagnosis Date Calculus of kidney Chest pain Elevated cholesterol Gout Hard of hearing HTN (hypertension) Hx of CABG 2001 Inflammatory arthritis MRSA (methicillin resistant staph aureus) culture positive 07/31/2023 Sputum Throat cancer (CMS/HCC) Current Outpatient Medications Medication Instructions acetaminophen (TYLENOL) 1,000 mg, TWO TIMES DAILY allopurinoL (ZYLOPRIM) 300 mg, Oral, DAILY BEFORE BREAKFAST atorvastatin (LIPITOR) 20 mg, Oral, DAILY AT BEDTIME clopidogreL (PLAVIX) 75 mg, Oral, DAILY BEFORE BREAKFAST finasteride (PROSCAR) 5 mg tablet TAKE 1 TABLET BY MOUTH ONCE DAILY. PLEASE CONVERT TO LIQUID FORM FOR PEG USE. fluticasone propionate (FLONASE) 50 mcg/spray [place], Suspension nasal inhaler 2 Sprays, DAILY gabapentin (NEURONTIN) 300 mg, Oral, NIGHTLY PRN levothyroxine (SYNTHROID) 75 mcg, Oral, DAILY EARLY loratadine (CLARITIN) 10 mg, Oral, DAILY metoprolol tartrate (LOPRESSOR) 25 mg, Oral, DAILY pantoprazole (FIRST-PANTOPRAZOLE) 40 mg, Oral, TWO TIMES DAILY sertraline (ZOLOFT) 25 mg, Oral, DAILY traZODone (DESYREL) 50 mg, Oral, DAILY AT BEDTIME Past Surgical History: Procedure Laterality Date HX CORONARY ARTERY BYPASS GRAFT 2002 4 vessel HX HEART CATHETERIZATION HX KNEE ARTHROSCOPY Right 2010 HX SHOULDER ARTHROSCOPY Left HX TRACHEOSTOMY HX TRACHEOSTOMY FL ARTHRP KNE CONDYLE&PLATU MEDIAL&LAT COMPARTMENTS Right 10/21/2014 KNEE ARTHROPLASTY TOTAL REPLACEMENT performed by Buster Rick MD at [facility] OR Past social, family, and medical history reviewed. BP 108/60 Pulse 68 Temp 97.6 ??F (36.4 ??C) Resp 18 Ht 5' 7 (1.702 m) Wt 70.8 kg (156 lb) SpO2 97% BMI 24.43 kg/m?? Physical Exam Constitutional: General: He is not in acute distress. Appearance: Normal appearance. He is not ill-appearing. HENT: Head: Normocephalic. Right Ear: External ear normal. Left Ear: External ear normal. Nose: Nose normal. Eyes: Conjunctiva/sclera: Conjunctivae normal. Cardiovascular: Rate and Rhythm: Normal rate and regular rhythm. Pulses: Normal pulses. Heart sounds: Normal heart sounds. No murmur heard. Pulmonary: Effort: Pulmonary effort is normal. No respiratory distress. Breath sounds: Normal breath sounds. Musculoskeletal: Right lower leg: No edema. Left lower leg: No edema. Skin: General: Skin is warm and dry. Neurological: Mental Status: He is alert and oriented to person, place, and time. Psychiatric: Mood and Affect: Mood normal. Behavior: Behavior normal. ICD-10-CM ICD-9-CM 1. Uses feeding tube Z97.8 V49.89 2. History of throat cancer Z85.819 V10.02 3. Infrarenal abdominal aortic aneurysm (AAA) without rupture I71.43 441.4 4. Gastroesophageal reflux disease without esophagitis K21.9 530.81 pantoprazole (FIRST-PANTOPRAZOLE) 4 mg/mL Suspension Assessment & Plan Hemoptysis: - Likely due to throat irritation from persistent coughing, possibly secondary to bronchitis or acid reflux, not related to aneurysm. - History of throat cancer, 35 rounds of radiation, tracheostomy, prone to throat tissue injury. - Start Mucinex 600 mg twice daily to thin mucus. - Prescribe liquid pantoprazole, discontinue famotidine upon starting. - Inform office if issues with medication or insurance. Sinus infection: - He recently completed 14-day doxycycline 100 mg twice daily for sinus infection. - Infection clearing up. - No further antibiotics to avoid side effects. Gastroesophageal reflux disease: - Currently on famotidine twice daily, insufficient. - Prescribe liquid pantoprazole, discontinue famotidine upon starting. WILLIE Curtis The author of this note, patient (or authorized textile designs sales representative), and all other persons present consent to the audio recording of this visit for charting documentation purposes. This note was automatically generated, edited by a Quality Master Planner, and finalized by JEANNE Gallardo. 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
--- NOTE | 2025-02-14 12:52 | ECG_ITS ---
[employer] Test Date: 2025-02-14 Pat Name: Jose Mcdonnell Department: Room: Gender: Male Unbundler: : 1935 Requested By: Kathy Castro Order Number: [id number] Alejandra MD: LUKE MORGAN Measurements Intervals [place] Rate: 56 P: 40 MD: 269 QRS: 41 QRSD: 119 T: 117 QT: 435 QTc: 422 Interpretive Statements SINUS BRADYCARDIA WITH FIRST DEGREE AV BLOCK INCOMPLETE RIGHT BUNDLE BRANCH BLOCK [90+ ms QRS DURATION, TERMINAL R IN V1/V2, 40+ ms S IN I/aVL/V4/V5/V6] ANTERIOR MYOCARDIAL INFARCTION , OF INDETERMINATE AGE [40+ ms Q WAVE AND/OR ST/T ABNORMALITY IN V3/V4] INFERIOR MYOCARDIAL INFARCTION , PROBABLY OLD [40+ ms Q WAVE AND/OR ST/T ABNORMALITY IN II/aVF] Compared to ECG 11/24/2022 15:25:10 Incomplete right bundle-branch block now present Sinus rhythm no longer present Myocardial infarct finding still present Electronically Signed On 02-17-2025 23:10:53 LABELING MACHINE OPERATOR by LUKE MORGAN [email or web address]
[2025-02-14 12:56] VITALS: BP 131/75; PULSE 104; RESP 16; TEMP 36.8; O2SAT 92; BMI 25.0
--- OUTSIDE RECORDS SUMMARY | 2025-02-14 12:56 | XMS_ITS | Encounter Summary ---
Author Organization [facility] Address [address] [place] [address] Care Team Providers Care Electronics Technology Instructor Name Role Phone Heather Hodges DO Primary Care Provider [phone]- [phone] Encounter Details Date Type Department Care Team (Latest Contact Info) Description 07/02/2003 Outpatient Historical [facility] Cardiology- [place] [address] [place] [phone] Luciano Parks MD [address] [facility] [address] [place] [address] CORON ATHEROSCL [place]IN[place] CORON VESSEL (Primary Dx); Aortocoronary bypass; HYPERTENSION NOS; Pure hypercholesterolem Social History Tobacco Use Types Packs/Day Years Used Date Smoking Tobacco: Never Assessed Sex and Gender Information Value Date Recorded Sex Assigned at Not on file Legal Sex Male 3:07 AM PIPE RACKER Gender Identity Not on file Sexual Orientation Not on file documented as of this encounter Plan of Treatment Not on file documented as of this encounter Visit Diagnoses Diagnosis Coronary atherosclerosis of enterprise coronary artery- Primary Aortocoronary bypass Postsurgical aortocoronary bypass status Unspecified essential hypertension Pure hypercholesterolem Pure hypercholesterolemia documented in this encounter Care Teams Electronics Technology Instructor Relationship Specialty Start Date End Date Heather Hodges DO [address] [place] [id number] PCP - General Family Practice 11/20/19 documented as of this encounter
--- OUTSIDE RECORDS SUMMARY | 2025-02-14 12:56 | XMS_ITS | Encounter Summary ---
Author Organization [facility] Address [address] [place] [address] Care Team Providers Care Management Services Technician Name Role Phone Heather Hodges DO Primary Care Provider [phone]- [phone] Encounter Details Date Type Department Care Team (Latest Contact Info) Description 05/30/2001 Outpatient Historical [facility] Medicine [place] [address] [facility] [address] [place] [address] Jericho Laura DO NO ADDRESS ON FILE COUGH (Primary Dx) Social History Tobacco Use Types Packs/Day Years Used Date Smoking Tobacco: Never Assessed Sex and Gender Information Value Date Recorded Sex Assigned at Not on file Legal Sex Male 3:07 AM AN/SQQ 89(V)15 SONAR SYSTEM JOURNEYMAN Gender Identity Not on file Sexual Orientation Not on file documented as of this encounter Plan of Treatment Not on file documented as of this encounter Visit Diagnoses Diagnosis Cough- Primary documented in this encounter Care Teams Management Services Technician Relationship Specialty Start Date End Date Heather Hodges DO [address] [place] [address] PCP - General Family Practice 11/20/19 documented as of this encounter
--- OUTSIDE RECORDS SUMMARY | 2025-02-14 12:56 | XMS_ITS | Encounter Summary ---
Author Organization [facility] Address [address] [place] [address] Care Team Providers Care Finishing Supervisor Name Role Phone Heather Hodges DO Primary Care Provider Encounter Details Date Type Department Care Team (Latest Contact Info) Description 11/27/1998 Outpatient Historical [facility] Medicine [place] [address] [facility] [address] [place] [phone] Loren Roy NO ADDRESS ON FILE Acute sinusitis, unspecified (Primary Dx); Unspecified essential hypertension; Other nonspecific abnormal serum enzyme levels Social History Tobacco Use Types Packs/Day Years Used Date Smoking Tobacco: Never Assessed Sex and Gender Information Value Date Recorded Sex Assigned at Not on file Legal Sex Male 3:07 AM C ENGINEER Gender Identity Not on file Sexual Orientation Not on file documented as of this encounter Plan of Treatment Not on file documented as of this encounter Visit Diagnoses Diagnosis Acute sinusitis, unspecified- Primary Unspecified essential hypertension Other nonspecific abnormal serum enzyme levels documented in this encounter Care Teams Finishing Supervisor Relationship Specialty Start Date End Date Heather Hodges DO [address] [place] [address] PCP - General Family Practice 11/20/19 documented as of this encounter
--- OUTSIDE RECORDS SUMMARY | 2025-02-14 12:56 | XMS_ITS | Clinical Summary ---
Author Organization [facility] Address [address] [facility] [address] [place] [address] Phone Care Team Providers Care Clinical Application Consultant Name Role Phone Heather Hodges Primary Care [...] Problem Noted Date Diagnosed Date Right TKA- [place] 10/21/2014 10/21/2014 Preoperative general physical examination 2014 [...] on file Legal Sex Male 3:07 AM HOME CARE MANAGER RN Gender Identity Not on file Sexual Orientation [...] history exists Medical Devices Implanted Type Area Mechanical Cad Drafter Device Identifier Shelf Expiration Date Model / Serial / Lot Cement Simplex Hvisc 6194-1-001 - [id number] Implanted:Qty: 2 on 10/21/2014 by Buster Rick MD at [facility] Cement Right: Knee [employer] 05/22/2015 6194-1-00 1 / / [id number] V Comp Tib Triathlon Cmnt 5520-B-500 - [id number] Implanted:Qty: 1 on 10/21/2014 by Buster Rick MD at [facility] Knee Right: Knee [employer] 03/23/2019 5520-B-50 0 / / [id number] Patella Trthln Asym Poly 5551-L-350 - [id number] Implanted:Qty: 1 on 10/21/2014 by Buster Rick MD at [facility] Knee Right: Patella [employer] 09/21/2019 5551-L-35 0 / / [id number] Comp Fem Trthln Cr Sz5 Rt 5510-F-502 - [id number] Implanted:Qty: 1 on 10/21/2014 by Buster Rick MD at [facility] Knee Right: Knee [employer] 06/21/2019 5510-F-50 2 / / [id number] Insert Tib Trthln X3 Cs 5531-G-513 - [id number] Implanted:Qty: 1 on 10/21/2014 by Buster Rick MD at [facility] Knee Right: Knee [employer] 05/22/2019 5531-G-51 3 / / [id number] Advance Directives For more information, please contact: [phone] * Full Code (Latest Code Status on File) Date Activated Date Inactivated Comments 10/21/2014 12:55 PM 10/23/2014 6:40 PM * Full Code Date Activated Date Inactivated Comments 10/21/2014 6:19 AM 10/21/2014 12:54 PM Care Teams Clinical Application Consultant Relationship Specialty Start Date End Date Heather Hodges DO [address] [place] [phone] PCP - General Family Practice 11/20/19
--- OUTSIDE RECORDS SUMMARY | 2025-02-14 12:56 | XMS_ITS | Encounter Summary ---
Author Organization [facility] Address [address] [place] [address] Care Team Providers Care Scaling Machine Operator Name Role Phone Heather Hodges DO Primary Care Provider Encounter Details Date Type Department Care Team (Latest Contact Info) Description 10/03/2003 Outpatient Historical [facility] Medicine [place] [address] [facility] [address] [place] [address] Jarod House NP NO ADDRESS ON FILE VACCINE FOR TETANUS/DIPHTERIA (Primary Dx); Pain in limb Social History Tobacco Use Types Packs/Day Years Used Date Smoking Tobacco: Never Assessed Sex and Gender Information Value Date Recorded Sex Assigned at Not on file Legal Sex Male 3:07 AM COLLECTION 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 Gender Identity Not on file Sexual Orientation Not on file documented as of this encounter Plan of Treatment Not on file documented as of this encounter Visit Diagnoses Diagnosis Need for prophylactic vaccination with tetanus-diphtheria (Td)- Primary Pain in limb Pain in soft tissues of limb documented in this encounter Care Teams Scaling Machine Operator Relationship Specialty Start Date End Date Heather Hodges DO [address] [place] [address] PCP - General Family Practice 11/20/19 documented as of this encounter
--- OUTSIDE RECORDS SUMMARY | 2025-02-14 12:56 | XMS_ITS | Encounter Summary ---
Author Organization [facility] Address [address] [place] [address] Care Team Providers Care Market Research Associate Name Role Phone Heather Hodges DO Primary Care Provider Encounter Details Date Type Department Care Team (Latest Contact Info) Description 02/08/2002 Outpatient Historical [facility] Medicine [place] 104 [facility] 60 [place] [address] Joann Moore MD NO ADDRESS ON FILE CORONARY ATHEROSCLER UNSPEC VESSEL (Primary Dx); HYPERTENSION NOS; ADV EFFECT MED/BIOL SUB NOS Social History Tobacco Use Types Packs/Day Years Used Date Smoking Tobacco: Never Assessed Sex and Gender Information Value Date Recorded Sex Assigned at Not on file Legal Sex Male 3:07 AM RUBBER BLOCK LAYER Gender Identity Not on file Sexual Orientation Not on file documented as of this encounter Plan of Treatment Not on file documented as of this encounter Visit Diagnoses Diagnosis Coronary atherosclerosis of unspecified type of vessel, havasupai or graft- Primary Unspecified essential hypertension Other and unspecified adverse effect of drug, medicinal and biological substance documented in this encounter Care Teams Market Research Associate Relationship Specialty Start Date End Date Heather Hodges DO [address] [place] [address] PCP - General Family Practice 11/20/19 documented as of this encounter
--- OUTSIDE RECORDS SUMMARY | 2025-02-14 12:56 | XMS_ITS | Encounter Summary ---
Author Organization [facility] Address [address] [place] [address] Care Team Providers Care Assembler Metal Furniture Name Role Phone Heather Hodges DO Primary Care Provider +1- [phone] Encounter Details Date Type Department Care Team (Latest Contact Info) Description 02/28/2002 Outpatient Historical [facility] Medicine [place] 104 [facility] 60 [place] [address] Joann Moore MD NO ADDRESS ON FILE HYPERTENSION NOS (Primary Dx); MONONEURITIS NOS Social History Tobacco Use Types Packs/Day Years Used Date Smoking Tobacco: Never Assessed Sex and Gender Information Value Date Recorded Sex Assigned at Not on file Legal Sex Male 3:07 AM UPPER STITCHER Gender Identity Not on file Sexual Orientation Not on file documented as of this encounter Plan of Treatment Not on file documented as of this encounter Visit Diagnoses Diagnosis Unspecified essential hypertension- Primary Mononeuritis of unspecified site documented in this encounter Care Teams Assembler Metal Furniture Relationship Specialty Start Date End Date Heather Hodges DO [address] [place] [address] PCP - General Family Practice 11/20/19 documented as of this encounter
--- OUTSIDE RECORDS SUMMARY | 2025-02-14 12:56 | XMS_ITS | Encounter Summary ---
Author Organization [facility] Address [address] [place] [address] Care Team Providers Care Rib Puller Name Role Phone Heather Hodges DO Primary Care Provider +1- [phone] Encounter Details Date Type Department Care Team (Latest Contact Info) Description 02/23/2002 Outpatient Historical [facility] Medicine [place] [address] [facility] 60 [place] [address] Joann Moore MD NO ADDRESS ON FILE HYPERTENSION NOS (Primary Dx) Social History Tobacco Use Types Packs/Day Years Used Date Smoking Tobacco: Never Assessed Sex and Gender Information Value Date Recorded Sex Assigned at Not on file Legal Sex Male 3:07 AM INSURANCE ACCOUNT REPRESENTATIVE Gender Identity Not on file Sexual Orientation Not on file documented as of this encounter Plan of Treatment Not on file documented as of this encounter Visit Diagnoses Diagnosis Unspecified essential hypertension- Primary documented in this encounter Care Teams Rib Puller Relationship Specialty Start Date End Date Heather Hodges DO [address] [place] [address] PCP - General Family Practice 11/20/19 documented as of this encounter
--- OUTSIDE RECORDS SUMMARY | 2025-02-14 12:56 | XMS_ITS | Encounter Summary ---
Author Organization [facility] Address [address] [place] [address] Care Team Providers Care Birdcage Assembler Name Role Phone Heather Hodges DO Primary Care Provider +1- [phone] Encounter Details Date Type Department Care Team (Latest Contact Info) Description 05/30/2001 Outpatient Historical [facility] Family Medicine- [address] [place] [employer] [place] [place] [address] Jericho Laura DO NO ADDRESS ON FILE ALLERGIC RHINITIS NOS (Primary Dx); COUGH; HYPERLIPIDEMIA NEC/NOS Social History Tobacco Use Types Packs/Day Years Used Date Smoking Tobacco: Never Assessed Sex and Gender Information Value Date Recorded Sex Assigned at Not on file Legal Sex Male 3:07 AM SOLVENT PLANT TREATER Gender Identity Not on file Sexual Orientation Not on file documented as of this encounter Plan of Treatment Not on file documented as of this encounter Visit Diagnoses Diagnosis Allergic rhinitis, cause unspecified- Primary Cough Other and unspecified hyperlipidemia documented in this encounter Care Teams Birdcage Assembler Relationship Specialty Start Date End Date Heather Hodges DO [address] [place] [address] PCP - General Family Practice 11/20/19 documented as of this encounter
--- OUTSIDE RECORDS SUMMARY | 2025-02-14 12:56 | XMS_ITS | Encounter Summary ---
Author Organization [facility] Address [address] [place] [address] Care Team Providers Care Sales Consultant Insurance Name Role Phone Heather Hodges DO Primary Care Provider +1- [phone] Encounter Details Date Type Department Care Team (Latest Contact Info) Description 01/07/1999 Outpatient Historical [facility] Medicine [place] 104 [facility] 60 [place] [address] Loren Roy NO ADDRESS ON FILE Other and unspecified hyperlipidemia (Primary Dx); Unspecified essential hypertension; Gout, unspecified; Special screening for malignant neoplasm of prostate Social History Tobacco Use Types Packs/Day Years Used Date Smoking Tobacco: Never Assessed Sex and Gender Information Value Date Recorded Sex Assigned at Not on file Legal Sex Male 3:07 AM MANAGER CARDIAC CATH Gender Identity Not on file Sexual Orientation Not on file documented as of this encounter Plan of Treatment Not on file documented as of this encounter Visit Diagnoses Diagnosis Other and unspecified hyperlipidemia- Primary Unspecified essential hypertension Gout, unspecified Special screening for malignant neoplasm of prostate documented in this encounter Care Teams Sales Consultant Insurance Relationship Specialty Start Date End Date Heather Hodges DO [address] [place] [address] PCP - General Family Practice 11/20/19 documented as of this encounter
--- OUTSIDE RECORDS SUMMARY | 2025-02-14 12:56 | XMS_ITS | Encounter Summary ---
Author Organization [facility] Address [address] [place] [address] Care Team Providers Care Ventilation Equipment Tender Name Role Phone Heather Hodges DO Primary Care Provider +1- [phone] Encounter Details Date Type Department Care Team (Latest Contact Info) Description 03/06/2004 Outpatient Historical [facility] Medicine [place] 104 [facility] 60 [place] [address] Jericho Laura DO NO ADDRESS ON FILE ANXIETY STATE NOS (Primary Dx) Social History Tobacco Use Types Packs/Day Years Used Date Smoking Tobacco: Never Assessed Sex and Gender Information Value Date Recorded Sex Assigned at Not on file 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
--- OUTSIDE RECORDS SUMMARY | 2025-02-14 12:56 | XMS_ITS | Encounter Summary ---
Author Organization [facility] Address [address] [place] [address] Care Team Providers Care Editorial Assistant Name Role Phone Heather Hodges DO Primary Care Provider +1- [phone] Encounter Details Date Type Department Care Team (Latest Contact Info) Description 12/26/1997 Outpatient Historical [facility] Medicine [place] [address] [facility] [address] [place] [address] Loren Roy NO ADDRESS ON FILE Acute bronchitis (Primary Dx); Acute sinusitis, unspecified Social History Tobacco Use Types Packs/Day Years Used Date Smoking Tobacco: Never Assessed Sex and Gender Information Value Date Recorded Sex Assigned at Not on file 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
--- OUTSIDE RECORDS SUMMARY | 2025-02-14 12:56 | XMS_ITS | Encounter Summary ---
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
--- OUTSIDE RECORDS SUMMARY | 2025-02-14 12:56 | XMS_ITS | Encounter Summary ---
Author Organization [facility] Address [address] [place] [address] Care Team Providers Care Packing Clerk Name Role Phone Heather Hodges DO Primary Care Provider +1- [phone] Encounter Details Date Type Department Care Team (Latest Contact Info) Description 05/27/1999 Outpatient Historical [facility] Medicine [place] 104 [facility] 60 [place] [address] Loren Roy NO ADDRESS ON FILE Gout, unspecified (Primary Dx) Social History Tobacco Use Types Packs/Day Years Used Date Smoking Tobacco: Never Assessed Sex and Gender Information Value Date Recorded Sex Assigned at Not on file 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
--- OUTSIDE RECORDS SUMMARY | 2025-02-14 12:56 | XMS_ITS | Encounter Summary ---
Author Organization [facility] Address [address] [place] [address] Care Team Providers Care Gasoline Attendant Name Role Phone Heather Hodges DO Primary Care Provider +1- [phone] Encounter Details Date Type Department Care Team (Latest Contact Info) Description 05/23/2002 Outpatient Historical [facility] Medicine [place] 104 [facility] 60 [place] [address] Jericho Laura DO NO ADDRESS ON FILE ANXIETY STATE NOS (Primary Dx); CORONARY ATHEROSCLER UNSPEC VESSEL Social History Tobacco Use Types Packs/Day Years Used Date Smoking Tobacco: Never Assessed Sex and Gender Information Value Date Recorded Sex Assigned at Not on file 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
--- OUTSIDE RECORDS SUMMARY | 2025-02-14 12:56 | XMS_ITS | Encounter Summary ---
Author Organization [facility] Address [address] [place] [address] Care Team Providers Care Product Safety Coordinator Name Role Phone Heather Hodges DO Primary Care Provider +1- [phone] Encounter Details Date Type Department Care Team (Latest Contact Info) Description 01/09/[address] 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
--- OUTSIDE RECORDS SUMMARY | 2025-02-14 12:56 | XMS_ITS | Encounter Summary ---
Author Organization [employer] [facility] Address [address] [place] [address] Care Team Providers Care Integrated Circuit Fabricator Name Role Phone Heather Hodges DO Primary Care Provider [phone] Encounter Details Date Type Department Care Team (Latest Contact Info) Description 06/21/2002 Outpatient Historical [facility] CARDI[facility]ULAR ParksLuciano arenas MD [address] [facility] [address] [place] [address] CORON ATHEROSCL [place] CORON VESSEL (Primary Dx); Aortocoronary bypass; Pure hypercholesterolem ; HYPERTENSION NOS Social History Tobacco Use Types Packs/Day Years Used Date Smoking Tobacco: Never Assessed Sex and Gender Information Value Date Recorded Sex Assigned at Not on file 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 Sex Male 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 Gender Identity Not on file Sexual Orientation Not on file documented as of this encounter Plan of Treatment Not on file documented as of this encounter Visit Diagnoses Diagnosis Coronary atherosclerosis of [place] coronary artery- Primary Aortocoronary bypass Postsurgical aortocoronary bypass status Pure hypercholesterolem Pure hypercholesterolemia Unspecified essential hypertension documented in this encounter Care Teams Integrated Circuit Fabricator Relationship Specialty Start Date End Date Heather Hodges DO [address] [place] [address] PCP - General Family Practice 11/20/19 documented as of this encounter
--- OUTSIDE RECORDS SUMMARY | 2025-02-14 12:56 | XMS_ITS | Encounter Summary ---
Author Organization [facility] Address [address] [place] [address] Care Team Providers Care Computer Security Coordinator Name Role Phone Heather Hodges DO Primary Care Provider +1- [phone] Encounter Details Date Type Department Care Team (Latest Contact Info) Description 11/09/2000 Outpatient Historical [facility] Medicine [place] [address] [address] Joann Moore MD NO ADDRESS ON FILE Gout, unspecified (Primary Dx); Pure hypercholesterolem Social History Tobacco Use Types Packs/Day Years Used Date Smoking Tobacco: Never Assessed Sex and Gender Information Value Date Recorded Sex Assigned at Not on file 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
--- OUTSIDE RECORDS SUMMARY | 2025-02-14 12:56 | XMS_ITS | Encounter Summary ---
Author Organization [facility] Address [address] [place] [address] Care Team Providers Care Film Editor Name Role Phone Heather Hodges DO Primary Care Provider Encounter Details Date Type Department Care Team (Latest Contact Info) Description 02/03/[address] 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
--- OUTSIDE RECORDS SUMMARY | 2025-02-14 12:56 | XMS_ITS | Clinical Summary ---
Author Organization [facility] Address Replaced by [facility] [place] [address] Care Team Providers Care Road Conductor Name Role Phone Heather Hodges DO Primary Care Provider +1- [phone] Allergies No known active allergies Active Problems [...] or Tdap) 05/11/2027 05/10/2017, 10/03/2003 Insurance MEDICARE [facility] Address: [facility] [address] [place] [address] [facility] [place] [address] MEDICARE [place] [id number] Advance Directives For more information, please contact: [phone] * Full Code (Latest Code Status on File) Date Activated Date Inactivated Comments 10/02/2022 12:47 PM 10/06/2022 12:[address]ductor Relationship Specialty Start Date End Date Heather Hodges DO [address] [place] [address] PCP - General Family Practice 10/02/22
--- OUTSIDE RECORDS SUMMARY | 2025-02-14 12:56 | XMS_ITS | Encounter Summary ---
Author Organization [facility] Address [address] [place] [address] Care Team Providers Care Home Appliance Washing Machine Mechanic Name Role Phone Heather Hodges DO Primary Care Provider +1- [phone] Encounter Details Date Type Department Care Team (Latest Contact Info) Description 01/22/1998 Outpatient Historical [facility] Medicine [place] [address] [facility] [address] [place] [address] Loren Roy NO ADDRESS ON FILE Attention to dressings and sutures (Primary Dx) Social History Tobacco Use Types Packs/Day Years Used Date Smoking Tobacco: Never Assessed Sex and Gender Information Value Date Recorded Sex Assigned at Not on file 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
--- OUTSIDE RECORDS SUMMARY | 2025-02-14 12:56 | XMS_ITS | Encounter Summary ---
Author Organization [facility] Address [address] [place] [address] Care Team Providers Care Four H Club Agent Name Role Phone Heather Hodges DO Primary Care Provider +1- [phone] Encounter Details Date Type Department Care Team (Latest Contact Info) Description 09/01/2001 Outpatient Historical [facility] Medicine [place] [address] [facility] [address] [place] [address] Jericho Laura DO NO ADDRESS ON FILE CHEST PAIN NOS (Primary Dx); HYPERTENSION NOS Social History Tobacco Use Types Packs/Day Years Used Date Smoking Tobacco: Never Assessed Sex and Gender Information Value Date Recorded Sex Assigned at Not on file 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
--- OUTSIDE RECORDS SUMMARY | 2025-02-14 12:56 | XMS_ITS ---
Author Organization [facility] Address [address] [place] [address] Phone Care Team Providers Care Bag Worker Name Role Phone TracieHeather meraz DO Primary Care Provider Active Problems Problem Noted Date Diagnosed Date Primary insomnia 12/11/2024 Chronic neck pain 12/11/2024 Gastroesophageal reflux disease without esophagi tis 12/11/2024 Environmental and seasonal allergies 12/11/2024 Chronic bilateral low back pain without sciatica [...] Aortic aneurysm without rupture 08/12/2021 Right TKA- [place] 10/21/2014 10/21/2014 Right knee pain 09/17/2014 Mixed hyperlipidemia Inflammatory arthritis Angina pectoris Idiopathic chronic gout of multiple sites withou t tophus Hard of hearing Calculus of kidney Hx of CABG Primary hypertension Atherosclerosis of [place] co ronary artery of [place] heart without angina pectoris Current Treatment and [...]
--- OUTSIDE RECORDS SUMMARY | 2025-02-14 12:56 | XMS_ITS | Encounter Summary ---
Author Organization [facility] Address [address] [place] [address] Care Team Providers Care Advertising Assistant Name Role Phone Heather Hodges DO Primary Care Provider +1- [phone] Encounter Details Date Type Department Care Team (Latest Contact Info) Description 03/31/2004 Outpatient Historical [facility] Medicine [place] 104 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
--- OUTSIDE RECORDS SUMMARY | 2025-02-14 12:56 | XMS_ITS | Encounter Summary ---
Author Organization [facility] Address [address] [place] [address] Care Team Providers Care Training Generalist Name Role Phone Heather Hodges DO Primary Care Provider +1- [phone] Encounter Details Date Type Department Care Team (Latest Contact Info) Description 11/13/1997 Outpatient Historical [facility] Medicine [place] [address] [facility] [address] [place] [address] Loren Roy NO ADDRESS ON FILE Open wound of chest (wall), without mention of complication (Primary Dx) Social History Tobacco Use Types Packs/Day Years Used Date Smoking Tobacco: Never Assessed Sex and Gender Information Value Date Recorded Sex Assigned at Not on file 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
--- OUTSIDE RECORDS SUMMARY | 2025-02-14 12:56 | XMS_ITS | Encounter Summary ---
Author Organization [facility] Address [address] [place] [address] Care Team Providers Care Milling Machine Operator Name Role Phone Heather Hodges DO Primary Care Provider +1- [phone] Encounter Details Date Type Department Care Team (Late st Contact Info) Description 06/02/2001 Outpatient Historical [facility] Cullen [address] [place] [address] Social History Tobacco Use Types Packs/Day Years Used Date Smoking Tobacco: Never Assessed Sex and Gender Information Value Date Recorded Sex Assigned at Not on file 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
--- OUTSIDE RECORDS SUMMARY | 2025-02-14 12:56 | XMS_ITS | Clinical Summary ---
Author Organization [facility] Address [address] [facility] [address] [place] [address] Phone Care Team Providers Care Grief Counselor Name Role Phone TracieMelbaHeather Gloria BRAY Primary Care Provider Allergies Active Allergy Reactions Criticality Noted Date Comments Amoxicillin Hives High 06/30/2013 Haloperidol Lactate Hallucination High 10/21/2014 Iodinated Contrast Media Other (See Comments) 10/02/2022 Possible stopped heart, not sure if heart stopped d/t contrast dye or another thing Levofloxacin Itching Medium 12/15/2022 Penicillin Rash Low 10/02/2022 Medications traZODone (DESYREL) 50 mg tabletIndications: Primary insomnia Take 1 Tablet (50 mg) by mouth daily at bedtime. 90 Tablet 3 05/04/19 25 Active fluticasone propionate (FLONASE) 50 mcg/spray [place], Suspension nasal inhaler Administer 2 Sprays in each nostril daily. shake before using 07/25/19 25 Active sertraline (ZOLOFT) 25 mg tabletIndications: Situational depression Take 1 tablet by mouth once daily 100 Tablet 3 07/31/19 25 Active metoprolol tartrate (LOPRESSOR) 25 mg tabletIndications: Primary hypertension Take 1 tablet by mouth once daily 100 Tablet 3 07/31/19 25 Active levothyroxine 75 mcg tabletIndications: Acquired hypothyroidism Take 1 Tablet (75 mcg) by mouth daily in the morning. 90 Tablet 3 07/31/19 25 Active finasteride (PROSCAR) 5 mg tabletIndications: Benign prostatic hyperplasia, unspecified whether lower urinary tract symptoms present TAKE 1 TABLET BY MOUTH ONCE DAILY. PLEASE CONVERT TO LIQUID FORM FOR PEG USE. 100 Tablet 3 10/26/19 25 Active allopurinoL (ZYLOPRIM) 300 mg tabletIndications: Idiopathic chronic gout of multiple sites without tophus TAKE 1 TABLET BY MOUTH ONCE DAILY BEFORE BREAKFAST 100 Tablet 3 12/08/19 25 Active acetaminophen (TYLENOL) 500 mg tablet Take 1,000 mg by mouth 2 times daily. Active atorvastatin (LIPITOR) 20 mg tabletIndications: Aortic aneurysm without rupture, unspecified portion of aorta,Angina pectoris Take 1 Tablet (20 mg) by mouth daily at bedtime. 100 Tablet 3 12/12/19 25 Active clopidogreL (PLAVIX) 75 mg TabletIndications: Aortic aneurysm without rupture, unspecified portion of aorta,Angina pectoris Take 1 Tablet (75 mg) by mouth daily before breakfast. 100 Tablet 3 12/12/19 25 Active gabapentin (NEURONTIN) 300 mg capsuleIndications :Chronic bilateral low back pain without sciatica,Chronic neck pain,Primary osteoarthritis of right knee,Inflammatory arthritis Take 1 Capsule (300 mg) by mouth nightly as needed for Pain. 90 Capsule 3 12/12/19 25 Active loratadine (CLARITIN) 10 mg tabletIndications: Environmental and seasonal allergies Take 1 Tablet (10 mg) by mouth daily. 90 Tablet 3 12/12/19 25 Active pantoprazole (FIRST-PANTOPRAZOL E) 4 mg/mL SuspensionIndicati ons:Gastroesophage al reflux disease without esophagitis Take 10 mL (40 mg) by mouth 2 times daily. 600 mL 11 02/13/20 Active famotidine (PEPCID) 20 mg tabletIndications: Gastroesophageal reflux disease without esophagitis Take 1 Tablet (20 mg) by mouth 2 times daily. 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 09/01/2022 05/09/2023 Tracheostomy status 07/15/2022 05/09/19 Stage 3b chronic kidney disease 08/12/2021 08/21/2023 Acute cervical myofascial strain 08/12/2021 08/12/2021 Encounters Date Type Department Care Team Description 02/12/2025 3:40 PM COMPOUNDER HELPER Office Visit [facility] [address] [place] [address] Kraig Fox FNP Uses feeding tube (Primary Dx); History of throat cancer; Infrarenal abdominal aortic aneurysm (AAA) without rupture; Gastroesophageal reflux disease without esophagitis 12/12/2024 Results Follow-Up [facility] [address] [place] [address] Kraig Fox FNP CBC WITH DIFFERENTIAL, IRON, TIBC, AND PERCENT SATURATION, COMPREHENSIVE METABOLIC PANEL, TSH 12/11/2024 2:40 PM CDT Office Visit [facility] [address] [place] [address] Kraig Fox FNP Medicare annual wellness visit, subsequent (Primary Dx); Chronic bilateral low back pain without sciatica; Frequent falls; Frail elderly; Primary insomnia; Chronic neck pain; Acquired hypothyroidism; Other iron deficiency anemia; Uses feeding tube; Aortic aneurysm without rupture, unspecified portion of aorta; Angina pectoris; Gastroesophageal reflux disease without esophagitis; Primary osteoarthritis of right knee; Inflammatory arthritis; Primary hypertension; Dark urine; Environmental and seasonal allergies 12/07/2024 Refill [facility] [address] [place] [address] FoxKraig, VISUAL ARTS TEACHER Idiopathic chronic gout of multiple sites without tophus 11/27/2024 3:00 PM CDT Clinical Support [facility] [address] [place] [address] Need for influenza vaccination (Primary Dx) from Last 3 Months Immunizations Immunization Administration [...] on file Legal Sex Male 12:43 PM COMPOUNDER HELPER Gender Identity Not on file Sexual Orientation Not on file Last Filed Vital Signs Vital Sign Reading Time Taken Comments Blood Pressure 108/60 02/12/2025 3:52 PM COMPOUNDER HELPER Pulse 68 02/12/2025 3:52 PM COMPOUNDER HELPER Temperature 36.4 C (97.6 F) 02/12/2025 3:52 PM COMPOUNDER HELPER Respiratory Rate 18 02/12/2025 3:52 PM COMPOUNDER HELPER Oxygen Saturation 97% 02/12/2025 3:52 PM COMPOUNDER HELPER Inhaled Oxygen Concentration - - Weight 70.8 kg (156 lb) 02/12/2025 3:52 PM COMPOUNDER HELPER Height 170.2 cm (5' 7 ) 02/12/2025 3:52 PM COMPOUNDER HELPER Body Mass Index 24.43 02/12/2025 3:52 PM COMPOUNDER HELPER Plan of Treatment Upcoming Encounters Date Type Department Care Team ([facility] st Contact Info) Description 06/11/2025 12:00 PM CDT Office Visit [facility] [address] [place] [address] Kraig Fox FNP [address] [place] [address] Health Maintenance Due Date Last Done Comments PNEUMOCOCCAL VACCINE 50+ YEA RS (1 of 1 - PCV) 1986 ZOSTER VACCINE (1 of 2) 1986 DTAP/TDAP/TD VACCINES (1 - Tdap) 10/04/2003 10/03/19 04 RSV VACCINE (60+ or ) (1 - 1-dose 75+ series) 11/25/2011 COVID-19 Vaccine ( - 2024-2 6 season) 2024 12/22/2020, 05/01/2020, 04/03/2020 INFLUENZA VACCINE Completed 11/27/2024, , 11/11/2021, Additional history exists Medical Devices Implanted Type Area Fruit And Vegetable Packer Device Identifier Shelf Expiration Date Model / Serial / Lot Cement Simplex Hvisc 6194-1-001 - [id number] Implanted:Qty : 2 on 10/21/2014 by Buster Rick MD Cement Right: Knee [employer] 05/22/2015 6194-1-001 / / [id number] Comp Fem Trthln Cr Sz5 Rt 5510-F-502 - [id number] Implanted:Qty : 1 on 10/21/2014 by Buster Rick MD Knee Right: Knee [employer] 06/21/2019 5510-F-502 / / [id number] Comp Tib Triathlon Cmnt 5520-B-500 - [id number] Implanted:Qty : 1 on 10/21/2014 by Buster Rick MD Knee Right: Knee [employer] 03/23/2019 5520-B-500 / / [id number] Insert Tib Trthln X3 Cs 5531-G-513 - [id number] Implanted:Qty : 1 on 10/21/2014 by Buster Rick MD Knee Right: Knee [employer] 05/22/2019 5531-G-513 / / [id number] Patella Trthln Asym Poly 5551-L-350 - [id number] Implanted:Qty : 1 on 10/21/2014 by Buster Rick MD Knee Right: Patella [employer] 09/21/2019 5551-L-350 / / [id number] Procedures Procedure Name Priority Date/Time Associated Diagnosis Comments TSH Routine 12/11/2024 3:19 PM CDT Acquired hypothyroidism Primary hypertension COMPREHENSIVE METABOLIC PANEL Routine 12/11/2024 3:19 PM CDT Acquired hypothyroidism Other iron deficiency anemia Primary hypertension IRON, TIBC, AND PERCENT SATURATION Routine 12/11/2024 3:19 PM CDT Other iron deficiency anemia CBC WITH DIFFERENTIAL Routine 12/11/2024 3:19 PM CDT Acquired hypothyroidism Other iron deficiency anemia Primary hypertension from Last 3 Months Results * (ABNORMAL) IRON, TIBC, AND PERCENT SATURATION (12/11/2024 3:19 PM CDT) Pathologist [facility] IRON 67 50 - 180 mcg/dL [facility] TIBC 248(L) 250 - 425 mcg/dL (calc) [facility] IRON % SATURATION 27 20 - 48 % (calc) [facility] Comment: Test Performed at: [facility] [address] [place] [address] Malick Pierre MD Blood 12/11/2024 3:19 PM CDT 12/11/2024 3:20 PM CDT Kraig Fox VISUAL ARTS TEACHER CHEMISTRY ORDERABLES Final Result [facility] [phone] [facility] [address] [place] [address] * (ABNORMAL) CBC WITH DIFFERENTIAL (12/11/2024 3:19 PM CDT) Pathologist [facility] WBC 5.4 3.8 - 10.8 Thousand/u L [facility] RBC 3.63(L) 4.20 - 5.80 Million/uL [facility] HEMOGLOBIN 12.0(L) 13.2 - 17.1 g/dL [facility] HEMATOCRIT 35.5(L) 38.5 - 50.0 % [facility] MCV 97.8 80.0 - 100.0 fL [facility] MCH 33.1(H) 27.0 - 33.0 pg [facility] MCHC 33.8 32.0 - 36.0 g/dL [facility] Comment: For adults, a slight decrease in the calculated MCHC value (in the range of 30 to 32 g/dL) is most likely not clinically significant; however, it should be interpreted with caution in correlation with other red cell parameters and the patient's clinical condition. RDW 13.1 11.0 - 15.0 % [facility] PLATELETS 121(L) 140 - 400 Thousand/u L [facility] MPV 13.0(H) 7.5 - 12.5 fL [facility] NEUTROPHIL ABSOLUTE 4,369 1,500 - 7,800 cells/uL [facility] LYMPHOCYTE ABSOLUTE 410(L) 850 - 3,900 cells/uL [facility] MONOCYTE ABSOLUTE 551 200 - 950 cells/uL [facility] EOSINOPHIL ABSOLUTE 49 15 - 500 cells/uL [facility] BASOPHILS ABSOLUTE 22 0 - 200 cells/uL [facility] NEUTROPHIL 80.9 % [facility] LYMPHOCYTES 7.6 % [facility] MONOCYTE 10.2 % [facility] EOSINOPHILS 0.9 % [facility] BASOPHILS 0.4 % [facility] Comment: FASTING:UNKNOWN FASTING: UNKNOWN Test Performed at: [facility] [address] Malick Pierre MD Blood 12/11/2024 3:19 PM CDT 12/11/2024 3:20 PM CDT us Kraig Fox VISUAL ARTS TEACHER HEMATOLOGY ORDERABLES Misti l Result [facility] [phone] [facility] [address] [place] [address] * TSH (12/11/2024 3:19 PM CDT) TSH 3.98 0.40 - 4.50 mIU/L [facility] Comment: FASTING:UNKNOWN FASTING: UNKNOWN Test Performed at: [facility] [address] [place] [address] Malick Pierre MD Blood 12/11/2024 3:19 PM CDT 12/11/2024 3:20 PM CDT [facility] Ruth Dominique VISUAL ARTS TEACHER CHEMISTRY ORDERABLES Final Result [facility] [phone] [facility] [address] [place] [address] * (ABNORMAL) COMPREHENSIVE METABOLIC PANEL (12/11/2024 3:19 PM CDT) GLUCOSE 95 65 - 99 mg/dL [facility] Comment: Fasting reference interval BUN 33(H) 7 - 25 mg/dL [facility] CREATININE 1.21 0.70 - 1.22 mg/dL [facility] GFR 58(L) > OR = 60 mL/min/1.7 3m2 [facility] BUN/CREAT RATIO 27(H) 6 - 22 (calc) [facility] SODIUM 134(L) 135 - 146 mmol/L [facility] POTASSIUM 4.3 3.5 - 5.3 mmol/L [facility] CHLORIDE 96(L) 98 - 110 mmol/L [facility] CO2 27 20 - 32 mmol/L [facility] CALCIUM 9.7 8.6 - 10.3 mg/dL [facility] TOTAL PROTEIN 7.1 6.1 - 8.1 g/dL [facility] ALBUMIN 4.8 3.6 - 5.1 g/dL [facility] GLOBULIN 2.3 1.9 - 3.7 g/dL (calc) [facility] ALBUMIN/GLOBULIN RATIO 2.1 1.0 - 2.5 (calc) [facility] BILIRUBIN TOTAL 0.5 0.2 - 1.2 mg/dL [facility] ALKALINE PHOSPHATASE 86 35 - 144 U/L [facility] AST 25 10 - 35 U/L [facility] ALT 17 9 - 46 U/L [facility] Comment: FASTING:UNKNOWN FASTING: UNKNOWN Test [facility]formed at: [facility] [address] [place] [address] Malick Pierre MD Blood 12/11/2024 3:19 PM CDT 12/11/2024 3:20 PM CDT us [facility] Faraz Fox VISUAL ARTS TEACHER CHEMISTRY ORDERABLES Final Result Performing Organization Address City/State/[facility] Co de Phone Number [facility] [phone] [facility] [address] [place] [address] from Last 3 Months Insurance MEDICARE PART A AND B [facility] [place] [id number] Care Teams Grief Counselor Relationship Specialty Start Date End Date Heather Hodges DO [address] [place] [address] PCP - General Family Practice 11/20/19
--- OUTSIDE RECORDS SUMMARY | 2025-02-14 12:56 | XMS_ITS | Encounter Summary ---
Author Organization [facility] Address [address] [place] [address] Care Team Providers Care Cash Applications Representative Name Role Phone Heather Hodges DO Primary Care Provider [phone]- [phone] Encounter Details Date Type Department Care Team (Latest Contact Info) Description 04/26/2005 Outpatient Historical [facility] Medicine[address] [address] Renaldo Koenig, PA NO ADDRESS ON FILE Generalized Osteoarthrosis, Involving Multiple Sites (Primary Dx) Social History Tobacco Use Types Packs/Day Years Used Date Smoking Tobacco: Never Assessed Sex and Gender Information Value Date Recorded Sex Assigned at Not on file Legal Sex Male 3:07 AM CAP COVERER Gender Identity Not on file Sexual Orientation Not on file documented as of this encounter Plan of Treatment Not on file documented as of this encounter Visit Diagnoses Diagnosis Generalized osteoarthrosis, involving multiple sites- Primary documented in this encounter Care Teams Cash Applications Representative Relationship Specialty Start Date End Date Heather Hodges DO [address] [place] [address] PCP - General Family Practice 11/20/19 documented as of this encounter
--- OUTSIDE RECORDS SUMMARY | 2025-02-14 12:56 | XMS_ITS | Encounter Summary ---
Author Organization [facility] Address [address] [place] [address] Care Team Providers Care Cigarette Packing Machine Operator Name Role Phone Heather Hodges DO Primary Care Provider [phone]- [phone] Encounter Details Date Type Department Care Team (Latest Contact Info) Description 11/13/2001 Outpatient Historical [facility] Medicine [place] 104 [facility] [address] [place] [address] Jericho Laura DO NO ADDRESS ON FILE Pain in limb (Primary Dx); PERIPH VASCULAR DIS NOS Social History Tobacco Use Types Packs/Day Years Used Date Smoking Tobacco: Never Assessed Sex and Gender Information Value Date Recorded Sex Assigned at Not on file Legal Sex Male 3:07 AM NON DESTRUCTIVE EVALUATION MANAGER Gender Identity Not on file Sexual Orientation Not on file documented as of this encounter Plan of Treatment Not on file documented as of this encounter Visit Diagnoses Diagnosis Pain in limb- Primary Pain in soft tissues of limb Peripheral vascular disease, unspecified documented in this encounter Care Teams Cigarette Packing Machine Operator Relationship Specialty Start Date End Date Heather Hodges DO [address] [place] [address] PCP - General Family Practice 11/20/19 documented as of this encounter
--- OUTSIDE RECORDS SUMMARY | 2025-02-14 12:56 | XMS_ITS | Encounter Summary ---
Author Organization [facility] Address [address] [place] [address] Care Team Providers Care Space Systems Operations Manager Name Role Phone Heather Hodges DO Primary Care Provider [phone] Encounter Details Date Type Department Care Team (Latest Contact Info) Description 11/03/[address] [facility] [place] 104 [facility] 60 [place] [address] Jericho Laura DO NO ADDRESS ON FILE CORON ATHEROSCL [place] CORON VESSEL (Primary Dx); PERIPH VASCULAR DIS NOS Social History Tobacco Use Types Packs/Day Years Used Date Smoking Tobacco: Never Assessed Sex and Gender Information Value Date Recorded Sex Assigned at Not on file Legal Sex Male 3:07 AM VEGETABLE GROWER Gender Identity Not on file Sexual Orientation Not on file documented as of this encounter Plan of Treatment Not on file documented as of this encounter Visit Diagnoses Diagnosis Coronary atherosclerosis of [place] coronary artery- Primary Peripheral vascular disease, unspecified documented in this encounter Care Teams Space Systems Operations Manager Relationship Specialty Start Date End Date Heather Hodges DO [address] [place] [address] PCP - General Family Practice 11/20/19 documented as of this encounter
--- OUTSIDE RECORDS SUMMARY | 2025-02-14 12:56 | XMS_ITS | Encounter Summary ---
Author Organization [facility] Address [address] [place] [address] Care Team Providers Care Coil Shaper Name Role Phone Heather Hodges DO Primary Care Provider Encounter Details Date Type Department Care Team (Latest Contact Info) Description 01/03/2002 Outpatient Historical [facility] Medicine [place] 104 [facility] 60 [place] [address] Jericho Laura DO NO ADDRESS ON FILE ANXIETY STATE NOS (Primary Dx); PERIPH VASCULAR DIS NOS; CORONARY ATHEROSCLER UNSPEC VESSEL; VACCINE FOR INFLUENZA Social History Tobacco Use Types Packs/Day Years Used Date Smoking Tobacco: Never Assessed Sex and Gender Information Value Date Recorded Sex Assigned at Not on file Legal Sex Male 3:07 AM FRONT EDGER Gender Identity Not on file Sexual Orientation Not on file documented as of this encounter Plan of Treatment Not on file documented as of this encounter Visit Diagnoses Diagnosis Anxiety state, unspecified- Primary Peripheral vascular disease, unspecified Coronary atherosclerosis of unspecified type of vessel, [place] or graft Need vaccination-viral disease Need for prophylactic vaccination and inoculation against other viral diseases documented in this encounter Care Teams Coil Shaper Relationship Specialty Start Date End Date Heather Hodges DO [address] [place] [phone] PCP - General Family Practice 11/20/19 documented as of this encounter
--- OUTSIDE RECORDS SUMMARY | 2025-02-14 12:56 | XMS_ITS | Encounter Summary ---
Author Organization [facility] Address [address] [place] [address] Care Team Providers Care Varnish Inspector Name Role Phone Heather Hodges DO Primary Care Provider Encounter Details Date Type Department Care Team (Latest Contact Info) Description 12/09/1999 Outpatient Historical [facility] Medicine [place] 104 [facility] 60 [place] [address] Loren Roy NO ADDRESS ON FILE Other bursitis disorders (Primary Dx); Gout, unspecified; Pure hypercholesterolem; Unspecified essential hypertension Social History Tobacco Use Types Packs/Day Years Used Date Smoking Tobacco: Never Assessed Sex and Gender Information Value Date Recorded Sex Assigned at Not on file Legal Sex Male 3:07 AM PROTOCOL MANAGER Gender Identity Not on file Sexual Orientation Not on file documented as of this encounter Plan of Treatment Not on file documented as of this encounter Visit Diagnoses Diagnosis Other bursitis disorders- Primary Gout, unspecified Pure hypercholesterolem Pure hypercholesterolemia Unspecified essential hypertension documented in this encounter Care Teams Varnish Inspector Relationship Specialty Start Date End Date Heather Hodges DO [address] [place] [address] PCP - General Family Practice 11/20/19 documented as of this encounter
--- OUTSIDE RECORDS SUMMARY | 2025-02-14 12:56 | XMS_ITS | Encounter Summary ---
Author Organization [facility] Address [address] [place] [address] Care Team Providers Care Automotive Services Manager Name Role Phone Heather Hodges DO Primary Care Provider [phone]- [phone] Encounter Details Date Type Department Care Team (Latest Contact Info) Description 02/04/1999 Outpatient Historical [facility] Medicine [place] 104 [facility] [address] [place] [phone] Loren Roy NO ADDRESS ON FILE Gout, unspecified (Primary Dx); Pure hypercholesterolem Social History Tobacco Use Types Packs/Day Years Used Date Smoking Tobacco: Never Assessed Sex and Gender Information Value Date Recorded Sex Assigned at Not on file Legal Sex Male 3:07 AM HAND GLASS CUTTER Gender Identity Not on file Sexual Orientation Not on file documented as of this encounter Plan of Treatment Not on file documented as of this encounter Visit Diagnoses Diagnosis Gout, unspecified- Primary Pure hypercholesterolem Pure hypercholesterolemia documented in this encounter Care Teams Automotive Services Manager Relationship Specialty Start Date End Date Heather Hodges DO [address] [place] [address] PCP - General Family Practice 11/20/19 documented as of this encounter
--- OUTSIDE RECORDS SUMMARY | 2025-02-14 12:56 | XMS_ITS | Encounter Summary ---
Author Organization [facility] Address [address] [place] [address] Care Team Providers Care Associate Broker Name Role Phone Heather Hodges DO Primary Care Provider [phone] Encounter Details Date Type Department Care Team (Latest Contact Info) Description 01/12/2000 Outpatient Historical [facility] Medicine [place] 104 [facility] 60 [place] [address] Jericho Laura DO NO ADDRESS ON FILE Acute bronchitis (Primary Dx) Social History Tobacco Use Types Packs/Day Years Used Date Smoking Tobacco: Never Assessed Sex and Gender Information Value Date Recorded Sex Assigned at Not on file Legal Sex Male 3:07 AM ASSISTANT HEALTH EDUCATOR Gender Identity Not on file Sexual Orientation Not on file documented as of this encounter Plan of Treatment Not on file documented as of this encounter Visit Diagnoses Diagnosis Acute bronchitis- Primary documented in this encounter Care Teams Associate Broker Relationship Specialty Start Date End Date Heather Hodges DO [address] [place] [address] PCP - General Family Practice 11/20/19 documented as of this encounter
--- NOTE | 2025-02-14 13:08 | XRR_ITS ---
PROCEDURE INFORMATION: Exam: XR Abdomen Exam date and time: 02/14/2025 1:28 PM Age: 89 years old Clinical indication: Abdominal tenderness; Prior surgery; Surgery date: 6+ months; Surgery type: Cabg, trach/trach removal, gtube; Additional info: Hemoptysis; Abdomen pain; HX throat cancer and trach/trach removal TECHNIQUE: Imaging protocol: Radiologic exam of the abdomen. Views: 2 Views. Upright and supine views. COMPARISON: CR XR KUB [id number] 02/15/2024 12:34 PM FINDINGS: Tubes, catheters and devices: Gastrostomy tube. Lungs: Calcified pulmonary granulomata are present. No acute pulmonary pathology. Pleural spaces: No pleural effusion. Heart/Mediastinum: Cardiomediastinal contours within normal limits. Gastrointestinal tract: Moderate amount of colonic stool. No dilated bowel evident. Several non differential air-fluid levels are present in the right abdomen. Intraperitoneal space: See Gastrointestinal tract finding. Bones/joints: Broken sternotomy wires are present. Marked degenerative change of the left glenohumeral joint. Degenerative changes thoracolumbar spine. Degenerative changes of the bilateral hips. Soft tissues: Vascular calcifications noted in the soft tissues. XR/XR acute abdomen series [id number] IMPRESSION: 1. Nonspecific bowel-gas pattern without definite features of acute pathology. CT could be performed further assessment if clinically warranted. 2. Minor findings noted above.
--- NOTE | 2025-02-14 13:09 | W.ED.ABDPA2 ---
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 He has some epigastric abdominal pain that seems to be related to his coughing. He has been having normal bowel movements. reports that he has coughing episodes that seem to happen anytime she feeds him. He cannot take anything by mouth. He is unclear whether he vomited or spit up/coughed up the mucus. He does have a mild brownish-red tinge to it. No fevers. No shortness of breath. No chest pain. Related Data Home Medications ?Medication ?Instructions ?Recorded ?Confirmed allopurinol 300 mg tablet 300 mg feeding tube QAM 09/10/22 02/14/25 atorvastatin 20 mg tablet 20 mg feeding tube BEDTIME 09/10/22 02/14/25 clopidogrel 75 mg tablet 75 mg feeding tube QAM 09/10/22 02/14/25 sertraline 25 mg tablet 25 mg PO QAM 10/07/22 02/14/25 finasteride 5 mg tablet 5 mg PO QAM 10/28/22 02/14/25 famotidine 20 mg tablet 20 mg PO BID 11/08/22 02/14/25 polyethylene glycol 3350 17 gram 17 g PO BEDTIME PRN Constipation 12/01/22 02/14/25 oral powder packet (Miralax) trazodone 50 mg tablet 50 mg feeding tube BEDTIME 12/01/22 02/14/25 fluticasone propionate 50 2 spray intranasal DAILY PRN 12/13/23 02/14/25 mcg/actuation nasal allergies spray,suspension metoprolol tartrate 25 mg tablet 12.5 mg PO QAM 12/19/23 02/14/25 gabapentin 300 mg capsule 300 mg feeding tube .QPM 10/03/24 02/14/25 levothyroxine 75 mcg tablet 75 mcg PO DAILY 02/14/25 02/14/25 loratadine 10 mg tablet 10 mg PO DAILY PRN allergies 02/14/25 02/14/25 Previous Rx's ?Medication ?Instructions ?Recorded trach mask and neb kit #1 ea 12/02/22 cefdinir 250 mg/5 mL oral 300 mg (6 mL) PO BID 10 days #120 02/14/25 suspension mL Allergies Allergy/AdvReac Type Severity Reaction Status Date / Time acetaminophen (From Tylenol) Allergy Unknown ALGY-Rash Verified 02/14/25 13:02 amoxicillin Allergy Unknown ALGY-Rash Verified 02/14/25 13:02 levofloxacin Allergy Unknown ALGY-Rash Verified 02/14/25 13:02 Penicillins Allergy Unknown RASH Verified 02/14/25 13:02 Review of Systems Narrative: Constitutional symptoms: Negative except as documented in HPI. Skin symptoms: Negative except as documented in HPI. Eye symptoms: Negative except as documented in HPI. ENMT symptoms: Negative except as documented in HPI. Respiratory symptoms: Negative except as documented in HPI. Cardiovascular symptoms: Negative except as documented in HPI. Gastrointestinal symptoms: Negative except as documented in HPI. Genitourinary symptoms: Negative except as documented in HPI. Musculoskeletal symptoms: Negative except as documented in HPI. Neurologic symptoms: Negative except as documented in HPI. Psychiatric symptoms: Negative except as documented in HPI. Endocrine symptoms: Negative except as documented in HPI. PFSH ED PFSH: Medical History (Updated 02/14/25 @ 15:59 by Kathy Garcia MD) Tracheitis Acute bacterial tracheitis Acute dyspnea Leukocytosis Antineoplastic chemotherapy induced anemia Protein calorie malnutrition Secondary malignancy of lymph nodes of head, face and neck Peripheral neuropathy Gout BPH loc w urin obs/LUTS Elevated PSA Chronic prostatitis Tobacco abuse, in remission DJD (degenerative joint disease), lumbar Hyperlipidemia Essential hypertension ASHD (arteriosclerotic heart disease) AAA (abdominal aortic aneurysm) CVA (cerebral vascular accident) Palpitations Myocardial infarction Surgical History History of total right knee replacement History of laryngoscopy (07/05/22) tracheotomy and 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 Status post insertion of percutaneous endoscopic gastrostomy (PEG) tube (07/10/22) S/P CABG (coronary artery bypass graft) Family History Other CAD (coronary artery disease) Cancer Hypertension Social History (Reviewed 11/28/24 @ 13:11 by Tatiana Tapia Smoking and tobacco/nicotine status: never used tobacco/nicotine Quit status (tobacco/nicotine): has quit using Year quit tobacco: 2001 Former quit date comment: smoked x 50+ years Alcohol intake: never Substance/Drug Use: never Household members: spouse Marital status: service: No Current occupational status: retired 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 Skin: Warm, dry. Head: Normocephalic, atraumatic. Neck: Supple, trachea midline. Eye: Extraocular movements are intact. Ears, nose, mouth and throat: mucosa moist. Cardiovascular: Regular, Normal peripheral perfusion. Respiratory: Lungs are clear to auscultation, respirations are non-labored, breath sounds are equal, Symmetrical chest wall expansion. Gastrointestinal: Soft, Nontender, Non distended Musculoskeletal: Normal ROM, no deformity. Neurological: Alert and oriented, No focal neurological deficit observed. Psychiatric: Cooperative, appropriate mood & affect. Course Vital Signs: Vital signs: Vital Signs Temperature 98.3 F 02/14/25 12:56 Pulse Rate 55 L 02/14/25 15:00 Respiratory Rate 16 02/14/25 12:56 Blood Pressure 145/63 02/14/25 15:00 Pulse Oximetry 99 02/14/25 15:00 Oxygen Delivery Me thod Room Air 02/14/25 15:00 MDM - Abdominal Pain Medical Decision Making Medical decision making Patient's reason for coming to the emergency room: Coughing. Epigastric pain Social determinants: Patient is retired. Accompanied by his daughter. I reviewed the patient's medical record. 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 Bowel obstruction. Ulcers. Orders placed to evaluate differential diagnosis based on the above differential, HPI and physical exam Acute abdominal series: chest x-ray: No acute process. No obvious infiltrates. No pneumothorax. No cardiomegaly. This was reviewed and interpreted by myself the emergency room physician Abdomen x-ray: Nonspecific bowel gas pattern. No evidence of free air or obstruction. This was reviewed and interpreted by myself the emergency room physician. I also reviewed the radiology report. Lab Review: Laboratory results were reviewed and interpreted by myself the emergency room physician. No leukocytosis. No anemia. No renal failure. Reexamination: Patient remained stable. No increased work of breathing. No altered mental status. No focal motor deficits. Assessment and plan: Epigastric pain Coughing Possible mild hemoptysis Upper respiratory infection ?Rocephin here. IV Pepcid. Waiting on their home meds for his reflux symptoms. - Discharged home - Discussed plan with patient. Answered any questions. - Evaluation and treatment of this problem were appropriate in the emergency setting. Lab Data 02/14/25 13:19 02/14/25 13:19 Labs/Radiology: Radiology Impressions Chest/Abdomen X-ray 02/14/25 13:08 IMPRESSION: 1. Nonspecific bowel-gas pattern without definite features of acute pathology. CT could be performed further assessment if clinically warranted. 2. Minor findings noted above. Laboratory Results WBC 4.84 10^3/uL (3.29-11.43) 02/14/25 13:19 RBC 3.64 10^6/uL (3.85-5.65) L 02/14/25 13:19 Hgb 11.70 g/dL (11.27-16.99) 02/14/25 13:19 Hct 35.1 % (37-53) L 02/14/25 13:19 MCV 96.4 fl (82-101) 02/14/25 13:19 MCH 32.1 pg (27-33) 02/14/25 13:19 MCHC 33.3 g/dL (30-55) 02/14/25 13:19 RDW 13.8 % (12.1-15.1) 02/14/25 13:19 Plt Count 117 10^3/cmm (157-399) L 02/14/25 13:19 MPV 11.8 fL (7.4-10.4) H 02/14/25 13:19 Neut % (Auto) 78.2 % 02/14/25 13:19 Lymph % (Auto) 8.7 % 02/14/25 13:19 [place] % (Auto) 10.5 % 02/14/25 13:19 Eos % (Auto) 1.2 % 02/14/25 13:19 Baso % (Auto) 0.2 % 02/14/25 13:19 Neut # (Auto) 3.78 10^3/uL (1.8-7.7) 02/14/25 13:19 Lymph # (Auto) 0.4 10^3/uL (0.8-4.8) L 02/14/25 13:19 [place] # (Auto) 0.5 10^3/uL (0.2-0.9) 02/14/25 13:19 Eos # (Auto) 0.1 10^3/uL (0.0-0.8) 02/14/25 13:19 Baso # (Auto) 0.0 10^3/uL (0.0-0.1) 02/14/25 13:19 Nucleated RBC % (auto) 0 % 02/14/25 13:19 Nucleated RBCs # 0.0 /100WBC 02/14/25 13:19 PT 14.10 SECONDS (12.1-14.9) 02/14/25 13:19 INR 1.02 (0.8-1.2) 02/14/25 13:19 APTT 31.9 SECONDS (23.9-36.7) 02/14/25 13:19 Sodium 136 mmol/L (136-145) 02/14/25 13:19 Potassium 4.2 mmol/L (3.5-5.1) 02/14/25 13:19 Chloride 99 mmol/L (98-107) 02/14/25 13:19 Carbon Dioxide 27 mmol/L (22-29) 02/14/25 13:19 Anion Gap 14.2 (5-19) 02/14/25 13:19 BUN 24 mg/dL (8-23) H 02/14/25 13:19 Creatinine 1.1 mg/dL (0.7-1.2) 02/14/25 13:19 GFR Calculation Not Reportable 02/14/25 13:19 Glucose 98 mg/dL (65-115) 02/14/25 13:19 Calculated Osmolality 286 mOsm/kg (285-295) 02/14/25 13:19 Lactic Acid 1.2 mmol/L (0.5-2.2) 02/14/25 13:19 Calcium 9.4 mg/dL (8.5-10.5) 02/14/25 13:19 Total Bilirubin 0.4 mg/dL (0.15-1.2) 02/14/25 13:19 AST 28 U/L (0-40) 02/14/25 13:19 ALT 24 U/L (0-41) 02/14/25 13:19 Alkaline Phosphatase 100 U/L (40-130) 02/14/25 13:19 Troponin T Baseline 26 ng/L (0-15) H 02/14/25 13:19 Troponin T 60 Minute 24.00 ng/L (0-15) H 02/14/25 14:27 Delta Troponin T -2.00 ABS# (0-10) L 02/14/25 14:27 NT-Pro-B Natriuret Pep 615 pg/mL (0-450) H 02/14/25 13:19 Total Protein 6.7 g/dL (6.6-8.7) 02/14/25 13:19 Albumin 4.5 g/dL (3.5-5.2) 02/14/25 13:19 Globulin 2.2 g/dL (1.3-4.6) 02/14/25 13:19 Lipase 47 U/L (13-60) 02/14/25 13:19 Urine Color Yellow (Yellow) 02/14/25 14:30 Urine Appearance Clear (CLEAR) 02/14/25 14:30 Urine pH 8.5 (5-7) A 02/14/25 14:30 Ur Specific [place] 1.013 (1.005-1.030) 02/14/25 14:30 Urine Protein Negative (Negative) 02/14/25 14:30 Urine Glucose (UA) Negative (Normal) 02/14/25 14:30 Urine Ketones Negative (Negative) 02/14/25 14:30 Urine Blood Negative (Negative) 02/14/25 14:30 Urine Nitrate Negative (Negative) 02/14/25 14:30 Urine Bilirubin Negative (Negative) 02/14/25 14:30 Urine Urobilinogen 1.0 mg/dL (Negative) 02/14/25 14:30 Ur Leukocyte Esterase Trace (Negative) A 02/14/25 14:30 Urine RBC 0-2 /hpf (0-2) 02/14/25 14:30 Urine WBC 0-5 /hpf (0-5) 02/14/25 14:30 Ur Squamous Epith Cells 0-5 /hpf (0-5) 02/14/25 14:30 Amorphous Sediment Not Reportable 02/14/25 14:30 Urine Bacteria None seen /hpf (NONE) 02/14/25 14:30 Hyaline Casts 0.40 /lpf 02/14/25 14:30 Influenza A (PCR) Negative (Negative) 02/14/25 13:19 Influenza Type B (PCR) Negative (Negative) 02/14/25 13:19 RSV (PCR) Negative (Negative) 02/14/25 13:19 SARS-CoV-2 (PCR) Negative (Negative) 02/14/25 13:19 All radiology interpretation(s) finalized by discharge Discharge Plan Discharge Patient Disposition: Home Clinical Impression: Upper respiratory infection, Abdominal pain Condition: Stable Prescriptions: New cefdinir 250 mg/5 mL suspension for reconstitution 300 mg PO BID 10 Days Qty: 120 0RF No Action trazodone 50 mg tablet 50 mg feeding tube BEDTIME fluticasone propionate 50 mcg/actuation spray,suspension 2 spray intranasal DAILY PRN (Reason: allergies) gabapentin 300 mg capsule 300 mg feeding tube .QPM Rx Instructions: Please convert to liquid form for PEG use (DME) trach mask and neb kit See Rx Instructions .Route .MEDSUPPLY Qty: 1 0RF Rx Instructions: As directed atorvastatin 20 mg tablet 20 mg feeding tube BEDTIME clopidogrel 75 mg tablet 75 mg feeding tube QAM allopurinol 300 mg tablet 300 mg feeding tube QAM metoprolol tartrate 25 mg tablet 12.5 mg PO QAM finasteride 5 mg tablet 5 mg PO QAM famotidine 20 mg tablet 20 mg PO BID polyethylene glycol 3350 [Miralax] 17 gram powder in packet 17 g PO BEDTIME PRN (Reason: Constipation) levothyroxine 75 mcg tablet 75 mcg PO DAILY loratadine 10 mg tablet 10 mg PO DAILY PRN (Reason: allergies) sertraline 25 mg tablet 25 mg PO QAM Discharge Orders: Discharge ED (Routine); Ordered 02/14/25 Ordered By: Kathy Garcia Referrals: Heather Hodges DO [Primary Care Provider, Family Practice] Discharge Diet: Usual diet Discharge Activity: Increase activity as tolerated Patient Instructions: Abdominal Pain (ED), Opioid Safety, Pain Management, Patient Portal & [place] Instructions Activity Restrictions/Additional Instructions: Thank you for choosing [facility] for your healthcare needs today. You have been screened and evaluated and felt safe for discharge. Health conditions do change or evolve sometimes and as such it is important that you follow up with your Primary Doctor to be re checked, 3-5 days is a general good time frame for follow up. You are always welcome to return to the ED for re assessment if your symptoms are worsening or you have new concerns. (Please note that included in your discharge packet is information concerning opioid safety and pain management. This information is given to all patients who are discharged from the ER regardless of their discharge diagnosis or the medicines they usually take or are prescribed.) Print Language: Czech Coding Level of Care Code ED Client Representative for Mayra Cote
[2025-02-14 13:36] LABS: Hematocrit 35.1 % (37-53); Hemoglobin 11.70 g/dL (11.27-16.99); Mean Corpuscular HGB Conc 33.3 g/dL (30-55); Mean Corpuscular Hemoglobin 32.1 pg (27-33); Mean Corpuscular Volume 96.4 fl (82-101); Nucleated Red Blood Cells % 0 %; Platelet Count 117 10^3/cmm (157-399); Red Blood Count 3.64 10^6/uL (3.85-5.65); White Blood Count 4.84 10^3/uL (3.29-11.43)
[2025-02-14 13:42] LABS: INR 1.02 (0.8-1.2); Prothrombin Time 14.10 SECONDS (12.1-14.9)
[2025-02-14 13:43] LABS: Partial Thromboplastin Time 31.9 SECONDS (23.9-36.7)
[2025-02-14 13:49] LABS: Troponin(5th) Baseline 26 ng/L (0-15)
[2025-02-14 13:50] LABS: Lactic Sepsis W/Reflex 1.2 mmol/L (0.5-2.2)
--- NOTE | 2025-02-14 13:52 | ECG_ITS ---
[employer] Test Date: 2025-02-14 Pat Name: Jose Mcdonnell Department: Room: Gender: Male Regulatory Analyst: : 1935 Requested By: Kathy Castro Order Number: [id number] Reading MD: LUKE MORGAN Measurements Intervals [place] Rate: 58 P: 58 TN: 306 QRS: 24 QRSD: 114 T: 60 QT: 431 QTc: 426 Interpretive Statements SINUS BRADYCARDIA WITH FIRST DEGREE AV BLOCK INCOMPLETE RIGHT BUNDLE BRANCH BLOCK [90+ ms QRS DURATION, TERMINAL R IN V1/V2, 40+ ms S IN I/aVL/V4/V5/V6] INFERIOR MYOCARDIAL INFARCTION , PROBABLY OLD [40+ ms Q WAVE AND/OR ST/T ABNORMALITY IN II/aVF] ANTEROSEPTAL MYOCARDIAL INFARCTION , OF INDETERMINATE AGE [40+ ms Q WAVE IN V1-V4] Compared to ECG 02/14/2025 13:51:49 No significant changes Electronically Signed On 02-17-2025 23:26:26 NURSE CHARGE RN by LUKE MORGAN [email or web address]
[2025-02-14 13:56] VITALS: BP 150/66; PULSE 60; O2SAT 96
[2025-02-14 14:07] LABS: Respiratory Syncytial Virus Ce NEGATIVE (Negative); SARS-CoV-2 PCR NEGATIVE (Negative)
[2025-02-14 14:19] LABS: Alanine Aminotransferase 24 U/L (0-41); Albumin Level 4.5 g/dL (3.5-5.2); Alkaline Phosphatase 100 U/L (40-130); Anion Gap 14.2 (5-19); Aspartate Amino Transferase 28 U/L (0-40); Blood Urea Nitrogen 24 mg/dL (8-23); Calcium 9.4 mg/dL (8.5-10.5); Carbon Dioxide 27 mmol/L (22-29); Chloride 99 mmol/L (98-107); Globulin 2.2 g/dL (1.3-4.6); Glucose 98 mg/dL (65-115); Lipase 47 U/L (13-60); NT Pro B Type Natriuretic Pept 615 pg/mL (0-450); Osmolality Calculated 286 mOsm/kg (285-295); Potassium 4.2 mmol/L (3.5-5.1); Sodium 136 mmol/L (136-145); Total Protein 6.7 g/dL (6.6-8.7)
[2025-02-14 14:28] VITALS: BP 156/64; PULSE 59; O2SAT 100
[2025-02-14 14:37] LABS: Glucose Urine UA Negative (Normal); Nitrate Urine Negative (Negative); Specific Gravity, Urine 1.013 (1.005-1.030)
[2025-02-14 15:00] VITALS: BP 145/63; PULSE 55; O2SAT 99
[2025-02-14 15:45] VITALS: BP 139/78; PULSE 57; O2SAT 100
[2025-02-14] MEDS: cefTRIAXone 1,000 mg SDV 1000 MG IVP (16:14)
[2025-02-14] MEDS: pantoprazole 40 mg SDV 80 MG IVP (16:14)
[2025-02-14 16:15] VITALS: BP 139/78; PULSE 58; O2SAT 100
== END 2025-02-14 16:21 | disposition home or self-care (01) ==
PROVIDERS: Emergency Provider Emergency Medicine; PCP Family Medicine
DX: J06.9 Acute upper respiratory infection, unspecified (principal); R10.9 Unspecified abdominal pain; Z79.02 Long term (current) use of antithrombotics/antiplatelets; Z11.52 Encounter for screening for COVID-19; Z87.891 Personal history of nicotine dependence; E78.5 Hyperlipidemia, unspecified; I10 Essential (primary) hypertension; Z86.73 Personal history of transient ischemic attack (TIA), and cerebral infarction without residual deficits; Z85.89 Personal history of malignant neoplasm of other organs and systems; I25.10 Atherosclerotic heart disease of native coronary artery without angina pectoris
CPT/HCPCS: 36415; 74022; 80053; 81001; 83605; 83690; 83880; 84484; 85025; 85610; 85730; 87040; 87637; 93005; 96374; 96375; 99285; J0696; J2470